=== PATIENT | female | born 1970 | race Caucasian/White ===

== ENCOUNTER 2023-08-15 19:07 | Emergency (ER) | payer OTHER, SELFPAY ==
[2023-08-15 19:10] VITALS: BP 164/79
--- NOTE | 2023-08-15 20:02 | ED.GENMED ---
History of Present Illness
General
Chief Complaint: Musculo-Skeletal Complaint
Source: patient
Time Seen by Provider: 08/15/23 19:35
Travel History
Have you had any contact with someone who has COVID-19?: No
Do you have any symptoms of coronavirus? Fever > 100 degrees, chills, cough, shortness of breath, sore throat, loss of taste or smell, muscle aches, or headache?: No
History of Present Illness
History of Present Illness:
53-year-old female presenting the emergency department for evaluation of left knee pain that she states started to get severe last night but notes that she has a chronic history of left knee pain and has been seen by Ortho in the past for this.
Patient states that years ago she had Synvisc injections into her knee which did not help. She notes that she was told by Ortho that she likely needs knee replacements but admits she has been putting this off. She denies any fevers, trauma, calf
pain or tenderness or any other concerns. She takes chronic tramadol and gabapentin due to other medical issues but states this has not been helping. No other concerns.
Past History
Past History
ED Past Medical History: CAD, COPD, GERD, HTN, Hypercholesterolemia, [place], Psychiatric and Other (Interstitial lung disease, IBS, Ovarian cyst, Sarcoidosis)
ED Past Surgical History: Cardiac (Stent L circumflex), Cholecystectomy, Gynecological (Hysterectomy), Orthopedic and Other
Social History
Tobacco: Smoker
Alcohol: None
Drug: None
Personal:
Living: with family
Employment: Employed
Family History
Family History: Hypertension and CAD (father)
Review of Systems
Review of Systems
All Other Systems: ROS reviewed and negative except as documented in HPI and ROS
Phy Exam
Physical Exam
Physical Exam:
GENERAL: Alert , in no apparent distress
EYE: conjunctiva clear
Head: Normocephalic atraumatic
NECK: Supple,
ENT: mmm.
LUNGS: no acute respiratory distress
NEUROLOGICAL: Alert and oriented
SKIN: Warm and dry, skin intact.
MUSCULOSKELETAL: Left knee: No erythema, edema, ecchymosis, abrasions or lacerations. No joint effusion appreciated. Minimal range of motion secondary to pain. No focal areas of tenderness but she is diffusely tender that is most pronounced over
the patella. No calf tenderness or edema. Extremities otherwise warm and well-perfused and neurovascularly intact
PSYCH: Normal and appropriate interaction.
Scores
Heart Failure Risk
Heart Failure Risk Score: Not Applicable
Heart Score for Chest Pain Patients
STEMI patient?: Not applicable
Withdrawal Assessment of Alcohol
Withdrawal Assessment Completed?: Not applicable
Course
Orders/Labs/Results
Orders:
Orders
08/15/23 19:14
Knee, Left 4 or More Views [CR Knee - Left 4 Or More View*] Urgent
Comment:
Reason For Exam: pain, denies trauma or swelling
08/15/23 20:06
Knee Immobilizer Left-Treatmen ONCE
Oxycodone [Roxicodone] 5 mg PO NOW STA
Vital Signs
Initial and Last Documented VS:
Initial Vital Signs
Temp Pulse Resp BP Pulse Ox
98.2 F 107 20 164/79 99
08/15/23 19:10 08/15/23 19:10 08/15/23 19:10 08/15/23 19:10 08/15/23 19:10
Last Documented Vital Signs
Temp Pulse Resp BP Pulse Ox
98.2 F 107 20 164/79 99
08/15/23 19:10 08/15/23 19:10 08/15/23 19:10 08/15/23 19:10 08/15/23 19:10
MDM/Problems Addressed
Differential Diagnosis Includes:
Arthritic changes, given lack of trauma I have less concern for acute meniscal or ligamentous injury, I do not have concern for infectious etiology
MDM/Problems Addressed:
53-year-old female present emergency department for evaluation of left knee pain. Patient admits that this is chronic and has been recommended for knee replacements in the past. Patient does have significant history of chronic pain. She does take
tramadol but states this is not giving her any relief. X-ray was ordered from triage and shows degenerative changes. Encourage close follow-up with orthopedics as an outpatient. She is otherwise stable for discharge home.
*Radiology
Radiology exam reviewed: preliminary read by ED provider (Degenerative changes)
*Pulse Oximetry
Patient hypoxic: no
*Critical Care Note
Total Time (30-74mins, 75-104mins- exclusive of procedures): Not Applicable
ED Attending Note
-
Portions of this chart may have been created with voice recognition software.� Occasional wrong word or��sound alike� substitutions may have occurred due to the inherent limitations of voice recognition software.
Discharge Plan
Departure
Patient Disposition: Home (Routine Discharge)
Date of Disposition: 08/15/23
Time of Disposition: 20:02
Patient with high blood pressure during this ER visit?: Yes
Discharge Problem:
Arthralgia of knee, left
Instructions: Knee Pain (DC)
Prescriptions:
New
oxycodone 5 mg tablet
5 mg PO BID PRN (Reason: Pain) Qty: 8 0RF
No Action
zolpidem [Ambien CR] 12.5 MG tablet,ext release multiphase
12.5 mg PO HS
Patient Comments:
11/19/2020: last filled 11/09/20, 30 tabs for 30 days from [facility][id number]
aspirin 81 MG tablet,delayed release (DR/EC)
81 mg PO DAILY Qty: 0 0RF
nitroglycerin 0.4 MG tablet, sublingual
0.4 mg sublingual [id number] PRN (Reason: chest pain) Qty: 30 3RF
tramadol 50 MG tablet
100 mg PO BID Qty: 0 0RF
Patient Comments:
11/19/2020: last filled 10/22/20, 120 tabs for 20 days from [facility]#[id number]
Rx Instructions:
Please take rarely, only in rare instances of need.
levalbuterol tartrate 1 PUFF HFA aerosol inhaler
2 puff inhalation R Q6HPRN PRN (Reason: sob)
lorazepam 0.5 MG tablet
0.5 - 1 mg PO Q4HPRN PRN (Reason: anxiety)
Patient Comments:
11/19/2020: last filled 11/01/20, 90 tabs for 30 days from [facility][id number]
fluticasone furoate-vilanterol [Breo Ellipta] 1 EACH blister with device
2 puff inhalation R DAILY
diltiazem HCl 180 MG capsule,extended release 24hr
180 mg PO DAILY
insulin aspart U-100 [Novolog FlexPen U-100 Insulin] 300 UNITS/3 ML insulin pen
24 units SC DAILY@0800
Patient Comments:
BREAKFAST
atorvastatin 80 MG tablet
80 mg PO DAILY
metoprolol succinate 50 MG tablet extended release 24 hr
50 mg PO HS
lisinopril 20 MG tablet
20 mg PO DAILY
sertraline 100 MG tablet
100 mg PO HS
dicyclomine 20 MG tablet
20 mg PO BID
hyoscyamine sulfate [Levsin/SL] 0.125 MG tablet, sublingual
0.125 mg sublingual Q6HPRN PRN (Reason: IBS, gastrointestinal issue)
furosemide 20 MG tablet
20 mg PO DAILY
ondansetron [Zofran ODT] 8 MG tablet,disintegrating
8 mg PO PRN PRN (Reason: NAUSEA)
insulin detemir U-100 [Levemir FlexTouch U100 Insulin] 300 UNIT/3 ML insulin pen
56 unit SC BID
gabapentin 100 MG capsule
200 mg PO TID
insulin aspart U-100 [Novolog FlexPen U-100 Insulin] 300 UNITS/3 ML insulin pen
6 units SC HS
Patient Comments:
LATE SNACK
insulin aspart U-100 [Novolog FlexPen U-100 Insulin] 300 UNITS/3 ML insulin pen
28 units SC BID@1200,1700
Patient Comments:
LUNCH & DINNER
doxycycline hyclate 100 MG capsule
100 mg PO Q12H 7 Days Qty: 14 0RF
hydromorphone [Dilaudid] 2 MG tablet
1 mg PO Q8HPRN PRN (Reason: severe pain) 3 Days Qty: 4 0RF
lorazepam 1 MG tablet
1 mg PO Q8HPRN PRN (Reason: severe abdominal spasm) Qty: 8 0RF
Referrals:
Luis Manuel Abernathy MD [Active] - (Ortho)
Interventions
Interventions:
*Risk Screen - Suicide Last Done: 08/15/23 19:10
*General Assessment Last Done: 08/15/23 19:10
Discharge Date and Time
Print Language: YI
[2023-08-15] MEDS: ROXICODONE 5 MG PO (20:17)
== END 2023-08-15 20:50 | disposition home or self-care (01) ==
LOC: EMR 19:07
PROVIDERS: EMERGENCY PHYSICIAN Emergency Medicine; FAMILY PHYSICIAN Family Medicine
DX: M25.562 Pain in left knee (principal); G89.29 Other chronic pain; F17.200 Nicotine dependence, unspecified, uncomplicated; I10 Essential (primary) hypertension
CPT/HCPCS: 99283; 29505; 73564

== ENCOUNTER 2023-09-17 15:20 | Emergency (ER) | payer OTHER, SELFPAY ==
[2023-09-17 15:32] VITALS: BP 147/102
[2023-09-17] MEDS: ZOFRAN ODT (ORALLY DISINTEGRATING) 4 MG PO (15:36)
[2023-09-17 16:00] LABS: % Basophils 0.6 % (0-2); % Eosinophils 1.3 % (0-6); % Immature Granulocytes 0.6 % (0-0.5); % Monocytes 5.2 % (1.7-9.3); % Neutrophils 78.3 % (42.2-75.2); Absolute Basophils 0.1 10^3/uL (0-0.2); Absolute Eosinophils 0.2 10^3/uL (0-0.7); Absolute Immature Granulocytes 0.1 10^3/uL (0-0.05); Absolute Lymphocytes 2.4 10^3/uL (1.2-3.4); Absolute Monocytes 0.9 10^3/uL (0.1-0.6); Absolute Neutrophils 13.7 10^3/uL (1.4-6.5); Hematocrit 45.3 % (37.0-47.0); Mean Corp Hgb Conc. 35.3 g/dL (33.0-37.0); Mean Corpuscular Hgb 29.3 pg (27.0-31.0); Mean Corpuscular Volume 82.8 fL (81.0-99.0); Mean Platelet Volume 9.5 fL (7.4-10.4); Nucleated Red Blood Cells % 0 %; Platelet Count 494 10^3/uL (130-400); Red Blood Cell Count 5.47 10^6/uL (4.20-5.40); Red Cell Dist. Width 13.3 % (11.5-14.5); White Blood Cell Count 17.5 10^3/uL (4.8-10.8)
[2023-09-17 16:19] LABS: ALT (SGPT) 35 U/L (0-35); AST (SGOT) 34 U/L (14-36); Albumin 4.3 g/dl (3.5-5.0); Alkaline Phosphatase 186 U/L (38-126); Blood Urea Nitrogen 17 mg/dl (7-17); Calcium 9.8 mg/dl (8.4-10.2); Carbon Dioxide 27 mmol/L (22-30); Chloride 98 mmol/L (98-107); Glucose 250 mg/dl (70-99); Lipase 50 U/L (23-300); Potassium 3.9 mmol/L (3.5-5.1); Sodium 133 mmol/L (135-145); Total Bilirubin 0.9 mg/dl (0.2-1.3); Total Protein 7.1 g/dl (6.3-8.2); eGFR > 60.00
[2023-09-17 18:41] LABS: Urine Albumin Trace (Neg - Trace); Urine Bilirubin Negative (Negative); Urine Character Clear (Clear); Urine Color Yellow; Urine Glucose Negative (Negative); Urine Ketone Trace (Negative); Urine Leukocyte Trace (Negative); Urine Nitrite Negative (Negative); Urine Occult Blood Negative (Negative); Urine Specific Gravity 1.025 (<1.030); Urine Urobilinogen Negative (Neg - 1+)
[2023-09-17 18:48] LABS: Urine Bacteria Moderate (Negative); Urine Red Blood Cell 0-2 /HPF (0-2); Urine White Cell 0-2 /HPF (0-5)
[2023-09-17] MEDS: DILAUDID 1 MG IV (18:54)
[2023-09-17] MEDS: NSS 1000 IV (18:55)
[2023-09-17 19:39] VITALS: BP 129/62
--- NOTE | 2023-09-17 19:43 | ED.GENMED ---
History of Present Illness
General
Chief Complaint: Abdominal Pain
Source: patient and family
Time Seen by Provider: 09/17/23 17:56
Travel History
Have you had any contact with someone who has COVID-19?: No
Do you have any symptoms of coronavirus? Fever > 100 degrees, chills, cough, shortness of breath, sore throat, loss of taste or smell, muscle aches, or headache?: No
History of Present Illness
History of Present Illness:
53-year-old female presents with left lower quadrant abdominal pain. Symptoms began yesterday and have persisted. No diarrhea or melena. No hematochezia. Has had some nausea and vomiting. No fevers.
Past History
Past History
ED Past Medical History: CAD, COPD, GERD, HTN, Hypercholesterolemia, [place], Psychiatric and Other (Interstitial lung disease, IBS, Ovarian cyst, Sarcoidosis)
ED Past Surgical History: Cardiac (Stent L circumflex), Cholecystectomy, Gynecological (Hysterectomy), Orthopedic and Other
Social History
Tobacco: Smoker
Alcohol: None
Drug: None
Personal:
Living: with family
Employment: Employed
Family History
Family History: Hypertension and CAD (father)
Phy Exam
Physical Exam
Physical Exam:
CONSTITUTIONAL Patient alert and oriented to person, place and time. Well-appearing. Vital signs reviewed. Obese
HEAD atraumatic, normocephalic.
EYES eyelids normal to inspection, Pupils equally round and reactive to light, Extraocular muscles intact, Conjunctiva normal, Sclera normal.
NECK normal range of motion, Trachea midline, no jugular venous distention.
RESPIRATORY CHEST No respiratory distress noted, Chest expansion equal, Bilateral breath sounds clear.
CARDIOVASCULAR regular rate and rhythm, Heart sounds normal.
ABDOMEN moderate left lower quadrant tenderness.
BACK normal inspection, no obvious deformities
UPPER EXTREMITY range of motion normal, Motor strength normal, no cyanosis, no edema.
LOWER EXTREMITY range of motion normal, Motor strength normal, no cyanosis, no edema.
NEURO Speech normal, No focal motor deficits, Ale coma scale 15, Memory normal, Cranial Nerves intact to screening exam.
SKIN skin warm, dry, and normal in color.
PSYCHIATRIC patient oriented to person place and time, Normal affect.
Course
Orders/Labs/Results
Orders:
Orders
09/17/23 15:36
Ondansetron Orally Disint [Zofran Odt (Orally Disintegrating)] 4 mg .ROUTE .STK-MED ONE
Ondansetron Orally Disint [Zofran Odt (Orally Disintegrating)] 4 mg PO NOW STA
09/17/23 15:51
Complete Blood Count/With Diff Urgent
Comprehensive Metabolic Panel Urgent
Lipase Urgent
09/17/23 18:29
UA Reflex to Culture [Urinalysis Reflex To Culture] Urgent
Date Specimen was Collected: 09/17/23
Time Specimen was Collected: 18:29
Urine Microscopic Reflex Cult Urgent
Urine Culture Urgent
EMIR Source: U
Specimen Description:
Date Specimen was Collected: 09/17/23
Time Specimen was Collected: 18:29
09/17/23 18:32
CT Abd/pelvis W Iv Cont Urgent
Comment:
Reason For Exam: LLQ abd pain
09/17/23 18:46
0.9% Sodium Chloride 1000 ml [Nss] 1,000 ml IV BOLUS
HYDROmorphone [Dilaudid] 1 mg IV NOW STA
Abnormal Lab Results
09/17/23 09/17/23
15:51 18:29
WBC 17.5 H 10^3/uL
(4.8-10.8)
RBC 5.47 H 10^6/uL
(4.20-5.40)
Plt Count 494 H 10^3/uL
(130-400)
Abs Immat Gran (auto) 0.1 H 10^3/uL
(0-0.05)
Absolute Neuts (auto) 13.7 H 10^3/uL
(1.4-6.5)
Absolute Monos (auto) 0.9 H 10^3/uL
(0.1-0.6)
Immature Gran % 0.6 H %
(0-0.5)
Neutrophils % 78.3 H %
(42.2-75.2)
Lymphocytes % 14.0 L %
(20.5-51.1)
Sodium 133 L mmol/L
(135-145)
Glucose 250 H mg/dl
(70-99)
Alkaline Phosphatase 186 H U/L
(38-126)
Urine Ketones Trace A
(Negative)
Leukocyte Esterase Rfl Trace A
(Negative)
Urine Bacteria (Reflex) Moderate A
(Negative)
09/17/23 15:51
09/17/23 15:51
Vital Signs
Initial and Last Documented VS:
Initial Vital Signs
Temp Pulse Resp BP Pulse Ox
99.7 F 111 18 147/102 97
09/17/23 15:32 09/17/23 15:32 09/17/23 15:32 09/17/23 15:32 09/17/23 15:32
Last Documented Vital Signs
Temp Pulse Resp BP Pulse Ox
99.7 F 97 18 129/62 97
09/17/23 15:32 09/17/23 19:39 09/17/23 19:39 09/17/23 19:39 09/17/23 19:39
MDM/Problems Addressed
MDM/Problems Addressed:
Acute leukocytosis, abdominal pain, ovarian cyst, acute hyperglycemia
*Radiology
Radiology exam reviewed: radiology read reviewed
*Pulse Oximetry
Patient hypoxic: no
*Critical Care Note
Total Time (30-74mins, 75-104mins- exclusive of procedures): Not Applicable
Data Reviewed
Source: patient and family
Further Testing Considered But Not Given:
Consider pelvic ultrasound but no clinical suspicion for torsion at this time.
Patient Management
Escalation/DeEscalation of care consider admission/obs:
CT grossly unremarkable with exception of her cysts. She does have a leukocytosis and moderate bacteria in her urine. Given her diabetes that does appear to be not well-controlled, will cover with antibiotics. But recommended outpatient PCP
follow-up. Urine culture pending.
ED Attending Note
-
Portions of this chart may have been created with voice recognition software.� Occasional wrong word or��sound alike� substitutions may have occurred due to the inherent limitations of voice recognition software.
Discharge Plan
Departure
Patient Disposition: Home (Routine Discharge)
Date of Disposition: 09/17/23
Time of Disposition: 19:52
Patient with high blood pressure during this ER visit?: No
Discharge Problem:
Abdominal pain, Acute hyperglycemia, Ovarian cyst, Hernia, umbilical
Instructions: High Blood Sugar, Adult, Abdominal Pain
Prescriptions:
New
cefuroxime axetil 500 mg tablet
500 mg PO BID 7 Days Qty: 14 0RF
No Action
zolpidem [Ambien CR] 12.5 MG tablet,ext release multiphase
12.5 mg PO HS
Patient Comments:
11/19/2020: last filled 11/09/20, 30 tabs for 30 days from [facility]#[id number]
aspirin 81 MG tablet,delayed release (DR/EC)
81 mg PO DAILY Qty: 0 0RF
nitroglycerin 0.4 MG tablet, sublingual
0.4 mg sublingual [id number] PRN (Reason: chest pain) Qty: 30 3RF
tramadol 50 MG tablet
100 mg PO BID Qty: 0 0RF
Patient Comments:
11/19/2020: last filled 10/22/20, 120 tabs for 20 days from [facility]#[id number]
Rx Instructions:
Please take rarely, only in rare instances of need.
levalbuterol tartrate 1 PUFF HFA aerosol inhaler
2 puff inhalation R Q6HPRN PRN (Reason: sob)
lorazepam 0.5 MG tablet
0.5 - 1 mg PO Q4HPRN PRN (Reason: anxiety)
Patient Comments:
11/19/2020: last filled 11/01/20, 90 tabs for 30 days from [facility]#[id number]
fluticasone furoate-vilanterol [Breo Ellipta] 1 EACH blister with device
2 puff inhalation R DAILY
diltiazem HCl 180 MG capsule,extended release 24hr
180 mg PO DAILY
insulin aspart U-100 [Novolog FlexPen U-100 Insulin] 300 UNITS/3 ML insulin pen
24 units SC DAILY@0800
Patient Comments:
BREAKFAST
atorvastatin 80 MG tablet
80 mg PO DAILY
metoprolol succinate 50 MG tablet extended release 24 hr
50 mg PO HS
lisinopril 20 MG tablet
20 mg PO DAILY
sertraline 100 MG tablet
100 mg PO HS
dicyclomine 20 MG tablet
20 mg PO BID
hyoscyamine sulfate [Levsin/SL] 0.125 MG tablet, sublingual
0.125 mg sublingual Q6HPRN PRN (Reason: IBS, gastrointestinal issue)
furosemide 20 MG tablet
20 mg PO DAILY
ondansetron [Zofran ODT] 8 MG tablet,disintegrating
8 mg PO PRN PRN (Reason: NAUSEA)
insulin detemir U-100 [Levemir FlexTouch U100 Insulin] 300 UNIT/3 ML insulin pen
56 unit SC BID
gabapentin 100 MG capsule
200 mg PO TID
insulin aspart U-100 [Novolog FlexPen U-100 Insulin] 300 UNITS/3 ML insulin pen
6 units SC HS
Patient Comments:
LATE SNACK
insulin aspart U-100 [Novolog FlexPen U-100 Insulin] 300 UNITS/3 ML insulin pen
28 units SC BID@1200,1700
Patient Comments:
LUNCH & DINNER
doxycycline hyclate 100 MG capsule
100 mg PO Q12H 7 Days Qty: 14 0RF
hydromorphone [Dilaudid] 2 MG tablet
1 mg PO Q8HPRN PRN (Reason: severe pain) 3 Days Qty: 4 0RF
lorazepam 1 MG tablet
1 mg PO Q8HPRN PRN (Reason: severe abdominal spasm) Qty: 8 0RF
oxycodone 5 mg tablet
5 mg PO BID PRN (Reason: Pain) Qty: 8 0RF
Referrals:
Freddy Arellano DO [Family Provider] -
Activity Restrictions/Additional Instructions:
Return immediately for fevers, vomiting, worsening pain or any other concerns. Please see your doctor in the next 3 days for follow-up and reevaluation. Please drink plenty fluids and monitor your blood glucose regularly.
Interventions
Interventions:
*Risk Screen - Suicide Last Done: 09/17/23 15:32
*General Assessment Last Done: 09/17/23 15:32
*Neglect/Abuse Screening Last Done: 09/17/23 15:32
ED- Fall Risk Assessment Last Done: 09/17/23 17:57
*ED COVID-19 Vaccine History Last Done: 09/17/23 15:32
BY-Komqkf-Llaoorwler Assessment Last Done: 09/17/23 17:57
Discharge Date and Time
Print Language: [place] LEONE[place]
[2023-09-17] MEDS: TORADOL 30 MG IV (20:07)
== END 2023-09-17 20:17 | disposition home or self-care (01) ==
LOC: EMR 15:20
PROVIDERS: EMERGENCY PHYSICIAN Emergency Medicine; FAMILY PHYSICIAN Family Medicine
DX: R10.32 Left lower quadrant pain (principal); R73.9 Hyperglycemia, unspecified; N83.201 Unspecified ovarian cyst, right side; N83.202 Unspecified ovarian cyst, left side; K42.9 Umbilical hernia without obstruction or gangrene; F17.200 Nicotine dependence, unspecified, uncomplicated
CPT/HCPCS: 99285; 96374; 96375; 96361; 74177; 80053; 81003; 81015; 83690; 85025; 87086; Q9967

== ENCOUNTER → 2023-09-26 12:02 | Outpatient (REF) | payer OTHER, SELFPAY ==
[2023-09-26 16:04] LABS: % Basophils 0.8 % (0-2); % Eosinophils 1.8 % (0-6); % Immature Granulocytes 0.5 % (0-0.5); % Monocytes 4.4 % (1.7-9.3); % Neutrophils 71.5 % (42.2-75.2); Absolute Basophils 0.1 10^3/uL (0-0.2); Absolute Eosinophils 0.2 10^3/uL (0-0.7); Absolute Immature Granulocytes 0.1 10^3/uL (0-0.05); Absolute Lymphocytes 2.3 10^3/uL (1.2-3.4); Absolute Monocytes 0.5 10^3/uL (0.1-0.6); Absolute Neutrophils 7.8 10^3/uL (1.4-6.5); Hematocrit 44.1 % (37.0-47.0); Hemoglobin 14.9 g/dL (12.0-16.0); Mean Corp Hgb Conc. 33.8 g/dL (33.0-37.0); Mean Corpuscular Hgb 29.4 pg (27.0-31.0); Mean Platelet Volume 10.8 fL (7.4-10.4); Nucleated Red Blood Cells % 0 %; Platelet Count 416 10^3/uL (130-400); Red Blood Cell Count 5.07 10^6/uL (4.20-5.40); Red Cell Dist. Width 13.2 % (11.5-14.5); White Blood Cell Count 10.9 10^3/uL (4.8-10.8)
[2023-09-26 16:14] LABS: ALT (SGPT) 28 U/L (0-35); AST (SGOT) 20 U/L (14-36); Alkaline Phosphatase 162 U/L (38-126); Blood Urea Nitrogen 11 mg/dl (7-17); Calcium 9.5 mg/dl (8.4-10.2); Carbon Dioxide 29 mmol/L (22-30); Chloride 96 mmol/L (98-107); Glucose 277 mg/dl (70-99); HDL Cholesterol 28 mg/dl; LDL Cholesterol, Calculated 50 mg/dl; Potassium 4.5 mmol/L (3.5-5.1); Sodium 134 mmol/L (135-145); Total Bilirubin 0.6 mg/dl (0.2-1.3); Total Cholesterol 107 mg/dl (50-199); Total Protein 6.6 g/dl (6.3-8.2); Triglyceride 145 mg/dl (10-149); Very Low Density Lipoprotein 29 mg/dl (0-30); eGFR > 60.00
[2023-09-26 16:35] LABS: Microalbumin, Random Urine < 0.6 mg/dl (0.6-1.7)
[2023-09-26 16:44] LABS: TSH 2.57 uIU/ml (0.47-4.68)
[2023-09-27 10:25] LABS: Glycohemoglobin (HgbA1c) 11.5 % (4.0-5.6)
== END ==
LOC: HWLAB 12:02
PROVIDERS: ATTENDING PHYSICIAN Family Medicine
DX: G90.522 Complex regional pain syndrome I of left lower limb (principal); E03.9 Hypothyroidism, unspecified; R53.83 Other fatigue; I10 Essential (primary) hypertension; E78.5 Hyperlipidemia, unspecified; E11.9 Type 2 diabetes mellitus without complications
CPT/HCPCS: 36415; 80053; 80061; 82043; 82570; 83036; 84443; 85025

== ENCOUNTER → 2023-11-12 13:33 | Outpatient (REF) | payer OTHER, SELFPAY | LOC: HWWDC 13:33 | PROVIDERS: ATTENDING PHYSICIAN Family Medicine | DX: Z12.31 Encounter for screening mammogram for malignant neoplasm of breast (principal) | CPT/HCPCS: 77063; 77067 ==

== ENCOUNTER 2023-12-08 19:34 | Inpatient (IN) | payer OTHER, SELFPAY ==
[2023-12-08] VITALS (7 sets, daily range): BP systolic 113–173; BP diastolic 58–92; BMI 51.3; BMI 50.0
[2023-12-08 13:01] LABS: Urine Albumin Negative (Neg - Trace); Urine Bilirubin Negative (Negative); Urine Character Clear (Clear); Urine Color Yellow; Urine Glucose Trace (Negative); Urine Ketone Negative (Negative); Urine Leukocyte Negative (Negative); Urine Nitrite Negative (Negative); Urine Occult Blood Negative (Negative); Urine Specific Gravity 1.015 (<1.030); Urine Urobilinogen Negative (Neg - 1+)
[2023-12-08] MEDS: DILAUDID 1 MG IV ×5 (14:01→23:57)
[2023-12-08] MEDS: OMNIPAQUE 50 ML PO (14:01)
[2023-12-08 14:11] LABS: % Basophils 0.2 % (0-2); % Immature Granulocytes 0.9 % (0-0.5); % Lymphocytes 9.3 % (20.5-51.1); % Monocytes 3.5 % (1.7-9.3); % Neutrophils 86.1 % (42.2-75.2); Absolute Immature Granulocytes 0.2 10^3/uL (0-0.05); Absolute Lymphocytes 1.8 10^3/uL (1.2-3.4); Absolute Monocytes 0.7 10^3/uL (0.1-0.6); Absolute Neutrophils 16.9 10^3/uL (1.4-6.5); Hematocrit 40.2 % (37.0-47.0); Hemoglobin 14.1 g/dL (12.0-16.0); Mean Corp Hgb Conc. 35.1 g/dL (33.0-37.0); Mean Corpuscular Hgb 28.7 pg (27.0-31.0); Mean Corpuscular Volume 81.9 fL (81.0-99.0); Mean Platelet Volume 9.5 fL (7.4-10.4); Nucleated Red Blood Cells % 0 %; Platelet Count 515 10^3/uL (130-400); Red Blood Cell Count 4.91 10^6/uL (4.20-5.40); Red Cell Dist. Width 13.5 % (11.5-14.5); White Blood Cell Count 19.6 10^3/uL (4.8-10.8)
[2023-12-08 14:50] LABS: ALT (SGPT) 19 U/L (0-35); AST (SGOT) 15 U/L (14-36); Albumin 4.3 g/dl (3.5-5.0); Alkaline Phosphatase 137 U/L (38-126); Blood Urea Nitrogen 16 mg/dl (7-17); Calcium 9.4 mg/dl (8.4-10.2); Carbon Dioxide 25 mmol/L (22-30); Chloride 98 mmol/L (98-107); Glucose 313 mg/dl (70-99); Lipase 28 U/L (23-300); Potassium 4.3 mmol/L (3.5-5.1); Sodium 134 mmol/L (135-145); Total Bilirubin 0.4 mg/dl (0.2-1.3); Total Protein 6.7 g/dl (6.3-8.2); eGFR > 60.00
--- NOTE | 2023-12-08 16:03 | ED.GENMED ---
History of Present Illness
General
Chief Complaint: Abdominal Pain
Source: patient
Time Seen by Provider: 12/08/23 13:25
History of Present Illness
History of Present Illness:
53yoF with a history of coronary artery disease, hypertension, hyperlipidemia, type 2 diabetes, and obesity presenting with her mother for evaluation of abdominal pain. Symptoms began around 5 AM this morning and woke her up from sleep. She
reports pain primarily in her right lower and suprapubic region. She describes severe pressure in the area as well as burning. She is experiencing nausea but denies any vomiting. She has a known hernia in her RLQ for many years which has seemed to
get bigger over the past few weeks. She was able to have a very small BM earlier today. She denies any fevers, dysuria, chest pain, shortness of breath. Previous abdominal surgeries include a hysterectomy and cholecystectomy.
Past History
Past History
ED Past Medical History: CAD, COPD, GERD, HTN, Hypercholesterolemia, [place], Psychiatric and Other (Interstitial lung disease, IBS, Ovarian cyst, Sarcoidosis)
ED Past Surgical History: Cardiac (Stent L circumflex), Cholecystectomy, Gynecological (Hysterectomy), Orthopedic and Other
Social History
Tobacco: Smoker
Alcohol: None
Drug: None
Personal:
Living: with family
Employment: Employed
Family History
Family History: Hypertension and CAD (father)
Phy Exam
General Physical Exam
General Presentation: mild distress
General age: appears stated age
General Skin: warm and dry
General Habitus: normal
General Mental: alert
Cardiovascular Exam
Cardiovascular Exam: regular rate/rhythm and no murmur
Pulmonary Exam
Pulmonary Exam: lungs clear, no respiratory distress, no crackles and no wheezing
Gastrointestinal Exam
Gastrointestinal Exam: soft, non distended and other (Obese abdomen. Large palpable umbilical hernia present that is tender to touch. No overlying skin changes. )
Course
Orders/Labs/Results
Orders:
Orders
12/08/23 12:46
Urinalysis Reflex To Culture Urgent
Date Specimen was Collected: 12/08/23
Time Specimen was Collected: 12:40
12/08/23 13:39
CT Abd/pel W Iv And Oral Contr Urgent
Comment:
Reason For Exam: RLQ pain, known hernia
HYDROmorphone [Dilaudid] 1 mg IV NOW STA
Iohexol [Omnipaque] See Protocol PO NOW STA
12/08/23 13:56
Complete Blood Count/With Diff Urgent
Comprehensive Metabolic Panel Urgent
Lipase Urgent
12/08/23 15:54
HYDROmorphone [Dilaudid] 1 mg IV NOW STA
12/08/23 17:03
ECG [Electrocardiogram (*1)] Urgent
Reason for Study: Chest Pain
EKG- Treatment ONCE
12/08/23 17:38
HYDROmorphone [Dilaudid] 1 mg IV NOW STA
12/08/23 18:11
CefTRIAXone [Rocephin] 2,000 mg IV NOW STA
12/08/23 18:20
MetroNIDAZOLE 500 MG/100 ML [Flagyl 500 mg] 100 ml IV NOW
Abnormal Lab Results
12/08/23 12/08/23
12:46 13:56
WBC 19.6 H 10^3/uL
(4.8-10.8)
Plt Count 515 H 10^3/uL
(130-400)
Abs Immat Gran (auto) 0.2 H 10^3/uL
(0-0.05)
Absolute Neuts (auto) 16.9 H 10^3/uL
(1.4-6.5)
Absolute Monos (auto) 0.7 H 10^3/uL
(0.1-0.6)
Immature Gran % 0.9 H %
(0-0.5)
Neutrophils % 86.1 H %
(42.2-75.2)
Lymphocytes % 9.3 L %
(20.5-51.1)
Sodium 134 L mmol/L
(135-145)
Glucose 313 H mg/dl
(70-99)
Alkaline Phosphatase 137 H U/L
(38-126)
Urine Glucose Trace A
(Negative)
12/08/23 13:56
12/08/23 13:56
Vital Signs
Initial and Last Documented VS:
Initial Vital Signs
Temp Pulse Resp BP Pulse Ox
98.3 F 86 18 173/92 96
12/08/23 12:37 12/08/23 12:37 12/08/23 12:37 12/08/23 12:37 12/08/23 12:37
Last Documented Vital Signs
Temp Pulse Resp BP Pulse Ox
98.3 F 86 20 137/78 94
12/08/23 12:37 12/08/23 18:00 12/08/23 18:00 12/08/23 18:00 12/08/23 18:00
MDM/Problems Addressed
Differential Diagnosis Includes:
53yoF here with abdominal pain. Woke her up from sleep this morning. C/o nausea. Hx of umbilical hernia. Patient is hypertensive with otherwise normal vital signs. She appears uncomfortable but is nontoxic. There is a palpable umbilical hernia
present on exam that is tender to touch. No skin changes. Differential diagnosis includes but is not limited to: Umbilical hernia, bowel obstruction, appendicitis, kidney stone, nonspecific abdominal pain
Initial ED plan: Check abdominal labs, UA, and CT abdomen. IV Dilaudid for pain.
*Critical Care Note
Total Time (30-74mins, 75-104mins- exclusive of procedures): Not Applicable
Update Note
Update Note:
Labs reveal a leukocytosis with a white count of 19.6. Glucose 313. Bicarb and anion gap normal. No signs of infection on UA. CT abdomen shows a 10 cm umbilical hernia containing a loop of transverse colon with at least a partial obstruction.
Attempted to reduce hernia at bedside which was unsuccessful. Case was discussed with general surgery, Dr. Salas. Surgery recommending admission with plan for surgery tomorrow. Antibiotics ordered per surgery request. She was admitted for further
management.
ED Attending Note
-
Portions of this chart may have been created with voice recognition software.� Occasional wrong word or��sound alike� substitutions may have occurred due to the inherent limitations of voice recognition software.
Discharge Plan
Departure
Patient Disposition: Admit
Date of Disposition: 12/08/23
Time of Disposition: 18:21
Presentation/result/management discussed w/ accepting MD/DO: Hospitalist
Discharge Problem:
Umbilical hernia with obstruction
Prescriptions:
No Action
zolpidem [Ambien CR] 12.5 MG tablet,ext release multiphase
12.5 mg PO HS
Patient Comments:
11/19/2020: last filled 11/09/20, 30 tabs for 30 days from [facility]#[id number]
aspirin 81 MG tablet,delayed release (DR/EC)
81 mg PO DAILY Qty: 0 0RF
nitroglycerin 0.4 MG tablet, sublingual
0.4 mg sublingual [id number] PRN (Reason: chest pain) Qty: 30 3RF
levalbuterol tartrate 1 PUFF HFA aerosol inhaler
2 puff inhalation R Q6HPRN PRN (Reason: sob)
lorazepam 0.5 MG tablet
0.5 - 1 mg PO Q4HPRN PRN (Reason: anxiety)
Patient Comments:
11/19/2020: last filled 11/01/20, 90 tabs for 30 days from [facility]#[id number]
fluticasone furoate-vilanterol [Breo Ellipta] 1 EACH blister with device
2 puff inhalation R DAILY
diltiazem HCl 180 MG capsule,extended release 24hr
180 mg PO DAILY
insulin aspart U-100 [Novolog FlexPen U-100 Insulin] 300 UNITS/3 ML insulin pen
24 units SC DAILY@0800
Patient Comments:
BREAKFAST
atorvastatin 80 MG tablet
80 mg PO DAILY
metoprolol succinate 50 MG tablet extended release 24 hr
50 mg PO HS
lisinopril 20 MG tablet
20 mg PO DAILY
sertraline 100 MG tablet
100 mg PO HS
dicyclomine 20 MG tablet
20 mg PO BID
hyoscyamine sulfate [Levsin/SL] 0.125 MG tablet, sublingual
0.125 mg sublingual Q6HPRN PRN (Reason: IBS, gastrointestinal issue)
furosemide 20 MG tablet
20 mg PO DAILY
insulin detemir U-100 [Levemir FlexTouch U100 Insulin] 300 UNIT/3 ML insulin pen
56 unit SC BID
gabapentin 100 MG capsule
200 mg PO TID
insulin aspart U-100 [Novolog FlexPen U-100 Insulin] 300 UNITS/3 ML insulin pen
6 units SC HS
Patient Comments:
LATE SNACK
insulin aspart U-100 [Novolog FlexPen U-100 Insulin] 300 UNITS/3 ML insulin pen
28 units SC BID@1200,1700
Patient Comments:
LUNCH & DINNER
lorazepam 1 MG tablet
1 mg PO Q8HPRN PRN (Reason: severe abdominal spasm) Qty: 8 0RF
Referrals:
Freddy Arellano DO [Family Provider] -
Interventions
Interventions:
*Risk Screen - Suicide Last Done: 12/08/23 12:37
*General Assessment Last Done: 12/08/23 12:37
*Neglect/Abuse Screening Last Done: 12/08/23 12:37
ED- Fall Risk Assessment Last Done: 12/08/23 14:22
*ED COVID-19 Vaccine History Last Done: 12/08/23 14:22
AE-Rswytq-Bhfftmoxni Assessment Last Done: 12/08/23 14:22
Discharge Date and Time
Print Language: AMERICAN
--- NOTE | 2023-12-08 18:32 | HPS.HSE ---
Family Physician
-
Family Physician: Freddy Arellano
Chief Complaint
-
Abdominal pain
History of Present Illness
This is a 53-year-old female was past medical history significant for insulin-dependent diabetes, hypertension, hyperlipidemia, orthostatic hypotension, CAD s/p stenting, morbid obesity, interstitial lung disease, and a longstanding umbilical hernia
who presents to the emergency department with acute onset of lower abdominal pain within the last 24 hours.
Patient reported that she started having pain at around 5 AM today last meal was 11 PM yesterday. She reports nausea but denies any vomiting. She denies any abdominal bloating. She denies having any diarrhea. She has not had any fevers or
chills. Patient denies any melena or hematochezia. The pain is nonradiating. She denies any flank pain or groin pain. She denies any dysuria or hematuria.
She is known to have a rather large umbilical hernia that came to the imaging department for evaluation.
On arrival in the emergency department patient was afebrile and hemodynamically stable. White count was elevated at 19,000, hemoglobin and platelet counts are within normal limits. Chemistries within normal limits without any anion gap. Glucose
was elevated at 313. A CT scan shows a 10 cm umbilical hernia containing loops of transverse colon partial obstruction.
Medical History
Past Medical History
Past Medical History: Reports COPD, GERD, HTN, Hypercholesterolemia and IDDM
Additional Past Medical History:
ILD
IBS
Chronic pain
Past Surgical History: Reports None
Social History
Tobacco: Non-smoker
Alcohol: None
Drug: None
Living: With Family
Employment: Employed
Family History
Family History: Not pertinent
Allergies / Home Medications
Allergies reflects when Allergies were last updated in [facility].
Home Medications with original date entered in [facility]
Allergy/Medication List:
Allergies
Allergy/AdvReac Type Severity Reaction Status Date / Time
oxycodone [From Percocet] Allergy 'breathing Verified 08/15/23 19:13
issues'
Home Medications
zolpidem 12.5 mg tablet,extended release,multiphase (Ambien CR) 12.5 mg PO HS Sleep 11/21/14
aspirin 81 mg tablet,delayed release 81 mg PO DAILY ##0 11/24/14
nitroglycerin 0.4 mg sublingual tablet 0.4 mg sublingual [id number] PRN chest pain #30 tabs 11/24/14
levalbuterol tartrate 45 mcg/actuation aerosol inhaler 2 puff inhalation R Q6HPRN PRN sob 01/31/17
lorazepam 0.5 mg tablet 0.5 - 1 mg PO Q4HPRN PRN anxiety 10/05/17
diltiazem HCl 180 mg capsule,extended release 24 hr 180 mg PO DAILY Heart disease/condition 10/05/20
fluticasone furoate 100 mcg-vilanterol 25 mcg/dose inhalation powder (Breo Ellipta) 2 puff inhalation R DAILY Lung/breathing issues 10/05/20
atorvastatin 80 mg tablet 80 mg PO DAILY High cholesterol 10/29/20
dicyclomine 20 mg tablet 20 mg PO BID Gastrointestinal issue 10/29/20
furosemide 20 mg tablet 20 mg PO DAILY Fluid retention/Swelling 10/29/20
hyoscyamine sulfate 0.125 mg sublingual tablet (Levsin/SL) 0.125 mg sublingual Q6HPRN PRN IBS, gastrointestinal issue 10/29/20
insulin aspart U-100 100 unit/mL (3 mL) subcutaneous pen (Novolog FlexPen U-100 Insulin aspart) 24 units SC DAILY@0800 Diabetes 10/29/20
lisinopril 20 mg tablet 20 mg PO DAILY Blood pressure 10/29/20
metoprolol succinate 50 mg tablet,extended release 24 hr 50 mg PO HS Blood pressure 10/29/20
sertraline 100 mg tablet 100 mg PO HS Mental Health/Anxiety 10/29/20
gabapentin 100 mg capsule 200 mg PO TID Pain 11/19/20
insulin aspart U-100 100 unit/mL (3 mL) subcutaneous pen (Novolog FlexPen U-100 Insulin aspart) 6 units SC HS Diabetes 11/19/20
insulin aspart U-100 100 unit/mL (3 mL) subcutaneous pen (Novolog FlexPen U-100 Insulin aspart) 28 units SC BID@1200,1700 Diabetes 11/19/20
insulin detemir U-100 100 unit/mL (3 mL) subcutaneous pen (Levemir FlexTouch U-100 Insulin) 56 unit SC BID Diabetes 11/19/20
lorazepam 1 mg tablet 1 mg PO Q8HPRN PRN severe abdominal spasm #8 tabs 10/25/21
Review of Systems
-
History Source: Patient
Constitutional: Reports No Symptoms
EENT: Reports No Symptoms
Respiratory: Reports No Symptoms
Cardiac: Reports No Symptoms
Abdomen/GI: Reports Abdominal Pain and Nausea
: Reports No Symptoms
Musculoskeletal: Reports No Symptoms
Skin: Reports No Symptoms
Neurological: Reports No Symptoms
Endocrine: Reports No Symptoms
Hematologic/Lymphatic: Reports No Symptoms
Psych: Reports No Symptoms
Physical Exam
Vital Signs
Vital Signs
Temp Pulse Resp BP Pulse Ox
98.3 F 86 20 137/78 94
12/08/23 12:37 12/08/23 18:00 12/08/23 18:00 12/08/23 18:00 12/08/23 18:00
Physical Exam
General: Well Developed, Appears in Distress and Morbidly Obese
HEENT: NormoCephalic, Anicteric, Moist mucous membranes, Atraumatic and PERRLA
Respiratory: Clear
Cardiac: S1/S2 and Regular Rhythm
Breast: Deferred by me
GI: Soft, Non Tender and Tender
Rectal: Deferred by Provider
Genito-urinary: Deferred by me
Musculoskeletal: No Clubbing, No Cyanosis and No Edema
Skin: Warm
Neuro: AO x 3
Hematologic/Lymphatic: No Lymphadenopathy
Psych: Calm
Laboratory Results
-
12/08/23 13:56
12/08/23 13:56
Laboratory Results
Total Bilirubin 0.4 mg/dl (0.2-1.3) 12/08/23 13:56
AST 15 U/L (14-36) 12/08/23 13:56
ALT 19 U/L (0-35) 12/08/23 13:56
Alkaline Phosphatase 137 U/L (38-126) H 12/08/23 13:56
Lipase 28 U/L (23-300) 12/08/23 13:56
Data Reviewed
-
CT Scan: Image Personally Visualized and interpreted
Lab Data: Labs Reviewed by me
Old Records: Reviewed
Impression/Plan
-
IMPRESSION:
PLAN:
1. Abdominal pain - Possibly trapped/inaceration of large 10cm umbilical hernia containing loops of transverse colon and complicated by partial obstruction. No vomiting. No abdominal distension.
- admit to [facility]
- given leukocytosis -> will treat for possible intraabdominal infection with IV zosyn
- surgery aware and plans for OR tomorrow
- NPO, pain control and antiemetics for now
2. DM 2 - Poorly controlled blood glucose of > 300. No DKA. Recent steroid injection with nerve block. Patient on lantus, novolog, ozempic and metformin at home.
- hold metformin x 48 hrs and hold lantus while NPO
- moderate sliding scale insulin
- hydration with LR for now
3.Med REc - Minimizing oral meds but will continue, fludrocortisone, gabapentin, sertraline. Start antihypertensives with hold parameters (holding prior to surgery in am) after surgery. Aspirin, statim and ezetimibe after surgery
DVT PPX - lovenox sq
Full Code
[2023-12-08] MEDS: ZOSYN 50 IV (19:59)
[2023-12-08] MEDS: LR 1000 IV (21:31)
[2023-12-08] MEDS: ZOLOFT 100 MG PO (21:33)
[2023-12-08] MEDS: FLEXERIL 10 MG PO (21:33)
[2023-12-08] MEDS: NEURONTIN 300 MG PO (21:33)
--- NOTE | 2023-12-08 22:40 | PTCARENOTE ---
Patient admitted to unit around 2044 via stretcher with dx large bowel obstruction and umbilical hernia. AAAOX3 pleasant and cooperative with care. No signs of distress noted. Bowel sounds hypo active. Call bliss within reach. Oriented to unit.
[2023-12-08 23:54] LABS: Glucose - Point of Care 230 mg/dl (70-99)
[2023-12-08] MEDS: NOVOLOG FLEXPEN-MODERATE RESISTANCE 3 UNITS SC (23:56)
[2023-12-09] VITALS (15 sets, daily range): BP systolic 132–167; BP diastolic 68–89
[2023-12-09] MEDS: ZOSYN 50 IV ×4 (02:08→19:34)
[2023-12-09] MEDS: DILAUDID 1 MG IV ×5 (04:01→23:21)
[2023-12-09] MEDS: NOVOLOG FLEXPEN-MODERATE RESISTANCE 3 UNITS SC ×2 (05:47→16:25)
[2023-12-09 05:48] LABS: Glucose - Point of Care 217 mg/dl (70-99)
--- NOTE | 2023-12-09 07:44 | CON.CRS ---
Consultation
-
Date/Time Consultation Requested: 12/08/23 @20:53
Date/Time Consultation Performed: 12/09/23 @6:30
Requesting Provider: Keith Sellers MD
Performing Provider: Peyman Salas MD
Reason for Consultation: Incarcerated ventral hernia
Medical History
-
Chief Complaint: Abdominal pain
History of Present Illness:
53-year-old female with multiple medical problems including insulin-dependent diabetes, coronary artery disease status post stenting, morbid obesity, hypertension, hyperlipidemia, COPD, and a chronic umbilical hernia. She developed the acute onset
of abdominal pain just below and to the right of the hernia yesterday morning. She denies any vomiting but has had some nausea. She also denies any abdominal distention, fevers or chills. Her last bowel movement was yesterday and she states she
is not passing any flatus. She has undergone a transvaginal hysterectomy and a laparoscopic cholecystectomy in the past.
Since her arrival she has remained afebrile with normal vital signs. Her white count was 19.6 and electrolytes are normal and her glucose was 313. On exam she has tenderness just below the umbilicus and a nonreducible hernia. A CT scan of the
abdomen and pelvis with contrast reveals a 10 cm umbilical hernia containing a loop of transverse colon. There is a partial obstruction at the level hernia with a large amount of feces proximal to the hernia. There is no edema or bowel wall
thickening. There is also a 9 cm multicystic mass in the pelvis most likely due to ovarian cysts.
Past Medical History
Past Medical History: CAD (Stenting 2014), COPD, HTN, IDDM and Other (Orthostatic hypotension, morbid obesity, sarcoidosis, chronic left foot pain)
Past Surgical History: Cholecystectomy (Laparoscopic 2011), Gynecological (Transvaginal hysterectomy) and Other
Social History
Tobacco: Non-Smoker
Alcohol: None
Living: With Family
Family History
Family History: Reviewed & Not Pertinent
Allergies / Home Medications
Allergy/AdvReac Type Severity Reaction Status Date / Time
oxycodone [From Percocet] Allergy 'breathing Verified 08/15/23 19:13
issues'
�Medication �Instructions �Recorded �Confirmed �Type
zolpidem 12.5 mg tablet,extended 12.5 mg PO HS Sleep 11/21/14 12/08/23 History
release,multiphase (Ambien CR)
aspirin 81 mg tablet,delayed 81 mg PO DAILY ##0 11/24/14 12/08/23 Rx
release
nitroglycerin 0.4 mg sublingual 0.4 mg sublingual [id number] PRN 11/24/14 12/08/23 Rx
tablet chest pain #30 tabs
levalbuterol tartrate 45 2 puff inhalation R Q6HPRN PRN sob 01/31/17 12/08/23 History
mcg/actuation aerosol inhaler
atorvastatin 80 mg tablet 80 mg PO QPM High cholesterol 10/29/20 12/08/23 History
dicyclomine 20 mg tablet 20 mg PO BID Gastrointestinal issue 10/29/20 12/08/23 History
furosemide 20 mg tablet 40 mg PO DAILY Fluid 10/29/20 12/08/23 History
retention/Swelling
hyoscyamine sulfate 0.125 mg 0.125 mg sublingual Q6HPRN PRN 10/29/20 12/08/23 History
sublingual tablet (Levsin/SL) IBS, gastrointestinal issue
insulin aspart U-100 100 unit/mL 26 units SC AC Diabetes 10/29/20 12/08/23 History
(3 mL) subcutaneous pen (Novolog
FlexPen U-100 Insulin aspart)
metoprolol succinate 50 mg 50 mg PO HS Blood pressure 10/29/20 12/08/23 History
tablet,extended release 24 hr
sertraline 100 mg tablet 100 mg PO HS Mental Health/Anxiety 10/29/20 12/08/23 History
Medical Marijuana 2 gummy PO HSPRN PRN sleep 12/08/23 12/08/23 History
cholecalciferol (vitamin D3) 125 125 mcg PO DAILY 12/08/23 12/08/23 History
mcg (5,000 unit) tablet
cyclobenzaprine 10 mg tablet 10 mg PO BID 12/08/23 12/08/23 History
ezetimibe 10 mg tablet (Zetia) 10 mg PO HS 12/08/23 12/08/23 History
fludrocortisone 0.1 mg tablet 0.1 mg PO DAILY 12/08/23 12/08/23 History
gabapentin 300 mg capsule 300 mg PO TID 12/08/23 12/08/23 History
glucagon 3 mg/actuation nasal 3 mg intranasal DAILYPRN PRN high 12/08/23 12/08/23 History
spray (Baqsimi) sugar
icosapent ethyl 1 gram capsule 1 g PO BID 12/08/23 12/08/23 History
(Vascepa)
insulin glargine 100 unit/mL 40 unit SC BID 12/08/23 12/08/23 History
subcutaneous solution (Lantus
U-100 Insulin)
lisinopril 5 mg tablet 5 mg PO DAILY 12/08/23 12/08/23 History
metformin 500 mg tablet,extended 1,000 mg PO QPM 12/08/23 12/08/23 History
release 24hr (osmotic)
potassium chloride 10 mEq 10 meq PO DAILY 12/08/23 12/08/23 History
tablet,extended release
semaglutide 0.25 mg or 0.5 mg (2 0.25 mg SC [place] 12/08/23 12/08/23 History
mg/1.5 mL) subcutaneous pen
injector (Ozempic)
tramadol 50 mg tablet 50 mg PO BID 12/08/23 12/08/23 History
Review of Systems
-
History Source: Patient
All other systems: Negative unless noted
A 10 point review of systems was completed, and was negative except as per HPI.
Physical Exam
Vital Signs
Temp 98.4 F 12/08/23 23:20
Pulse 75 12/08/23 23:20
Resp Rate 18 12/08/23 23:20
Blood pressure 113/58 12/08/23 23:20
SaO2 95 12/08/23 23:20
12/08/23 12/09/23 12/10/23
06:59 06:59 06:59
Actual Weight 123.944 kg
Body Mass Index (BMI) 50.0
Lab Results / Allergies
WBC 19.6 10^3/uL (4.8-10.8) H 12/08/23 13:56
Hgb 14.1 g/dL (12.0-16.0) 12/08/23 13:56
Hct 40.2 % (37.0-47.0) 12/08/23 13:56
Plt Count 515 10^3/uL (130-400) H 12/08/23 13:56
Abs Immat Gran (auto) 0.2 10^3/uL (0-0.05) H 12/08/23 13:56
Neutrophils % 86.1 % (42.2-75.2) H 12/08/23 13:56
Allergy/AdvReac Type Severity Reaction Status Date / Time
oxycodone [From Percocet] Allergy 'breathing Verified 08/15/23 19:13
issues'
Physical Exam
General: Well Developed, Well Nourished and No Apparent Distress
HEENT: Anicteric
Respiratory: Clear
Cardiac: Regular Rhythm
GI: Soft and Tender (Just below and to the right of the umbilicus. There are no overlying skin changes and I am unable to reduce the hernia)
Musculoskeletal: No Edema
Neuro: Awake and Alert
Data Reviewed
-
CT Scan: Image Personally Visualized and interpreted, Report Reviewed by me and Discussed with Patient
Labs: Labs Reviewed by me and Discussed with Patient
Assessment / Plan
-
Incarcerated umbilical hernia involving a portion of the transverse colon resulting in a partial obstruction. There is no evidence of strangulation.
I reviewed the current findings and treatment options including nonoperative management versus surgery. Without surgery there is a risk of progression of the obstruction and perforation. Risks of surgery include, but are not limited to, bleeding,
infection, adhesions, recurrent hernia, mesh infection if mesh is used, anastomotic leak if a resection is performed, possible need for a stoma, injury to other structures, DVT, cardiopulmonary complications, and even . I explained that her
risks of surgery are high given her multiple comorbidities. We discussed the various surgical options including open surgery versus minimally invasive surgery and due to the incarcerated nature of the hernia, I recommended an open repair. Mesh
might be used depending upon the operative findings. Postoperatively she might need to be managed in our stepdown unit or possibly in the ICU depending upon the operative findings. She is also on Ozempic which puts her at high risk for aspiration.
All questions answered and she wishes to proceed. Arrangements are in progress with the operating room.
[2023-12-09] MEDS: FLORINEF 0.1 MG PO (08:01)
[2023-12-09] MEDS: NEURONTIN 300 MG PO ×3 (08:01→21:55)
[2023-12-09] MEDS: FLEXERIL 10 MG PO ×2 (08:01→19:27)
[2023-12-09 08:33] LABS: INR 1.07; PT 13.7 Sec (11.4-14.6)
[2023-12-09 08:34] LABS: APTT 26.4 Sec (23.4-35.0)
[2023-12-09 08:48] LABS: Blood Urea Nitrogen 16 mg/dl (7-17); Calcium 9.1 mg/dl (8.4-10.2); Carbon Dioxide 25 mmol/L (22-30); Chloride 100 mmol/L (98-107); Estimated Creatinine Clearance > 125 ml/min; Glucose 190 mg/dl (70-99); Potassium 3.9 mmol/L (3.5-5.1); Sodium 136 mmol/L (135-145); eGFR > 60.00
[2023-12-09 08:50] LABS: Hematocrit 38.2 % (37.0-47.0); Hemoglobin 13.6 g/dL (12.0-16.0); Mean Corp Hgb Conc. 35.6 g/dL (33.0-37.0); Mean Corpuscular Hgb 28.9 pg (27.0-31.0); Mean Corpuscular Volume 81.3 fL (81.0-99.0); Red Cell Dist. Width 13.4 % (11.5-14.5); White Blood Cell Count 12.6 10^3/uL (4.8-10.8)
--- NOTE | 2023-12-09 09:40 | W.PN.HOSP.TC ---
Today's Communication/Plan
-
OR today-pain control
Assessment / Plan
Assessment / Plan
pt is a 53 year old female
Abdominal pain -due to incarceration of large 10cm umbilical hernia containing loops of transverse colon and complicated by partial obstruction--apprec surgery--for OR today 12/09/23--cont zosyn--pain control
Type 2 DM with neuropathy- Poorly controlled blood glucose of > 300. No DKA. Recent steroid injection with nerve block. Patient on lantus, novolog, ozempic and metformin at home-- hold metformin x 48 hrs and hold lantus while NPO - moderate
sliding scale insulin - hydration with LR for now
essential HTN--meds as able
sarcoidosis/ILD -- noted
anxiety/depression--cont sertraline as able
GERD--PPI
DVT PPX - lovenox sq
Full Code
Anticipated Discharge: > 48 hours
Subjective/Interval History
-
Date of Service: December 09, 2023
pt just got dilaudid
Objective Data
-
Labs:
Laboratory Results
12/09/23
07:00
WBC 12.6 H
Hgb 13.6
Hct 38.2
Plt Count Pending
PT 13.7
INR 1.07
APTT 26.4
Sodium 136
Potassium 3.9
Chloride 100
Carbon Dioxide 25
BUN 16
Creatinine 0.6
Glucose 190 H
Calcium 9.1
Vital Signs:
max temp for 24 hours
12/08/23
23:20
Temp 98.4 F
Vital Signs
Temp Pulse Resp BP Pulse Ox
98.2 F 73 18 156/85 93
12/09/23 07:00 12/09/23 07:00 12/09/23 07:00 12/09/23 07:00 12/09/23 07:00
I&O
12/08/23 12/09/23 12/10/23
06:59 06:59 06:59
Intake Total 725 / 725
Balance 725 / 725
Review of Systems
-
All other systems: Reviewed and negative
Abdomen/GI: Reports Abdominal Pain
Physical Exam
-
General: Well Developed, Well Nourished and No Apparent Distress
HEENT: Normocephalic and Atraumatic
Respiratory: Clear to Auscultation; Negative Wheezes or Rhonchi
Cardiac: Regular Rhythm and S1/S2; Negative Murmur
GI: Soft, Tender and Other (large umbilical hernia with tenderness)
Musculoskeletal: No Clubbing, No Cyanosis and No Edema
Neuro: Awake and Alert
[2023-12-09] MEDS: ASPIR LOW (ENTERIC COATED) PO (10:18)
--- NOTE | 2023-12-09 12:35 | W.IMMPOSTOP ---
Surgical Immed Post Op Note
-
Primary Surgeon: Peyman Salas MD
Assisting Surgeon: Moraima POOLE ([employer] [facility] student)
Pre-op Diagnosis: Incarcerated abdominal wall hernia
Post-op Diagnosis: Incarcerated periumbilical hernia
Procedure Performed: Open repair of incarcerated periumbilical hernia with Ventralex mesh
Anesthesia Type: General
Specimen / Cultures: Omentum
Estimated Blood Loss: 10ml
Complications: None
Operative Findings: Repair of incarcerated hernia, healthy bowel present without necrosis or strangulation
--CGM patch removed from skin preoperatively prior to prepping skin
--clear liquids as tolerated
--continue abx in the immediate post op period
[2023-12-09 12:39] LABS: Glucose - Point of Care 215 mg/dl (70-99)
[2023-12-09] MEDS: SUBLIMAZE 50 MCG IV (12:59)
[2023-12-09] MEDS: NOVOLOG vial 2 UNITS SC (13:03)
[2023-12-09] MEDS: NOVOLOG FLEXPEN-MODERATE RESISTANCE SC (13:06)
--- NOTE | 2023-12-09 14:27 | TRANSFER ---
Pt transported back to room 416-2 from OR after repair of incarcerated ventral hernia with mesh. Aquacell dressing to RLQ intact with small amount of drainage that had been previously marked. No new drainage outside of markings. Pt with no
complaints at this time, VSS. Plan of care ongoing.
[2023-12-09] MEDS: LR 1000 IV (15:29)
--- NOTE | 2023-12-09 15:38 | CM ---
floral manager reviewed patient's chart and met with patient and patient lives with her parents and daughter in a multilevel home with 5 steps to enter, patient is independent with adl's and ambulation, no dme.
Pharmacy; [facility]
PCP: Dr. Arellano
Plan; Home when stable.
[2023-12-09 15:49] LABS: Glucose - Point of Care 241 mg/dl (70-99)
[2023-12-09] MEDS: LOVENOX 40 MG SC (17:16)
[2023-12-09 21:33] LABS: Glucose - Point of Care 345 mg/dl (70-99)
[2023-12-09] MEDS: ZOLOFT 100 MG PO (21:55)
[2023-12-09] MEDS: LANTUS 0.45 UNITS SC (22:15)
[2023-12-10 00:51] VITALS: BP 115/64
[2023-12-10] MEDS: ZOSYN 50 IV ×4 (02:12→19:22)
[2023-12-10] MEDS: DILAUDID 1 MG IV ×7 (02:32→22:27)
[2023-12-10] MEDS: MYLICON 80 MG PO ×4 (02:44→22:15)
[2023-12-10 03:56] VITALS: BP 144/67
[2023-12-10] MEDS: LR 1000 IV ×2 (05:31→22:10)
[2023-12-10 07:35] VITALS: BP 161/83
[2023-12-10] MEDS: NEURONTIN 300 MG PO ×3 (08:10→22:11)
[2023-12-10] MEDS: ASPIR LOW (ENTERIC COATED) 81 MG PO (08:10)
[2023-12-10] MEDS: FLORINEF 0.1 MG PO (08:10)
[2023-12-10] MEDS: FLEXERIL 10 MG PO ×2 (08:10→19:22)
[2023-12-10 09:14] LABS: Glucose - Point of Care 259 mg/dl (70-99)
[2023-12-10] MEDS: NOVOLOG FLEXPEN-MODERATE RESISTANCE 5 UNITS SC ×2 (09:17→17:26)
[2023-12-10 10:41] VITALS: BP 148/91
[2023-12-10 10:56] LABS: ALT (SGPT) 38 U/L (0-35); AST (SGOT) 19 U/L (14-36); Albumin 3.8 g/dl (3.5-5.0); Alkaline Phosphatase 121 U/L (38-126); Blood Urea Nitrogen 17 mg/dl (7-17); Carbon Dioxide 28 mmol/L (22-30); Chloride 97 mmol/L (98-107); Estimated Creatinine Clearance 120 ml/min; Glucose 323 mg/dl (70-99); Potassium 4.3 mmol/L (3.5-5.1); Sodium 134 mmol/L (135-145); Total Bilirubin 0.6 mg/dl (0.2-1.3); eGFR > 60.00
[2023-12-10 10:59] LABS: Hematocrit 39.1 % (37.0-47.0); Hemoglobin 13.4 g/dL (12.0-16.0); Mean Corp Hgb Conc. 34.3 g/dL (33.0-37.0); Mean Corpuscular Hgb 29.3 pg (27.0-31.0); Mean Corpuscular Volume 85.4 fL (81.0-99.0); Mean Platelet Volume 9.4 fL (7.4-10.4); Platelet Count 344 10^3/uL (130-400); Red Blood Cell Count 4.58 10^6/uL (4.20-5.40); Red Cell Dist. Width 13.4 % (11.5-14.5); White Blood Cell Count 13.7 10^3/uL (4.8-10.8)
[2023-12-10] MEDS: MOTRIN 400 MG PO ×3 (11:05→23:32)
--- NOTE | 2023-12-10 11:17 | W.PN.CRS1 ---
Today's Communication / Plan
-
advanced diet
d/c crews
pain control
Assessment/Plan
-
POD#1 Open repair of incarcerated periumbilical hernia with Ventralex mesh
- Advance diet to DM/regular
- D/C crews
- OOB as tolerated
- Pain medication: Dilaudid IV for breakthrough, add home Tramadol and Motrin
- Lovenox for DVT prophylaxis
- Okay for d/c later today from our perspective if tolerates a diet. Will need to f/u with Dr. Salas in the office in 2 weeks.
Subjective Data
Procedure
12/09/2023- periumbilical hernia repair with mesh
Subjective Data
Date of Service: December 10, 2023
Patient states she has some incisional pain but it is mild. She has no bowel movements yet but flatus. She has no nausea or vomiting. She states she has just some mild soreness but the pain medication is helping. She is tolerating clears.
Objective Data
-
Vital Signs
Temp Pulse Resp BP Pulse Ox
98.3 F 78 19 148/91 94
12/10/23 10:41 12/10/23 10:41 12/10/23 10:41 12/10/23 10:41 12/10/23 10:41
Intake & Output
12/09/23 12/10/23 12/11/23
06:59 06:59 06:59
Intake Total 725 / 725 3055 / 3055
Output Total 1725 / 1725
Balance 725 / 725 1330 / 1330
Intake:
Oral fluids 1480 / 1480
IV fluids (Total) 675 / 675 1475 / 1475
Normosol 250 / 250
IV piggybacks 50 / 50 100 / 100
Output:
Urine, Crews 172 / 172
Other:
Number of approximated MODERATE 1 3
amounts of urine
Number of approximated LARGE 4
amounts of urine
Lab Results
12/10/23 10:00
12/10/23 10:00
Physical Exam
-
General: No Acute Distress and AOx3
Abdomen: Soft, Non Distended and Tender (mild around midline incision)
Skin: Warm and Dry
Wound: Dressing in Place
[2023-12-10 11:45] LABS: Glucose - Point of Care 320 mg/dl (70-99)
[2023-12-10] MEDS: NOVOLOG FLEXPEN-MODERATE RESISTANCE 7 UNITS SC (11:47)
[2023-12-10] MEDS: ZOFRAN 4 MG IV (12:03)
--- NOTE | 2023-12-10 12:24 | CM ---
Patient seen bedside, reports no needs to CM at this time. CM will continue to follow for all discharge planning needs.
Plan; home no needs anticipated, when stable.
[2023-12-10 14:31] VITALS: BP 156/65
--- NOTE | 2023-12-10 16:29 | W.PN.HOSP.TC ---
Addendum entered and electronically signed by Alfredo Richardson MD 12/10/23 17:07:
I saw and evaluated the patient. I reviewed the resident�s note and agree with findings and plan as documented in the resident�s note.
Original Note:
Today's Communication/Plan
-
monitor for PO tolerance--restart oral meds-- d/c [facility]--plan for discharge tomorrow
Assessment / Plan
Assessment / Plan
pt is a 53 year old female
Abdominal pain -due to incarceration of large 10cm umbilical hernia containing loops of transverse colon and complicated by partial obstruction--apprec surgery--s/p hernia repair with mesh--cont zosyn while in hopital--pain control--tums for
epigastric pain--P.O. and restart oral meds--may discharge tomorrow if pt can tolertae PO
Type 2 DM with neuropathy- Poorly controlled blood glucose of > 300. No DKA. Recent steroid injection with nerve block. Patient on lantus, novolog, ozempic and metformin at home-- hold metformin x 48 hrs and hold lantus while NPO - moderate
sliding scale insulin - hydration with LR for now
essential HTN--meds as able
sarcoidosis/ILD -- noted
anxiety/depression--cont sertraline as able
DVT PPX - lovenox sq
Full Code
Anticipated Discharge: Within 24 hours
Subjective/Interval History
-
Date of Service: December 10, 2023
Patient is feeling good in general. Had some abdominal pain overnight but the pain is resolved now. She has not had any nausea, vomiting, or dyspnea. She has been able to pass gas this morning.
Objective Data
-
Labs:
Laboratory Results
12/10/23
10:00
WBC 13.7 H
Hgb 13.4
Hct 39.1
Plt Count 344 D
Sodium 134 L
Potassium 4.3
Chloride 97 L
Carbon Dioxide 28
BUN 17
Creatinine 0.7
Glucose 323 H
Calcium 9.0
Total Bilirubin 0.6
AST 19
ALT 38 H
Alkaline Phosphatase 121
Vital Signs:
Vital Signs
Temp Pulse Resp BP Pulse Ox
98.2 F 82 18 156/65 95
12/10/23 14:31 12/10/23 14:31 12/10/23 14:31 12/10/23 14:31 12/10/23 14:31
I&O
12/09/23 12/10/23 12/11/23
06:59 06:59 06:59
Intake Total 725 / 725 3055 / 3055
Output Total 1725 / 1725
Balance 725 / 725 1330 / 1330
Review of Systems
-
History Source: Patient
All other systems: Reviewed and negative
Abdomen/GI: Reports Other (mild epigastric pain)
Physical Exam
-
General: Well Developed, Comfortable and Morbidly Obese
HEENT: Normocephalic and Atraumatic
Respiratory: Clear to Auscultation
Cardiac: Regular Rhythm and S1/S2
GI: Soft, Normal Bowel Sounds, Tender (mild tenderness around incision) and Distended
Rectal: Deferred by Provider
Genito-urinary: No Costovertebral Tender
Musculoskeletal: No Clubbing, No Cyanosis and No Edema
Skin: Rash and Ulcers
Neuro: Awake, Alert and Oriented
Psych: Calm
Data Reviewed
-
Total Time Spent with Patient (in minutes): 20
[2023-12-10 17:20] LABS: Glucose - Point of Care 276 mg/dl (70-99)
[2023-12-10] MEDS: LOVENOX 40 MG SC (17:26)
[2023-12-10] MEDS: LIPITOR 80 MG PO (17:26)
[2023-12-10] MEDS: ULTRAM 50 MG PO (19:22)
[2023-12-10] MEDS: BENTYL 20 MG PO (19:22)
[2023-12-10 21:14] LABS: Glucose - Point of Care 331 mg/dl (70-99)
[2023-12-10] MEDS: LANTUS 0.45 UNITS SC (22:10)
[2023-12-10] MEDS: ZETIA 10 MG PO (22:11)
[2023-12-10] MEDS: ZOLOFT 100 MG PO (22:11)
[2023-12-10] MEDS: TOPROL XL 50 MG PO (22:12)
[2023-12-10 22:45] VITALS: BP 177/94
[2023-12-11] MEDS: ZOSYN 50 IV ×2 (01:34→08:22)
[2023-12-11] MEDS: DILAUDID 1 MG IV ×3 (01:34→10:04)
[2023-12-11] MEDS: MOTRIN 400 MG PO ×2 (05:59→12:39)
[2023-12-11 07:13] LABS: Glucose - Point of Care 256 mg/dl (70-99)
[2023-12-11 08:00] VITALS: BP 147/87
--- NOTE | 2023-12-11 08:13 | W.PN.HOSP.TC ---
Addendum entered and electronically signed by Alfredo Richardson MD 12/11/23 15:33:
I saw and evaluated the patient. I reviewed the resident�s note and agree with findings and plan as documented in the resident�s note.
Original Note:
Today's Communication/Plan
-
Plan for discharge to home
Assessment / Plan
Assessment / Plan
pt is a 53 year old female
Abdominal pain -due to incarceration of large 10cm umbilical hernia containing loops of transverse colon and complicated by partial obstruction--apprec surgery--s/p hernia repair with mesh--cont zosyn while in hospital--pain control--tums for
epigastric pain--P.O. and restart oral meds--plan for discharge today
Type 2 DM with neuropathy- Poorly controlled blood glucose of > 300. No DKA. Recent steroid injection with nerve block. Patient on lantus, novolog, ozempic and metformin at home-- hold metformin x 48 hrs and hold lantus while NPO - moderate
sliding scale insulin - hydration with LR for now
essential HTN--restarted meds
sarcoidosis/ILD -- noted
anxiety/depression--cont sertraline as able
DVT PPX - lovenox sq
Full Code
Anticipated Discharge: Today
Subjective/Interval History
-
Date of Service: December 11, 2023
Patient could tolerate dinner. No nausea, vomiting. No fevers or chills. She has had gas passage but no bowel movement yet. Epigastric pain has been resolved.
Objective Data
-
Labs:
Laboratory Results
12/11/23
07:45
WBC Pending
Hgb Pending
Hct Pending
Plt Count Pending
Vital Signs:
Vital Signs
Temp Pulse Resp BP Pulse Ox
99.7 F 79 16 177/94 92
12/10/23 22:45 12/10/23 22:45 12/10/23 22:45 12/10/23 22:45 12/11/23 00:58
I&O
12/10/23 12/11/23 12/12/23
06:59 06:59 06:59
Intake Total 3055 / 3055 2305 / 2305
Output Total 1725 / 1725 950 / 950
Balance 1330 / 1330 1355 / 1355
Review of Systems
-
History Source: Patient
All other systems: Reviewed and negative
Physical Exam
-
General: Well Developed, Well Nourished and Comfortable
HEENT: Normocephalic and Atraumatic
Respiratory: Clear to Auscultation
Cardiac: Regular Rhythm and S1/S2
GI: Soft, Nontender, Normal Bowel Sounds and Other (Mild swelling around hernia repair)
Genito-urinary: No Costovertebral Tender
Musculoskeletal: No Clubbing, No Cyanosis and No Edema
Neuro: Awake, Alert, Oriented and AO x 3
Data Reviewed
-
Total Time Spent with Patient (in minutes): 15
[2023-12-11] MEDS: ASPIR LOW (ENTERIC COATED) 81 MG PO (08:22)
[2023-12-11] MEDS: ZESTRIL 5 MG PO (08:22)
[2023-12-11] MEDS: LANTUS 0.45 UNITS SC (08:22)
[2023-12-11] MEDS: BENTYL 20 MG PO (08:22)
[2023-12-11] MEDS: VITAMIN D3 (cholecalciferol) 125 MCG PO (08:24)
[2023-12-11] MEDS: NEURONTIN 300 MG PO (08:25)
[2023-12-11] MEDS: LASIX 40 MG PO (08:25)
[2023-12-11] MEDS: FLEXERIL 10 MG PO (08:25)
[2023-12-11] MEDS: ULTRAM 50 MG PO (08:25)
[2023-12-11] MEDS: NOVOLOG FLEXPEN-MODERATE RESISTANCE 5 UNITS SC ×2 (08:26→12:39)
[2023-12-11 08:29] LABS: Hemoglobin 13.3 g/dL (12.0-16.0); Mean Corpuscular Hgb 29.7 pg (27.0-31.0); Mean Corpuscular Volume 84.8 fL (81.0-99.0); Platelet Count 336 10^3/uL (130-400); Red Blood Cell Count 4.48 10^6/uL (4.20-5.40); Red Cell Dist. Width 13.3 % (11.5-14.5); White Blood Cell Count 10.8 10^3/uL (4.8-10.8)
--- NOTE | 2023-12-11 09:25 | W.PN.CRS1 ---
Today's Communication / Plan
-
ok for d/c
Assessment/Plan
-
POD#2 Open repair of incarcerated periumbilical hernia with Ventralex mesh
- Continue DM/regular diet
- Voiding post crews removal
- OOB as tolerated
- Pain medication: Dilaudid IV for breakthrough, add home Tramadol and Motrin
- Lovenox for DVT prophylaxis
- Okay for d/c later today from our perspective if tolerates a diet. Will need to f/u with Dr. Salas in the office in 2 weeks.
Subjective Data
Procedure
12/09/2023- periumbilical hernia repair with mesh
Subjective Data
Date of Service: December 11, 2023
Patient states she has pain when she does not have her Dilaudid. She has bowel movements. She is eating. She denies nausea or vomiting.
Objective Data
-
Vital Signs
Temp Pulse Resp BP Pulse Ox
98 F 64 16 147/87 96
12/11/23 08:00 12/11/23 08:22 12/11/23 08:00 12/11/23 08:22 12/11/23 08:00
Intake & Output
12/10/23 12/11/23 12/12/23
06:59 06:59 06:59
Intake Total 3055 / 3055 2305 / 2305
Output Total 1725 / 1725 950 / 950
Balance 1330 / 1330 1355 / 1355
Intake:
Oral fluids 1480 / 1480 1380 / 1380
IV fluids (Total) 1475 / 1475 100 / 100
Normosol 250 / 250
IV piggybacks 100 / 100 825 / 825
Output:
Urine, Crews 1725 / 1725 950 / 950
Other:
Number of approximated MODERATE 3 2
amounts of urine
Lab Results
12/11/23 08:16
12/10/23 10:00
Physical Exam
-
General: No Acute Distress and AOx3
Abdomen: Soft, Non Distended and Non Tender
Wound: Dressing Changed
Incision: Clear, Dry, Intact
--- NOTE | 2023-12-11 09:25 | W.DCSUMMARY ---
Addendum entered and electronically signed by Alfredo Richardson MD 12/11/23 15:33:
Read, reviewed, and agree. See same day progress note for additional details. Time spent coordinating care, DC planning, review of DC plan of care with resident, transition of care, review of records in EMR, med rec, consults, notes, d/w
consultants, nursing, family, and CM 29m
Original Note:
Documented by User: Harjeet Ernandez MD, Resident 12/11/23 09:59
Discharge Summary
Discharge Data
Date of Admission: 12/08/23
Date of Discharge: 12/11/23
Total time spent discharging patient (in min): 20
-
Pending Results: No
Hospital Course
Patient is a 53-year-old female with past medical history significant for insulin-dependent diabetes, hypertension, hyperlipidemia, CAD s/p stenting, morbid obesity, interstitial lung disease, and a longstanding umbilical hernia who presented to the
emergency department with acute onset of non-radiating lower abdominal pain within the last 24 hours. She reported nausea but denied any vomiting,melena or hematochezia. She did not report any fevers or chills.Her last bowel movement was one day
prior to admission but she had not passed any flatus since. On arrival in the ED, patient was afebrile and hemodynamically stable. White count was elevated at 19,000, hemoglobin and platelet counts were within normal limits. Chemistries were within
normal limits without any anion gap. Glucose was elevated at 313. Abdominal CT scan with contrast showed a 10 cm umbilical hernia containing loops of transverse colon suggesting partial obstruction. There was no edema or bowel wall thickening.
There was also a 9 cm multicystic mass in the pelvis most likely due to ovarian cysts (old finding). Patient was admitted for evaluation and treatment of partial obstruction.
# Abdominal pain: Likely due to incarceration of large 10cm umbilical hernia containing loops of transverse colon and complicated by partial obstruction. Patient went to OR ( 12/09/23) for hernia repair and mesh placement. She was started on zosyn
which was continued 48 hours post-surgery. Pain was controlled with Dilaudid PRN, Tylenol PRN, Tramadol BID, and Ibuprofen Q6H. Leukocytosis downtrended to normal range during stay and fever was resolved. Patient was able to pass gas and tolerate PO
w/o any nausea/ vomiting post-surgery.
#Type 2 DM with neuropathy: Chronic poorly controlled blood glucose of > 300. She did not have DKA on admission or during stay. Patient took lantus, novolog, ozempic and metformin at home. Metformin was held for 48 hrs and lantus was held while
patient was NPO. She was placed on moderate sliding scale insulin. Lantus was restarted after she could tolerate PO. Patient's BG was monitored and controlled during stay. Gabapentin was continued after renal dose adjustment.
# essential HTN: No change as prior to admission. BP was controlled during stay and oral meds were restarted after patient was able to tolerate PO.
# sarcoidosis/ILD: No change as prior to admission. Continued home meds.
# anxiety/depression: No change as prior to admission. Continued sertraline.
# Ovarian cysts: Patient has a known history of PCOS. She is aware of the ovarian cysts. Patient was advised to follow-up with PCP or [facility] after discharge on outpatient basis.
Patient is stable for discharge to home.
Medical History
Discharge Plan
-
Patient Disposition: Home (Routine Discharge)
Discharge Diagnosis/Procedures: Umbilical hernia with partial bowel obstruction s/p Open repair of incarcerated periumbilical hernia with Ventralex mesh
Condition: Good
Diet: As tolerated
Activity: No strenuous activity
Additional Activity: No lifting over 10lbs (gallon of milk)
Driving Restrictions: No driving for 1 week
Bathing Restrictions: OK to Shower
Wound Care: Gauze and paper tape over midline incision. Okay to remove to shower.
Referrals:
Boston Salas MD [Active] - in two weeks
Freddy Arellano DO [Family Provider] - in less than 1 week
Prescriptions:
Continued
zolpidem [Ambien CR] 12.5 MG tablet,ext release multiphase
12.5 mg PO HS
Patient Comments:
11/19/2020: last filled 11/09/20, 30 tabs for 30 days from [facility]#[id number]
aspirin 81 MG tablet,delayed release (DR/EC)
81 mg PO DAILY Qty: 0 0RF
nitroglycerin 0.4 MG tablet, sublingual
0.4 mg sublingual [id number] PRN (Reason: chest pain) Qty: 30 3RF
levalbuterol tartrate 1 PUFF HFA aerosol inhaler
2 puff inhalation R Q6HPRN PRN (Reason: sob)
insulin aspart U-100 [Novolog FlexPen U-100 Insulin] 300 UNITS/3 ML insulin pen
26 units SC AC
atorvastatin 80 MG tablet
80 mg PO QPM
metoprolol succinate 50 MG tablet extended release 24 hr
50 mg PO HS
sertraline 100 MG tablet
100 mg PO HS
dicyclomine 20 MG tablet
20 mg PO BID
hyoscyamine sulfate [Levsin/SL] 0.125 MG tablet, sublingual
0.125 mg sublingual Q6HPRN PRN (Reason: IBS, gastrointestinal issue)
furosemide 20 MG tablet
40 mg PO DAILY
cyclobenzaprine 10 mg Tablet
10 mg PO BID
insulin glargine [Lantus U-100 Insulin] 100 unit/mL Solution
45 unit SC BID
potassium chloride 10 mEq Tablet Extended Release
10 meq PO DAILY
tramadol 50 mg Tablet
50 mg PO BID
gabapentin 300 mg Capsule
300 mg PO TID
lisinopril 5 mg Tablet
5 mg PO DAILY
fludrocortisone 0.1 mg Tablet
0.1 mg PO DAILY
ezetimibe [Zetia] 10 mg Tablet
10 mg PO HS
metformin 500 mg Tablet Extended Release 24hr
1,000 mg PO QPM
cholecalciferol (vitamin D3) 125 mcg (5,000 unit) Tablet
125 mcg PO DAILY
icosapent ethyl [Vascepa] 1 gram Capsule
1 g PO BID
Ozempic 0.25 mg or 0.5 mg(2 mg/1.5 mL) Pen Injector
0.25 mg SC [place]
Rx Instructions:
for 4 weeks
Medical Marijuana
2 gummy PO HSPRN PRN (Reason: sleep)
Baqsimi 3 mg/actuation [place],Non-Aerosol
3 mg INTRANASAL DAILYPRN PRN (Reason: high sugar)
Discharge Orders:
Discharge Patient (As Directed); Ordered 12/11/23
Ordered By: Alfredo Richardson
Discharge Date and Time
Discharge Date/Time: 12/11/23 14:27
Print Language: POLISH

Documented by User: Alfredo Richardson MD 12/11/23 15:32
Discharge Summary
Discharge Data
Date of Admission: 12/08/23
Date of Discharge: 12/11/23
Discharge Plan
-
Patient Disposition: Home (Routine Discharge)
Discharge Diagnosis/Procedures: Umbilical hernia with partial bowel obstruction s/p Open repair of incarcerated periumbilical hernia with Ventralex mesh
Condition: Good
Diet: As tolerated
Activity: No strenuous activity
Additional Activity: No lifting over 10lbs (gallon of milk)
Driving Restrictions: No driving for 1 week
Bathing Restrictions: OK to Shower
Wound Care: Gauze and paper tape over midline incision. Okay to remove to shower.
Referrals:
Boston Salas MD [Active] - in two weeks
Freddy Arellano DO [Family Provider] - in less than 1 week
Prescriptions:
Continued
zolpidem [Ambien CR] 12.5 MG tablet,ext release multiphase
12.5 mg PO HS
Patient Comments:
11/19/2020: last filled 11/09/20, 30 tabs for 30 days from [facility]#[id number]
aspirin 81 MG tablet,delayed release (DR/EC)
81 mg PO DAILY Qty: 0 0RF
nitroglycerin 0.4 MG tablet, sublingual
0.4 mg sublingual [id number] PRN (Reason: chest pain) Qty: 30 3RF
levalbuterol tartrate 1 PUFF HFA aerosol inhaler
2 puff inhalation R Q6HPRN PRN (Reason: sob)
insulin aspart U-100 [Novolog FlexPen U-100 Insulin] 300 UNITS/3 ML insulin pen
26 units SC AC
atorvastatin 80 MG tablet
80 mg PO QPM
metoprolol succinate 50 MG tablet extended release 24 hr
50 mg PO HS
sertraline 100 MG tablet
100 mg PO HS
dicyclomine 20 MG tablet
20 mg PO BID
hyoscyamine sulfate [Levsin/SL] 0.125 MG tablet, sublingual
0.125 mg sublingual Q6HPRN PRN (Reason: IBS, gastrointestinal issue)
furosemide 20 MG tablet
40 mg PO DAILY
cyclobenzaprine 10 mg Tablet
10 mg PO BID
insulin glargine [Lantus U-100 Insulin] 100 unit/mL Solution
45 unit SC BID
potassium chloride 10 mEq Tablet Extended Release
10 meq PO DAILY
tramadol 50 mg Tablet
50 mg PO BID
gabapentin 300 mg Capsule
300 mg PO TID
lisinopril 5 mg Tablet
5 mg PO DAILY
fludrocortisone 0.1 mg Tablet
0.1 mg PO DAILY
ezetimibe [Zetia] 10 mg Tablet
10 mg PO HS
metformin 500 mg Tablet Extended Release 24hr
1,000 mg PO QPM
cholecalciferol (vitamin D3) 125 mcg (5,000 unit) Tablet
125 mcg PO DAILY
icosapent ethyl [Vascepa] 1 gram Capsule
1 g PO BID
Ozempic 0.25 mg or 0.5 mg(2 mg/1.5 mL) Pen Injector
0.25 mg SC [place]
Rx Instructions:
for 4 weeks
Medical Marijuana
2 gummy PO HSPRN PRN (Reason: sleep)
Baqsimi 3 mg/actuation [place],Non-Aerosol
3 mg INTRANASAL DAILYPRN PRN (Reason: high sugar)
Discharge Orders:
Discharge Patient (As Directed); Ordered 12/11/23
Ordered By: Alfredo Richardson
Discharge Date and Time
Discharge Date/Time: 12/11/23 14:27
Print Language: POLISH
[2023-12-11] MEDS: FLORINEF PO (10:04)
[2023-12-11] MEDS: MYLICON 80 MG PO (10:04)
--- NOTE | 2023-12-11 11:12 | CM ---
Patient seen bedside, reports no needs to CM at this time. Patient reports her mother will be providing transportation home. IMM reviewed, signed, placed in chart. CM will continue to follow for all discharge planning needs.
Plan; home no needs.
[2023-12-11 11:53] LABS: Glucose - Point of Care 291 mg/dl (70-99)
[2023-12-11] MEDS: FLORINEF 0.1 MG PO (12:39)
[2023-12-11 14:15] VITALS: BP 167/89
--- NOTE | 2023-12-11 16:12 | W.DS.TRANS ---
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
-
Discharge Instructions:
Discharge Diagnosis/Procedures Umbilical hernia with partial bowel obstruction
s/p Open repair of incarcerated periumbilical
hernia with Ventralex mesh
Diet As tolerated
Activity No strenuous activity
Additional Activity No lifting over 10lbs (gallon of milk)
Driving Restrictions No driving for 1 week
Bathing Restrictions OK to Shower
Wound Care Gauze and paper tape over midline incision. Okay
to remove to shower.
Instructions:
Stand-Alone Forms:
Changes to Home Medications: No
Discharge Medications:
DC Medications w/original date entered in [employer]
zolpidem 12.5 mg tablet,extended release,multiphase (Ambien CR) 12.5 mg PO HS Sleep 11/21/14
aspirin 81 mg tablet,delayed release 81 mg PO DAILY ##0 11/24/14
nitroglycerin 0.4 mg sublingual tablet 0.4 mg sublingual [id number] PRN chest pain #30 tabs 11/24/14
levalbuterol tartrate 45 mcg/actuation aerosol inhaler 2 puff inhalation R Q6HPRN PRN sob 01/31/17
atorvastatin 80 mg tablet 80 mg PO QPM High cholesterol 10/29/20
dicyclomine 20 mg tablet 20 mg PO BID Gastrointestinal issue 10/29/20
furosemide 20 mg tablet 40 mg PO DAILY Fluid retention/Swelling 10/29/20
hyoscyamine sulfate 0.125 mg sublingual tablet (Levsin/SL) 0.125 mg sublingual Q6HPRN PRN IBS, gastrointestinal issue 10/29/20
insulin aspart U-100 100 unit/mL (3 mL) subcutaneous pen (Novolog FlexPen U-100 Insulin aspart) 26 units SC AC Diabetes 10/29/20
metoprolol succinate 50 mg tablet,extended release 24 hr 50 mg PO HS Blood pressure 10/29/20
sertraline 100 mg tablet 100 mg PO HS Mental Health/Anxiety 10/29/20
Medical Marijuana 2 gummy PO HSPRN PRN sleep 12/08/23
cholecalciferol (vitamin D3) 125 mcg (5,000 unit) tablet 125 mcg PO DAILY 12/08/23
cyclobenzaprine 10 mg tablet 10 mg PO BID 12/08/23
ezetimibe 10 mg tablet (Zetia) 10 mg PO HS 12/08/23
fludrocortisone 0.1 mg tablet 0.1 mg PO DAILY 12/08/23
gabapentin 300 mg capsule 300 mg PO TID 12/08/23
glucagon 3 mg/actuation nasal spray (Baqsimi) 3 mg intranasal DAILYPRN PRN high sugar 12/08/23
icosapent ethyl 1 gram capsule (Vascepa) 1 g PO BID 12/08/23
insulin glargine 100 unit/mL subcutaneous solution (Lantus U-100 Insulin) 45 unit SC BID 12/08/23
lisinopril 5 mg tablet 5 mg PO DAILY 12/08/23
metformin 500 mg tablet,extended release 24hr (osmotic) 1,000 mg PO QPM 12/08/23
potassium chloride 10 mEq tablet,extended release 10 meq PO DAILY 12/08/23
semaglutide 0.25 mg or 0.5 mg (2 mg/1.5 mL) subcutaneous pen injector (Ozempic) 0.25 mg SC [place] 12/08/23
tramadol 50 mg tablet 50 mg PO BID 12/08/23
Home Medication Changes
Pending Results: No
== END 2023-12-11 14:27 | disposition home or self-care (01) | DRG 354 ==
LOC: 4 WEST ACU 19:34
PROVIDERS: Emergency Medicine; Internal Medicine; Physician Assistant; ADMITTING PHYSICIAN Internal Medicine; ATTENDING PHYSICIAN Internal Medicine; CONSULT PHYSICIAN Surgery; EMERGENCY PHYSICIAN Emergency Medicine; FAMILY PHYSICIAN Family Medicine
PROC: 0DBU0ZZ Excision of Omentum, Open Approach (ICD-10-PCS; 2023-12-09)
PROC: 0WUF0JZ Supplement Abdominal Wall with Synthetic Substitute, Open Approach (ICD-10-PCS; 2023-12-09)
DX: K42.0 Umbilical hernia with obstruction, without gangrene (principal); J84.9 Interstitial pulmonary disease, unspecified; Z68.43 Body mass index [BMI] 50.0-59.9, adult; I10 Essential (primary) hypertension; I25.10 Atherosclerotic heart disease of native coronary artery without angina pectoris; E66.01 Morbid (severe) obesity due to excess calories; E11.40 Type 2 diabetes mellitus with diabetic neuropathy, unspecified; D86.9 Sarcoidosis, unspecified; F32.A Depression, unspecified; F41.9 Anxiety disorder, unspecified
CPT/HCPCS: 88307; 74177; 80048; 80053; 81003; 82962; 83690; 83735; 85025; 85027; 85610; 85730; 93005; 96365; 96375; 96376; 99285; C1776; C1781; Q9967

== ENCOUNTER 2023-12-16 14:40 | Emergency (ER) | payer OTHER, SELFPAY ==
[2023-12-16 14:42] VITALS: BP 132/108
[2023-12-16 15:08] VITALS: BMI 50.3
[2023-12-16 16:00] VITALS: BP 120/85
--- NOTE | 2023-12-16 17:31 | ED.GENMED ---
History of Present Illness
General
Chief Complaint: Post Operative Problem(s)
Source: patient
Exam Limitations: none
Time Seen by Provider: 12/16/23 15:08
History of Present Illness
History of Present Illness:
53-year-old female with presents for drainage, some bloody drainage from a recent incarcerated periumbilical hernia with mesh. No severe pain no fever no foul-smelling drainage.
Past History
Past History
ED Past Medical History: CAD, COPD, GERD, HTN, Hypercholesterolemia, [place], Psychiatric and Other (Interstitial lung disease, IBS, Ovarian cyst, Sarcoidosis)
ED Past Surgical History: Cardiac (Stent L circumflex), Cholecystectomy, Gynecological (Hysterectomy), Orthopedic and Other
Social History
Tobacco: Smoker
Alcohol: None
Drug: None
Personal:
Living: with family
Employment: Employed
Family History
Family History: Hypertension and CAD (father)
Phy Exam
Physical Exam
Physical Exam:
General: Nontoxic appearing in no distress
Skin: Warm and dry, no rash
Neuro: Alert, nontoxic, grossly nonfocal
Psychiatric: Good eye contact and appropriate
Lungs: No respiratory distress
Abdomen: Elevated BMI. Soft. Nontender. Subumbilical postsurgical wound with lynda. Some mild serosanguineous drainage from the inferior border. A small area of ecchymosis to the left of midline. Some mild edematous changes. No
foul-smelling drainage no purulent drainage. Minimal inflammatory changes around the lynda but no obvious cellulitis.
Course
Orders/Labs/Results
Orders:
Orders
12/16/23 15:21
US Abdomen Limited Urgent
Comment:
Reason For Exam: Evaluate for wound hematoma/fluid collection
12/16/23 17:30
Cephalexin Monohydrate [Keflex] 500 mg PO NOW STA
Vital Signs
Initial and Last Documented VS:
Initial Vital Signs
Temp Pulse Resp BP Pulse Ox
98.7 F 97 16 132/108 97
12/16/23 14:42 12/16/23 14:42 12/16/23 14:42 12/16/23 14:42 12/16/23 14:42
Last Documented Vital Signs
Temp Pulse Resp BP Pulse Ox
98.7 F 98 16 120/85 97
12/16/23 14:42 12/16/23 16:00 12/16/23 14:42 12/16/23 16:00 12/16/23 14:42
*Radiology
Radiology exam reviewed: radiology read reviewed (Edema. No fluid collection)
*Pulse Oximetry
Patient hypoxic: no
*Critical Care Note
Total Time (30-74mins, 75-104mins- exclusive of procedures): Not Applicable
Update Note
Update Note:
Will cover with antibiotics for possible mild infectious component although a I suspect most of this is seroma and inflammatory changes. No indication for opening wound. Nothing to support a diffuse abdominal process. Patient is nontoxic.
Surgery was made informed for follow-up with the primary colorectal surgeon.
ED Attending Note
-
Portions of this chart may have been created with voice recognition software.� Occasional wrong word or��sound alike� substitutions may have occurred due to the inherent limitations of voice recognition software.
Discharge Plan
Departure
Patient Disposition: Home (Routine Discharge)
Date of Disposition: 12/16/23
Time of Disposition: 17:36
Patient with high blood pressure during this ER visit?: No
Discharge Problem:
Postoperative wound drainage/edema
Instructions: Wound Care (DC), BLOOD PRESSURE
Prescriptions:
New
cephalexin 500 mg capsule
500 mg PO QID 7 Days Qty: 28 0RF
No Action
zolpidem [Ambien CR] 12.5 MG tablet,ext release multiphase
12.5 mg PO HS
Patient Comments:
11/19/2020: last filled 11/09/20, 30 tabs for 30 days from [facility]#[id number]
aspirin 81 MG tablet,delayed release (DR/EC)
81 mg PO DAILY Qty: 0 0RF
nitroglycerin 0.4 MG tablet, sublingual
0.4 mg sublingual [id number] PRN (Reason: chest pain) Qty: 30 3RF
levalbuterol tartrate 1 PUFF HFA aerosol inhaler
2 puff inhalation R Q6HPRN PRN (Reason: sob)
insulin aspart U-100 [Novolog FlexPen U-100 Insulin] 300 UNITS/3 ML insulin pen
26 units SC AC
atorvastatin 80 MG tablet
80 mg PO QPM
metoprolol succinate 50 MG tablet extended release 24 hr
50 mg PO HS
sertraline 100 MG tablet
100 mg PO HS
dicyclomine 20 MG tablet
20 mg PO BID
hyoscyamine sulfate [Levsin/SL] 0.125 MG tablet, sublingual
0.125 mg sublingual Q6HPRN PRN (Reason: IBS, gastrointestinal issue)
furosemide 20 MG tablet
40 mg PO DAILY
cyclobenzaprine 10 mg Tablet
10 mg PO BID
insulin glargine [Lantus U-100 Insulin] 100 unit/mL Solution
45 unit SC BID
potassium chloride 10 mEq Tablet Extended Release
10 meq PO DAILY
tramadol 50 mg Tablet
50 mg PO BID
gabapentin 300 mg Capsule
300 mg PO TID
lisinopril 5 mg Tablet
5 mg PO DAILY
fludrocortisone 0.1 mg Tablet
0.1 mg PO DAILY
ezetimibe [Zetia] 10 mg Tablet
10 mg PO HS
metformin 500 mg Tablet Extended Release 24hr
1,000 mg PO QPM
cholecalciferol (vitamin D3) 125 mcg (5,000 unit) Tablet
125 mcg PO DAILY
icosapent ethyl [Vascepa] 1 gram Capsule
1 g PO BID
Ozempic 0.25 mg or 0.5 mg(2 mg/1.5 mL) Pen Injector
0.25 mg SC [place]
Rx Instructions:
for 4 weeks
Medical Marijuana
2 gummy PO HSPRN PRN (Reason: sleep)
Baqsimi 3 mg/actuation [place],Non-Aerosol
3 mg INTRANASAL DAILYPRN PRN (Reason: high sugar)
Referrals:
Boston Salas MD [Active] - Tomorrow
Freddy Arellano DO [Family Provider] -
Activity Restrictions/Additional Instructions:
Antibiotics as directed. Your prescription was sent to your pharmacy
Call your colorectal surgeon tomorrow
Return sooner with increased drainage foul-smelling drainage, fever, redness, general abdominal pain or any other concerning symptoms
Interventions
Interventions:
*Risk Screen - Suicide Last Done: 12/16/23 15:02
*General Assessment Last Done: 12/16/23 15:03
*Neglect/Abuse Screening Last Done: 12/16/23 15:02
ED- Fall Risk Assessment Last Done: 12/16/23 15:02
*ED COVID-19 Vaccine History Last Done: 12/16/23 15:03
ED-Skin Assessment Last Done: 12/16/23 15:05
Discharge Date and Time
Print Language: GERMAN
[2023-12-16] MEDS: KEFLEX 500 MG PO (17:36)
== END 2023-12-16 18:04 | disposition home or self-care (01) ==
LOC: EMR 14:40
PROVIDERS: EMERGENCY PHYSICIAN Emergency Medicine; FAMILY PHYSICIAN Family Medicine
DX: T81.89XA Other complications of procedures, not elsewhere classified, initial encounter (principal); R60.9 Edema, unspecified; I25.10 Atherosclerotic heart disease of native coronary artery without angina pectoris; J44.9 Chronic obstructive pulmonary disease, unspecified; K21.9 Gastro-esophageal reflux disease without esophagitis; I10 Essential (primary) hypertension; E78.00 Pure hypercholesterolemia, unspecified; I25.2 Old myocardial infarction; D86.9 Sarcoidosis, unspecified; K58.9 Irritable bowel syndrome, unspecified; F17.200 Nicotine dependence, unspecified, uncomplicated; Z82.49 Family history of ischemic heart disease and other diseases of the circulatory system; Z90.49 Acquired absence of other specified parts of digestive tract; Z90.710 Acquired absence of both cervix and uterus; Z95.5 Presence of coronary angioplasty implant and graft
CPT/HCPCS: 99284; 76705

== ENCOUNTER 2024-01-20 23:32 | Inpatient (IN) | payer OTHER, SELFPAY ==
[2024-01-20 20:55] VITALS: BP 130/74
[2024-01-20 22:01] VITALS: BMI 51.3
[2024-01-20] MEDS: DILAUDID 1 MG IV (22:23)
[2024-01-20 22:33] LABS: % Basophils 0.5 % (0-2); % Eosinophils 1.7 % (0-6); % Immature Granulocytes 1.6 % (0-0.5); % Lymphocytes 18.3 % (20.5-51.1); % Monocytes 5.5 % (1.7-9.3); % Neutrophils 72.4 % (42.2-75.2); Absolute Basophils 0.1 10^3/uL (0-0.2); Absolute Eosinophils 0.2 10^3/uL (0-0.7); Absolute Immature Granulocytes 0.2 10^3/uL (0-0.05); Absolute Lymphocytes 2.2 10^3/uL (1.2-3.4); Absolute Monocytes 0.7 10^3/uL (0.1-0.6); Absolute Neutrophils 8.8 10^3/uL (1.4-6.5); Hematocrit 36.4 % (37.0-47.0); Hemoglobin 12.7 g/dL (12.0-16.0); Mean Corp Hgb Conc. 34.9 g/dL (33.0-37.0); Mean Corpuscular Hgb 28.7 pg (27.0-31.0); Mean Corpuscular Volume 82.4 fL (81.0-99.0); Mean Platelet Volume 9.5 fL (7.4-10.4); Nucleated Red Blood Cells % 0 %; Platelet Count 376 10^3/uL (130-400); Red Blood Cell Count 4.42 10^6/uL (4.20-5.40); White Blood Cell Count 12.1 10^3/uL (4.8-10.8)
[2024-01-20 22:45] LABS: ALT (SGPT) 24 U/L (0-35); AST (SGOT) 20 U/L (14-36); Albumin 3.5 g/dl (3.5-5.0); Alkaline Phosphatase 176 U/L (38-126); Blood Urea Nitrogen 11 mg/dl (7-17); Calcium 9.4 mg/dl (8.4-10.2); Carbon Dioxide 32 mmol/L (22-30); Chloride 101 mmol/L (98-107); Estimated Creatinine Clearance > 125 ml/min; Glucose 119 mg/dl (70-99); Potassium 3.3 mmol/L (3.5-5.1); Sodium 141 mmol/L (135-145); Total Bilirubin 0.6 mg/dl (0.2-1.3); Total Protein 5.8 g/dl (6.3-8.2); eGFR > 60.00
--- NOTE | 2024-01-20 22:49 | ED.GENMED ---
History of Present Illness
General
Chief Complaint: Skin Problem
Source: patient, records, spouse and previous hospital records
Exam Limitations: none
Time Seen by Provider: 01/20/24 21:24
Nursing documentation reviewed up to this point in time: agreed with
History of Present Illness
History of Present Illness:
53-year-old female multiple chronic medical conditions included diabetes RSD, recurrent cellulitis, presents with painful swelling of her left foot and left lower leg, PCP called in some cephalexin 500 3 times daily's taken 5 doses, no fevers has
had increased pain said difficulty ambulating, no chest pain or shortness of breath, no nausea or vomiting, tells me she has had sepsis previously from an infected wound on that extremity, patient tells me she has complex regional pain syndrome of
the left lower extremity and the pressure on the dorsum of her foot is very painful for her as is this infection
Past History
Past History
ED Past Medical History: CAD, COPD, GERD, HTN, Hypercholesterolemia, MD, Psychiatric and Other (Interstitial lung disease, IBS, Ovarian cyst, Sarcoidosis)
ED Past Surgical History: Cardiac (Stent L circumflex), Cholecystectomy, Gynecological (Hysterectomy), Orthopedic and Other
Social History
Tobacco: Smoker
Alcohol: None
Drug: None
Personal:
Living: with family
Employment: Employed
Family History
Family History: Hypertension and CAD (father)
Review of Systems
Review of Systems
All Other Systems: Not applicable
Constitutional: Denies fever
EENT: Reports no symptoms
Respiratory: Reports no symptoms
Cardiac: Reports no symptoms
ABD/GI: Reports no symptoms
: Reports no symptoms
Musculoskeletal: Reports no symptoms
Skin: Reports itching, rash and other (redness/warmth)
Endocrine: Reports no symptoms
Hematologic/Lymphatic: Reports no symptoms
Phy Exam
Physical Exam
Physical Exam:
Physical Exam
General: no apparent distress, not acutely ill
Neck: No jaundice
Heart: Regular
Lungs: no acute respiratory distress. clear bilaterally
Abdomen: Obese not
Neuro: alert and oriented. no focal neurological deficits
Skin: no rash
Psychiatric: well kept. interactive and cooperative
Extremities: Redness warmth anterior dorsum of the left foot up into the left mid castillo and calf
Course
Orders/Labs/Results
Orders:
Orders
01/20/24 22:00
HYDROmorphone [Dilaudid] 1 mg IV NOW STA
01/20/24 22:23
CMP [Comprehensive Metabolic Panel] Urgent
Complete Blood Count/With Diff Urgent
01/20/24 22:42
Vancomycin [Vancocin] 2,000 mg 0.9% Sodium Chloride 500 ml [Nss] 500 ml IV NOW
Abnormal Lab Results
01/20/24
22:23
WBC 12.1 H 10^3/uL
(4.8-10.8)
Hct 36.4 L %
(37.0-47.0)
Abs Immat Gran (auto) 0.2 H 10^3/uL
(0-0.05)
Absolute Neuts (auto) 8.8 H 10^3/uL
(1.4-6.5)
Absolute Monos (auto) 0.7 H 10^3/uL
(0.1-0.6)
Immature Gran % 1.6 H %
(0-0.5)
Lymphocytes % 18.3 L %
(20.5-51.1)
Potassium 3.3 L mmol/L
(3.5-5.1)
Carbon Dioxide 32 H mmol/L
(22-30)
Glucose 119 H mg/dl
(70-99)
Alkaline Phosphatase 176 H U/L
(38-126)
Total Protein 5.8 L g/dl
(6.3-8.2)
01/20/24 22:23
01/20/24 22:23
Vital Signs
Initial and Last Documented VS:
Initial Vital Signs
Temp Pulse BP Pulse Ox
97.9 F 88 130/74 95
01/20/24 20:55 01/20/24 20:55 01/20/24 20:55 01/20/24 20:55
Last Documented Vital Signs
Temp Pulse Resp BP Pulse Ox
97.9 F 85 20 130/74 95
01/20/24 20:55 01/20/24 22:44 01/20/24 22:44 01/20/24 20:55 01/20/24 20:55
MDM/Problems Addressed
Differential Diagnosis Includes:
Cellulitis venous stasis RSD complex regional pain syndrome, DVT less likely
MDM/Problems Addressed:
Painful swelling of the left leg
Chronic conditions affecting care: DM, Neurological disorder and Immunosuppressed
Acute Exacerbation and/or Progression of Chronic Illness: DM, Neurological disorder and Immunosuppressed
*Pulse Oximetry
Patient hypoxic: no
*Critical Care Note
Total Time (30-74mins, 75-104mins- exclusive of procedures): Not Applicable
Data Reviewed
Review of Other/Old Records Reveals: Labs and Progress Notes
Source: patient, records and spouse
Prescriptions/Medications Considered But Not Given:
Steroids
Further Testing Considered But Not Given:
Doppler
Update Note
Update Note:
Update patient with complex past medical history as outlined in the EMR with increased pain despite antibiotics will start on broader spectrum, treat symptomatically hold on Doppler as her pain is anterior for the most part
ED Attending Note
-
Portions of this chart may have been created with voice recognition software.� Occasional wrong word or��sound alike� substitutions may have occurred due to the inherent limitations of voice recognition software.
Discharge Plan
Departure
Patient Disposition: Admit
Date of Disposition: 01/20/24
Time of Disposition: 22:58
Presentation/result/management discussed w/ accepting MD/DO: Hospitalist
Patient with high blood pressure during this ER visit?: No
Condition: Good
Covid-19: Not Applicable
Discharge Problem:
Morbid obesity with BMI of 50.0-59.9, adult, Type 2 diabetes mellitus with hyperglycemia, Cellulitis
Prescriptions:
No Action
zolpidem [Ambien CR] 12.5 MG tablet,ext release multiphase
12.5 mg PO HS
Patient Comments:
11/19/2020: last filled 11/09/20, 30 tabs for 30 days from [id number]
aspirin 81 MG tablet,delayed release (DR/EC)
81 mg PO DAILY Qty: 0 0RF
nitroglycerin 0.4 MG tablet, sublingual
0.4 mg sublingual [id number] PRN (Reason: chest pain) Qty: 30 3RF
levalbuterol tartrate 1 PUFF HFA aerosol inhaler
2 puff inhalation R Q6HPRN PRN (Reason: sob)
insulin aspart U-100 [Novolog FlexPen U-100 Insulin] 300 UNITS/3 ML insulin pen
26 units SC AC
atorvastatin 80 MG tablet
80 mg PO QPM
metoprolol succinate 50 MG tablet extended release 24 hr
50 mg PO HS
sertraline 100 MG tablet
100 mg PO HS
dicyclomine 20 MG tablet
20 mg PO BID
hyoscyamine sulfate [Levsin/SL] 0.125 MG tablet, sublingual
0.125 mg sublingual Q6HPRN PRN (Reason: IBS, gastrointestinal issue)
furosemide 20 MG tablet
40 mg PO DAILY
cyclobenzaprine 10 mg Tablet
10 mg PO BID
insulin glargine [Lantus U-100 Insulin] 100 unit/mL Solution
40 unit SC BID
potassium chloride 10 mEq Tablet Extended Release
10 meq PO DAILY
tramadol 50 mg Tablet
50 mg PO BID
gabapentin 300 mg Capsule
300 mg PO TID
lisinopril 5 mg Tablet
5 mg PO DAILY
fludrocortisone 0.1 mg Tablet
0.1 mg PO DAILY
ezetimibe [Zetia] 10 mg Tablet
10 mg PO HS
metformin 500 mg Tablet Extended Release 24hr
1,000 mg PO QPM
cholecalciferol (vitamin D3) 125 mcg (5,000 unit) Tablet
125 mcg PO DAILY
icosapent ethyl [Vascepa] 1 gram Capsule
1 g PO BID
Ozempic 0.25 mg or 0.5 mg(2 mg/1.5 mL) Pen Injector
0.25 mg SC PARIS
Rx Instructions:
for 4 weeks
Medical Marijuana
2 gummy PO HSPRN PRN (Reason: sleep)
Baqsimi 3 mg/actuation [place],Non-Aerosol
3 mg INTRANASAL DAILYPRN PRN (Reason: high sugar)
cephalexin 500 mg capsule
500 mg PO QID 7 Days Qty: 28 0RF
lorazepam 0.5 mg Tablet
0.5 mg PO BID PRN (Reason: anxiety )
ondansetron 4 mg Tablet,Disintegrating
4 mg PO Q8H PRN (Reason: nausea )
Referrals:
Freddy Arellano DO [Family Provider] -
Interventions
Interventions:
*Risk Screen - Suicide Last Done: 01/20/24 20:57
*General Assessment Last Done: 01/20/24 20:57
*Neglect/Abuse Screening Last Done: 01/20/24 20:57
ED- Fall Risk Assessment Last Done: 01/20/24 22:42
ED-Skin Assessment Last Done: 01/20/24 22:42
Discharge Date and Time
Print Language: WOLOF
[2024-01-20] MEDS: VANCOCIN 540 MG IV (23:06)
--- NOTE | 2024-01-20 23:07 | HPS.HSE ---
Family Physician
-
Family Physician: Freddy Arellano
Chief Complaint
-
Left lower extremities redness, swelling
History of Present Illness
53-year-old female with past medical history for diabetes, sarcoidosis, CAD, COPD, GERD, hypertension, hyperlipidemia, coronary artery disease presented to us with painful swelling of her left foot and left lower leg since last . Patient noticed
redness on . She noticed swelling on Sunday .PCP called in some cephalexin 500 3 times daily's taken 5 doses with no relief in her symptoms. Patient stated the redness and swelling progressively got worse. no fevers, chills, chest pain or
short of breath. Patient has a headache. Denied dizziness or syncopal episode. Patient denied any abdominal pain, nausea, vomiting, diarrhea. Denied dysuria hematuria has had increased pain said difficulty ambulating, she has had sepsis
previously from an infected wound on that extremity from pedicure.
On arrival noted leukocytosis. Patient received a dose of vancomycin in ER. Admitted for further management
Medical History
Past Medical History
Past Medical History: Reports Other
Additional Past Medical History:
Hyperlipidemia
AYAAN
Coronary artery disease
DM
IBS
saroidosis
Past Surgical History: Reports Other
Additional Past Surgical History:
Cardiac stent
cholecystectomy
hysterectomy
Social History
Tobacco: Smoker (1 pack a day)
Alcohol: None
Drug: None
Personal:
Living: With Family
Family History
Family History: Not pertinent
Allergies / Home Medications
Allergies reflects when Allergies were last updated in [facility].
Home Medications with original date entered in [facility]
Allergy/Medication List:
Allergies
Allergy/AdvReac Type Severity Reaction Status Date / Time
oxycodone [From Percocet] Allergy 'breathing Verified 01/20/24 20:56
issues'
Home Medications
zolpidem 12.5 mg tablet,extended release,multiphase (Ambien CR) 12.5 mg PO HS Sleep 11/21/14
aspirin 81 mg tablet,delayed release 81 mg PO DAILY ##0 11/24/14
nitroglycerin 0.4 mg sublingual tablet 0.4 mg sublingual [id number] PRN chest pain #30 tabs 11/24/14
levalbuterol tartrate 45 mcg/actuation aerosol inhaler 2 puff inhalation R Q6HPRN PRN sob 01/31/17
atorvastatin 80 mg tablet 80 mg PO QPM High cholesterol 10/29/20
dicyclomine 20 mg tablet 20 mg PO BID Gastrointestinal issue 10/29/20
furosemide 20 mg tablet 40 mg PO DAILY Fluid retention/Swelling 10/29/20
hyoscyamine sulfate 0.125 mg sublingual tablet (Levsin/SL) 0.125 mg sublingual Q6HPRN PRN IBS, gastrointestinal issue 10/29/20
insulin aspart U-100 100 unit/mL (3 mL) subcutaneous pen (Novolog FlexPen U-100 Insulin aspart) 26 units SC AC Diabetes 10/29/20
metoprolol succinate 50 mg tablet,extended release 24 hr 50 mg PO HS Blood pressure 10/29/20
sertraline 100 mg tablet 100 mg PO HS Mental Health/Anxiety 10/29/20
Medical Marijuana 2 gummy PO HSPRN PRN sleep 12/08/23
cholecalciferol (vitamin D3) 125 mcg (5,000 unit) tablet 125 mcg PO DAILY 12/08/23
cyclobenzaprine 10 mg tablet 10 mg PO BID 12/08/23
ezetimibe 10 mg tablet (Zetia) 10 mg PO HS 12/08/23
fludrocortisone 0.1 mg tablet 0.1 mg PO DAILY 12/08/23
gabapentin 300 mg capsule 300 mg PO TID 12/08/23
glucagon 3 mg/actuation nasal spray (Baqsimi) 3 mg intranasal DAILYPRN PRN high sugar 12/08/23
icosapent ethyl 1 gram capsule (Vascepa) 1 g PO BID 12/08/23
insulin glargine 100 unit/mL subcutaneous solution (Lantus U-100 Insulin) 40 unit SC BID 12/08/23
lisinopril 5 mg tablet 5 mg PO DAILY 12/08/23
metformin 500 mg tablet,extended release 24hr (osmotic) 1,000 mg PO QPM 12/08/23
potassium chloride 10 mEq tablet,extended release 10 meq PO DAILY 12/08/23
semaglutide 0.25 mg or 0.5 mg (2 mg/1.5 mL) subcutaneous pen injector (Ozempic) 0.25 mg SC PARIS 12/08/23
tramadol 50 mg tablet 50 mg PO BID 12/08/23
cephalexin 500 mg capsule 500 mg PO QID 7 days #28 caps 12/16/23
lorazepam 0.5 mg tablet 0.5 mg PO BID PRN anxiety 01/20/24
ondansetron 4 mg disintegrating tablet 4 mg PO Q8H PRN nausea 01/20/24
Review of Systems
-
Constitutional: Reports No Symptoms
EENT: Reports No Symptoms
Respiratory: Reports No Symptoms
Cardiac: Reports No Symptoms
Abdomen/GI: Reports No Symptoms
: Reports No Symptoms
Musculoskeletal: Reports No Symptoms
Skin: Reports Other (Left lower extremities redness, swelling)
Neurological: Reports No Symptoms
Endocrine: Reports No Symptoms
Hematologic/Lymphatic: Reports No Symptoms
Psych: Reports No Symptoms
Physical Exam
Vital Signs
Vital Signs
Temp Pulse Resp BP Pulse Ox
97.9 F 85 20 130/74 95
01/20/24 20:55 01/20/24 22:44 01/20/24 22:44 01/20/24 20:55 01/20/24 20:55
Physical Exam
General: Well Developed, Well Nourished and No Apparent Distress
HEENT: NormoCephalic, Moist mucous membranes and Atraumatic
Respiratory: Clear
Cardiac: S1/S2 and Regular Rhythm; No Murmur or Rub
GI: Soft, Non Tender, Non Distended and Normal Bowel Sounds; No Organomegaly
Rectal: Deferred by Provider
Musculoskeletal: No Clubbing, No Cyanosis and No Edema
Skin: Rash and Other (redness warmth anterior dorsum of the left foot up into the left mid castillo and calf)
Neuro: AO x 3 and Nonfocal/grossly intact
Psych: Calm
Laboratory Results
-
01/20/24 22:23
01/20/24 22:23
Laboratory Results
Total Bilirubin 0.6 mg/dl (0.2-1.3) 01/20/24 22:
AST 20 U/L (14-36) 01/20/24 22:23
ALT 24 U/L (0-35) 01/20/24 22:23
Alkaline Phosphatase 176 U/L (38-126) H 01/20/24 22:23
Data Reviewed
-
Lab Data: Labs Reviewed by me
Impression/Plan
-
#left LE cellulitis
-Failed outpatient oral antibiotic therapy
-wbc 12.1, patient is afebrile
-Vancomycin continued
-Tylenol as needed for fever
-Continue to monitor
-Dilaudid prn for pain
#hypokalemia likely from diuretics
-kcl 3.3
-KCl 40 mEq p.o.
#Type 2 DM with neuropathy
-Insulin aspart 26 units with meals
-Lantus 40 units twice a day
-Metformin continued
-Sliding scale
-Carb controlled diet
-Gabapentin continued
-Hold Ozempic
# History of coronary artery disease
-Status post cardiac stent
-Aspirin continued
# Hyperlipidemia
-Atorvastatin and Zetia continued
-, Vascepa continued
#essential HTN
-Furosemide, lisinopril, metoprolol continue with hold parameter
#sarcoidosis/ILD /history of COPD
-fludrocortisone continued
-Levalbuterol continued
#anxiety/depression
-cont sertraline as able
-Lorazepam continued
# History of IBS
-Recommend continued
# Chronic pain
-Tramadol, Flexeril continued
#nicotine dependence
-smokes 1 pack a day
-encouraged cessation
-denied nicotine patch
DVT PPX - Lovenox sq
# CODE STATUS
-Full code
[2024-01-21] MEDS: KCL 40 MEQ PO (00:16)
[2024-01-21 00:35] VITALS: BP 146/80; BMI 50.8
[2024-01-21] MEDS: BENADRYL 25 MG PO (01:29)
[2024-01-21] MEDS: DILAUDID 1 MG IV ×7 (02:27→23:05)
--- NOTE | 2024-01-21 03:40 | W.PN.UPDATE ---
Update Note
Progress Note Update
Patient seen and examined with LIGHT TRUCK DRIVER, I agree with the findings on history and physical and concur with her assessment and plan.
Briefly this is a 53-year-old female with history of insulin-dependent diabetes, sarcoidosis, interstitial lung disease, chronic pain, GERD, CAD, chronic lower extremity swelling and history of lower extremity cellulitis who presents to the
emergency department with approximately 3 days of increasing left leg swelling erythema tenderness and warmth. Which was able to take cephalexin for approximately 2 days with worsening of the symptoms. She does not appear to have any systemic
signs including fever chills nausea vomiting weakness or lethargy. Glucose remains relatively well-controlled.
In the ED she was nontoxic appearing hemodynamically stable and in no acute distress. I confirmed the cellulitis of the right lower extremity. There was no obvious injury. There is failure or impending failure of outpatient management and she
will benefit from IV antibiotics inpatient.
Will continue with IV vancomycin for now. Serial exams. Pain control. Management of myriad issues including diabetes, CAD, GERD, depression/anxiety as per LIGHT TRUCK DRIVER note. She is full code.
--- NOTE | 2024-01-21 06:51 | W.PN.HOSP.TC ---
Today's Communication/Plan
-
cont abx
discontinue vancomycin
cont glycemic control
pain control
Assessment / Plan
Assessment / Plan
Physical Exam
General: Well Developed, Well Nourished and No Apparent Distress
HEENT: NormoCephalic, Moist mucous membranes and Atraumatic
Respiratory: Clear
Cardiac: S1/S2 and Regular Rhythm; No Murmur or Rub
GI: Soft, Non Tender, Non Distended and Normal Bowel Sounds; No Organomegaly
Musculoskeletal: No Clubbing, No Cyanosis and No Edema
Skin: Rash redness warmth anterior dorsum of the left foot up into the left mid castillo and calf notably fading
Neuro: AO x 3
Psych: Calm
53F DM Sarcoidosis CAD COPD GERD HTN CAD HLD IBS Chronic Pain Nicotine dependence anxiety depression p/w LLE cellulitis failed outpatient treatment.
#left LE cellulitis
-Failed outpatient oral antibiotic therapy
-mild leukocytosis trending down, afebrile
-MRSA screen neg, empiric Vancomycin discontinued, continue cefazolin
-Tylenol as needed for fever
-Continue to monitor
-Dilaudid prn for pain
#hypokalemia
monitor and replete as necessary
#Type 2 DM with neuropathy
-Insulin aspart 26 units with meals placed on hold, sugars have been well controlled low but euglycemic
-Lantus 40 units twice a day reduced to 20U BID d/t relatively low sugars though remains euglycemic
-Metformin continued
-Sliding scale
-Carb controlled diet
-Gabapentin continued
-Hold Ozempic
# History of coronary artery disease
-Status post cardiac stent
-Aspirin continued
# Hyperlipidemia
-Atorvastatin and Zetia continued
-, Vascepa continued
#essential HTN
-Furosemide, lisinopril, metoprolol continue with hold parameter
#sarcoidosis/ILD /history of COPD
-fludrocortisone continued
-Levalbuterol continued
#anxiety/depression
-cont sertraline as able
-Lorazepam continued
# History of IBS
-Recommend continued
# Chronic pain
-Tramadol, Flexeril continued
#nicotine dependence
-smokes 1 pack a day
-encouraged cessation
-denied nicotine patch
DVT PPX - Lovenox sq
# CODE STATUS
-Full code
I spent a total of 50 minutes with the patient or on the floor. More than 50% of this time involved counseling and coordination of care.
Anticipated Discharge: 24 - 48 hours
Subjective/Interval History
-
Date of Service: January 21, 2024
Seen and examined at bedside in no acute distress resting comfortably in bed. Pain well controlled with current regimen. Significant improvement in erythema swelling LLE noted. Overall reports feeling well.
Objective Data
-
Labs:
Laboratory Results
01/20/24 01/21/24 01/21/24
22:23 06:38 06:39
WBC 12.1 H Pending
Hgb 12.7 Pending
Hct 36.4 L Pending
Plt Count 376 Pending
Sodium 141 Pending
Potassium 3.3 L Pending
Chloride 101 Pending
Carbon Dioxide 32 H Pending
BUN 11 Pending
Creatinine 0.6 Pending
Glucose 119 H Pending
Calcium 9.4 Pending
Total Bilirubin 0.6
AST 20
ALT 24
Alkaline Phosphatase 176 H
Vital Signs:
Vital Signs
Temp Pulse Resp BP Pulse Ox
97.8 F 83 18 146/80 96
01/21/24 00:35 01/21/24 00:35 01/21/24 00:35 01/21/24 00:35 01/21/24 03:19
[2024-01-21 07:07] VITALS: BP 143/93
[2024-01-21 08:07] LABS: Glucose - Point of Care 110 mg/dl (70-99)
[2024-01-21 08:46] LABS: Hematocrit 37.1 % (37.0-47.0); Hemoglobin 12.3 g/dL (12.0-16.0); Mean Corp Hgb Conc. 33.2 g/dL (33.0-37.0); Mean Corpuscular Hgb 28.9 pg (27.0-31.0); Mean Corpuscular Volume 87.3 fL (81.0-99.0); Mean Platelet Volume 10.4 fL (7.4-10.4); Platelet Count 375 10^3/uL (130-400); Red Blood Cell Count 4.25 10^6/uL (4.20-5.40); White Blood Cell Count 11.2 10^3/uL (4.8-10.8)
[2024-01-21] MEDS: NOVOLOG FLEXPEN 26 UNITS SC ×2 (09:06→12:36)
[2024-01-21] MEDS: NOVOLOG FLEXPEN-LOW RESISTANCE SC ×3 (09:06→17:38)
[2024-01-21 09:07] LABS: Blood Urea Nitrogen 10 mg/dl (7-17); Calcium 9.1 mg/dl (8.4-10.2); Carbon Dioxide 31 mmol/L (22-30); Chloride 102 mmol/L (98-107); Estimated Creatinine Clearance > 125 ml/min; Glucose 87 mg/dl (70-99); Potassium 3.8 mmol/L (3.5-5.1); Sodium 143 mmol/L (135-145); eGFR > 60.00
[2024-01-21] MEDS: ASPIR LOW (ENTERIC COATED) 81 MG PO (09:07)
[2024-01-21] MEDS: LANTUS 0.4 UNITS SC (09:07)
[2024-01-21] MEDS: FLORINEF 0.1 MG PO (09:08)
[2024-01-21] MEDS: BENTYL 20 MG PO ×2 (09:08→19:53)
[2024-01-21] MEDS: FLEXERIL 10 MG PO ×2 (09:08→19:53)
[2024-01-21] MEDS: KCL 10 MEQ PO (09:08)
[2024-01-21] MEDS: LASIX 40 MG PO (09:08)
[2024-01-21] MEDS: VITAMIN D3 (cholecalciferol) 125 MCG PO (09:09)
[2024-01-21] MEDS: ZESTRIL 5 MG PO (09:09)
[2024-01-21] MEDS: ULTRAM 50 MG PO ×2 (09:09→19:53)
[2024-01-21] MEDS: NEURONTIN 300 MG PO ×3 (09:09→23:03)
[2024-01-21] MEDS: FLUSH (NSS) 1 FLUSH IV ×5 (09:14→17:39)
--- NOTE | 2024-01-21 09:57 | PHA.VAN.IN ---
Assessment
- Assessment
Renal Function: Appears similar to baseline (12/08/23 Scr 0.6)
Concomitant Antimicrobials: Cefazolin
- Previous Dosing Experience
Previous Regimen: Vancomycin 1250mg IV Q12hrs using Vd coefficient 0.4
Date of Regimen: 11/20/2020
Provided Trough of: 7
Provided AUC of: 320
Patient's SCR is: Similar to previous dosing experience (0.6)
Patient's weight is: Decreased compared to previous dosing experience (131kg)
Patient's dose was adjusted to 1750mg IV Q12hrs with estimated peak 34, trough 10.5, AUC 487. No levels drawn. Drug was discontinued
AUC Dosing Plan
- Dosing Variables
Dosing Weight (kg): 125.76
Dosing CrCl (ml/min): 100
Vd coefficient (L/kg): 0.5
- Empiric Dosing
Initial / Loading Dose: Vancomycin 2000mg IV x 1 dose given 01/20/24 at 23:06
Maintenance Regimen: Vancomycin 1250mg IV Q12hrs
Estimated AUC (mcg*h/mL): 485
Estimated Peak (mcg*h/mL): 31
Estimated Trough (mcg/ml): 12
Estimated Half Life (H): 8
- Monitoring
No levels ordered at this time: Will order levels according to vancomycin dosing protocol
Pharmacokinetics Vancomycin I
- -
Patient Age: 53
Patient Sex: Female
Vancomycin Day #: 1
Indication: Skin And Soft Tissue
Requesting Provider: VIRGILIO Calvin
Pertinent Antimicrobial Allergies:
No antibiotic allergies
Height / Weight:
Height 5 ft 2 in
Actual Weight 125.758 kg
IBW in k.1
Adjusted BW in k.4
Pertinent Past Medical History: BMI=50.7, DM2, faile outpt keflex
- Vital Signs / Lab Results
Temp Pulse Resp BP Pulse Ox
97.9 F 78 18 143/93 94
01/21/24 07:07 01/21/24 09:09 01/21/24 07:07 01/21/24 09:09 01/21/24 08:40
Lab Results - Hematology
01/20/24 01/21/24
22: 06:39
WBC 12.1 H 11.2 H
Lab Results - Chemistry
01/20/24 01/21/24
22:23 06:38
BUN 11 10
Creatinine 0.6 0.6
Estimated Creat Clear > 125 > 125
Albumin 3.5
[2024-01-21] MEDS: ANCEF 10 IV ×2 (10:22→17:39)
[2024-01-21 12:02] LABS: Glucose - Point of Care 80 mg/dl (70-99)
[2024-01-21 15:42] VITALS: BP 138/74
--- NOTE | 2024-01-21 16:49 | PTCARENOTE ---
Pt AAO x3, KENNY well, ambulatory in room/to BR; halie well. Pt c/o pain in Lt lower leg foot '-; reports relief with Iv Dilaudid to '. VSS. On room air- pulse ox 97%, no SOB noted. Abd obese, soft, halie PO well. Void sin BR without
difficulty. Lt lower leg/foot sl reddened with +2 edema; pt keeping LLE elevated on pillow. Resting in bed at present. Will continue to monitor.
[2024-01-21 16:54] LABS: Glucose - Point of Care 79 mg/dl (70-99)
[2024-01-21] MEDS: NOVOLOG FLEXPEN SC (17:38)
[2024-01-21] MEDS: LOVENOX 40 MG SC (17:39)
[2024-01-21] MEDS: GLUCOPHAGE XR EXTENDED RELEASE 1000 MG PO (17:39)
[2024-01-21] MEDS: LIPITOR 80 MG PO (17:39)
[2024-01-21 21:54] LABS: Glucose - Point of Care 116 mg/dl (70-99)
[2024-01-21] MEDS: AMBIEN 10 MG PO (23:03)
[2024-01-21] MEDS: ZETIA 10 MG PO (23:03)
[2024-01-21] MEDS: ZOLOFT 100 MG PO (23:04)
[2024-01-21] MEDS: TOPROL XL 50 MG PO (23:07)
[2024-01-21] MEDS: LANTUS 0.2 UNITS SC (23:22)
[2024-01-21 23:30] VITALS: BP 142/77
--- NOTE | 2024-01-22 01:51 | PTCARENOTE ---
Pt received from previous shift in bed, crying. Rates LLE/foot pain as 02/03. PRN IV dilaudid administered per order (refer to MAR) Pt stopped crying and plesantly conversant mid administratoin. Full physical assessment documented (refer to
worklist). LLE pink w/slight warmth, + pedal pulse. Plan of care discussed.
[2024-01-22] MEDS: ANCEF 10 IV ×2 (02:11→10:37)
[2024-01-22] MEDS: DILAUDID 1 MG IV ×6 (02:16→22:58)
[2024-01-22] MEDS: LOVENOX 40 MG SC ×2 (06:28→17:13)
--- NOTE | 2024-01-22 07:25 | W.PN.HOSP.TC ---
Today's Communication/Plan
-
IV abx converted to oral keflex
pain control, gabapentin increased, home tramadol dose 100 mg bid resumed
glycemic control
probiotic
Assessment / Plan
Assessment / Plan
Physical Exam
General: Well Developed, Well Nourished and No Apparent Distress
HEENT: NormoCephalic, Moist mucous membranes and Atraumatic
Respiratory: Clear
Cardiac: S1/S2 and Regular Rhythm; No Murmur or Rub
GI: Soft, Non Tender, Non Distended and Normal Bowel Sounds; No Organomegaly
Musculoskeletal: No Clubbing, No Cyanosis and No Edema
Skin: Rash redness warmth anterior dorsum of the left foot up into the left mid castillo and calf notably fading
Neuro: AO x 3
Psych: Calm
53F DM Sarcoidosis CAD COPD GERD HTN CAD HLD IBS Chronic Pain Nicotine dependence anxiety depression p/w LLE cellulitis failed outpatient treatment.
#left LE cellulitis
-Failed outpatient oral antibiotic therapy
-mild leukocytosis trending down, afebrile
-MRSA screen neg, empiric Vancomycin discontinued,
-cefazolin de-escalated back to Keflex with overall improvement, patient also started on probiotic
-Tylenol as needed for fever
-Continue to monitor
-Dilaudid prn for pain
#hypokalemia
monitor and replete as necessary
#Type 2 DM with neuropathy
-Insulin aspart 26 units with meals placed on hold, sugars have been well controlled low but euglycemic
-Lantus 40 units twice a day reduced to 20U BID d/t relatively low sugars though remains euglycemic
-Metformin continued
-Sliding scale
-Carb controlled diet
-Gabapentin continued
-Hold Ozempic
# History of coronary artery disease
-Status post cardiac stent
-Aspirin continued
# Hyperlipidemia
-Atorvastatin and Zetia continued
- Vascepa to resume on discharge, not available on formulary
#essential HTN
-Furosemide, lisinopril, metoprolol continue with hold parameter
#sarcoidosis/ILD /history of COPD
-fludrocortisone continued
-Levalbuterol continued
#anxiety/depression
-cont sertraline as able
-Lorazepam continued
# History of IBS
-Recommend continued
# Chronic pain
#Neuropathic Pain
#Complex regional pain syndrome Left foot
-Tramadol, Flexeril continued
-home gabapentin increased to 400 mg TID
-cont dilaudid prn
#nicotine dependence
-smokes 1 pack a day
-encouraged cessation
-denied nicotine patch
DVT PPX - Lovenox sq
# CODE STATUS
-Full code
I spent a total of 50 minutes with the patient or on the floor. More than 50% of this time involved counseling and coordination of care.
Anticipated Discharge: 24 - 48 hours
Subjective/Interval History
-
Date of Service: January 22, 2024
Erythema continues to improve but pain LLE persists described as pins and needles.
Objective Data
-
Labs:
Laboratory Results
01/22/24
06:47
WBC Pending
Hgb Pending
Hct Pending
Plt Count Pending
Sodium Pending
Potassium Pending
Chloride Pending
Carbon Dioxide Pending
BUN Pending
Creatinine Pending
Glucose Pending
Calcium Pending
Vital Signs:
Vital Signs
Temp Pulse Resp BP Pulse Ox
97.8 F 86 18 142/77 97
01/21/24 23:30 01/21/24 23:30 01/21/24 23:30 01/21/24 23:30 01/21/24 23:30
I&O
01/21/24 01/22/24 01/23/24
06:59 06:59 06:59
Intake Total 1500 / 1500
Balance 1500 / 1500
[2024-01-22 07:41] LABS: Glucose - Point of Care 116 mg/dl (70-99)
[2024-01-22 07:45] VITALS: BP 143/75
[2024-01-22 08:15] LABS: Hematocrit 35.1 % (37.0-47.0); Hemoglobin 11.8 g/dL (12.0-16.0); Mean Corp Hgb Conc. 33.6 g/dL (33.0-37.0); Mean Corpuscular Hgb 28.5 pg (27.0-31.0); Mean Corpuscular Volume 84.8 fL (81.0-99.0); Mean Platelet Volume 9.8 fL (7.4-10.4); Platelet Count 375 10^3/uL (130-400); Red Blood Cell Count 4.14 10^6/uL (4.20-5.40); Red Cell Dist. Width 13.7 % (11.5-14.5); White Blood Cell Count 10.6 10^3/uL (4.8-10.8)
[2024-01-22 08:22] LABS: Blood Urea Nitrogen 11 mg/dl (7-17); Carbon Dioxide 35 mmol/L (22-30); Chloride 99 mmol/L (98-107); Estimated Creatinine Clearance > 125 ml/min; Glucose 118 mg/dl (70-99); Magnesium 1.8 mg/dl (1.6-2.3); Phosphorus 4.8 mg/dl (2.5-4.5); Potassium 4.1 mmol/L (3.5-5.1); Sodium 140 mmol/L (135-145); eGFR > 60.00
[2024-01-22] MEDS: LANTUS 0.2 UNITS SC ×2 (10:36→20:45)
[2024-01-22] MEDS: NOVOLOG FLEXPEN-LOW RESISTANCE SC ×2 (10:36→11:52)
[2024-01-22] MEDS: KCL 10 MEQ PO (10:42)
[2024-01-22] MEDS: FLORINEF 0.1 MG PO (10:42)
[2024-01-22] MEDS: VITAMIN D3 (cholecalciferol) 125 MCG PO (10:42)
[2024-01-22] MEDS: FLEXERIL 10 MG PO ×2 (10:42→19:57)
[2024-01-22] MEDS: NEURONTIN 300 MG PO (10:42)
[2024-01-22] MEDS: ZESTRIL 5 MG PO (10:43)
[2024-01-22] MEDS: BENTYL 20 MG PO ×2 (10:43→19:55)
[2024-01-22] MEDS: LASIX 40 MG PO (10:43)
[2024-01-22] MEDS: ASPIR LOW (ENTERIC COATED) 81 MG PO (10:43)
[2024-01-22] MEDS: ULTRAM 50 MG PO (10:43)
[2024-01-22 11:40] LABS: Glycohemoglobin (HgbA1c) 8.3 % (4.0-5.6)
[2024-01-22 11:46] LABS: Glucose - Point of Care 127 mg/dl (70-99)
[2024-01-22] MEDS: FLORASTOR 250 MG PO (14:38)
[2024-01-22 15:32] VITALS: BP 146/87
[2024-01-22 16:58] LABS: Glucose - Point of Care 160 mg/dl (70-99)
[2024-01-22] MEDS: NOVOLOG FLEXPEN-LOW RESISTANCE 1 UNITS SC (17:09)
[2024-01-22] MEDS: LIPITOR 80 MG PO (17:11)
[2024-01-22] MEDS: GLUCOPHAGE XR EXTENDED RELEASE 1000 MG PO (17:11)
[2024-01-22] MEDS: NEURONTIN 400 MG PO ×2 (17:12→22:55)
[2024-01-22] MEDS: KEFLEX 500 MG PO ×2 (17:12→22:54)
[2024-01-22 19:56] LABS: Glucose - Point of Care 131 mg/dl (70-99)
[2024-01-22] MEDS: ZETIA 10 MG PO ×2 (19:57→22:55)
[2024-01-22] MEDS: TOPROL XL 50 MG PO ×2 (19:57→22:54)
[2024-01-22] MEDS: ULTRAM 100 MG PO (19:58)
[2024-01-22 21:32] LABS: Glucose - Point of Care 144 mg/dl (70-99)
[2024-01-22] MEDS: AMBIEN 10 MG PO (22:55)
[2024-01-22] MEDS: ZOLOFT 100 MG PO (22:55)
[2024-01-22 23:44] VITALS: BP 148/71
[2024-01-23] MEDS: DILAUDID 1 MG IV ×7 (01:58→22:30)
[2024-01-23] MEDS: LOVENOX 40 MG SC ×2 (05:00→16:17)
[2024-01-23 06:35] LABS: Hematocrit 37.1 % (37.0-47.0); Hemoglobin 12.4 g/dL (12.0-16.0); Mean Corp Hgb Conc. 33.4 g/dL (33.0-37.0); Mean Corpuscular Hgb 28.8 pg (27.0-31.0); Mean Corpuscular Volume 86.3 fL (81.0-99.0); Platelet Count 419 10^3/uL (130-400); Red Cell Dist. Width 13.5 % (11.5-14.5); White Blood Cell Count 9.4 10^3/uL (4.8-10.8)
[2024-01-23 07:03] LABS: Blood Urea Nitrogen 12 mg/dl (7-17); Calcium 9.1 mg/dl (8.4-10.2); Carbon Dioxide 32 mmol/L (22-30); Chloride 101 mmol/L (98-107); Estimated Creatinine Clearance > 125 ml/min; Glucose 175 mg/dl (70-99); Magnesium 1.8 mg/dl (1.6-2.3); Phosphorus 4.5 mg/dl (2.5-4.5); Potassium 3.8 mmol/L (3.5-5.1); Sodium 140 mmol/L (135-145); eGFR > 60.00
--- NOTE | 2024-01-23 07:20 | W.PN.HOSP.TC ---
Today's Communication/Plan
-
cont abx
pain control
K-pad LLE
Assessment / Plan
Assessment / Plan
Physical Exam
General: Well Developed, Well Nourished and No Apparent Distress
HEENT: NormoCephalic, Moist mucous membranes and Atraumatic
Respiratory: Clear
Cardiac: S1/S2 and Regular Rhythm; No Murmur or Rub
GI: Soft, Non Tender, Non Distended and Normal Bowel Sounds; No Organomegaly
Musculoskeletal: No Clubbing, No Cyanosis and No Edema
Skin: Rash redness warmth anterior dorsum of the left foot up into the left mid castillo and calf notably fading
Neuro: AO x 3
Psych: Calm
53F DM Sarcoidosis CAD COPD GERD HTN CAD HLD IBS Chronic Pain Nicotine dependence anxiety depression p/w LLE cellulitis failed outpatient treatment.
#left LE cellulitis
-Failed outpatient oral antibiotic therapy
-mild leukocytosis trending down, afebrile
-MRSA screen neg, empiric Vancomycin discontinued,
-cefazolin de-escalated back to Keflex with overall improvement, patient also started on probiotic
-Tylenol as needed for fever
-Continue to monitor
-Dilaudid prn for pain
-K-pad ordered for LLE pain
#hypokalemia
monitor and replete as necessary
#Type 2 DM with neuropathy
-Insulin aspart 26 units with meals placed on hold, sugars have been well controlled low but euglycemic
-Lantus 40 units twice a day reduced to 20U BID d/t relatively low sugars though remains euglycemic
-Metformin continued
-Sliding scale
-Carb controlled diet
-Gabapentin continued
-Hold Ozempic
# History of coronary artery disease
-Status post cardiac stent
-Aspirin continued
# Hyperlipidemia
-Atorvastatin and Zetia continued
- Vascepa to resume on discharge, not available on formulary
#essential HTN
-Furosemide, lisinopril, metoprolol continue with hold parameter
#sarcoidosis/ILD /history of COPD
-fludrocortisone continued
-Levalbuterol continued
#anxiety/depression
-cont sertraline as able
-Lorazepam continued
# History of IBS
-Recommend continued
# Chronic pain
#Neuropathic Pain
#Complex regional pain syndrome Left foot
-Tramadol, Flexeril continued
-home gabapentin increased to 400 mg TID
-cont dilaudid prn
#nicotine dependence
-smokes 1 pack a day
-encouraged cessation
-denied nicotine patch
DVT PPX - Lovenox sq
# CODE STATUS
-Full code
I spent a total of 40 minutes with the patient or on the floor. More than 50% of this time involved counseling and coordination of care.
Anticipated Discharge: 24 - 48 hours
Subjective/Interval History
-
Date of Service: January 23, 2024
Erythema swelling vastly improved. Continues to report significant LLE pain pins and needle sensation.
Objective Data
-
Labs:
Laboratory Results
01/23/24
04:57
WBC 9.4
Hgb 12.4
Hct 37.1
Plt Count 419 H
Sodium 140
Potassium 3.8
Chloride 101
Carbon Dioxide 32 H
BUN 12
Creatinine 0.6
Glucose 175 H
Calcium 9.1
Vital Signs:
Vital Signs
Temp Pulse Resp BP Pulse Ox
98.1 F 89 18 148/71 94
01/22/24 23:44 01/22/24 23:44 01/22/24 23:44 01/22/24 23:44 01/22/24 23:44
I&O
01/22/24 01/23/24 01/24/24
06:59 06:59 06:59
Intake Total 1500 / 1500 1500 / 1500
Balance 1500 / 1500 1500 / 1500
[2024-01-23 07:30] VITALS: BP 118/96
[2024-01-23 07:40] LABS: Glucose - Point of Care 151 mg/dl (70-99)
[2024-01-23] MEDS: LANTUS 0.2 UNITS SC ×2 (09:25→20:01)
[2024-01-23] MEDS: LASIX 40 MG PO (09:26)
[2024-01-23] MEDS: KEFLEX 500 MG PO ×4 (09:26→21:47)
[2024-01-23] MEDS: BENTYL 20 MG PO ×2 (09:26→20:00)
[2024-01-23] MEDS: FLORASTOR 250 MG PO (09:26)
[2024-01-23] MEDS: FLEXERIL 10 MG PO ×2 (09:26→20:00)
[2024-01-23] MEDS: NEURONTIN 400 MG PO ×3 (09:26→21:40)
[2024-01-23] MEDS: ZESTRIL 5 MG PO (09:27)
[2024-01-23] MEDS: FLORINEF 0.1 MG PO (09:27)
[2024-01-23] MEDS: NOVOLOG FLEXPEN-LOW RESISTANCE 1 UNITS SC ×2 (09:27→12:29)
[2024-01-23] MEDS: VITAMIN D3 (cholecalciferol) 125 MCG PO (09:27)
[2024-01-23] MEDS: ASPIR LOW (ENTERIC COATED) 81 MG PO (09:27)
[2024-01-23] MEDS: KCL 10 MEQ PO (09:27)
[2024-01-23] MEDS: ULTRAM 100 MG PO ×2 (09:27→20:00)
[2024-01-23 11:40] LABS: Glucose - Point of Care 167 mg/dl (70-99)
[2024-01-23 15:20] VITALS: BP 140/69
--- NOTE | 2024-01-23 16:08 | CM ---
met with patient at bedside.patient lives with parents in split level home with 5 sande[address],her bed and bath is up another 5 steps.she is I with ambulation and I with adl.she has never had a vn or been to ip rehab.
PMH:type 2 dm,sarcoidosis,cad,copd,gerd,htn,hld,ibs,chronic pain
pcp is dr jorden wilkins and she she [facility] her [facility].
patient adm with lle cellulitis,iv abx changed to po keflex.tramadol bid ,glycemic control.luis varela have no needs when dc home.
[2024-01-23] MEDS: GLUCOPHAGE XR EXTENDED RELEASE 1000 MG PO (16:17)
[2024-01-23 17:22] LABS: Glucose - Point of Care 127 mg/dl (70-99)
[2024-01-23] MEDS: NOVOLOG FLEXPEN-LOW RESISTANCE SC (17:32)
[2024-01-23] MEDS: LIPITOR 80 MG PO (18:05)
--- NOTE | 2024-01-23 18:19 | PTCARENOTE ---
Central supply contacted for K-pad. No K-pads available per central supply. 4th floor searched and no heating pads available. Plan of care ongoing.
[2024-01-23] MEDS: ZOLOFT 100 MG PO (20:00)
[2024-01-23] MEDS: ZETIA 10 MG PO (20:01)
[2024-01-23 21:18] LABS: Glucose - Point of Care 158 mg/dl (70-99)
[2024-01-23] MEDS: CLARITIN 10 MG PO (21:40)
[2024-01-23] MEDS: AMBIEN 10 MG PO (21:40)
[2024-01-23] MEDS: TOPROL XL 50 MG PO (21:40)
[2024-01-23 23:42] VITALS: BP 145/80
[2024-01-24] MEDS: DILAUDID 1 MG IV ×3 (03:36→09:59)
[2024-01-24] MEDS: LOVENOX 40 MG SC ×2 (06:26→17:10)
[2024-01-24 07:15] LABS: Hemoglobin 13.1 g/dL (12.0-16.0); Mean Corp Hgb Conc. 33.6 g/dL (33.0-37.0); Mean Corpuscular Hgb 28.9 pg (27.0-31.0); Mean Corpuscular Volume 86.1 fL (81.0-99.0); Mean Platelet Volume 9.6 fL (7.4-10.4); Platelet Count 422 10^3/uL (130-400); Red Blood Cell Count 4.53 10^6/uL (4.20-5.40); Red Cell Dist. Width 13.6 % (11.5-14.5)
[2024-01-24 07:30] LABS: Blood Urea Nitrogen 11 mg/dl (7-17); Calcium 9.6 mg/dl (8.4-10.2); Carbon Dioxide 31 mmol/L (22-30); Chloride 98 mmol/L (98-107); Estimated Creatinine Clearance > 125 ml/min; Glucose 128 mg/dl (70-99); Magnesium 1.8 mg/dl (1.6-2.3); Potassium 4.5 mmol/L (3.5-5.1); Sodium 140 mmol/L (135-145); eGFR > 60.00
--- NOTE | 2024-01-24 07:52 | W.PN.HOSP.TC ---
Today's Communication/Plan
-
capsaicin cream
X-ray LLE
Venous duplex LLE
pain control
cont abx
Assessment / Plan
Assessment / Plan
Physical Exam
General: Well Developed, Well Nourished and No Apparent Distress
HEENT: NormoCephalic, Moist mucous membranes and Atraumatic
Respiratory: Clear
Cardiac: S1/S2 and Regular Rhythm; No Murmur or Rub
GI: Soft, Non Tender, Non Distended and Normal Bowel Sounds; No Organomegaly
Musculoskeletal: No Clubbing, No Cyanosis and No Edema
Skin: Rash redness warmth anterior dorsum of the left foot up into the left mid castillo and calf notably fading
Neuro: AO x 3
Psych: Calm
53F DM Sarcoidosis CAD COPD GERD HTN CAD HLD IBS Chronic Pain Nicotine dependence anxiety depression p/w LLE cellulitis failed outpatient treatment.
#left LE cellulitis
-Failed outpatient oral antibiotic therapy
-mild leukocytosis trending down, afebrile
-MRSA screen neg, empiric Vancomycin discontinued,
-cefazolin de-escalated back to Keflex with overall improvement, patient also started on probiotic
-Tylenol as needed for fever
-Continue to monitor
-Dilaudid prn for pain
-K-pad ordered for LLE pain no significant relief noted
-Capsaicin cream started
-check X-ray LLE foot and leg, Venous duplex LLE
#hypokalemia
monitor and replete as necessary
#Type 2 DM with neuropathy
-Insulin aspart 26 units with meals placed on hold, sugars have been well controlled low but euglycemic
-Lantus 40 units twice a day reduced to 20U BID d/t relatively low sugars though remains euglycemic
-Metformin continued
-Sliding scale
-Carb controlled diet
-Gabapentin continued
-Hold Ozempic
# History of coronary artery disease
-Status post cardiac stent
-Aspirin continued
# Hyperlipidemia
-Atorvastatin and Zetia continued
- Vascepa to resume on discharge, not available on formulary
#essential HTN
-Furosemide, lisinopril, metoprolol continue with hold parameter
#sarcoidosis/ILD /history of COPD
-fludrocortisone continued
-Levalbuterol continued
#anxiety/depression
-cont sertraline as able
-Lorazepam continued
# History of IBS
-Recommend continued
# Chronic pain
#Neuropathic Pain
#Complex regional pain syndrome Left foot
-Tramadol, Flexeril continued
-home gabapentin increased to 400 mg TID
-cont dilaudid prn
#nicotine dependence
-smokes 1 pack a day
-encouraged cessation
-denied nicotine patch
DVT PPX - Lovenox sq
# CODE STATUS
-Full code
I spent a total of 40 minutes with the patient or on the floor. More than 50% of this time involved counseling and coordination of care.
Anticipated Discharge: 24 - 48 hours
Subjective/Interval History
-
Date of Service: January 24, 2024
Pain persists. Erythema/swelling resolving
Objective Data
-
Labs:
Laboratory Results
01/24/24
06:35
WBC 10.0
Hgb 13.1
Hct 39.0
Plt Count 422 H
Sodium 140
Potassium 4.5
Chloride 98
Carbon Dioxide 31 H
BUN 11
Creatinine 0.6
Glucose 128 H
Calcium 9.6
Vital Signs:
Vital Signs
Temp Pulse Resp BP Pulse Ox
98 F 85 18 145/80 98
01/23/24 23:42 01/23/24 23:42 01/23/24 23:42 01/23/24 23:42 01/23/24 23:42
I&O
01/23/24 01/24/24 01/25/24
06:59 06:59 06:59
Intake Total 1500 / 1500 1410 / 1410
Balance 1500 / 1500 1410 / 1410
[2024-01-24 08:01] LABS: Glucose - Point of Care 130 mg/dl (70-99)
[2024-01-24] MEDS: NOVOLOG FLEXPEN-LOW RESISTANCE SC (08:13)
[2024-01-24] MEDS: KCL 10 MEQ PO (08:21)
[2024-01-24] MEDS: LANTUS 0.2 UNITS SC ×2 (08:21→20:08)
[2024-01-24] MEDS: NEURONTIN 400 MG PO ×3 (08:21→22:02)
[2024-01-24] MEDS: KEFLEX 500 MG PO ×4 (08:21→22:02)
[2024-01-24] MEDS: ZESTRIL 5 MG PO (08:22)
[2024-01-24] MEDS: LASIX 40 MG PO (08:22)
[2024-01-24] MEDS: VITAMIN D3 (cholecalciferol) 125 MCG PO (08:22)
[2024-01-24] MEDS: FLEXERIL 10 MG PO ×2 (08:22→20:08)
[2024-01-24] MEDS: ULTRAM 100 MG PO ×2 (08:22→20:08)
[2024-01-24] MEDS: FLORINEF 0.1 MG PO (08:22)
[2024-01-24] MEDS: BENTYL 20 MG PO ×2 (08:22→20:08)
[2024-01-24] MEDS: FLORASTOR 250 MG PO (08:22)
[2024-01-24] MEDS: ASPIR LOW (ENTERIC COATED) 81 MG PO (08:23)
[2024-01-24 08:45] VITALS: BP 143/75
[2024-01-24 12:33] LABS: Glucose - Point of Care 182 mg/dl (70-99)
[2024-01-24] MEDS: NOVOLOG FLEXPEN-LOW RESISTANCE 1 UNITS SC (13:31)
[2024-01-24] MEDS: DILAUDID 2 MG IV ×4 (13:31→23:10)
[2024-01-24] MEDS: MIRALAX 17 GRAMS PO (13:32)
[2024-01-24] MEDS: ZOSTRIX-HP 0.075% CREAM 1 APPLIC TOPICAL ×3 (13:33→22:13)
[2024-01-24 16:29] VITALS: BP 123/83
[2024-01-24 16:37] LABS: Glucose - Point of Care 222 mg/dl (70-99)
[2024-01-24] MEDS: GLUCOPHAGE XR EXTENDED RELEASE 1000 MG PO (17:08)
[2024-01-24] MEDS: LIPITOR 80 MG PO (17:11)
[2024-01-24] MEDS: NOVOLOG FLEXPEN-LOW RESISTANCE 2 UNITS SC (17:12)
[2024-01-24] MEDS: ZETIA 10 MG PO (20:08)
[2024-01-24] MEDS: ZOLOFT 100 MG PO (20:08)
[2024-01-24] MEDS: SENOKOT-S 1 TABLET PO (20:10)
[2024-01-24 21:20] LABS: Glucose - Point of Care 142 mg/dl (70-99)
[2024-01-24] MEDS: AMBIEN 10 MG PO (22:01)
[2024-01-24] MEDS: TOPROL XL 50 MG PO (22:02)
[2024-01-24 23:54] VITALS: BP 148/85
[2024-01-25] MEDS: DILAUDID 2 MG IV ×6 (04:34→23:11)
[2024-01-25] MEDS: LOVENOX 40 MG SC ×2 (06:02→18:24)
--- NOTE | 2024-01-25 07:21 | W.PN.HOSP.TC ---
Today's Communication/Plan
-
con abx
switch capsaicin to bengay like cream
cont pain control
Assessment / Plan
Assessment / Plan
Physical Exam
General: Well Developed, Well Nourished and No Apparent Distress
HEENT: NormoCephalic, Moist mucous membranes and Atraumatic
Respiratory: Clear
Cardiac: S1/S2 and Regular Rhythm; No Murmur or Rub
GI: Soft, Non Tender, Non Distended and Normal Bowel Sounds; No Organomegaly
Musculoskeletal: No Clubbing, No Cyanosis and No Edema
Skin: Rash redness warmth anterior dorsum of the left foot up into the left mid castillo and calf notably fading
Neuro: AO x 3
Psych: Calm
53F DM Sarcoidosis CAD COPD GERD HTN CAD HLD IBS Chronic Pain Nicotine dependence anxiety depression p/w LLE cellulitis failed outpatient treatment.
#left LE cellulitis
-Failed outpatient oral antibiotic therapy
-mild leukocytosis trending down, afebrile
-MRSA screen neg, empiric Vancomycin discontinued,
-cefazolin de-escalated back to Keflex with overall improvement, patient also started on probiotic
-Tylenol as needed for fever
-Continue to monitor
-Dilaudid prn for pain
-K-pad ordered for LLE pain no significant relief noted
-Capsaicin cream started switched to bengay-like cream
-X-ray LLE foot and leg, Venous duplex LLE, appreciated no acute abn's
#hypokalemia
monitor and replete as necessary
#Type 2 DM with neuropathy
-Insulin aspart 26 units with meals placed on hold, sugars have been well controlled low but euglycemic
-Lantus 40 units twice a day reduced to 20U BID d/t relatively low sugars though remains euglycemic
-Metformin continued
-Sliding scale
-Carb controlled diet
-Gabapentin continued
-Hold Ozempic
# History of coronary artery disease
-Status post cardiac stent
-Aspirin continued
# Hyperlipidemia
-Atorvastatin and Zetia continued
- Vascepa to resume on discharge, not available on formulary
#essential HTN
-Furosemide, lisinopril, metoprolol continue with hold parameter
#sarcoidosis/ILD /history of COPD
-fludrocortisone continued
-Levalbuterol continued
#anxiety/depression
-cont sertraline as able
-Lorazepam continued
# History of IBS
-Recommend continued
# Chronic pain
#Neuropathic Pain
#Complex regional pain syndrome Left foot
-Tramadol, Flexeril continued
-home gabapentin increased to 400 mg TID
-cont dilaudid prn
#nicotine dependence
-smokes 1 pack a day
-encouraged cessation
-denied nicotine patch
DVT PPX - Lovenox sq
# CODE STATUS
-Full code
I spent a total of 40 minutes with the patient or on the floor. More than 50% of this time involved counseling and coordination of care.
Anticipated Discharge: 24 - 48 hours
Subjective/Interval History
-
Date of Service: January 25, 2024
pain left lower ext persists.
Objective Data
-
Labs:
Laboratory Results
01/25/24
07:08
WBC Pending
Hgb Pending
Hct Pending
Plt Count Pending
Sodium Pending
Potassium Pending
Chloride Pending
Carbon Dioxide Pending
BUN Pending
Creatinine Pending
Glucose Pending
Calcium Pending
Vital Signs:
Vital Signs
Temp Pulse Resp BP Pulse Ox
97.7 F 88 18 148/85 94
01/24/24 23:54 01/24/24 23:54 01/24/24 23:54 01/24/24 23:54 01/24/24 23:54
I&O
01/24/24 01/25/24 01/26/24
06:59 06:59 06:59
Intake Total 1410 / 1410 2160 / 2160
Balance 1410 / 1410 2160 / 2160
[2024-01-25 07:35] LABS: Hemoglobin 13.4 g/dL (12.0-16.0); Mean Corp Hgb Conc. 34.4 g/dL (33.0-37.0); Mean Corpuscular Hgb 28.7 pg (27.0-31.0); Mean Corpuscular Volume 83.5 fL (81.0-99.0); Mean Platelet Volume 9.5 fL (7.4-10.4); Platelet Count 450 10^3/uL (130-400); Red Blood Cell Count 4.67 10^6/uL (4.20-5.40); Red Cell Dist. Width 13.7 % (11.5-14.5); White Blood Cell Count 10.9 10^3/uL (4.8-10.8)
[2024-01-25 07:38] LABS: Glucose - Point of Care 144 mg/dl (70-99)
[2024-01-25] MEDS: NOVOLOG FLEXPEN-LOW RESISTANCE SC (07:53)
[2024-01-25] MEDS: VITAMIN D3 (cholecalciferol) 125 MCG PO (07:54)
[2024-01-25] MEDS: KEFLEX 500 MG PO ×4 (07:54→23:10)
[2024-01-25] MEDS: NEURONTIN 400 MG PO ×3 (07:55→23:10)
[2024-01-25] MEDS: ASPIR LOW (ENTERIC COATED) 81 MG PO (07:55)
[2024-01-25] MEDS: ULTRAM 100 MG PO ×2 (07:55→20:01)
[2024-01-25] MEDS: FLORINEF 0.1 MG PO (07:55)
[2024-01-25] MEDS: SENOKOT-S 1 TABLET PO (07:55)
[2024-01-25] MEDS: BENTYL 20 MG PO ×2 (07:55→20:00)
[2024-01-25] MEDS: FLEXERIL 10 MG PO ×2 (07:55→20:00)
[2024-01-25] MEDS: KCL 10 MEQ PO (07:55)
[2024-01-25] MEDS: FLORASTOR 250 MG PO (07:55)
[2024-01-25] MEDS: MIRALAX PO (07:59)
[2024-01-25] MEDS: LASIX 40 MG PO (08:06)
[2024-01-25] MEDS: ZESTRIL 5 MG PO (08:07)
[2024-01-25] MEDS: LANTUS 0.2 UNITS SC ×2 (08:13→20:01)
[2024-01-25] MEDS: ZOSTRIX-HP 0.075% CREAM TOPICAL ×3 (08:14→18:25)
[2024-01-25 08:16] LABS: Blood Urea Nitrogen 15 mg/dl (7-17); Calcium 9.7 mg/dl (8.4-10.2); Carbon Dioxide 35 mmol/L (22-30); Chloride 94 mmol/L (98-107); Estimated Creatinine Clearance 121 ml/min; Glucose 131 mg/dl (70-99); Magnesium 1.7 mg/dl (1.6-2.3); Phosphorus 5.7 mg/dl (2.5-4.5); Potassium 4.1 mmol/L (3.5-5.1); Sodium 138 mmol/L (135-145); eGFR > 60.00
[2024-01-25 11:43] LABS: Glucose - Point of Care 231 mg/dl (70-99)
[2024-01-25] MEDS: NOVOLOG FLEXPEN-LOW RESISTANCE 2 UNITS SC ×2 (12:04→18:23)
[2024-01-25 15:28] VITALS: BP 154/68
[2024-01-25 16:38] LABS: Glucose - Point of Care 235 mg/dl (70-99)
[2024-01-25] MEDS: GLUCOPHAGE XR EXTENDED RELEASE 1000 MG PO (18:24)
[2024-01-25] MEDS: LIPITOR 80 MG PO (18:24)
[2024-01-25 19:39] LABS: Glucose - Point of Care 316 mg/dl (70-99)
[2024-01-25] MEDS: SENOKOT-S PO (20:03)
[2024-01-25 23:00] VITALS: BP 148/62
[2024-01-25] MEDS: BenGay-Like 1 APPLIC TOPICAL (23:09)
[2024-01-25] MEDS: ZOLOFT 100 MG PO (23:10)
[2024-01-25] MEDS: AMBIEN 10 MG PO (23:10)
[2024-01-26] MEDS: DILAUDID 2 MG IV ×4 (03:08→21:12)
[2024-01-26 06:06] LABS: Hematocrit 36.3 % (37.0-47.0); Hemoglobin 12.3 g/dL (12.0-16.0); Mean Corp Hgb Conc. 33.9 g/dL (33.0-37.0); Mean Corpuscular Volume 82.7 fL (81.0-99.0); Mean Platelet Volume 9.6 fL (7.4-10.4); Platelet Count 430 10^3/uL (130-400); Red Blood Cell Count 4.39 10^6/uL (4.20-5.40); Red Cell Dist. Width 13.4 % (11.5-14.5); White Blood Cell Count 11.6 10^3/uL (4.8-10.8)
[2024-01-26 06:16] LABS: Blood Urea Nitrogen 13 mg/dl (7-17); Calcium 9.6 mg/dl (8.4-10.2); Carbon Dioxide 34 mmol/L (22-30); Chloride 97 mmol/L (98-107); Estimated Creatinine Clearance > 125 ml/min; Glucose 174 mg/dl (70-99); Magnesium 1.6 mg/dl (1.6-2.3); Phosphorus 4.5 mg/dl (2.5-4.5); Potassium 3.9 mmol/L (3.5-5.1); Sodium 139 mmol/L (135-145); eGFR > 60.00
[2024-01-26] MEDS: LOVENOX 40 MG SC ×2 (06:17→17:22)
--- NOTE | 2024-01-26 07:08 | W.PN.HOSP.TC ---
Today's Communication/Plan
-
cont abx
pain control
PO dilaudid prn mod severe pain, IV remains available for severe breakthrough pain
check left foot soft tissues US dorsum foot for possible fluid collection
Assessment / Plan
Assessment / Plan
Physical Exam
General: Well Developed, Well Nourished and No Apparent Distress
HEENT: NormoCephalic, Moist mucous membranes and Atraumatic
Respiratory: Clear
Cardiac: S1/S2 and Regular Rhythm; No Murmur or Rub
GI: Soft, Non Tender, Non Distended and Normal Bowel Sounds; No Organomegaly
Musculoskeletal: No Clubbing, No Cyanosis. Swelling left foot persists, dorsum of foot seems fluctuant
Neuro: AO x 3
Psych: Calm
53F DM Sarcoidosis CAD COPD GERD HTN CAD HLD IBS Chronic Pain Nicotine dependence anxiety depression p/w LLE cellulitis failed outpatient treatment.
#left LE cellulitis
-Failed outpatient oral antibiotic therapy
-mild leukocytosis trending down, afebrile
-MRSA screen neg, empiric Vancomycin discontinued,
-cefazolin de-escalated back to Keflex with overall improvement, patient also started on probiotic
-Tylenol as needed for fever
-Continue to monitor
-Dilaudid prn for pain
-K-pad ordered for LLE pain no significant relief noted
-Capsaicin cream started switched to bengay-like cream, discontinued lidocaine patch started
-X-ray LLE foot and leg, Venous duplex LLE, appreciated no acute abn's
-Checking soft tissue us left foot for possible fluid collection
#hypokalemia
monitor and replete as necessary
#Type 2 DM with neuropathy
-Insulin aspart 26 units with meals placed on hold, sugars have been well controlled low but euglycemic
-Lantus 40 units twice a day reduced to 20U BID d/t relatively low sugars though remains euglycemic
-Metformin continued
-Sliding scale
-Carb controlled diet
-Gabapentin continued
-Hold Ozempic
# History of coronary artery disease
-Status post cardiac stent
-Aspirin continued
# Hyperlipidemia
-Atorvastatin and Zetia continued
- Vascepa to resume on discharge, not available on formulary
#essential HTN
-Furosemide, lisinopril, metoprolol continue with hold parameter
#sarcoidosis/ILD /history of COPD
-fludrocortisone continued
-Levalbuterol continued
#anxiety/depression
-cont sertraline as able
-Lorazepam continued
# History of IBS
-Recommend continued
# Chronic pain
#Neuropathic Pain
#Complex regional pain syndrome Left foot
-Tramadol, Flexeril continued
-home gabapentin increased to 400 mg TID
-cont dilaudid 4mg PO q6hprn mod severe pain, IV dilaudid for severe breakthrough pain
#nicotine dependence
-smokes 1 pack a day
-encouraged cessation
-denied nicotine patch
DVT PPX - Lovenox sq
# CODE STATUS
-Full code
I spent a total of 40 minutes with the patient or on the floor. More than 50% of this time involved counseling and coordination of care.
Anticipated Discharge: 24 - 48 hours
Subjective/Interval History
-
Date of Service: January 26, 2024
Pain persists.
Objective Data
-
Labs:
Laboratory Results
01/26/24
05:30
WBC 11.6 H
Hgb 12.3
Hct 36.3 L
Plt Count 430 H
Sodium 139
Potassium 3.9
Chloride 97 L
Carbon Dioxide 34 H
BUN 13
Creatinine 0.6
Glucose 174 H
Calcium 9.6
Vital Signs:
Vital Signs
Temp Pulse Resp BP Pulse Ox
98.1 F 95 18 148/62 96
01/25/24 23:00 01/25/24 23:00 01/25/24 23:00 01/25/24 23:00 01/25/24 23:00
I&O
01/25/24 01/26/24 01/27/24
06:59 06:59 06:59
Intake Total 2160 / 2160 1080 / 1080 480 / 480
Balance 2160 / 2160 1080 / 1080 480 / 480
[2024-01-26 08:09] LABS: Glucose - Point of Care 178 mg/dl (70-99)
[2024-01-26 08:13] VITALS: BP 118/86
[2024-01-26] MEDS: MIRALAX 17 GRAMS PO (08:15)
[2024-01-26] MEDS: LANTUS 0.2 UNITS SC ×2 (08:16→20:25)
[2024-01-26] MEDS: NOVOLOG FLEXPEN-LOW RESISTANCE 1 UNITS SC ×2 (08:16→17:22)
[2024-01-26] MEDS: FLORASTOR 250 MG PO (08:18)
[2024-01-26] MEDS: NEURONTIN 400 MG PO ×3 (08:18→21:12)
[2024-01-26] MEDS: ASPIR LOW (ENTERIC COATED) 81 MG PO (08:18)
[2024-01-26] MEDS: BENTYL 20 MG PO ×2 (08:18→20:24)
[2024-01-26] MEDS: KEFLEX 500 MG PO ×4 (08:18→21:12)
[2024-01-26] MEDS: KCL 10 MEQ PO (08:18)
[2024-01-26] MEDS: FLORINEF 0.1 MG PO (08:18)
[2024-01-26] MEDS: ULTRAM 100 MG PO ×2 (08:18→20:24)
[2024-01-26] MEDS: SENOKOT-S 1 TABLET PO ×2 (08:18→20:24)
[2024-01-26] MEDS: ZESTRIL 5 MG PO (08:19)
[2024-01-26] MEDS: LASIX 40 MG PO (08:19)
[2024-01-26] MEDS: FLEXERIL 10 MG PO ×2 (08:19→20:24)
[2024-01-26] MEDS: VITAMIN D3 (cholecalciferol) 125 MCG PO (08:19)
[2024-01-26] MEDS: BenGay-Like 1 APPLIC TOPICAL ×2 (08:20→12:43)
[2024-01-26] MEDS: DILAUDID 4 MG PO ×2 (11:57→18:10)
[2024-01-26 12:27] LABS: Glucose - Point of Care 329 mg/dl (70-99)
[2024-01-26] MEDS: NOVOLOG FLEXPEN-LOW RESISTANCE 4 UNITS SC (12:42)
[2024-01-26 15:00] VITALS: BP 169/96
[2024-01-26] MEDS: LIDOCAINE 4% PATCH 1 PATCH TOPICAL (15:06)
[2024-01-26 16:41] LABS: Glucose - Point of Care 192 mg/dl (70-99)
[2024-01-26] MEDS: GLUCOPHAGE XR EXTENDED RELEASE 1000 MG PO (17:21)
[2024-01-26] MEDS: LIPITOR 80 MG PO (17:21)
[2024-01-26 20:21] LABS: Glucose - Point of Care 251 mg/dl (70-99)
[2024-01-26 21:10] VITALS: BP 141/62
[2024-01-26] MEDS: TOPROL XL 50 MG PO (21:12)
[2024-01-26] MEDS: AMBIEN 10 MG PO (21:12)
[2024-01-26] MEDS: ZETIA 10 MG PO (21:12)
[2024-01-26] MEDS: ZOLOFT 100 MG PO (21:12)
[2024-01-26 23:48] VITALS: BP 131/83
[2024-01-27] MEDS: DILAUDID 4 MG PO ×2 (00:23→12:05)
[2024-01-27] MEDS: LOVENOX 40 MG SC (05:48)
[2024-01-27] MEDS: DILAUDID 2 MG IV ×2 (05:56→08:19)
[2024-01-27 06:58] LABS: Hematocrit 38.6 % (37.0-47.0); Hemoglobin 12.9 g/dL (12.0-16.0); Mean Corp Hgb Conc. 33.4 g/dL (33.0-37.0); Mean Corpuscular Volume 83.7 fL (81.0-99.0); Mean Platelet Volume 9.8 fL (7.4-10.4); Platelet Count 415 10^3/uL (130-400); Red Blood Cell Count 4.61 10^6/uL (4.20-5.40); Red Cell Dist. Width 13.5 % (11.5-14.5); White Blood Cell Count 11.4 10^3/uL (4.8-10.8)
--- NOTE | 2024-01-27 07:19 | W.PN.HOSP.TC ---
Today's Communication/Plan
-
discharge
Assessment / Plan
Assessment / Plan
Physical Exam
General: Well Developed, Well Nourished and No Apparent Distress
HEENT: NormoCephalic, Moist mucous membranes and Atraumatic
Respiratory: Clear
Cardiac: S1/S2 and Regular Rhythm; No Murmur or Rub
GI: Soft, Non Tender, Non Distended and Normal Bowel Sounds; No Organomegaly
Musculoskeletal: No Clubbing, No Cyanosis. Swelling left foot persists, erythema left lower ext resolved
Neuro: AO x 3
Psych: Calm
53F DM Sarcoidosis CAD COPD GERD HTN CAD HLD IBS Chronic Pain Nicotine dependence anxiety depression p/w LLE cellulitis failed outpatient treatment.
#left LE cellulitis
-Failed outpatient oral antibiotic therapy
-mild leukocytosis trending down, afebrile
-MRSA screen neg, empiric Vancomycin discontinued,
-cefazolin de-escalated back to Keflex with overall improvement, patient also started on probiotic, planned for total 10 days abx, 01/28 last day
-Tylenol as needed for fever
-Continue to monitor
-Dilaudid prn for pain
-K-pad ordered for LLE pain no significant relief noted
-Capsaicin cream started switched to bengay-like cream, discontinued lidocaine patch started
-X-ray LLE foot and leg, Venous duplex LLE, appreciated no acute abn's
-soft tissue us left foot appreciated no fluid collection
#hypokalemia
monitor and replete as necessary
#Type 2 DM with neuropathy
-Insulin aspart 26 units with meals placed on hold, sugars have been well controlled low but euglycemic
-Lantus 40 units twice a day reduced to 20U BID d/t relatively low sugars though remains euglycemic
-Carb controlled diet switched to regular per patient's request, sugars subsequently increased, patient counseled on the important to adhering to lifestyle mgmt diabetic diet.
-Metformin continued
-Sliding scale
-Gabapentin continued
-Hold Ozempic
# History of coronary artery disease
-Status post cardiac stent
-Aspirin continued
# Hyperlipidemia
-Atorvastatin and Zetia continued
- Vascepa to resume on discharge, not available on formulary
#essential HTN
-Furosemide, lisinopril, metoprolol continue with hold parameter
#sarcoidosis/ILD /history of COPD
-fludrocortisone continued
-Levalbuterol continued
#anxiety/depression
-cont sertraline as able
-Lorazepam continued
# History of IBS
-Recommend continued
# Chronic pain
#Neuropathic Pain
#Complex regional pain syndrome Left foot
-Tramadol, Flexeril continued
-home gabapentin increased to 400 mg TID
-dilaudid 4mg PO q6hprn mod severe pain, IV dilaudid for severe breakthrough pain
-acute pain from left leg cellulitis resolving/resolved
-left foot pain persists but is baseline.
#nicotine dependence
-smokes 1 pack a day
-encouraged cessation
-denied nicotine patch
DVT PPX - Lovenox sq
# CODE STATUS
-Full code
Medically stable for discharge home with outpatient follow up recommendations.
Total Time Preparing Discharge ___40____ minutes including examination of the patient, summary of the hospital stay, instructions for continuing care to all relevant caregivers; and preparation of discharge records, prescriptions, and referral
forms if necessary.
Anticipated Discharge: Today
Subjective/Interval History
-
Date of Service: January 27, 2024
no acute distress. Reports feeling well. Pain in leg significantly improved, pain left foot persists but baseline. Denies new acute issues. Eager to go home
Objective Data
-
Labs:
Laboratory Results
01/27/24
06:00
WBC 11.4 H
Hgb 12.9
Hct 38.6
Plt Count 415 H
Sodium Pending
Potassium Pending
Chloride Pending
Carbon Dioxide Pending
BUN Pending
Creatinine Pending
Glucose Pending
Calcium Pending
Vital Signs:
Vital Signs
Temp Pulse Resp BP Pulse Ox
97.5 F 94 18 131/83 97
01/26/24 23:48 01/26/24 23:48 01/26/24 23:48 01/26/24 23:48 01/26/24 23:48
I&O
01/26/24 01/27/24 01/28/24
06:59 06:59 06:59
Intake Total [employer]! / 1080 1680 / 1680
Balance 1080 / 1080 1680 / 1680
[2024-01-27 07:34] LABS: Blood Urea Nitrogen 10 mg/dl (7-17); Calcium 9.4 mg/dl (8.4-10.2); Carbon Dioxide 30 mmol/L (22-30); Chloride 96 mmol/L (98-107); Estimated Creatinine Clearance > 125 ml/min; Glucose 195 mg/dl (70-99); Magnesium 1.6 mg/dl (1.6-2.3); Phosphorus 4.3 mg/dl (2.5-4.5); Potassium 3.8 mmol/L (3.5-5.1); Sodium 139 mmol/L (135-145); eGFR > 60.00
[2024-01-27 07:55] VITALS: BP 143/73
[2024-01-27] MEDS: VITAMIN D3 (cholecalciferol) 125 MCG PO (08:13)
[2024-01-27] MEDS: KEFLEX 500 MG PO ×2 (08:13→12:52)
[2024-01-27] MEDS: SENOKOT-S 1 TABLET PO (08:13)
[2024-01-27] MEDS: LASIX 40 MG PO (08:13)
[2024-01-27] MEDS: BENTYL 20 MG PO (08:14)
[2024-01-27] MEDS: ULTRAM 100 MG PO (08:14)
[2024-01-27] MEDS: NEURONTIN 400 MG PO (08:14)
[2024-01-27] MEDS: KCL 10 MEQ PO (08:14)
[2024-01-27] MEDS: ZESTRIL 5 MG PO (08:14)
[2024-01-27] MEDS: FLEXERIL 10 MG PO (08:14)
[2024-01-27] MEDS: FLORINEF 0.1 MG PO (08:14)
[2024-01-27] MEDS: ASPIR LOW (ENTERIC COATED) 81 MG PO (08:14)
[2024-01-27] MEDS: FLORASTOR 250 MG PO (08:14)
[2024-01-27] MEDS: MIRALAX PO (08:18)
[2024-01-27] MEDS: LIDOCAINE 4% PATCH TOPICAL (08:18)
[2024-01-27 08:21] LABS: Glucose - Point of Care 215 mg/dl (70-99)
[2024-01-27] MEDS: NOVOLOG FLEXPEN-LOW RESISTANCE 2 UNITS SC (09:04)
[2024-01-27] MEDS: LANTUS 0.2 UNITS SC (09:04)
--- NOTE | 2024-01-27 11:08 | CM ---
Patient seen at bedside. Patient indicated that she did not have any concerns about discharge at this time and had just had an ultrasound of foot. IMM form provided to patient for review pending discharge confirmation. CM will continue to follow for
discharge planning needs.
Plan; home with no needs anticipated at this time. watch for any VN needs.
[2024-01-27 11:55] LABS: Glucose - Point of Care 263 mg/dl (70-99)
[2024-01-27] MEDS: NOVOLOG FLEXPEN-LOW RESISTANCE 3 UNITS SC (12:52)
[2024-01-27 15:00] VITALS: BP 96/63
--- NOTE | 2024-01-27 15:38 | W.DCSUMMARY ---
Discharge Summary
Discharge Data
Date of Admission: 01/20/24
Date of Discharge: 01/27/24
-
Pending Results: No
Discharge Plan
-
Patient Disposition: Home (Routine Discharge)
Discharge Diagnosis/Procedures: Left Lower Extremity Cellulitis
Diabetes
Neuropathy
Complex Regional Pain Syndrome Left Foot
Condition: Fair
Diet: Diabetic, Carb Controlled
Activity: As tolerated
Driving Restrictions: As prior to admission
Bathing Restrictions: None
Blood Work: Please repeat CBC and BMP with primary care provider in 1 week of discharge
Activity Restrictions/Additional Instructions:
Please follow up with primary care provider and pain specialist in 1 week of discharge.
Gabapentin has been increased to 400 mg three times a day for treatment neuropathic pain.
With regards to cellulitis, it's recommended that you continue with your previously prescribed Cephalexin (Keflex) 4 times a day through 01/29/24 then stop.
Probiotic has been prescribed to promote gut health while on antibiotics. Ok to discontinue when off antibiotics. This medication is also available over the counter.
Oral Dilaudid has been prescribed as needed severe pain for 5 days.
Please take medications as prescribed/recommended and follow up with primary care provider and/or other healthcare provider involved in your care for refills and/or further adjustment to your medication regimen as necessary.
Referrals:
Freddy Arellano DO [Family Provider] - in one week
Prescriptions:
New
Saccharomyces boulardii 250 mg Capsule
250 mg PO DAILY 3 Days Qty: 3 0RF
Rx Instructions:
to promote gut health while on antibiotics. Ok to discontinue when off antibiotics.
gabapentin 400 mg Capsule
400 mg PO TID 30 Days Qty: 90 0RF
hydromorphone [Dilaudid] 4 mg tablet
4 mg PO BIDPRN PRN (Reason: severe pain) 5 Days Qty: 10 0RF
Continued
zolpidem [Ambien CR] 12.5 MG tablet,ext release multiphase
12.5 mg PO HS
Patient Comments:
11/19/2020: last filled 11/09/20, 30 tabs for 30 days from [facility]#[id number]
aspirin 81 MG tablet,delayed release (DR/EC)
81 mg PO DAILY Qty: 0 0RF
nitroglycerin 0.4 MG tablet, sublingual
0.4 mg sublingual [id number] PRN (Reason: chest pain) Qty: 30 3RF
levalbuterol tartrate 1 PUFF HFA aerosol inhaler
2 puff inhalation R Q6HPRN PRN (Reason: sob)
insulin aspart U-100 [Novolog FlexPen U-100 Insulin] 300 UNITS/3 ML insulin pen
26 units SC AC
atorvastatin 80 MG tablet
80 mg PO QPM
metoprolol succinate 50 MG tablet extended release 24 hr
50 mg PO HS
sertraline 100 MG tablet
100 mg PO HS
dicyclomine 20 MG tablet
20 mg PO BID
hyoscyamine sulfate [Levsin/SL] 0.125 MG tablet, sublingual
0.125 mg sublingual Q6HPRN PRN (Reason: IBS, gastrointestinal issue)
furosemide 20 MG tablet
40 mg PO DAILY
cyclobenzaprine 10 mg Tablet
10 mg PO BID
insulin glargine [Lantus U-100 Insulin] 100 unit/mL Solution
40 unit SC BID
potassium chloride 10 mEq Tablet Extended Release
10 meq PO DAILY
tramadol 50 mg Tablet
100 mg PO BID
lisinopril 5 mg Tablet
5 mg PO DAILY
fludrocortisone 0.1 mg Tablet
0.1 mg PO DAILY
ezetimibe [Zetia] 10 mg Tablet
10 mg PO HS
metformin 500 mg Tablet Extended Release 24hr
1,000 mg PO QPM
cholecalciferol (vitamin D3) 125 mcg (5,000 unit) Tablet
125 mcg PO DAILY
icosapent ethyl [Vascepa] 1 gram Capsule
1 g PO BID
Ozempic 0.25 mg or 0.5 mg(2 mg/1.5 mL) Pen Injector
0.25 mg SC [place]
Rx Instructions:
for 4 weeks
Medical Marijuana
2 gummy PO HSPRN PRN (Reason: sleep)
Baqsimi 3 mg/actuation [place],Non-Aerosol
3 mg INTRANASAL DAILYPRN PRN (Reason: high sugar)
lorazepam 0.5 mg Tablet
0.5 mg PO BID PRN (Reason: anxiety )
ondansetron 4 mg Tablet,Disintegrating
4 mg PO Q8H PRN (Reason: nausea )
cephalexin 500 mg capsule
500 mg PO QID 7 Days Qty: 28 0RF
Rx Instructions:
last day of antibiotics 01/29/24
Discontinued
gabapentin 300 mg Capsule
300 mg PO TID
Discharge Orders:
Discharge Patient (As Directed); Ordered 01/27/24
Ordered By: Kerry Long
Discharge Date and Time
Print Language: SAMI
== END 2024-01-27 16:10 | disposition home or self-care (01) | DRG 603 ==
LOC: 4 EAST ACU 23:32
PROVIDERS: Registered Nurse; ADMITTING PHYSICIAN Internal Medicine; ATTENDING PHYSICIAN Internal Medicine; EMERGENCY PHYSICIAN Emergency Medicine; FAMILY PHYSICIAN Family Medicine
DX: L03.116 Cellulitis of left lower limb (principal); Z68.43 Body mass index [BMI] 50.0-59.9, adult; F17.210 Nicotine dependence, cigarettes, uncomplicated; T50.2X5A Adverse effect of carbonic-anhydrase inhibitors, benzothiadiazides and other diuretics, initial encounter; E87.6 Hypokalemia; E11.40 Type 2 diabetes mellitus with diabetic neuropathy, unspecified; E78.00 Pure hypercholesterolemia, unspecified; I10 Essential (primary) hypertension; D86.9 Sarcoidosis, unspecified; F41.9 Anxiety disorder, unspecified; F32.A Depression, unspecified; G89.29 Other chronic pain; E66.01 Morbid (severe) obesity due to excess calories; J44.9 Chronic obstructive pulmonary disease, unspecified
CPT/HCPCS: 73590; 73620; 76882; 80048; 80053; 82962; 83036; 83735; 84100; 85025; 85027; 87641; 93971; 96365; 96366; 96375; 97162; 97165; 99284; 99406

== ENCOUNTER → 2024-02-12 11:33 | Outpatient (REF) | payer OTHER, SELFPAY ==
[2024-02-12 15:35] LABS: % Basophils 0.7 % (0-2); % Eosinophils 2.7 % (0-6); % Immature Granulocytes 2.5 % (0-0.5); % Lymphocytes 17.2 % (20.5-51.1); % Monocytes 3.9 % (1.7-9.3); Absolute Basophils 0.1 10^3/uL (0-0.2); Absolute Eosinophils 0.3 10^3/uL (0-0.7); Absolute Immature Granulocytes 0.3 10^3/uL (0-0.05); Absolute Lymphocytes 2.2 10^3/uL (1.2-3.4); Absolute Monocytes 0.5 10^3/uL (0.1-0.6); Absolute Neutrophils 9.2 10^3/uL (1.4-6.5); Hematocrit 40.7 % (37.0-47.0); Hemoglobin 13.8 g/dL (12.0-16.0); Mean Corp Hgb Conc. 33.9 g/dL (33.0-37.0); Mean Corpuscular Hgb 29.2 pg (27.0-31.0); Mean Corpuscular Volume 86.2 fL (81.0-99.0); Mean Platelet Volume 9.5 fL (7.4-10.4); Nucleated Red Blood Cells % 0 %; Platelet Count 444 10^3/uL (130-400); Red Blood Cell Count 4.72 10^6/uL (4.20-5.40); Red Cell Dist. Width 14.1 % (11.5-14.5); White Blood Cell Count 12.6 10^3/uL (4.8-10.8)
[2024-02-12 15:39] LABS: ALT (SGPT) 19 U/L (0-35); AST (SGOT) 17 U/L (14-36); Albumin 3.9 g/dl (3.5-5.0); Alkaline Phosphatase 157 U/L (38-126); Blood Urea Nitrogen 14 mg/dl (7-17); Calcium 9.5 mg/dl (8.4-10.2); Carbon Dioxide 34 mmol/L (22-30); Chloride 97 mmol/L (98-107); Glucose 153 mg/dl (70-99); HDL Cholesterol 24 mg/dl; LDL Cholesterol, Calculated 50 mg/dl; Potassium 4.2 mmol/L (3.5-5.1); Sodium 140 mmol/L (135-145); Total Bilirubin 0.7 mg/dl (0.2-1.3); Total Cholesterol 113 mg/dl (50-199); Total Protein 6.3 g/dl (6.3-8.2); Triglyceride 197 mg/dl (10-149); Very Low Density Lipoprotein 39 mg/dl (0-30); eGFR > 60.00
[2024-02-12 16:10] LABS: TSH 2.63 uIU/ml (0.47-4.68)
[2024-02-12 16:46] LABS: Microalbumin, Random Urine < 0.6 mg/dl (0.6-1.7)
[2024-02-13 07:37] LABS: Glycohemoglobin (HgbA1c) 7.6 % (4.0-5.6)
== END ==
LOC: HWLAB 11:33
PROVIDERS: ATTENDING PHYSICIAN Family Medicine
DX: E11.9 Type 2 diabetes mellitus without complications (principal); E03.9 Hypothyroidism, unspecified; I10 Essential (primary) hypertension; E78.5 Hyperlipidemia, unspecified; R53.83 Other fatigue; E13.9 Other specified diabetes mellitus without complications
CPT/HCPCS: 36415; 80053; 80061; 82043; 82570; 83036; 84443; 85025

== ENCOUNTER 2024-05-25 05:50 | Emergency (ER) | payer OTHER, SELFPAY ==
[2024-05-25 05:52] VITALS: BP 146/86
--- NOTE | 2024-05-25 07:11 | ED.GENMED ---
History of Present Illness
General
Chief Complaint: Musculo-Skeletal Complaint
Source: patient
Exam Limitations: none
Time Seen by Provider: 05/25/24 07:11
Nursing documentation reviewed up to this point in time: agreed with
History of Present Illness
History of Present Illness:
53 yr old female with past medical history of PR( left circumflex stent )sarcoidosis, interstitial lung disease, type 2 diabetes, cholecystectomy, chronic pain hypertension asthma/COPD anxiety presents to the ER for evaluation. Patient reports she
was awoken at 3 AM by right sided neck pain which radiated down to her right scapula. She did take 2 Aleve symptoms feel slightly better. She presented to the ER because this is the same pain she presented with when she had her PR 10 years ago.
She does she does mention however that with her previous PR symptoms would resolve when she rested. this has been constant and is not associated with exertion. She did have a stent in the time. She is currently on aspirin. She denies any
associated chest pain shortness of breath. She was given 4 baby aspirin by EMS. Pain is better but still there. She denies any new injury. Denies any shortness of breath. She did feel pain radiate down her right arm as well but that has since
resolved
Past History
Past History
ED Past Medical History: CAD, COPD, GERD, HTN, Hypercholesterolemia, PR, Psychiatric and Other (Interstitial lung disease, IBS, Ovarian cyst, Sarcoidosis)
ED Past Surgical History: Cardiac (Stent L circumflex), Cholecystectomy, Gynecological (Hysterectomy), Orthopedic and Other
Social History
Tobacco: Smoker
Alcohol: None
Drug: None
Personal:
Living: with family
Employment: Employed
Family History
Family History: Hypertension and CAD (father)
Review of Systems
Review of Systems
Allergies reviewed?: Yes
All Other Systems: ROS reviewed and negative except as documented in HPI and ROS
Constitutional: Reports no symptoms; Denies fever, fatigue or chills
Respiratory: Reports no symptoms
Cardiac: Reports no symptoms
ABD/GI: Reports no symptoms
Musculoskeletal: Reports neck pain and back pain (pain to right scapula region )
Skin: Reports no symptoms
Phy Exam
General Physical Exam
General Presentation: no apparent distress
General age: appears stated age
General Skin: warm and dry
General Habitus: obese
General Mental: alert
General Hydration: appears well hydrated
Cardiovascular Exam
Cardiovascular Exam: regular rate/rhythm, no murmur and normal peripheral pulses
Pulmonary Exam
Pulmonary Exam: lungs clear and no respiratory distress
Neurological Exam
Neurological Exam: alert and oriented x3
Musculoskeletal Exam
Musculoskeletal Exam: full ROM
Skin Exam
Skin Exam: normal color and warm/dry
Psychiatric Exam
Psychiatric Exam: normal mood/affect
Course
Orders/Labs/Results
Orders:
Orders
05/25/24 07:36
Electrocardiogram (*1) Stat
Reason for Study: Other
Other Reason for Exam: chest pain
Cardiac Monitoring- Treatment ONCE
EKG- Treatment ONCE
IV Insert/Care/Rem.- Treatment PRN
05/25/24 07:37
Chest [CR Chest - 2 Views ] Urgent
Comment:
Reason For Exam: cp
05/25/24 07:39
Complete Blood Count/With Diff Urgent
Comprehensive Metabolic Panel Urgent
Troponin I Urgent
05/25/24 08:11
Ketorolac [Toradol] 15 mg IV NOW STA
05/25/24 09:11
diazePAM [Valium Injection] 2 mg IV NOW STA
05/25/24 09:54
EKG- Treatment ONCE
05/25/24 10:23
HYDROmorphone [Dilaudid] 0.5 mg IV NOW STA
05/25/24 10:40
Electrocardiogram (*1) Stat
Reason for Study: Other
Other Reason for Exam: chest pain
05/25/24 10:44
Troponin I Urgent
Abnormal Lab Results
05/25/24
07:39
WBC 13.6 H 10^3/uL
(4.8-10.8)
RDW 14.6 H %
(11.5-14.5)
Abs Immat Gran (auto) 0.2 H 10^3/uL
(0-0.05)
Absolute Neuts (auto) 9.7 H 10^3/uL
(1.4-6.5)
Absolute Monos (auto) 0.7 H 10^3/uL
(0.1-0.6)
Immature Gran % 1.1 H %
(0-0.5)
Lymphocytes % 19.7 L %
(20.5-51.1)
Creatinine 0.5 L mg/dL
(0.6-1.0)
Glucose 221 H mg/dl
(70-99)
Total Protein 6.0 L g/dl
(6.3-8.2)
05/25/24 07:39
05/25/24 07:39
Vital Signs
Initial and Last Documented VS:
Initial Vital Signs
Temp Pulse Resp BP Pulse Ox
98.2 F 98 16 146/86 99
05/25/24 05:52 05/25/24 05:52 05/25/24 05:52 05/25/24 05:52 05/25/24 05:52
Last Documented Vital Signs
Temp Pulse Resp BP Pulse Ox
98.2 F 90 18 125/82 99
05/25/24 05:52 05/25/24 12:12 05/25/24 12:12 05/25/24 12:12 05/25/24 12:12
MDM/Problems Addressed
MDM/Problems Addressed:
Patient is a 53-year-old female who presented with pain in the neck and upper back. She was awoken by this pain in the middle of the night. She initially stated that this felt similar to her PR however it was more constant and her previous PR
symptoms did not last this long. Her previous pain also resolved when she rested she has no associated shortness of breath with this. She presents awake alert no acute distress. No acute findings and EKG.
Patient does have chronic pain and presented requesting something stronger for pain. She is on tramadol normally and for breakthrough does take oral Dilaudid. She did not take her tramadol today. She denies any associated fever chills.
On exam she is in no acute distress nontachycardic nontachypneic nonhypoxic. Denies any recent fevers and is afebrile here white count is minimally elevated however no recent URI symptoms. Her chest x-ray is negative.
Her initial cardiac troponin was 0.019 and repeat troponin 0.025 not concerning for ACS. She received Toradol and Valium feeling slight improvement but was request and asking for something stronger for pain. She was given Dilaudid and now feeling
much better. Will have patient follow-up with her cardiology(outside [place]) for reevaluation.
*Radiology
Radiology exam reviewed: radiology read reviewed
*Pulse Oximetry
Patient hypoxic: no
*EKG
Interpreted by ED Provider?: Yes
Heart Rate: 90
Rate: normal
Rhythm: sinus
Ischemia: other (EKG second repeat unchanged)
*Critical Care Note
Total Time (30-74mins, 75-104mins- exclusive of procedures): Not Applicable
ED Attending Note
-
Portions of this chart may have been created with voice recognition software.� Occasional wrong word or��sound alike� substitutions may have occurred due to the inherent limitations of voice recognition software.
Discharge Plan
Departure
Patient Disposition: Home (Routine Discharge)
Date of Disposition: 05/25/24
Time of Disposition: 11:49
Patient with high blood pressure during this ER visit?: Yes
Covid-19: Not Applicable
Discharge Problem:
muscle and bone pain
Instructions: Muscle and Bone Pain (DC)
Prescriptions:
No Action
zolpidem [Ambien CR] 12.5 MG tablet,ext release multiphase
12.5 mg PO HS
Patient Comments:
11/19/2020: last filled 11/09/20, 30 tabs for 30 days from [id number]
aspirin 81 MG tablet,delayed release (DR/EC)
81 mg PO DAILY Qty: 0 0RF
nitroglycerin 0.4 MG tablet, sublingual
0.4 mg sublingual [id number] PRN (Reason: chest pain) Qty: 30 3RF
levalbuterol tartrate 1 PUFF HFA aerosol inhaler
2 puff inhalation R Q6HPRN PRN (Reason: sob)
insulin aspart U-100 [Novolog FlexPen U-100 Insulin] 300 UNITS/3 ML insulin pen
26 units SC AC
atorvastatin 80 MG tablet
80 mg PO QPM
metoprolol succinate 50 MG tablet extended release 24 hr
50 mg PO HS
sertraline 100 MG tablet
100 mg PO HS
dicyclomine 20 MG tablet
20 mg PO BID
hyoscyamine sulfate [Levsin/SL] 0.125 MG tablet, sublingual
0.125 mg sublingual Q6HPRN PRN (Reason: IBS, gastrointestinal issue)
furosemide 20 MG tablet
40 mg PO DAILY
cyclobenzaprine 10 mg Tablet
10 mg PO BID
insulin glargine [Lantus U-100 Insulin] 100 unit/mL Solution
40 unit SC BID
potassium chloride 10 mEq Tablet Extended Release
10 meq PO DAILY
tramadol 50 mg Tablet
100 mg PO BID
lisinopril 5 mg Tablet
5 mg PO DAILY
fludrocortisone 0.1 mg Tablet
0.1 mg PO DAILY
ezetimibe [Zetia] 10 mg Tablet
10 mg PO HS
metformin 500 mg Tablet Extended Release 24hr
1,000 mg PO QPM
cholecalciferol (vitamin D3) 125 mcg (5,000 unit) Tablet
125 mcg PO DAILY
icosapent ethyl [Vascepa] 1 gram Capsule
1 g PO BID
Ozempic 0.25 mg or 0.5 mg(2 mg/1.5 mL) Pen Injector
0.25 mg SC [place]
Rx Instructions:
for 4 weeks
Medical Marijuana
2 gummy PO HSPRN PRN (Reason: sleep)
Baqsimi 3 mg/actuation [place],Non-Aerosol
3 mg INTRANASAL DAILYPRN PRN (Reason: high sugar)
lorazepam 0.5 mg Tablet
0.5 mg PO BID PRN (Reason: anxiety )
ondansetron 4 mg Tablet,Disintegrating
4 mg PO Q8H PRN (Reason: nausea )
Saccharomyces boulardii 250 mg Capsule
250 mg PO DAILY 3 Days Qty: 3 0RF
Rx Instructions:
to promote gut health while on antibiotics. Ok to discontinue when off antibiotics.
gabapentin 400 mg Capsule
400 mg PO TID 30 Days Qty: 90 0RF
cephalexin 500 mg capsule
500 mg PO QID 7 Days Qty: 28 0RF
Rx Instructions:
last day of antibiotics 01/29/24
hydromorphone [Dilaudid] 4 mg tablet
4 mg PO BIDPRN PRN (Reason: severe pain) 5 Days Qty: 10 0RF
Referrals:
Freddy Arellano DO [Family Provider] -
Activity Restrictions/Additional Instructions:
As discussed please follow-up with both your assistant hairstylist and family doctor in the next several days for reevaluation. Return if any worsening of symptoms
Interventions
Interventions:
*Risk Screen - Suicide Last Done: 05/25/24 05:52
*General Assessment Last Done: 05/25/24 05:52
*Neglect/Abuse Screening Last Done: 05/25/24 05:52
ED- Fall Risk Assessment Last Done: 05/25/24 07:37
*ED COVID-19 Vaccine History Last Done: 05/25/24 05:52
*Nursing Disposition Last Done: 05/25/24 12:13
ED-Musculoskeletal Assessment Last Done: 05/25/24 07:37
Discharge Date and Time
Discharge Date/Time: 05/25/24 12:14
Print Language: GUINEAN
[2024-05-25 07:37] VITALS: BP 144/83; BMI 49.6
[2024-05-25 07:47] LABS: % Basophils 0.6 % (0-2); % Eosinophils 2.1 % (0-6); % Immature Granulocytes 1.1 % (0-0.5); % Lymphocytes 19.7 % (20.5-51.1); % Neutrophils 71.5 % (42.2-75.2); Absolute Basophils 0.1 10^3/uL (0-0.2); Absolute Eosinophils 0.3 10^3/uL (0-0.7); Absolute Immature Granulocytes 0.2 10^3/uL (0-0.05); Absolute Lymphocytes 2.7 10^3/uL (1.2-3.4); Absolute Monocytes 0.7 10^3/uL (0.1-0.6); Absolute Neutrophils 9.7 10^3/uL (1.4-6.5); Hematocrit 40.6 % (37.0-47.0); Hemoglobin 13.9 g/dL (12.0-16.0); Mean Corp Hgb Conc. 34.2 g/dL (33.0-37.0); Mean Corpuscular Hgb 28.5 pg (27.0-31.0); Mean Corpuscular Volume 83.4 fL (81.0-99.0); Mean Platelet Volume 9.4 fL (7.4-10.4); Nucleated Red Blood Cells % 0 %; Platelet Count 349 10^3/uL (130-400); Red Blood Cell Count 4.87 10^6/uL (4.20-5.40); Red Cell Dist. Width 14.6 % (11.5-14.5); White Blood Cell Count 13.6 10^3/uL (4.8-10.8)
[2024-05-25 08:08] LABS: ALT (SGPT) 20 U/L (0-35); AST (SGOT) 16 U/L (14-36); Albumin 3.6 g/dl (3.5-5.0); Alkaline Phosphatase 125 U/L (38-126); Blood Urea Nitrogen 13 mg/dl (7-17); Carbon Dioxide 28 mmol/L (22-30); Chloride 99 mmol/L (98-107); Estimated Creatinine Clearance > 125 ml/min; Glucose 221 mg/dl (70-99); Potassium 3.8 mmol/L (3.5-5.1); Sodium 136 mmol/L (135-145); Total Bilirubin 0.4 mg/dl (0.2-1.3); eGFR > 60.00
[2024-05-25 08:13] LABS: Troponin I 0.019 ng/ml
[2024-05-25] MEDS: TORADOL 15 MG IV (08:33)
[2024-05-25 08:34] VITALS: BP 142/75
[2024-05-25] MEDS: VALIUM INJECTION 2 MG IV (09:17)
[2024-05-25] MEDS: DILAUDID 0.5 MG IV (10:34)
[2024-05-25 11:14] VITALS: BP 144/83
[2024-05-25 11:21] LABS: Troponin I 0.025 ng/ml
[2024-05-25 12:12] VITALS: BP 125/82
== END 2024-05-25 12:14 | disposition home or self-care (01) ==
LOC: EMR 05:50
PROVIDERS: Nurse Practitioner; EMERGENCY PHYSICIAN Emergency Medicine; FAMILY PHYSICIAN Family Medicine
DX: M89.8X9 Other specified disorders of bone, unspecified site (principal); G89.29 Other chronic pain; M54.2 Cervicalgia; M54.6 Pain in thoracic spine; F17.200 Nicotine dependence, unspecified, uncomplicated; I10 Essential (primary) hypertension; Z79.82 Long term (current) use of aspirin
CPT/HCPCS: 99285; 96374; 96375 ×2; 71046; 80053; 84484; 85025; 93005

== ENCOUNTER → 2024-05-30 11:54 | Outpatient (REF) | payer OTHER, SELFPAY ==
[2024-05-30 16:21] LABS: ALT (SGPT) 21 U/L (0-35); AST (SGOT) 16 U/L (14-36); Albumin 3.9 g/dl (3.5-5.0); Alkaline Phosphatase 149 U/L (38-126); Blood Urea Nitrogen 10 mg/dl (7-17); Carbon Dioxide 29 mmol/L (22-30); Chloride 94 mmol/L (98-107); Glucose 344 mg/dl (70-99); HDL Cholesterol 30 mg/dl; LDL Cholesterol, Calculated 48 mg/dl; Potassium 4.2 mmol/L (3.5-5.1); Sodium 135 mmol/L (135-145); Total Bilirubin 0.3 mg/dl (0.2-1.3); Total Cholesterol 123 mg/dl (50-199); Total Protein 6.3 g/dl (6.3-8.2); Triglyceride 227 mg/dl (10-149); Very Low Density Lipoprotein 45 mg/dl (0-30); eGFR > 60.00
[2024-05-30 16:45] LABS: TSH 2.44 uIU/ml (0.47-4.68)
[2024-05-30 16:54] LABS: Microalbumin, Random Urine < 0.6 mg/dl (0.6-1.7)
[2024-05-31 08:57] LABS: Glycohemoglobin (HgbA1c) 8.8 % (4.0-5.6)
== END ==
LOC: HWLAB 11:54
PROVIDERS: ATTENDING PHYSICIAN Nurse Practitioner Family; FAMILY PHYSICIAN Family Medicine
DX: E03.9 Hypothyroidism, unspecified (principal); I10 Essential (primary) hypertension; E78.5 Hyperlipidemia, unspecified; E11.9 Type 2 diabetes mellitus without complications; E13.9 Other specified diabetes mellitus without complications; E11.65 Type 2 diabetes mellitus with hyperglycemia; Z79.4 Long term (current) use of insulin; E11.40 Type 2 diabetes mellitus with diabetic neuropathy, unspecified; E04.1 Nontoxic single thyroid nodule
CPT/HCPCS: 36415; 80053; 80061; 82043; 82570; 83036; 84443

== ENCOUNTER 2024-06-01 14:00 | Inpatient (IN) | payer OTHER, SELFPAY ==
[2024-06-01] VITALS (15 sets, daily range): BP systolic 94–139; BP diastolic 48–89; BMI 49.1; BMI 49.0
--- NOTE | 2024-06-01 11:00 | ED.GENMED ---
History of Present Illness
General
Chief Complaint: Musculo-Skeletal Complaint
Source: patient
Exam Limitations: none
Time Seen by Provider: 06/01/24 10:44
Nursing documentation reviewed up to this point in time: agreed with
History of Present Illness
History of Present Illness:
53-year-old female presents emergency department due to neck pain left shoulder and chest pain. She has had similar pain on the right side, but this seemed worse. She is concerned because she had chest pain. She called EMS, and was given 4
aspirin, for which now she feels somewhat better. She denies any chest pain at this time.
Past History
Past History
ED Past Medical History: CAD, COPD, GERD, HTN, Hypercholesterolemia, [place], Psychiatric and Other (Interstitial lung disease, IBS, Ovarian cyst, Sarcoidosis)
ED Past Surgical History: Cardiac (Stent L circumflex), Cholecystectomy, Gynecological (Hysterectomy), Orthopedic and Other
Social History
Tobacco: Smoker
Alcohol: None
Drug: None
Personal:
Living: with family
Employment: Employed
Family History
Family History: Hypertension and CAD (father)
Review of Systems
Review of Systems
Allergies reviewed?: Yes
All Other Systems: Not applicable
Constitutional: Reports no symptoms
EENT: Reports no symptoms
Respiratory: Reports no symptoms
Cardiac: Reports chest pain
ABD/GI: Reports no symptoms
: Reports no symptoms
Musculoskeletal: Reports neck pain
Skin: Reports no symptoms
Neurological: Reports no symptoms
Endocrine: Reports no symptoms
Hematologic/Lymphatic: Reports no symptoms
Psychiatric: Reports no symptoms
Phy Exam
Physical Exam
Physical Exam:
Physical Exam
General: no apparent distress, not acutely ill
Neck: supple. no meningeal signs. normal posterior pharynx
Heart: s1/s2 regular rate and rhythm, no murmur. equal radial
pulses.
HEENT: Pupils equal round reactive to light, EOMI
Lungs: no acute respiratory distress. clear bilaterally
Abdomen: normal bowel sounds. not tender. no CVAT
Neuro: alert and oriented. no focal neurological deficits cranial nerves II through XII intact
Skin: no rash
Psychiatric: well kept. interactive and cooperative
Extremities: no edema. no calf tenderness. negative homans. good distal pulses
Scores
Heart Score for Chest Pain Patients
STEMI patient?: No
History: Moderately Suspicious
ECG: Significant ST-Depression
Age: >45 - <65 years
Risk Factors: >/= 3 Risk Factors or History of CAD
Troponin: >/= 3 x Normal Limit
Heart Score for Chest Pain Patients: 8
Heart Score Risk: 72.7 % MACE over next 6 weeks
Course
Orders/Labs/Results
Orders:
Orders
06/01/24
Electrocardiogram (*1) Stat
Reason for Study: Chest Pain
06/01/24 10:17
EKG [Electrocardiogram (*1)] Urgent
Reason for Study: Chest Pain
06/01/24 10:18
EKG- Treatment ONCE
06/01/24 10:56
Cardiac Monitoring- Treatment ONCE
IV Insert/Care/Rem.- Treatment PRN
Pulse Ox/cont/shift [RESP] Stat
Quantity: 1
06/01/24 12:12
Complete Blood Count/With Diff Urgent
Troponin I Q3H
06/01/24 12:15
Ondansetron Injectable [Zofran] 4 mg .ROUTE .STK-MED ONE
06/01/24 13:02
Electrocardiogram (*1) Urgent
EKG- Treatment ONCE
06/01/24 13:13
Comprehensive Metabolic Panel Urgent
06/01/24 13:25
Heparin 4,000 units IV NOW STA
Nitroglycerin Ointment [Nitro-Bid] 1 inch TOPICAL NOW STA
Nitroglycerin Sublingual [Nitrostat (Sublingual)] 0.4 mg SL NOW STA
Nursing to Place Non Medication Order As Directed
Physician Order: PTT 6 hours after initial start of Heparin infusion
06/01/24 13:26
Nitroglycerin Sublingual [Nitrostat (Sublingual)] 0.4 mg .ROUTE .STK-MED ONE
Nitroglycerin Sublingual [Nitrostat (Sublingual)] 0.4 mg SL NOW STA
06/01/24 13:30
Heparin 08965 Units/250 ml 25,000 units in 250 ml IV PER PROTOCOL
Weight to be used for heparin protocol in kilograms (kg):: 121.7
Protocol:: Cardiac Tx/Acute Coronary
PTT Goal Range to be used:: PTT 73 to 111 seconds
Order type:: Initial
INITIAL Infusion Dose (UNITS/KG/hr) & then follow protocol:: 15 units/kg/hr
Infusion Dose in UNITS/hr & then follow protocol (UNITS/hr):: 1,500
INFUSION RATE in mL/hr & then follow protocol (mL/hr):: 15
PTT less than or equal to 64 seconds:: Increase rate by 200 units/hr (+ 2 mL/hr)
PTT 64.1 to 72.9 seconds:: Increase rate by 100 units/hr (+ 1 mL/hr)
PTT 73 to 111 seconds:: Target Range. No change in rate.
PTT 111.1 to 130.9 seconds:: Decrease rate by 100 units/hr (- 1 mL/hr)
PTT 131 to 199.9 seconds:: HOLD for 1 hr. Then decrease rate by 200 units/hr (- 2 mL/hr)
PTT greater than or equal to 200 seconds:: HOLD for 2 hrs & Notify Provider. Then decrease by 200 units/hr (-
2 mL/hr)
Lab follow-up:: Each change, PTT q6h until 2 consecutive are therapeutic. Then PTT
daily.
06/01/24 13:41
Troponin I Q3H
06/01/24 13:51
Admit/Transfer Patient As Directed
Co-Sign Provider:
Level of Care: Inpatient admission
Assign to:: IVU
Physician / Group: garry
Diagnosis: nstemi
Reason for Hospitalization: nstemi
Expected length of stay greater than two midnights?: Yes
ELOS- Estimated Length of Stay in days: 2
I certify the patient meets the requirements for IP care: Yes
PRN Pain Medication Management As Directed
May give lesser potent ordered pain med per pt: Yes
preference::
Protocol:: Medication orders for pain may be administered in a
manner that supports deferring to patient preference
when the pt is:
- Requesting an ordered lesser potent pain medication.
Least to most potent pain medications are defined
as: acetaminophen < NSAID < tramadol < opioids
(morphine, oxycodone, hydromorphone).
- Requesting a lesser dose of the same medication IF
ORDERED.
- Requesting a less intrusive route of administration
if both routes are prescribed by the provider (PO <
IV).
06/01/24 13:52
Code Status As Directed
Resuscitation Status: Full Code
Abnormal Lab Results
06/01/24 06/01/24 06/01/24
12:12 13:13 13:41
WBC 12.9 H 10^3/uL
(4.8-10.8)
RDW 14.7 H %
(11.5-14.5)
Abs Immat Gran (auto) 0.3 H 10^3/uL
(0-0.05)
Absolute Neuts (auto) 9.3 H 10^3/uL
(1.4-6.5)
Absolute Monos (auto) 0.7 H 10^3/uL
(0.1-0.6)
Immature Gran % 2.0 H %
(0-0.5)
Lymphocytes % 17.6 L %
(20.5-51.1)
Chloride 96 L mmol/L
(98-107)
Creatinine 0.5 L mg/dL
(0.6-1.0)
Glucose 166 H mg/dl
(70-99)
Alkaline Phosphatase 144 H U/L
(38-126)
Troponin I 0.111 H* ng/ml 0.141 H* D ng/ml
Total Protein 6.2 L g/dl
(6.3-8.2)
06/01/24 12:12
06/01/24 13:13
Vital Signs
Initial and Last Documented VS:
Initial Vital Signs
Temp Pulse Resp BP Pulse Ox
98.4 F 95 16 139/89 98
06/01/24 10:18 06/01/24 10:18 06/01/24 10:18 06/01/24 10:18 06/01/24 10:18
Last Documented Vital Signs
Temp Pulse Resp BP Pulse Ox
98.4 F 97 21 114/75 90
06/01/24 10:18 06/01/24 14:11 06/01/24 11:45 06/01/24 14:11 06/01/24 11:57
MDM/Problems Addressed
Differential Diagnosis Includes:
Acute coronary syndrome, musculoskeletal pain
MDM/Problems Addressed:
53-year-old female with acute coronary syndrome, mild troponin elevation. ST depressions on EKG resolved after pain resolution. Discussed with Dr. Frausto, cardiology who will see patient in ED.
Chronic conditions affecting care: CAD
Acute Exacerbation and/or Progression of Chronic Illness: CAD
*Pulse Oximetry
Patient hypoxic: no
*EKG
Interpreted by ED Provider?: Yes
EKG Intrepretation Date: 06/01/24
EKG Intrepretation Time: 13:05
Interpretation: abnormal
Comparison EKG: no changes
Heart Rate: 96
Rate: normal
Rhythm: sinus
[place]: normal axis
Interval: normal interval
QRS Pattern: normal QRS
Ischemia: non-specific ST changes
*Weigh And Charge Worker Interpretation
Rate: normal
Interpretation: normal
Heart Rate: 95
Rhythm: sinus
*Critical Care Note
Total Time (30-74mins, 75-104mins- exclusive of procedures): 30
comment:
Critical care statement: A total of 30 minutes of critical care time was provided for this patient. This includes management of unstable vital signs, evaluation of the patient at bedside, reviewing the patient's pertinent medical records, discussion
with consultants, review of old EKGs and review of pertinent medical records. This time with separate from time utilized to perform the aforementioned documented procedures
Data Reviewed
Review of Other/Old Records Reveals: Operative Reports (Cardiac catheterization showed circumflex stent placed by Dr. Paz)
Source: records
Patient Management
Social determinants of health affecting care: Living situation and Strong social support
Discussion with other providers: Hospitalist and Imaging Services Director (Dr. Frausto)
Escalation/DeEscalation of care consider admission/obs:
Admit indicated, will consider cardiac catheterization
ED Attending Note
-
Portions of this chart may have been created with voice recognition software.� Occasional wrong word or��sound alike� substitutions may have occurred due to the inherent limitations of voice recognition software.
Discharge Plan
Departure
Patient Disposition: Admit
Date of Disposition: 06/01/24
Time of Disposition: 13:17
Admit to: IVU
Presentation/result/management discussed w/ accepting MD/DO: Hospitalist
Patient with high blood pressure during this ER visit?: Yes
Condition: Fair
Discharge Problem:
Angina pectoris, unstable
Interventions
Interventions:
*Risk Screen - Suicide Last Done: 06/01/24 10:18
*General Assessment Last Done: 06/01/24 10:18
*Neglect/Abuse Screening Last Done: 06/01/24 10:18
ED- Fall Risk Assessment Last Done: 06/01/24 11:36
*ED COVID-19 Vaccine History Last Done: 06/01/24 10:18
ED-Musculoskeletal Assessment Last Done: 06/01/24 11:36
[2024-06-01 12:23] LABS: % Basophils 0.7 % (0-2); % Eosinophils 2.6 % (0-6); % Lymphocytes 17.6 % (20.5-51.1); % Monocytes 5.1 % (1.7-9.3); Absolute Basophils 0.1 10^3/uL (0-0.2); Absolute Eosinophils 0.3 10^3/uL (0-0.7); Absolute Immature Granulocytes 0.3 10^3/uL (0-0.05); Absolute Lymphocytes 2.3 10^3/uL (1.2-3.4); Absolute Monocytes 0.7 10^3/uL (0.1-0.6); Absolute Neutrophils 9.3 10^3/uL (1.4-6.5); Hematocrit 40.9 % (37.0-47.0); Hemoglobin 14.3 g/dL (12.0-16.0); Mean Platelet Volume 9.5 fL (7.4-10.4); Nucleated Red Blood Cells % 0 %; Platelet Count 393 10^3/uL (130-400); Red Blood Cell Count 4.93 10^6/uL (4.20-5.40); Red Cell Dist. Width 14.7 % (11.5-14.5); White Blood Cell Count 12.9 10^3/uL (4.8-10.8)
[2024-06-01 12:55] LABS: Troponin I 0.111 ng/ml
[2024-06-01] MEDS: NITROSTAT (SUBLINGUAL) 0.4 MG SL (13:26)
[2024-06-01 13:50] LABS: ALT (SGPT) 25 U/L (0-35); AST (SGOT) 24 U/L (14-36); Albumin 3.9 g/dl (3.5-5.0); Alkaline Phosphatase 144 U/L (38-126); Blood Urea Nitrogen 12 mg/dl (7-17); Calcium 8.7 mg/dl (8.4-10.2); Carbon Dioxide 30 mmol/L (22-30); Chloride 96 mmol/L (98-107); Estimated Creatinine Clearance > 125 ml/min; Glucose 166 mg/dl (70-99); Sodium 136 mmol/L (135-145); Total Bilirubin 0.4 mg/dl (0.2-1.3); Total Protein 6.2 g/dl (6.3-8.2); eGFR > 60.00
--- NOTE | 2024-06-01 14:01 | HPS.HSE ---
Addendum entered and electronically signed by Jose Alfredo Perez MD 06/01/24 18:24:
Patient allowed to eat. Resumed Lantus 20 units (reduced from 40) at night.
Original Note:
Family Physician
-
Family Physician: Freddy Arellano
Chief Complaint
-
chest pain
History of Present Illness
53-year-old female past medical history of CAD, COPD, interstitial lung disease, sarcoidosis, hypertension, GERD, hypercholesteremia, IBS, GERD, diabetes, diabetic neuropathy, anxiety/depression, chronic pain, nicotine dependence, presenting with
bilateral neck pain worse on the right side and posterior shoulder pain. She originally had the pain last week and came to the emergency room and was discharged thought to be musculoskeletal.
Last night she again started having the same pain again now with involvement of the right anterior chest. Pain feels like pressure/spasm very similar to pain when she had heart attack previously. She has some swelling today. Shortness of breath
is baseline. She has occasional dizziness because she was recently diagnosed with orthostatic hypotension.
Denies any lower extreme extremity edema or weight gain.
She does smoke daily. She denies alcohol. She is medical marijuana.
Medical History
Past Medical History
Past Medical History: Reports Other (CAD, COPD, interstitial lung disease, sarcoidosis, hypertension, GERD, hypercholesteremia, IBS, GERD, diabetes, diabetic neuropathy, anxiety/depression, chronic pain, nicotine dependence)
Past Surgical History: Reports Other ( Cardiac (Stent L circumflex), Cholecystectomy, Gynecological (Hysterectomy), Orthopedic, open hernia repair,)
Social History
Tobacco: Smoker
Alcohol: None
Drug: Marijuana
Family History
Family History: Not pertinent
Allergies / Home Medications
Allergies reflects when Allergies were last updated in [facility].
Home Medications with original date entered in [facility]
Allergy/Medication List:
Allergies
Allergy/AdvReac Type Severity Reaction Status Date / Time
oxycodone [From Percocet] Allergy 'breathing Verified 06/01/24 10:20
issues'
Home Medications
zolpidem 12.5 mg tablet,extended release,multiphase (Ambien CR) 12.5 mg PO HS Sleep 11/21/14
aspirin 81 mg tablet,delayed release 81 mg PO DAILY ##0 11/24/14
nitroglycerin 0.4 mg sublingual tablet 0.4 mg sublingual [id number] PRN chest pain #30 tabs 11/24/14
levalbuterol tartrate 45 mcg/actuation aerosol inhaler 2 puff inhalation R Q6HPRN PRN sob 01/31/17
atorvastatin 80 mg tablet 80 mg PO QPM High cholesterol 10/29/20
dicyclomine 20 mg tablet 20 mg PO BID Gastrointestinal issue 10/29/20
furosemide 20 mg tablet 40 mg PO DAILY Fluid retention/Swelling 10/29/20
hyoscyamine sulfate 0.125 mg sublingual tablet (Levsin/SL) 0.125 mg sublingual Q6HPRN PRN IBS, gastrointestinal issue 10/29/20
insulin aspart U-100 100 unit/mL (3 mL) subcutaneous pen (Novolog FlexPen U-100 Insulin aspart) 26 units SC AC Diabetes 10/29/20
metoprolol succinate 50 mg tablet,extended release 24 hr 50 mg PO HS Blood pressure 10/29/20
sertraline 100 mg tablet 100 mg PO HS Mental Health/Anxiety 10/29/20
Medical Marijuana 2 gummy PO HSPRN PRN sleep 12/08/23
cholecalciferol (vitamin D3) 125 mcg (5,000 unit) tablet 125 mcg PO DAILY Supplement 12/08/23
cyclobenzaprine 10 mg tablet 10 mg PO BID Muscle Spasms 12/08/23
ezetimibe 10 mg tablet (Zetia) 10 mg PO HS High Cholesterol 12/08/23
fludrocortisone 0.1 mg tablet 0.1 mg PO DAILY Sarcoidosis 12/08/23
glucagon 3 mg/actuation nasal spray (Baqsimi) 3 mg intranasal DAILYPRN PRN high sugar 12/08/23
icosapent ethyl 1 gram capsule (Vascepa) 1 g PO BID High Cholesterol 12/08/23
insulin glargine 100 unit/mL subcutaneous solution (Lantus U-100 Insulin) 40 unit SC BID Diabetes 12/08/23
lisinopril 5 mg tablet 5 mg PO DAILY Blood Pressure 12/08/23
metformin 500 mg tablet,extended release 24hr (osmotic) 1,000 mg PO QPM Diabetes 12/08/23
potassium chloride 10 mEq tablet,extended release 10 meq PO DAILY Electrolyte Repletion 12/08/23
semaglutide 0.25 mg or 0.5 mg (2 mg/1.5 mL) subcutaneous pen injector (Ozempic) 0.25 mg SC PARIS Diabetes 12/08/23
tramadol 50 mg tablet 100 mg PO BID Pain 12/08/23
lorazepam 0.5 mg tablet 0.5 mg PO BID PRN anxiety 01/20/24
ondansetron 4 mg disintegrating tablet 4 mg PO Q8H PRN nausea 01/20/24
Saccharomyces boulardii 250 mg capsule 250 mg PO DAILY 3 days #3 caps 01/27/24
gabapentin 400 mg capsule 400 mg PO TID 30 days #90 caps 01/27/24
hydromorphone 4 mg tablet (Dilaudid) 4 mg PO BIDPRN PRN severe pain 5 days #10 tabs 01/27/24
Review of Systems
-
History Source: Patient
A 12 point ROS was completed and negative except as noted: Yes
Constitutional: Reports No Symptoms
EENT: Reports No Symptoms
Respiratory: Reports See HPI
Cardiac: Reports See HPI
Abdomen/GI: Reports No Symptoms
: Reports No Symptoms
Musculoskeletal: Reports No Symptoms
Skin: Reports No Symptoms
Neurological: Reports No Symptoms
Endocrine: Reports No Symptoms
Hematologic/Lymphatic: Reports No Symptoms
Psych: Reports No Symptoms
Physical Exam
Vital Signs
Vital Signs
Temp Pulse Resp BP Pulse Ox
98.4 F 97 21 123/83 90
06/01/24 10:18 06/01/24 12:10 06/01/24 11:45 06/01/24 13:26 06/01/24 11:57
Physical Exam
General: Well Developed, Well Nourished and No Apparent Distress
HEENT: NormoCephalic, Moist mucous membranes and Atraumatic
Respiratory: Clear
Cardiac: S1/S2 and Regular Rhythm; No Murmur or Rub
GI: Soft, Non Tender, Non Distended and Normal Bowel Sounds; No Organomegaly
Rectal: Deferred by Provider
Musculoskeletal: No Clubbing, No Cyanosis and No Edema
Skin: No Rash
Neuro: Nonfocal/grossly intact
Laboratory Results
-
06/01/24 12:12
06/01/24 13:13
Laboratory Results
Total Bilirubin 0.4 mg/dl (0.2-1.3) 06/01/24 13:13
AST 24 U/L (14-36) 06/01/24 13:13
ALT 25 U/L (0-35) 06/01/24 13:13
Alkaline Phosphatase 144 U/L (38-126) H 06/01/24 13:13
Troponin I 0.111 ng/ml H* 06/01/24 12:12
Data Reviewed
-
Lab Data: Labs Reviewed by me
Old Records: Reviewed
Impression/Plan
-
IMPRESSION:
PLAN:
# Chest pain/left shoulder/neck pain concerning for NSTEMI
# History of CAD status post circumflex stent in 2014
-Troponin 0.1
-EKG shows normal sinus rhythm, no noticeable ST-T wave changes
-Aspirin already given, continue daily
-Continue statin
-Heparin drip
-Sublingual nitroglycerin
-Cardiology consulted
COPD
-Continue lev albuterol
Interstitial lung disease
Sarcoidosis
Essential hypertension
-Continue lisinopril
-Continue metoprolol
Orthostatic hypotension
-Continue midodrine
GERD
Hypercholesterolemia
-Continue Vascepa
IBS
Type 2 diabetes
-On Lantus 40 units twice daily, hold for now as n.p.o. for potential catheterization
-Hold NovoLog for now until diet can be resumed
-Hold metformin
-Blood sugars 150s today
Diabetic neuropathy
-Continue gabapentin
Anxiety/depression
-Continue Ativan
-Continue sertraline
Chronic pain/complex regional pain syndrome of left foot
-Continue dicyclomine
-Continue Dilaudid, tramadol
Chronic lower extremity swelling
Nicotine dependence
-Smokes up to half pack of cigarettes per day
Medical marijuana use
Polycystic ovarian syndrome
Full code
DVT prophylaxis�heparin drip
N.p.o. for now
[2024-06-01] MEDS: NITRO-BID 1 INCH TOPICAL (14:11)
[2024-06-01 14:17] LABS: Troponin I 0.141 ng/ml
[2024-06-01 14:31] LABS: APTT 24.7 Sec (23.4-35.0)
--- NOTE | 2024-06-01 15:11 | W.PN.CD ---
Today's Communication / Plan
-
Consult dicated
IV Heparin
PO BB
Topical nitrates
SL NTG for break through CP
Anticipate cardiac cath in next 24 hours
Impression / Plan
-
ACS with NSTEMI
- CP with ST depression on EKG and abnormal troponin
Known CAD, ACS in 2014 led to LCx PCI/ARMANI
HTN
DM, on insulin
Cigarette smoker
Morbid obesity
- Has had significant weight loss with Ozempic
Chronic regional pain syndrome with chronic pain
- On disability
Mixed hyperlipemia
Physical Exam
Vital Signs/Labs
Vital Signs
Temp Pulse Resp BP Pulse Ox
98.4 F 97 21 114/75 90
06/01/24 10:18 06/01/24 14:11 06/01/24 11:45 06/01/24 14:11 06/01/24 11:57
05/31/24 06/01/24 06/02/24
06:59 06:59 06:59
Actual Weight 121.7 kg
06/01/24 12:12
06/01/24 13:13
APTT 24.7 Sec (23.4-35.0) 06/01/24 14:10
LAB Results
06/01/24 06/01/24
12:12 13:41
Troponin I 0.111 H* 0.141 H* D
Data Reviewed
-
Date of Service: June 01, 2024
[2024-06-01] MEDS: HEPARIN 4000 UNITS IV (15:34)
[2024-06-01] MEDS: HEPARIN 25000 UNITS/250 ML IV (15:35)
[2024-06-01] MEDS: LOPRESSOR 50 MG PO (15:37)
[2024-06-01 16:59] LABS: Glucose - Point of Care 145 mg/dl (70-99)
[2024-06-01] MEDS: LIPITOR 80 MG PO (17:28)
[2024-06-01] MEDS: NOVOLOG FLEXPEN-LOW RESISTANCE SC (17:29)
[2024-06-01] MEDS: NEURONTIN 300 MG PO ×2 (18:15→22:13)
--- NOTE | 2024-06-01 18:40 | PTCARENOTE ---
Pt with NSTEMI received from ED. Pt denies any chest discomfort, c/o mild headache likely related to nitropaste. Pt with very sensitive left lower leg due to long standing issue. Telemetry shows sinus rhythm. Plan for cardiac cath on 06/02/24.
[2024-06-01] MEDS: ULTRAM 100 MG PO (20:12)
[2024-06-01] MEDS: FLEXERIL 10 MG PO (20:12)
[2024-06-01] MEDS: BENTYL 20 MG PO (20:12)
[2024-06-01 20:42] LABS: APTT 46.4 Sec (23.4-35.0)
[2024-06-01 20:55] LABS: Troponin I 0.305 ng/ml
--- NOTE | 2024-06-01 21:20 | PTCARENOTE ---
pt. seen and assessed in room. pt. aox3, tele reading nsr. heparin running at 1700u/hr next ptt at 3am. no complaints of pain at this time. call bliss within reach. continuing to monitor.
[2024-06-01 22:13] LABS: Glucose - Point of Care 184 mg/dl (70-99)
[2024-06-01] MEDS: ZETIA 10 MG PO (22:13)
[2024-06-01] MEDS: TOPROL XL 50 MG PO (22:13)
[2024-06-01] MEDS: ZOLOFT 100 MG PO (22:13)
[2024-06-01] MEDS: AMBIEN 10 MG PO (22:13)
[2024-06-01] MEDS: LANTUS 0.2 UNITS SC (22:13)
[2024-06-01] MEDS: DILAUDID 0.5 MG IV (22:20)
[2024-06-02] VITALS (15 sets, daily range): BP systolic 66–140; BP diastolic 51–117; BMI 49.0
[2024-06-02] MEDS: HEPARIN 25000 UNITS/250 ML IV (02:51)
[2024-06-02 04:20] LABS: % Basophils 0.7 % (0-2); % Eosinophils 3.4 % (0-6); % Immature Granulocytes 2.2 % (0-0.5); % Lymphocytes 31.6 % (20.5-51.1); % Monocytes 4.4 % (1.7-9.3); % Neutrophils 57.7 % (42.2-75.2); Absolute Basophils 0.1 10^3/uL (0-0.2); Absolute Eosinophils 0.4 10^3/uL (0-0.7); Absolute Immature Granulocytes 0.3 10^3/uL (0-0.05); Absolute Lymphocytes 3.9 10^3/uL (1.2-3.4); Absolute Monocytes 0.5 10^3/uL (0.1-0.6); Hemoglobin 12.7 g/dL (12.0-16.0); Mean Corp Hgb Conc. 33.4 g/dL (33.0-37.0); Mean Corpuscular Hgb 28.7 pg (27.0-31.0); Mean Corpuscular Volume 85.8 fL (81.0-99.0); Mean Platelet Volume 9.6 fL (7.4-10.4); Nucleated Red Blood Cells % 0.2 %; Platelet Count 353 10^3/uL (130-400); Red Blood Cell Count 4.43 10^6/uL (4.20-5.40); Red Cell Dist. Width 14.9 % (11.5-14.5); White Blood Cell Count 12.2 10^3/uL (4.8-10.8)
[2024-06-02 04:49] LABS: ALT (SGPT) 21 U/L (0-35); AST (SGOT) 21 U/L (14-36); Albumin 3.3 g/dl (3.5-5.0); Alkaline Phosphatase 122 U/L (38-126); Blood Urea Nitrogen 13 mg/dl (7-17); Calcium 8.4 mg/dl (8.4-10.2); Carbon Dioxide 31 mmol/L (22-30); Chloride 95 mmol/L (98-107); Estimated Creatinine Clearance > 125 ml/min; Glucose 161 mg/dl (70-99); Potassium 3.6 mmol/L (3.5-5.1); Sodium 135 mmol/L (135-145); Total Bilirubin 0.6 mg/dl (0.2-1.3); Total Protein 5.5 g/dl (6.3-8.2); eGFR > 60.00
[2024-06-02 04:57] LABS: Troponin I 0.223 ng/ml
[2024-06-02] MEDS: DILAUDID 0.5 MG IV ×4 (06:15→20:35)
[2024-06-02] MEDS: KCL 10 MEQ PO (07:55)
[2024-06-02] MEDS: NEURONTIN 300 MG PO ×3 (07:55→22:40)
[2024-06-02 07:56] LABS: Glucose - Point of Care 200 mg/dl (70-99)
[2024-06-02] MEDS: ZESTRIL 5 MG PO (07:56)
[2024-06-02] MEDS: ULTRAM 100 MG PO ×2 (07:56→20:10)
[2024-06-02] MEDS: LASIX 40 MG PO (07:56)
[2024-06-02] MEDS: FLEXERIL 10 MG PO ×2 (07:56→20:10)
[2024-06-02] MEDS: BENTYL 20 MG PO ×2 (07:56→20:10)
[2024-06-02] MEDS: VITAMIN D3 (cholecalciferol) 125 MCG PO (07:56)
[2024-06-02] MEDS: LOW STRENGTH ASPIRIN 81 MG PO (07:56)
--- NOTE | 2024-06-02 08:10 | W.PN.CD ---
Today's Communication / Plan
-
Echocardiogram.
Cardiac catheterization today.
Impression / Plan
-
Impression/Plan: 53 y/o female with sarcoidosis/ILD/COPD, HTN, IDDM complicated by neuropathy and CAD s/p prior PCI to [facility] (11/23/2014) admitted with NSTEMI.
#NSTEMI
-Acute, CP with ST depression on EKG and abnormal troponin.
-Troponin peaked at 0.305.
-Continue heparin/metoprolol/aspirin.
-Coronary angiography today.
-Echocardiogram ordered/pending.
#CAD
-ACS in 2014 led to LCx PCI/ARMANI.
-Continue metoprolol/aspirin/statin.
#HTN
-Chronic, stable.
-Continue lisinopril.
#IDDM
-Chronic.
-Continue insulin per primary service.
#Morbid obesity
- Has had significant weight loss with semaglutide.
#Mixed hyperlipemia
-Chronic, stable.
-Continue atorvastatin 80 mg daily and ezetimibe 10 mg daily.
-Goal LDL < 55.
#Sarcoidosis/IPL/COPD
-Chronic, stable.
-No outpatient bronchodilators.
#Tobacco abuse
#Chronic regional pain syndrome with chronic pain
Subjective/Interval History:
No acute events.
Troponin peaked at 0.305.
Physical Exam
Vital Signs/Labs
Vital Signs
Temp Pulse Resp BP Pulse Ox
36.7 C 85 16 119/62 93
06/02/24 07:52 06/02/24 08:00 06/02/24 07:52 06/02/24 07:58 06/02/24 07:52
05/31/24 06/01/24 06/02/24
11:59 11:59 11:59
Actual Weight 121.7 kg 121.5 kg
06/02/24 03:36
06/02/24 03:36
APTT 32.0 Sec (23.4-35.0) 06/02/24 03:36
LAB Results
06/01/24 06/01/24 06/01/24
12:12 13:41 16:06
Troponin I 0.111 H* 0.141 H* D Cancelled
06/01/24 06/01/24 06/02/24
20:24 22:06 03:36
Troponin I 0.305 H* D Cancelled 0.223 H* D
Physical Exam
Constitutional: No acute distress and Comfortable
EENT: Anicteric and Moist mucous membranes
Cardiovascular: Rhythm & rate is regular, Pedal edema is absent, JVD pressure is normal, S1S2 is normal and Murmur/rub/gallop absent
Respiratory: Respiratory effort normal, Lungs clear to auscul., Wheeze Absent, Crackles Absent and Rhonchi Absent
GI: Soft, Distention absent, Flat, Non tender and Normal bowel sounds
Neuro/Psych: AO x 3
Data Reviewed
-
Date of Service: June 02, 2024
Medical Decision Making: Reviewed Test Results, Independent Historian Assessment and Test Interpretation
EKG: Tracing Personally Visualized and interpreted and Report Reviewed by me
X-Ray/CT/US/MRI/NUC/PET: Image Personally Visualized and interpreted, Report Reviewed by me and Discussed with Physician
Medical Tests (PFT, Pathology etc): Report Reviewed by me
Labs: Labs Reviewed by me
Old Records: Reviewed
--- NOTE | 2024-06-02 08:30 | PTCARENOTE ---
Assumed care. Patient AO x 3, sleeping arouses easily, denies neck pain. Heparin infusing at 1900 units/hr. +1 lower extremity edema, feet are dry and skin is cracked. Tenderness left foot. NSR HR 85, BP 119/62. Plan of care reviewed, NPO meds given
with water, call bliss in reach
[2024-06-02] MEDS: NOVOLOG FLEXPEN-LOW RESISTANCE 2 UNITS SC ×2 (08:56→17:20)
--- NOTE | 2024-06-02 09:05 | PTCARENOTE ---
Report given to the lab nurse. Patient walked to the bathroom to void, pants removed
[2024-06-02 10:38] LABS: ACT-LR - POC 334 Seconds (116-155)
--- NOTE | 2024-06-02 10:51 | W.PN.HOSP.TC ---
Today's Communication/Plan
-
Follow-up results of coronary angiography
Assessment / Plan
Assessment / Plan
Gen-AAOx3, NAD
HEENT-NC, AT, anicteric, clear oral mm
Neck-supple
CV-reg, no M, +S1/S2
Lungs-clear B/L
Abd-soft, NT, ND
Musculoskeletal-no edema, no deformity
Skin-warm and dry
Neuro-grossly non-focal
Psych-calm, cooperative
Patient is a 53-year-old female with medical history of sarcoidosis, CAD (PCI to left circumflex 2015), diabetes mellitus, tobacco abuse, and obesity who has been admitted for treatment of NSTEMI. She presented with chest pain and was found to have
elevated troponins. She has been started on IV heparin drip and is pending coronary angiography today.
NSTEMI:
-Troponins elevated, appear to have peaked and are now downtrending
-No ST elevations on EKG
-Loaded with aspirin, continue daily low-dose aspirin and statin
-Continue IV heparin drip
-N.p.o. for coronary angiography today
-Follow-up further recommendations cardiology following angiography
-Encourage smoking cessation
-Continue home metoprolol succinate 50 mg at bedtime
Insulin-dependent diabetes mellitus:
-Continue long-acting insulin with Lantus 20 units at bedtime in addition to sliding scale insulin with meals, appears to be on 40 units of twice a day and 26 units of short acting insulin with meals per med rec
-Continue home metformin
-Gabapentin for neuropathy
Mixed hyperlipidemia:
-Continue high intensity statin, ezetimibe, and Vascepa
Hypertension: Continue lisinopril 5 mg daily
Chronic pain:
-Continue home tramadol, cyclobenzaprine, and gabapentin
CODE STATUS: Full code
Anticipated Discharge: 24 - 48 hours
Subjective/Interval History
-
Date of Service: June 02, 2024
Patient was seen and examined at bedside this morning. No acute distress although she is anxious about her planned coronary angiography this morning.
Objective Data
-
Labs:
Laboratory Results
06/02/24 06/02/24
03:36 10:36
WBC 12.2 H
Hgb 12.7
Hct 38.0
Plt Count 353
APTT 32.0 Pending
Sodium 135
Potassium 3.6
Chloride 95 L
Carbon Dioxide 31 H
BUN 13
Creatinine 0.6
Glucose 161 H
Calcium 8.4
Total Bilirubin 0.6
AST 21
ALT 21
Alkaline Phosphatase 122
Vital Signs:
Vital Signs
Temp Pulse Resp BP Pulse Ox
98.0 F 85 16 119/62 93
06/02/24 07:52 06/02/24 08:00 06/02/24 07:52 06/02/24 07:58 06/02/24 07:52
Review of Systems
-
History Source: Patient
All other systems: Reviewed and negative
Data Reviewed
-
Labs: Labs Reviewed by me
--- NOTE | 2024-06-02 11:18 | CM ---
Chart reviewed. Patient is independent of ADLS, lives with her mother, father, son and daughter in a split level home, 0 TONY, 0 DME. Plan is for the patient to return home. CM to follow
--- NOTE | 2024-06-02 11:21 | ITS.CL.ANGIO ---
Claims Manager - Angioplasty
Angioplasty
Procedure Report:
CARDIAC CATHETERIZATION REPORT
Date of Procedure: 06/02/2024
Referring: Winston Frausto M.D.
INDICATION: Non-ST elevation myocardial infarction.
PROCEDURE:
1. Left heart catheterization.
2. Coronary angiography.
3. Successful, IVUS guided PCI of the left circumflex.
A total of 61 minutes of procedural/moderate sedation was utilized. An independent medical billing associate was present to assist with and help manage the patient's level of consciousness and physiologic status.
ACCESS:
1. 6 Afghan right radial artery using a modified Seldinger technique.
CATHETERS:
1. 5 Afghan JR4.
2. 5 Afghan JL 3.5.
3. 6 Afghan EBU 3.5 guiding catheter.
HEMODYNAMIC DATA
Weight (kg): 121.5
AO (s/d/x, mmHg): 111/78/93
LV (s/x mmHg): 114/15
LEFT VENTRICULOGRAPHY: Not performed.
CORONARY ANGIOGRAPHY
Dominance: Right.
Left Main: Normal size, bifurcating vessel. There is no coronary artery disease.
LAD: Normal size vessel giving rise to 1 significant diagonal. There is a 50% lesion in the proximal vessel. There is a 30% tapering of the mid vessel spanning the origin of the diagonal.
Ramus: Congenitally absent.
Circumflex: Normal size, nondominant vessel giving rise to 1 significant obtuse marginal. There is 90% in-stent restenosis in a proximal circumflex stent. This is followed by a 70% lesion in the circumflex as it enters OM1. The vessel does not
normalize until it is in the midportion of OM1.
RCA: Normal size, dominant vessel giving rise to a substantial posterolateral arcade. There is a 70% lesion in the distal RCA as it rounds the crux.
INTERVENTION(S)
1. Successful IVUS guided PCI of the 90% proximal circumflex ISR lesion and the 70% circumflex lesion into OM1 (overlapping Xience Skypoint 3.25 x 33 ARMANI, 3.25 x 18 ARMANI, postdilated with a 3.25 NC balloon) with reduction in stenosis to 0%,
maintaining AMBER-3 flow.
Narrative:
The decision was made to proceed with percutaneous coronary intervention. The diagnostic catheter was removed over a wire and a 6Fr EBU 3.5 guiding catheter was advanced to the aortic root and seated in the left main coronary artery. Additional
heparin was given and a Power Turn Flex wire was advanced into the distal obtuse marginal. The 90% proximal circumflex ISR lesion was predilated with a 2.0 x 12 semi-compliant balloon to 16 elizabeth.
The decision was made to perform intracoronary imaging. An IVUS catheter was advanced through the guiding catheter and into the ostium of the artery. Ring down was performed once the imaging crystal was no longer inside of the guiding catheter. The
IVUS catheter was advanced into the mid obtuse marginal. Intravascular ultrasound was performed in a retrograde fashion using a slow pullback. Intracoronary imaging demonstrated areas of atherosclerosis with a notable narrowing in the proximal
portion of the first obtuse marginal as it joins the AV groove circumflex as well as significant calcification in the circumflex followed by neointimal hyperplasia within the stent. Vessel sizing measurements were performed.
The IVUS catheter was withdrawn and a 3.0 x 15 noncompliant balloon was advanced. The 70% mid circumflex/OM1 and 90% proximal circumflex ISR lesion were dilated to 14 elizabeth with good balloon expansion.
The noncompliant balloon was removed and a Xience Skypoint 3.25 x 33 drug-eluting stent was advanced. The stent was deployed at 12 atmospheres. The stent balloon was removed. A Xience Skypoint 3.25 x 18 drug-eluting stent was advanced. Meticulous
care was taken while positioning the stent, ensuring that the distal aspect overlapped with the first stent in the proximal aspect cover the entire proximal circumflex lesion. We were satisfied with our positioning, the stent was deployed at 12
elizabeth. The stent balloon was removed. A 3.25 x 20 noncompliant balloon was advanced into the stent and the entire stent length was postdilated to 14 atmospheres.
The noncompliant balloon was withdrawn. The IVUS catheter was readvanced and IVUS was performed in a retrograde fashion. This demonstrated good stent apposition and expansion throughout the entire stented segment with no evidence of dissection.
The IVUS catheter was withdrawn.
Angiography was performed in orthogonal views, confirming good stent expansion and an excellent angiographic result. The coronary wire was withdrawn and the guide was disengaged from the artery. The catheter was removed over a standard J-wire.
Closure Device: Vascular band.
Radiation (mGy): 1426.09
DAP (cm2.Gy): 99.9824
Fluoroscopy time (minutes): 11.3
CONCLUSIONS
1. 1. Right dominant circulation with a 70% lesion in the distal RCA is around the crux, a 50% lesion in the proximal LAD with a 30% tapering of the mid vessel spanning the origin of a diagonal and a culprit, 90% in-stent restenosis lesion of the
proximal circumflex followed by a 70% circumflex lesion as it enters the first obtuse marginal, status post successful IVUS guided PCI to the circumflex lesions (overlapping Xience Skypoint 3.25 x 33 ARMANI, 3.25 x 18 ARMANI, postdilated with a 3.25 NC
balloon) with reduction in stenosis to 0%, maintaining AMBER-3 flow. There has been progression of the distal RCA disease, but the LAD disease appears similar to prior coronary angiogram of 11/23/2014.
2. Top normal filling pressures (LVEDP = 15 mmHg at 121.5 kg).
RECOMMENDATIONS:
1. Expectant management after cardiac catheterization via right radial approach.
2. Limited weight bearing on the right wrist for one week.
3. Dual antiplatelet therapy with aspirin and ticagrelor for at least 12 months, followed by aspirin indefinitely.
4. Aggressive secondary prevention with high-dose, high potency statin as well as ezetimibe. Goal LDL <55.
5. Guideline directed medical therapy as hemodynamics will tolerate.
6. Echocardiogram ordered and pending.
7. Medical management of LAD and RCA disease. If the patient continues to have anginal symptoms, particularly with exertion, we can reevaluate the LAD and RCA disease with IFR.
8. Referral to cardiac rehab.
Copy to: Winston Frausto M.D., Freddy Arellano D.O., Jeffry Regalado M.D.
Carlos Sofia DO, FACC, FACP
--- NOTE | 2024-06-02 11:50 | PTCARENOTE ---
Addendum entered by Anibal Cunningham RN 06/02/24 17:01:
Patient received from the floating labor gang supervisor with right radial band in place. Heparin gtt discontinued. She is complaining of right arm, right jaw, neck pain and chest pressure rating it 8 out 10 asking for Dilaudid that was given earlier for pain. VSS BP
104/51, mother at bedside.
Original Note:
Patient received from the floating labor gang supervisor with right radial band in place. She is complaining of right arm, right jaw, neck pain and chest pressure rating it 8 out 10 asking for Dilaudid that was given earlier for pain. VSS BP 104/51, mother at bedside
[2024-06-02 12:22] LABS: Glucose - Point of Care 163 mg/dl (70-99)
[2024-06-02] MEDS: NOVOLOG FLEXPEN-LOW RESISTANCE 1 UNITS SC (12:22)
--- NOTE | 2024-06-02 12:26 | PTCARENOTE ---
Dilaudid IV given
--- NOTE | 2024-06-02 12:46 | PTCARENOTE ---
Patient sitting on side of bed. Pain resolved. VSS, right band intact, precautions reviewed. Voided in the bathroom
[2024-06-02 13:16] LABS: ACT-LR - POC > 397 Seconds (116-155)
--- NOTE | 2024-06-02 13:49 | CM ---
Addendum entered by Tayler Cade RN 06/02/24 13:50:
I reviewed pricing with the patient and she is agreeable. I placed a free 30 day coupon in the patient's red discharge folder.
Original Note:
Pricing on Brilinta is $12.15 through the patient's [employer] PP. It is in stock at the [facility]
[2024-06-02] MEDS: LIPITOR 80 MG PO (16:25)
[2024-06-02 17:20] LABS: Glucose - Point of Care 213 mg/dl (70-99)
[2024-06-02] MEDS: BRILINTA 90 MG PO (20:10)
[2024-06-02 22:16] LABS: Glucose - Point of Care 181 mg/dl (70-99)
[2024-06-02] MEDS: TOPROL XL 50 MG PO (22:40)
[2024-06-02] MEDS: ZOLOFT 100 MG PO (22:40)
[2024-06-02] MEDS: ZETIA 10 MG PO (22:40)
[2024-06-02] MEDS: AMBIEN 10 MG PO (22:41)
[2024-06-02] MEDS: LANTUS 0.2 UNITS SC (22:41)
[2024-06-03 03:04] VITALS: BP 140/77
[2024-06-03] MEDS: DILAUDID 0.5 MG IV ×3 (03:27→12:38)
[2024-06-03 04:10] LABS: % Basophils 0.6 % (0-2); % Eosinophils 2.9 % (0-6); % Immature Granulocytes 1.3 % (0-0.5); % Lymphocytes 17.3 % (20.5-51.1); % Monocytes 4.8 % (1.7-9.3); % Neutrophils 73.1 % (42.2-75.2); Absolute Basophils 0.1 10^3/uL (0-0.2); Absolute Eosinophils 0.3 10^3/uL (0-0.7); Absolute Immature Granulocytes 0.2 10^3/uL (0-0.05); Absolute Monocytes 0.6 10^3/uL (0.1-0.6); Absolute Neutrophils 8.6 10^3/uL (1.4-6.5); Hemoglobin 13.7 g/dL (12.0-16.0); Mean Corp Hgb Conc. 34.3 g/dL (33.0-37.0); Mean Corpuscular Hgb 28.3 pg (27.0-31.0); Mean Corpuscular Volume 82.6 fL (81.0-99.0); Nucleated Red Blood Cells % 0 %; Platelet Count 367 10^3/uL (130-400); Red Blood Cell Count 4.84 10^6/uL (4.20-5.40); Red Cell Dist. Width 14.6 % (11.5-14.5); White Blood Cell Count 11.7 10^3/uL (4.8-10.8)
[2024-06-03 04:35] LABS: Blood Urea Nitrogen 11 mg/dl (7-17); Calcium 9.5 mg/dl (8.4-10.2); Carbon Dioxide 28 mmol/L (22-30); Chloride 94 mmol/L (98-107); Estimated Creatinine Clearance > 125 ml/min; Glucose 200 mg/dl (70-99); Magnesium 1.7 mg/dl (1.6-2.3); Phosphorus 5.2 mg/dl (2.5-4.5); Potassium 3.5 mmol/L (3.5-5.1); Sodium 133 mmol/L (135-145); eGFR > 60.00
--- NOTE | 2024-06-03 04:39 | PTCARENOTE ---
Assumed care of pt at change of shift. NSR on tele with HR 80s-90s. R radial cath site c/d/i with some ecchymosis noted. Pt denies CP but has complaints of R arm pain which radiates to her neck. Dilaudid administered per orders, see MAR.
Ambulating independently in room without difficulty. Education provided on activity restrictions regarding R radial site and pt verbalizes understanding. Call bliss within reach.
--- NOTE | 2024-06-03 07:45 | W.PN.CD ---
Today's Communication / Plan
-
Echocardiogram pending.
Resume all home medications.
Discharge planning.
Impression / Plan
-
Impression/Plan: 53 y/o female with sarcoidosis/ILD/COPD, HTN, IDDM complicated by neuropathy and CAD s/p prior PCI to [facility] (11/23/2014) admitted with NSTEMI.
#NSTEMI
-Acute.
-Troponin peaked at 0.305.
-Cath shows stable LAD from 2014, progression of dRCA disease to 70% and a culprit 90% pLCx ISR lesion followed by a 70% de parag LCx/OM1 lesion, now s/p PCI (overlapping Xience Skypoint 3.25 x 33 ARMANI, 3.25 x 18 ARMANI).
-Medical management of LAD/RCA disease as she is a poor surgical candidate. If she were to have exertional angina, we could stress or iFR the RCA in the future.
-DAPT with aspirin/ ticagrelor for 12 months, followed by aspirin monotherapy indefinitely.
-Continue metoprolol and atorvastatin/ezetimibe.
-Echocardiogram ordered/pending.
#CAD
-Chronic.
-PCI of LCX and medical management of RCA/LAD disease as above.
-Continue metoprolol/aspirin/statin.
#HTN
-Chronic, stable.
-Continue lisinopril.
#IDDM
-Chronic.
-Continue insulin per primary service.
#Morbid obesity
- Has had significant weight loss with semaglutide.
#Mixed hyperlipemia
-Chronic, stable.
-Continue atorvastatin 80 mg daily and ezetimibe 10 mg daily.
-Goal LDL < 55.
#Sarcoidosis/IPL/COPD
-Chronic, stable.
-No outpatient bronchodilators.
#Tobacco abuse
#Chronic regional pain syndrome with chronic pain
Subjective/Interval History:
PCI of LCx yesterday.
Patient required hydromorphone for pericardial stretch pain post PCI.
Feels well this AM.
DATA:
Cardiac Catheterization/PCI, 06/02/2024:
CONCLUSIONS
1. 1. Right dominant circulation with a 70% lesion in the distal RCA is around the crux, a 50% lesion in the proximal LAD with a 30% tapering of the mid vessel spanning the origin of a diagonal and a culprit, 90% in-stent restenosis lesion of the
proximal circumflex followed by a 70% circumflex lesion as it enters the first obtuse marginal, status post successful IVUS guided PCI to the circumflex lesions (overlapping Xience Skypoint 3.25 x 33 ARMANI, 3.25 x 18 ARMANI, postdilated with a 3.25 NC
balloon) with reduction in stenosis to 0%, maintaining AMBER-3 flow. There has been progression of the distal RCA disease, but the LAD disease appears similar to prior coronary angiogram of 11/23/2014.
2. Top normal filling pressures (LVEDP = 15 mmHg at 121.5 kg).
Physical Exam
Vital Signs/Labs
Vital Signs
Temp Pulse Resp BP Pulse Ox
36.5 C 90 20 121/64 95
06/03/24 03:12 06/03/24 02:00 06/03/24 03:12 06/02/24 22:40 06/03/24 03:12
06/01/24 06/02/24 06/03/24
11:59 11:59 11:59
Actual Weight 121.7 kg 121.5 kg
06/03/24 03:43
06/03/24 03:43
APTT Cancelled 06/02/24 10:36
Magnesium 1.7 mg/dl (1.6-2.3) 06/03/24 03:43
LAB Results
06/01/24 06/01/24 06/01/24
12:12 13:41 16:06
Troponin I 0.111 H* 0.141 H* D Cancelled
06/01/24 06/01/24 06/02/24
20:24 22:06 03:36
Troponin I 0.305 H* D Cancelled 0.223 H* D
06/02/24
07:40
Troponin I Cancelled
Physical Exam
Constitutional: No acute distress and Comfortable
EENT: Anicteric and Moist mucous membranes
Cardiovascular: Rhythm & rate is regular, Pedal edema is absent, JVD pressure is normal, S1S2 is normal and Murmur/rub/gallop absent
Respiratory: Respiratory effort normal, Lungs clear to auscul., Wheeze Absent, Crackles Absent and Rhonchi Absent
GI: Soft, Distention absent, Flat, Non tender and Normal bowel sounds
Neuro/Psych: AO x 3
Other: Cath Site (Right radial access site is C/D/I.)
Data Reviewed
-
Date of Service: June 03, 2024
Medical Decision Making: Reviewed Test Results, Independent Historian Assessment and Test Interpretation
EKG: Tracing Personally Visualized and interpreted and Report Reviewed by me
Echo: Ordered by me
X-Ray/CT/US/MRI/NUC/PET: Image Personally Visualized and interpreted and Report Reviewed by me
Medical Tests (PFT, Pathology etc): Image Personally Visualized and interpreted and Report Reviewed by me
Labs: Labs Reviewed by me
Old Records: Reviewed
[2024-06-03] MEDS: KCL 10 MEQ PO (08:22)
[2024-06-03] MEDS: VITAMIN D3 (cholecalciferol) 125 MCG PO (08:22)
[2024-06-03] MEDS: BENTYL 20 MG PO (08:22)
[2024-06-03] MEDS: NEURONTIN 300 MG PO (08:22)
[2024-06-03] MEDS: LASIX 40 MG PO (08:22)
[2024-06-03] MEDS: FLEXERIL 10 MG PO (08:22)
[2024-06-03] MEDS: BRILINTA 90 MG PO (08:22)
[2024-06-03] MEDS: ULTRAM 100 MG PO (08:23)
[2024-06-03] MEDS: LOW STRENGTH ASPIRIN 81 MG PO (08:23)
[2024-06-03] MEDS: ZESTRIL 5 MG PO (08:23)
[2024-06-03 08:25] VITALS: BP 120/51
[2024-06-03 08:36] LABS: Glucose - Point of Care 233 mg/dl (70-99)
[2024-06-03] MEDS: NOVOLOG FLEXPEN-LOW RESISTANCE 2 UNITS SC (08:40)
--- NOTE | 2024-06-03 08:59 | PTCARENOTE ---
Patient resting comfortable. Right wrist pain rating it 7 out 10 Dilaudid given with relief. Dressing removed, cath site CDI, no swelling, some bruising. Patient sitting on side of bed, VSS
--- NOTE | 2024-06-03 10:22 | W.PN.HOSP.TC ---
Today's Communication/Plan
-
Follow-up echocardiogram results prior to hospital discharge
Assessment / Plan
Assessment / Plan
Gen-AAOx3, NAD
HEENT-NC, AT, anicteric, clear oral mm
Neck-supple
CV-reg, no M, +S1/S2
Lungs-clear B/L
Abd-soft, NT, ND
Musculoskeletal-no edema, no deformity
Skin-warm and dry
Neuro-grossly non-focal
Psych-calm, cooperative
Patient is a 53-year-old female with medical history of sarcoidosis, CAD (PCI to left circumflex 2014), diabetes mellitus, tobacco abuse, and obesity who has been admitted for treatment of NSTEMI. She presented with chest pain and was found to have
elevated troponins. She was anticoagulated with IV heparin drip and brought for cardiac cath.
NSTEMI:
-Underwent coronary angiography 06/02 which revealed stable LAD lesion from 2014, progression of distal RCA disease to 70%, culprit lesion of 90% stenosis in the proximal left circumflex with in-stent restenosis and a new 70% stenosis in the left
circumflex/OM1
-Status post PCI with ARMANI to culprit lesions in left circumflex/OM1, tolerated procedure well
-Continue DAPT with aspirin and Brilinta for 12 months followed by aspirin monotherapy indefinitely
-High intensity statin therapy
-Echocardiogram pending
-Will need close cardiology follow-up
-Encourage smoking cessation
-Continue home metoprolol succinate 50 mg at bedtime
Insulin-dependent diabetes mellitus:
-Continue home long-acting insulin with Lantus 40 units at bedtime in addition to sliding scale insulin with meals in addition to short acting insulin with meals
-Continue home metformin
-Gabapentin for neuropathy
Mixed hyperlipidemia:
-Continue high intensity statin, ezetimibe, and Vascepa
Hypertension: Continue lisinopril 5 mg daily
Chronic pain:
-Continue home tramadol, cyclobenzaprine, and gabapentin
CODE STATUS: Full code
Anticipated Discharge: Today
Subjective/Interval History
-
Date of Service: June 03, 2024
Ms. Bobo was seen and examined at bedside this morning. She tolerated cardiac cath well yesterday. She feels well and is anxiously awaiting discharge to home.
Objective Data
-
Labs:
Laboratory Results
06/03/24
03:43
WBC 11.7 H
Hgb 13.7
Hct 40.0
Plt Count 367
Sodium 133 L
Potassium 3.5
Chloride 94 L
Carbon Dioxide 28
BUN 11
Creatinine 0.5 L
Glucose 200 H
Calcium 9.5
Vital Signs:
Vital Signs
Temp Pulse Resp BP Pulse Ox
98.0 F 85 16 120/51 95
06/03/24 08:27 06/03/24 09:00 06/03/24 08:27 06/03/24 08:25 06/03/24 08:27
I&O
06/02/24 06/03/24 06/04/24
06:59 06:59 06:59
Intake Total 540 / 540
Balance 540 / 540
Review of Systems
-
History Source: Patient
All other systems: Reviewed and negative
Physical Exam
-
General: No Apparent Distress
Data Reviewed
-
Labs: Labs Reviewed by me
[2024-06-03 12:29] LABS: Glucose - Point of Care 313 mg/dl (70-99)
[2024-06-03] MEDS: NOVOLOG FLEXPEN-LOW RESISTANCE 4 UNITS SC (12:39)
--- NOTE | 2024-06-03 12:59 | PTCARENOTE ---
Patient retuned from getting her Echo. Blood sugar 313, coverage given. Asking for pain medication for 7 out 10 right wrist and hand pain. Pain medication given
[2024-06-03 14:56] VITALS: BP 127/73
--- NOTE | 2024-06-03 15:02 | W.DCSUMMARY ---
Discharge Summary
Discharge Data
Date of Admission: 06/01/24
Date of Discharge: 06/03/24
-
Pending Results: No
Hospital Course
53-year-old female with a medical history of sarcoidosis with ILD, IDDM, hypertension, and CAD (PCI to LAD 11/23/2014). She was admitted for NSTEMI after presenting with unstable angina and elevated troponins. Started on IV heparin drip. Brought to
[facility] for coronary angiography which revealed stable LAD lesion from 2014, progression of distal RCA disease to 70%, and a culprit lesion in the proximal left circumflex with 90% in-stent restenosis with a new left circumflex/OM1 lesion. She
underwent PCI with ARMANI to culprit lesions and tolerated the procedure well. She will be continued on DAPT with aspirin and Brilinta for 12 months followed by aspirin monotherapy indefinitely. Will need close cardiology follow-up and ongoing care
with her PCP for continued management of her multiple comorbidities. Echocardiogram during this admission showed structure and function.
Discharge Plan
-
Patient Disposition: Home (Routine Discharge)
Discharge Diagnosis/Procedures: NSTEMI, s/p angioplasty and stent x2 to Left Circumflex artery
Diet: Low Cholesterol
Driving Restrictions: No driving for 24 hours
Activity Restrictions/Additional Instructions:
53-year-old female with a medical history of sarcoidosis with ILD, IDDM, hypertension, and CAD (PCI to LAD 11/23/2014). She was admitted for NSTEMI after presenting with unstable angina and elevated troponins. Started on IV heparin drip. Brought to
[facility] for coronary angiography which revealed stable LAD lesion from 2014, progression of distal RCA disease to 70%, and a culprit lesion in the proximal left circumflex with 90% in-stent restenosis with a new left circumflex/OM1 lesion. She
underwent PCI with ARMANI to culprit lesions and tolerated the procedure well. She will be continued on DAPT with aspirin and Brilinta for 12 months followed by aspirin monotherapy indefinitely. Will need close cardiology follow-up and ongoing care
with her PCP for continued management of her multiple comorbidities. Echocardiogram during this admission showed structure and function.
Stand Alone Forms: DC Instructions- Cath/EP Lab
Referrals:
Freddy Arellano DO [Family Provider] -
Luciano Regalado MD [Active] - in two to four weeks (Cardiology followup appointment)
Prescriptions:
New
gabapentin 300 mg Capsule
300 mg PO TID 30 Days Qty: 90 0RF
aspirin 81 mg Tablet,Chewable
81 mg PO DAILY Qty: 90 0RF
Brilinta 90 mg Tablet
90 mg PO BID Qty: 90 0RF
Continued
zolpidem [Ambien CR] 12.5 MG tablet,ext release multiphase
12.5 mg PO HS
insulin aspart U-100 [Novolog FlexPen U-100 Insulin] 300 UNITS/3 ML insulin pen
26 units SC AC
atorvastatin 80 MG tablet
80 mg PO QPM
metoprolol succinate 50 MG tablet extended release 24 hr
50 mg PO HS
sertraline 100 MG tablet
100 mg PO HS
dicyclomine 20 MG tablet
20 mg PO BID
furosemide 20 MG tablet
40 mg PO DAILY
cyclobenzaprine 10 mg Tablet
10 mg PO BID
insulin glargine [Lantus U-100 Insulin] 100 unit/mL Solution
40 unit SC BID
potassium chloride 10 mEq Tablet Extended Release
10 meq PO DAILY
tramadol 50 mg Tablet
100 mg PO BID
lisinopril 5 mg Tablet
5 mg PO DAILY
ezetimibe [Zetia] 10 mg Tablet
10 mg PO HS
metformin 500 mg Tablet Extended Release 24hr
1,000 mg PO QPM
cholecalciferol (vitamin D3) 125 mcg (5,000 unit) Tablet
125 mcg PO DAILY
icosapent ethyl [Vascepa] 1 gram Capsule
1 g PO BID
Ozempic 0.25 mg or 0.5 mg(2 mg/1.5 mL) Pen Injector
2 mg SC [place]
Medical Marijuana
1 gummy PO HS
Baqsimi 3 mg/actuation Galva,Non-Aerosol
3 mg INTRANASAL DAILYPRN PRN (Reason: high sugar)
midodrine 5 mg Tablet
5 mg PO BID
gabapentin 300 mg Capsule
300 mg PO TID
omeprazole 20 mg Tablet,Delayed Release (Dr/Ec)
20 mg PO QPM
aspirin 81 MG tablet,delayed release (DR/EC)
81 mg PO DAILY
Discharge Orders:
Discharge Patient (As Directed); Ordered 06/03/24
Ordered By: Luis Antonio Moss
Care Plan Goals
Care Plan Goals:
Problem: Readiness for enhanced knowledge related to diagnosis and treatment plan
Goal: Understand your diagnosis and treatment plan needs, including medications if applicable.
Instructions: Know your diagnosis, underlying causes and treatment plan options, including medications if applicable. Consult with your health care team to learn about your diagnosis and treatment plan, including medications if applicable.
Discharge Date and Time
Print Language: KOREAN
--- NOTE | 2024-06-03 16:21 | PTCARENOTE ---
Patient discharged to home. Instructions reviewed, patient verbalized understanding. IV and Telemetry removed, patient escorted to main lobby by staff
== END 2024-06-03 16:10 | disposition home or self-care (01) | DRG 321 ==
LOC: IVU 14:00
PROVIDERS: Internal Medicine Cardiovascular Disease; ADMITTING PHYSICIAN Hospitalist; ATTENDING PHYSICIAN Internal Medicine; CONSULT PHYSICIAN Internal Medicine Cardiovascular Disease; EMERGENCY PHYSICIAN Emergency Medicine; FAMILY PHYSICIAN Family Medicine
PROC: B240ZZ3 Ultrasonography of Single Coronary Artery, Intravascular (ICD-10-PCS; 2024-06-02)
PROC: B2111ZZ Fluoroscopy of Multiple Coronary Arteries using Low Osmolar Contrast (ICD-10-PCS; 2024-06-02)
PROC: 027035Z Dilation of Coronary Artery, One Artery with Two Drug-eluting Intraluminal Devices, Percutaneous Approach (ICD-10-PCS; 2024-06-02)
PROC: 4A023N7 Measurement of Cardiac Sampling and Pressure, Left Heart, Percutaneous Approach (ICD-10-PCS; 2024-06-02)
DX: T82.855A Stenosis of coronary artery stent, initial encounter (principal); I21.4 Non-ST elevation (NSTEMI) myocardial infarction; J84.9 Interstitial pulmonary disease, unspecified; Z68.41 Body mass index [BMI] 40.0-44.9, adult; D86.9 Sarcoidosis, unspecified; E11.40 Type 2 diabetes mellitus with diabetic neuropathy, unspecified; I25.10 Atherosclerotic heart disease of native coronary artery without angina pectoris; Z79.4 Long term (current) use of insulin; J44.9 Chronic obstructive pulmonary disease, unspecified; I10 Essential (primary) hypertension; F17.210 Nicotine dependence, cigarettes, uncomplicated; E78.2 Mixed hyperlipidemia; K21.9 Gastro-esophageal reflux disease without esophagitis; K58.9 Irritable bowel syndrome, unspecified; F41.9 Anxiety disorder, unspecified; G89.4 Chronic pain syndrome; I25.2 Old myocardial infarction; I95.1 Orthostatic hypotension; Z90.710 Acquired absence of both cervix and uterus; Z79.84 Long term (current) use of oral hypoglycemic drugs; Z79.82 Long term (current) use of aspirin; Y83.1 Surgical operation with implant of artificial internal device as the cause of abnormal reaction of the patient, or of later complication, without mention of misadventure at the time of the procedure; E66.01 Morbid (severe) obesity due to excess calories; F32.A Depression, unspecified; M17.0 Bilateral primary osteoarthritis of knee; E28.2 Polycystic ovarian syndrome; Z82.49 Family history of ischemic heart disease and other diseases of the circulatory system
CPT/HCPCS: 80048; 80053; 82962; 83735; 84100; 84484; 85025; 85347; 85730; 92978; 93005; 93306; 93458; 99152; 99153; 99291; 99406; C1725; C1753; C1874; C1894; C9600; Q9950; Q9967

== ENCOUNTER 2024-06-09 13:54 | Inpatient (IN) | payer OTHER, SELFPAY ==
[2024-06-05] VITALS (8 sets, daily range): BP systolic 124–155; BP diastolic 75–100; BMI 48.4; BMI 48.0
--- NOTE | 2024-06-05 13:08 | ED.GENMED ---
History of Present Illness
<Malissa Leung PA-C - Last Filed: 06/05/24 18:58>
General
Chief Complaint: Breathing Problem
Source: patient
Exam Limitations: none
Time Seen by Provider: 06/05/24 13:05
Nursing documentation reviewed up to this point in time: agreed with
History of Present Illness
History of Present Illness:
53-year-old female with a past medical history of COPD, coronary artery disease, sarcoidosis, diabetes presents emergency department today with concerns of shortness of breath for the past 4 days. Patient states that he was seen in the emergency
department on June 01 for NSTEMI and was seen by Dr. Frausto and was subsequently admitted and Dr. Hernández placed stents. Patient was found to have restenosis of prior stent. Patient reports that since the procedure, she has been increasingly
shortness of breath and has had a lot of fatigue as well. Patient reports that she feels comfortable at rest but notes exertional dyspnea. She states that she has had similar with COPD in the past however has never been this severe before. She
denies chest pain, denies back pain, redness or swelling in her lower extremities.
Past History
<GILMAR Capone Last Filed: 06/05/24 18:58>
Past History
ED Past Medical History: CAD, COPD, GERD, HTN, Hypercholesterolemia, ND, Psychiatric and Other (Interstitial lung disease, IBS, Ovarian cyst, Sarcoidosis)
ED Past Surgical History: Cardiac (Stent L circumflex), Cholecystectomy, Gynecological (Hysterectomy), Orthopedic and Other
Social History
Tobacco: Smoker
Alcohol: None
Drug: None
Personal:
Living: with family
Employment: Employed
Family History
Family History: Hypertension and CAD (father)
Review of Systems
<Malissa Leung PA-C - Last Filed: 06/05/24 18:58>
Review of Systems
All Other Systems: ROS reviewed and negative except as documented in HPI and ROS
Phy Exam
<GILMAR Capone Last Filed: 06/05/24 18:58>
Physical Exam
Physical Exam:
General: Patient is well appearing and in no acute distress; non-toxic
Skin: Warm and dry, no rashes or lesions
Head: Normocephalic, atraumatic
Eyes: Sclera non-icteric. EOMs intact.
Cardiac: Regular rate and rhythm, no murmurs
Peripheral Vascular: No lower extremity swelling or edema
Pulm: Normal respiratory effort, diffuse wheezing heard throughout
Abdomen: No abdominal tenderness to palpation
Neuro: CN II-XII intact, no focal neurologic deficits.
Psychiatric: Appropriate mood and affect.
Scores
<GILMAR Capone Last Filed: 06/05/24 18:58>
Heart Failure Risk
Heart Failure Risk Score: Yes
History of Stroke or TIA: No
History of intubation for respiratory distress: No
Heart rate on ED arrival >/= 110: Yes
SaO2 <90% on arrival on room air: No
HR >/=110 during 3min walk test (or too ill to perform test): No
ECG has acute ischemic changes: No
Urea >/=12mmol/L (BUN 33.6mg/dL): No
Serum CO2>/=35mmol/L: No
Troponin I or T elevated to ND Level (0.4mg/dL): No
NT-proBNP >/=5,000ng/L (5,000pg/ml): No
HF Risk Score: 0
Admission Status: LOW RISK 2.8% Consider discharge to home with f/u visit to PCP/[facility]
Course
<GILMAR Capone Last Filed: 06/05/24 18:58>
Orders/Labs/Results
Orders:
Orders
06/05/24 12:46
Electrocardiogram (*1) Urgent
Reason for Study: Shortness of Breath
EKG- Treatment ONCE
CXR2 [CR Chest - 2 Views ] Urgent
Comment:
Reason For Exam: sob two cardiac stents placed on sunday
06/05/24 13:21
Ipratropium/Albuterol Sulfate [Duoneb] 3 ml INH R NOW ONE
06/05/24 13:37
Complete Blood Count/With Diff Urgent
Comprehensive Metabolic Panel Urgent
NT-proBNP Urgent
Troponin I Urgent
06/05/24 14:36
COVID-19 Antigen Urgent
Source: Nasal Swab
Influenza A+B Rapid Molecular Urgent
EMIR Source: Nasal Swab
Specimen Description:
06/05/24 14:44
0.9% Sodium Chloride 500 ml [Nss] 500 ml IV BOLUS
06/05/24 15:22
Electrocardiogram (*1) Urgent
Reason for Study: Chest Pain
EKG- Treatment ONCE
06/05/24 15:30
CT Chest PE Study Urgent
Comment:
Reason For Exam: shortness of breath, tachycardia
06/05/24 15:31
Add On- LAB Urgent
Tests Added?: BNP
06/05/24 17:46
Admit/Transfer Patient As Directed
Co-Sign Provider:
Level of Care: Observation services
Assign to:: IVU
Physician / Group: Patti Chiu
Diagnosis: shortness of breath
PRN Pain Medication Management As Directed
May give lesser potent ordered pain med per pt: Yes
preference::
Protocol:: Medication orders for pain may be administered in a
manner that supports deferring to patient preference
when the pt is:
- Requesting an ordered lesser potent pain medication.
Least to most potent pain medications are defined
as: acetaminophen < NSAID < tramadol < opioids
(morphine, oxycodone, hydromorphone).
- Requesting a lesser dose of the same medication IF
ORDERED.
- Requesting a less intrusive route of administration
if both routes are prescribed by the provider (PO <
IV).
06/05/24 17:48
Code Status As Directed
Resuscitation Status: Full Code
Abnormal Lab Results
06/05/24
13:37
WBC 16.3 H 10^3/uL
(4.8-10.8)
RBC 5.60 H 10^6/uL
(4.20-5.40)
RDW 14.8 H %
(11.5-14.5)
Plt Count 444 H D 10^3/uL
(130-400)
Abs Immat Gran (auto) 0.2 H 10^3/uL
(0-0.05)
Absolute Neuts (auto) 12.5 H 10^3/uL
(1.4-6.5)
Absolute Monos (auto) 0.7 H 10^3/uL
(0.1-0.6)
Immature Gran % 1.4 H %
(0-0.5)
Neutrophils % 76.7 H %
(42.2-75.2)
Lymphocytes % 15.3 L %
(20.5-51.1)
Chloride 94 L mmol/L
(98-107)
Glucose 348 H mg/dl
(70-99)
ALT 39 H U/L
(0-35)
Alkaline Phosphatase 149 H U/L
(38-126)
Troponin I 0.256 H* ng/ml
06/05/24 13:37
06/05/24 13:37
Vital Signs
Initial and Last Documented VS:
Initial Vital Signs
Temp Pulse Resp BP Pulse Ox
98.0 F 95 16 154/75 98
06/05/24 12:43 06/05/24 12:43 06/05/24 12:43 06/05/24 12:43 06/05/24 12:43
Last Documented Vital Signs
Temp Pulse Resp BP Pulse Ox
98.0 F 104 19 124/85 96
06/05/24 12:43 06/05/24 16:00 06/05/24 16:00 06/05/24 16:00 06/05/24 16:00
<Peter Vyas, DO - Last Filed: 06/05/24 15:49>
Orders/Labs/Results
Orders:
Orders
06/05/24 12:46
Electrocardiogram (*1) Urgent
Reason for Study: Shortness of Breath
EKG- Treatment ONCE
CXR2 [CR Chest - 2 Views ] Urgent
Comment:
Reason For Exam: sob two cardiac stents placed on sunday
06/05/24 13:21
Ipratropium/Albuterol Sulfate [Duoneb] 3 ml INH R NOW ONE
06/05/24 13:37
Complete Blood Count/With Diff Urgent
Comprehensive Metabolic Panel Urgent
NT-proBNP Urgent
Troponin I Urgent
06/05/24 14:36
COVID-19 Antigen Urgent
Source: Nasal Swab
Influenza A+B Rapid Molecular Urgent
EMIR Source: Nasal Swab
Specimen Description:
06/05/24 14:44
0.9% Sodium Chloride 500 ml [Nss] 500 ml IV BOLUS
06/05/24 15:22
Electrocardiogram (*1) Urgent
Reason for Study: Chest Pain
EKG- Treatment ONCE
06/05/24 15:30
CT Chest PE Study Urgent
Comment:
Reason For Exam: shortness of breath, tachycardia
06/05/24 15:31
Add On- LAB Urgent
Tests Added?: BNP
06/05/24 17:46
Admit/Transfer Patient As Directed
Co-Sign Provider:
Level of Care: Observation services
Assign to:: IVU
Physician / Group: Patti Chiu
Diagnosis: shortness of breath
PRN Pain Medication Management As Directed
May give lesser potent ordered pain med per pt: Yes
preference::
Protocol:: Medication orders for pain may be administered in a
manner that supports deferring to patient preference
when the pt is:
- Requesting an ordered lesser potent pain medication.
Least to most potent pain medications are defined
as: acetaminophen < NSAID < tramadol < opioids
(morphine, oxycodone, hydromorphone).
- Requesting a lesser dose of the same medication IF
ORDERED.
- Requesting a less intrusive route of administration
if both routes are prescribed by the provider (PO <
IV).
06/05/24 17:48
Code Status As Directed
Resuscitation Status: Full Code
Abnormal Lab Results
06/05/24
13:37
WBC 16.3 H 10^3/uL
(4.8-10.8)
RBC 5.60 H 10^6/uL
(4.20-5.40)
RDW 14.8 H %
(11.5-14.5)
Plt Count 444 H D 10^3/uL
(130-400)
Abs Immat Gran (auto) 0.2 H 10^3/uL
(0-0.05)
Absolute Neuts (auto) 12.5 H 10^3/uL
(1.4-6.5)
Absolute Monos (auto) 0.7 H 10^3/uL
(0.1-0.6)
Immature Gran % 1.4 H %
(0-0.5)
Neutrophils % 76.7 H %
(42.2-75.2)
Lymphocytes % 15.3 L %
(20.5-51.1)
Chloride 94 L mmol/L
(98-107)
Glucose 348 H mg/dl
(70-99)
ALT 39 H U/L
(0-35)
Alkaline Phosphatase 149 H U/L
(38-126)
Troponin I 0.256 H* ng/ml
06/05/24 13:37
06/05/24 13:37
Vital Signs
Initial and Last Documented VS:
Initial Vital Signs
Temp Pulse Resp BP Pulse Ox
98.0 F 95 16 154/75 98
06/05/24 12:43 06/05/24 12:43 06/05/24 12:43 06/05/24 12:43 06/05/24 12:43
Last Documented Vital Signs
Temp Pulse Resp BP Pulse Ox
98.0 F 104 19 124/85 96
06/05/24 12:43 06/05/24 16:00 06/05/24 16:00 06/05/24 16:00 06/05/24 16:00
Leslielt;Malissa Leung PA-C - Last Filed: 06/05/24 18:58>
MDM/Problems Addressed
Differential Diagnosis Includes:
see below
MDM/Problems Addressed:
NUMBER AND COMPLEXITY OF PROBLEMS ADDRESSED AT THE ENCOUNTER
� Chronic conditions affecting care: Coronary artery disease, hypertension, sarcoidosis, IBS COPD
� Acute Exacerbation and/or Progression of Chronic Illness:
� Differential Diagnosis includes: COPD exacerbation secondary to procedure, ACS, cardiac arrhythmia, PE
AMOUNT AND/OR COMPLEXITY OF DATA TO BE REVIEWED AND ANALYZED
� I performed an independent evaluation of and my interpretation is:
EKG: sinus tachycardia noted with no ischemic changes
X-rays: no cardiomegaly no fluid overload
Laboratory Studies: leukocytosis noted with elevated troponin
Other:
� Review of other/old records: Reviewed discharge summary from 06/03/2024, reviewed echo from 06/03/2024/demonstrated no significant valvular disease
� Clinical information was obtained by an independent historian:
� Prescriptions/Medications Considered but not given: none
� Further testing considered but not performed:
RISK OF COMPLICATIONS AND/OR MORBIDITY OR MORTALITY OF PATIENT MANAGEMENT
� Social determinants of health affecting care: none
� Discussion with other providers: ER attending
� Escalation of care including admission/observation vs risk of discharge considered:
53-year-old female with past medical history of coronary artery disease, sarcoidosis, COPD presents to the emergency department today with concerns of shortness of breath 4 days after she had cardiac stenting procedure. On exam she is
well-appearing no acute distress but she is tachycardic and does have diffuse wheezing heard throughout. Will send for troponin and chest x-ray as well as basic blood work, will give DuoNeb treatment and reassess.
Patient notes no improvement of her SOB with duoneb. Patient's symptoms persisted and she was put on oxygen for comfort. Troponin elevated, suspect secondary to procedural/NSTEMI. Patient did begin to develop chest pain while in the emergency
department. Will admit to hospitalist for troponin trending as well as telemetry monitoring in light of patient's recent procedure and cardiac risk factors.
<Malissa Leung PA-C - Last Filed: 06/05/24 18:58>
*Pulse Oximetry
Patient hypoxic: no
*Critical Care Note
Total Time (30-74mins, 75-104mins- exclusive of procedures): Not Applicable
ED Attending Note
<Malissa Leung PA-C - Last Filed: 06/05/24 18:58>
-
Portions of this chart may have been created with voice recognition software.� Occasional wrong word or��sound alike� substitutions may have occurred due to the inherent limitations of voice recognition software.
<Peter Vyas DO - Last Filed: 06/05/24 15:49>
ED Attending Note
Patient seen and examined by attending physician: Yes
I performed the substantive portion of visit, reviewed & personally made and approve the management plan that is documented in note by myself or BANDAR.: Yes
ED Attending Note:
Seen with PA examined independently 53-year-old female chronic lung disease sarcoid heart failure CAD diabetes recently admitted had a stent placed that she has had fatigue shortness of breath now some chest pain labs are noted white proBNP chest
x-ray were pending will check CT to rule out PE will likely require admission
Discharge Plan
Departure
Patient Disposition: Admit
Date of Disposition: 06/05/24
Time of Disposition: :
Admit to: Med/Surg
Presentation/result/management discussed w/ accepting MD/DO: Hospitalist
Patient with high blood pressure during this ER visit?: Yes
Condition: Fair
Discharge Problem:
Shortness of breath
Interventions
Interventions:
*Risk Screen - Suicide Last Done: 06/05/24 12:43
*General Assessment Last Done: 06/05/24 13:20
*Neglect/Abuse Screening Last Done: 06/05/24 12:43
*ED COVID-19 Vaccine History Last Done: 06/05/24 13:20
ED- Cardiac Assessment Last Done: 06/05/24 13:20
ED- Pulmonary Assessment Last Done: 06/05/24 13:20
[2024-06-05] MEDS: DUONEB 3 ML INH (13:42)
[2024-06-05 13:59] LABS: % Basophils 0.7 % (0-2); % Eosinophils 1.9 % (0-6); % Immature Granulocytes 1.4 % (0-0.5); % Lymphocytes 15.3 % (20.5-51.1); % Neutrophils 76.7 % (42.2-75.2); Absolute Basophils 0.1 10^3/uL (0-0.2); Absolute Eosinophils 0.3 10^3/uL (0-0.7); Absolute Immature Granulocytes 0.2 10^3/uL (0-0.05); Absolute Lymphocytes 2.5 10^3/uL (1.2-3.4); Absolute Monocytes 0.7 10^3/uL (0.1-0.6); Absolute Neutrophils 12.5 10^3/uL (1.4-6.5); Hematocrit 46.2 % (37.0-47.0); Mean Corp Hgb Conc. 34.6 g/dL (33.0-37.0); Mean Corpuscular Hgb 28.6 pg (27.0-31.0); Mean Corpuscular Volume 82.5 fL (81.0-99.0); Mean Platelet Volume 9.3 fL (7.4-10.4); Nucleated Red Blood Cells % 0 %; Platelet Count 444 10^3/uL (130-400); Red Cell Dist. Width 14.8 % (11.5-14.5); White Blood Cell Count 16.3 10^3/uL (4.8-10.8)
[2024-06-05 14:13] LABS: Alkaline Phosphatase 149 U/L (38-126); Blood Urea Nitrogen 10 mg/dl (7-17); Carbon Dioxide 26 mmol/L (22-30); Chloride 94 mmol/L (98-107); Glucose 348 mg/dl (70-99); Potassium 3.7 mmol/L (3.5-5.1); Sodium 135 mmol/L (135-145); eGFR > 60.00
[2024-06-05 14:14] LABS: ALT (SGPT) 39 U/L (0-35); AST (SGOT) 26 U/L (14-36); Albumin 4.4 g/dl (3.5-5.0); Calcium 9.3 mg/dl (8.4-10.2); Total Bilirubin 0.7 mg/dl (0.2-1.3); Total Protein 6.9 g/dl (6.3-8.2)
[2024-06-05 14:21] LABS: Troponin I 0.256 ng/ml
[2024-06-05 15:10] LABS: COVID-19 Antigen Negative (Negative)
[2024-06-05] MEDS: NSS 500 IV (15:17)
[2024-06-05 16:27] LABS: NT-proBNP 249 pg/ml
--- NOTE | 2024-06-05 16:45 | HPS.HSE ---
Family Physician
-
Family Physician: Freddy Arellano
Chief Complaint
-
shortness of breath
History of Present Illness
Patient is a 53-year-old female with past medical history significant for CAD, recent NSTEMI, COPD, interstitial lung disease, sarcoidosis, hypertension, GERD, hypercholesteremia, IBS, GERD, diabetes, diabetic neuropathy, anxiety/depression, chronic
pain, and nicotine dependence who presented to [facility] ED for evaluation of increased exertional shortness of breath and nocturnal dyspnea since hospital discharge for NSTEMI. Patient denies any fever, chills, cough, nausea, vomiting,
constipation, diarrhea or urinary symptoms.
Medical History
Past Medical History
Past Medical History: Reports Other
Additional Past Medical History:
CAD
recent NSTEMI
COPD
interstitial lung disease
sarcoidosis
hypertension
GERD
hypercholesteremia
IBS
GERD
diabetes
diabetic neuropathy
anxiety/depression
chronic pain
nicotine dependence
Past Surgical History: Reports Other
Additional Past Surgical History:
cardiac stent L circumflex
cholecystectomy
hysterectomy
umbilical hernia repair
right knee arthroscopy
Social History
Tobacco: Smoker (29 pack year history )
Alcohol: None
Drug: Marijuana (medical marijuana edibles )
Personal: Single
Living: With Family
Employment: Disabled
Family History
Family History: Not pertinent
Allergies / Home Medications
Allergies reflects when Allergies were last updated in [facility].
Home Medications with original date entered in [facility]
Allergy/Medication List:
Allergies
Allergy/AdvReac Type Severity Reaction Status Date / Time
oxycodone [From Percocet] Allergy 'breathing Verified 06/05/24 12:45
issues'
Home Medications
zolpidem 12.5 mg tablet,extended release,multiphase (Ambien CR) 12.5 mg PO HS Sleep 11/21/14
atorvastatin 80 mg tablet 80 mg PO QPM High cholesterol 10/29/20
dicyclomine 20 mg tablet 20 mg PO BID Gastrointestinal issue 10/29/20
furosemide 20 mg tablet 40 mg PO DAILY Fluid retention/Swelling 10/29/20
insulin aspart U-100 100 unit/mL (3 mL) subcutaneous pen (Novolog FlexPen U-100 Insulin aspart) 26 units SC AC Diabetes 10/29/20
metoprolol succinate 50 mg tablet,extended release 24 hr 50 mg PO HS Blood pressure 10/29/20
sertraline 100 mg tablet 100 mg PO HS Mental Health/Anxiety 10/29/20
Medical Marijuana 1 gummy PO HS Pain 12/08/23
cholecalciferol (vitamin D3) 125 mcg (5,000 unit) tablet 125 mcg PO DAILY Supplement 12/08/23
cyclobenzaprine 10 mg tablet 10 mg PO BID Muscle Spasms 12/08/23
ezetimibe 10 mg tablet (Zetia) 10 mg PO HS High Cholesterol 12/08/23
glucagon 3 mg/actuation nasal spray (Baqsimi) 3 mg intranasal DAILYPRN PRN high sugar 12/08/23
icosapent ethyl 1 gram capsule (Vascepa) 1 g PO BID High Cholesterol 12/08/23
insulin glargine 100 unit/mL subcutaneous solution (Lantus U-100 Insulin) 40 unit SC BID Diabetes 12/08/23
lisinopril 5 mg tablet 5 mg PO DAILY Blood Pressure 12/08/23
metformin 500 mg tablet,extended release 24hr (osmotic) 1,000 mg PO QPM Diabetes 12/08/23
potassium chloride 10 mEq tablet,extended release 10 meq PO DAILY Electrolyte Repletion 12/08/23
semaglutide 0.25 mg or 0.5 mg (2 mg/1.5 mL) subcutaneous pen injector (Ozempic) 2 mg SC [place] Diabetes 12/08/23
tramadol 50 mg tablet 100 mg PO BID Pain 12/08/23
gabapentin 300 mg capsule 300 mg PO TID Neurological Condition 06/01/24
midodrine 5 mg tablet 5 mg PO BID Blood Pressure 06/01/24
omeprazole 20 mg tablet,delayed release 20 mg PO QPM Gastrointestinal Issue 06/01/24
aspirin 81 mg tablet,delayed release 81 mg PO DAILY Blood Clot Prevention/Tx 06/02/24
hyoscyamine sulfate 0.125 mg sublingual tablet 0.125 mg PO TIDPRN PRN gi issue 06/05/24
ticagrelor 90 mg tablet (Brilinta) 90 mg PO BID Blood Clot Prevention/Tx 06/05/24
Review of Systems
-
History Source: Patient
Constitutional: Reports No Symptoms
EENT: Reports No Symptoms
Respiratory: Reports Other (exertional shortness of breath and woken with shortness of breath)
Cardiac: Reports No Symptoms
Abdomen/GI: Reports No Symptoms
: Reports No Symptoms
Musculoskeletal: Reports No Symptoms
Skin: Reports No Symptoms
Neurological: Reports No Symptoms
Endocrine: Reports No Symptoms
Hematologic/Lymphatic: Reports No Symptoms
Psych: Reports No Symptoms
Physical Exam
Vital Signs
Vital Signs
Temp Pulse Resp BP Pulse Ox
98.0 F 104 17 126/82 100
06/05/24 12:43 06/05/24 15:51 06/05/24 15:51 06/05/24 15:50 06/05/24 15:51
Physical Exam
General: Well Developed, Well Nourished, No Apparent Distress, Comfortable and Conversant
HEENT: NormoCephalic, Moist mucous membranes, Atraumatic, PERRLA, [place] Conjunctivae, Nose Appears Normal and Ears Appear Normal
Respiratory: Clear, Non Labored Respirations and Decreased Breath Sounds
Cardiac: S1/S2 and Regular Rhythm; No Murmur, Rub or Gallop
Breast: Deferred by me
GI: Soft, Non Tender, Non Distended and Normal Bowel Sounds; No Organomegaly
Rectal: Deferred by Provider
Genito-urinary: Deferred by me
Musculoskeletal: No Clubbing, No Cyanosis and No Edema
Skin: Warm and IV/Catheter Site; No Rash
Neuro: Awake, Alert, AO x 3 and Nonfocal/grossly intact
Hematologic/Lymphatic: No Lymphadenopathy
Psych: Calm and Intact Judgment/Insight
Laboratory Results
-
06/05/24 13:37
06/05/24 13:37
Laboratory Results
Total Bilirubin 0.7 mg/dl (0.2-1.3) 06/05/24 13:37
AST 26 U/L (14-36) 06/05/24 13:37
ALT 39 U/L (0-35) H 06/05/24 13:37
Alkaline Phosphatase 149 U/L (38-126) H 06/05/24 13:37
Troponin I 0.256 ng/ml H* 06/05/24 13:37
Data Reviewed
-
Diagnostic Radiology: Report Reviewed by me (CXR: SINUS TACHYCARDIA T WAVE ABNORMALITY, CONSIDER LATERAL ISCHEMIA ABNORMAL ECG)
CT Scan: Report Reviewed by me (Chest: 1. No evidence of pulmonary embolism. 2. Mild diffuse mosaic attenuation pattern throughout the lungs bilaterally may reflect areas of air trapping.)
Lab Data: Labs Reviewed by me (Trop 0.256)
Impression/Plan
-
IMPRESSION/PLAN:
#shortness of breath
patient reports shortness of breath with exertion and nocturnal dyspnea being woken from sleep
Chest CT: 1. No evidence of pulmonary embolism.
2. Mild diffuse mosaic attenuation pattern throughout the lungs bilaterally may reflect areas of air trapping.
CXR: No active cardiopulmonary disease.
EKG: SINUS TACHYCARDIA
T WAVE ABNORMALITY, CONSIDER LATERAL ISCHEMIA
ABNORMAL ECG
Troponin: 0.256
- Admit to IVU
- consult Cardiology
- trend troponin
#CAD
#recent NSTEMI
- continue aspirin, atorvastatin, ezetimibe, vascepa, and Brilinta
#hypertension
- continue furosemide, lisinopril, metoprolol
#GERD
- continue omeprazole
#hypercholesteremia
- continue ezetimibe and vascepa
#IBS
- continue dicyclomine
#diabetes
- AccuChecks AC & HS
- SSI
- Hold metformin
- continue insulin aspart and insulin glargine
- continue Ozempic
#diabetic neuropathy
- continue gabapentin
#anxiety/depression
- continue sertraline
#chronic pain
- continue cyclobenzaprine, gabapentin, and tramadol
#nicotine dependence
- encourage cessation
#COPD
#interstitial lung disease
#sarcoidosis
Code Status: Full Code
DVT Prophylaxis: SCDs
--- NOTE | 2024-06-05 17:24 | W.PN.UPDATE ---
Update Note
Progress Note Update
This is an addendum to H&P written by SHIP PURSER Trini Montgomery
I saw and examined the patient.
The SHIP PURSER's note was reviewed and I agree with the note.
Comment:
Ms. Truong Bobo is a 53 yo woman with hx sarcoidosis with ILD, IDDM, HTN and CAD (PCI to LAD 11/23/14 and recent admission 06/01-06/03 for NSTEMI s/p PCI) presents to the ER with concerns for shortness of breath.
Triage VS: T 98, P 95, RR 16, BP 154/75, SpO2 98%
LABS: WBC 16.3, Hg 16, PLT 444, Na
135, K+ 3.7, Cl 94, CO2 26, Cr 0.7, Glucose 348
[address]rop [address]:
IMPRESSION:
1. No evidence of pulmonary embolism.
2. Mild diffuse mosaic attenuation pattern throughout the lungs bilaterally may reflect areas of air trapping.
CXR:
IMPRESSION:
No active cardiopulmonary disease.
TTE 06/03/24
MAR: Duonebs, 500cc
Shortness of breath - with neg PE and nl CXR, does not appear overloaded on exam and BNP 249
CAD with recent NSTEMI and stent placement 06/02/24
Troponin Elevation - non-ischemic versus NSTEMI
-admit to telemetry
-trend Troponin
-cardiology consult
-continue SURVEYOR GEODETIC asa/Brilinta/statin/Metoprolol
Hyperglycemia
IDDM
-SURVEYOR GEODETIC insulin regimen
Essential HTN - SURVEYOR GEODETIC regimen
unclear why patient also on Midodrine?
Remainder of plan per SHIP PURSER's note
[2024-06-05] MEDS: PLAVIX 600 MG PO (20:43)
[2024-06-05 21:34] LABS: Glucose - Point of Care 317 mg/dl (70-99)
--- NOTE | 2024-06-05 21:57 | PTCARENOTE ---
pt received as admission from ED to room 1143-02. pt ambulated from stretcher to scale, to bed. AAOX3. denies pain. pt on 3L nasal cannula. ARIAS. pt updated on plan of care.
[2024-06-05 22:16] LABS: Troponin I 0.279 ng/ml
[2024-06-05] MEDS: ProAmatine PO (22:20)
[2024-06-05] MEDS: FLEXERIL 10 MG PO (22:23)
[2024-06-05] MEDS: NEURONTIN 300 MG PO (22:23)
[2024-06-05] MEDS: TOPROL XL 50 MG PO (22:23)
[2024-06-05] MEDS: ZOLOFT 100 MG PO (22:23)
[2024-06-05] MEDS: PROTONIX 40 MG PO (22:23)
[2024-06-05] MEDS: ULTRAM 100 MG PO (22:23)
[2024-06-05] MEDS: LIPITOR 80 MG PO (22:23)
[2024-06-05] MEDS: LANTUS 0.4 UNITS SC (22:23)
[2024-06-05] MEDS: AMBIEN 10 MG PO (22:23)
[2024-06-05] MEDS: ZETIA 10 MG PO (22:23)
[2024-06-05] MEDS: BENTYL 20 MG PO (22:23)
[2024-06-05] MEDS: DILAUDID 0.25 MG IV (23:26)
--- NOTE | 2024-06-05 23:30 | PTCARENOTE ---
pt reporting bilateral jaw pain- requesting dilaudid for pain- house provider notified, order for EKG obtained and 0.25 dilaudid.
[2024-06-06] VITALS (13 sets, daily range): BP systolic 106–140; BP diastolic 48–108; BMI 47.9
--- NOTE | 2024-06-06 02:30 | PTCARENOTE ---
pt rang bliss requesting more dilaudid stating she was still having jaw pain- ESCALATOR INSTALLER notified order for dilaudid received
[2024-06-06] MEDS: DILAUDID 0.5 MG IV (02:38)
[2024-06-06 06:20] LABS: Glucose - Point of Care 247 mg/dl (70-99)
[2024-06-06] MEDS: DILAUDID 0.25 MG IV (06:42)
[2024-06-06 08:09] LABS: Hematocrit 42.5 % (37.0-47.0); Hemoglobin 14.4 g/dL (12.0-16.0); Mean Corp Hgb Conc. 33.9 g/dL (33.0-37.0); Mean Corpuscular Hgb 28.5 pg (27.0-31.0); Mean Corpuscular Volume 84.2 fL (81.0-99.0); Mean Platelet Volume 9.6 fL (7.4-10.4); Platelet Count 394 10^3/uL (130-400); Red Blood Cell Count 5.05 10^6/uL (4.20-5.40); Red Cell Dist. Width 14.9 % (11.5-14.5); White Blood Cell Count 12.5 10^3/uL (4.8-10.8)
[2024-06-06] MEDS: NOVOLOG FLEXPEN SC ×3 (08:25→16:33)
[2024-06-06] MEDS: BENTYL 20 MG PO ×2 (08:29→20:08)
[2024-06-06] MEDS: ASPIR LOW (ENTERIC COATED) 81 MG PO (08:29)
[2024-06-06] MEDS: ULTRAM 100 MG PO ×2 (08:29→20:08)
[2024-06-06] MEDS: KCL 10 MEQ PO (08:29)
[2024-06-06] MEDS: NEURONTIN 300 MG PO ×3 (08:29→21:22)
[2024-06-06] MEDS: FLEXERIL 10 MG PO ×2 (08:29→20:08)
[2024-06-06] MEDS: ZESTRIL 5 MG PO (08:30)
[2024-06-06] MEDS: PLAVIX 75 MG PO (08:30)
[2024-06-06] MEDS: VITAMIN D3 (cholecalciferol) 125 MCG PO (08:30)
[2024-06-06] MEDS: ProAmatine PO (08:30)
[2024-06-06] MEDS: LASIX 40 MG PO (08:30)
[2024-06-06] MEDS: NOVOLOG FLEXPEN-LOW RESISTANCE 2 UNITS SC ×2 (08:31→13:16)
[2024-06-06] MEDS: LANTUS 0.4 UNITS SC ×2 (08:32→20:08)
[2024-06-06 08:41] LABS: Blood Urea Nitrogen 13 mg/dl (7-17); Calcium 9.3 mg/dl (8.4-10.2); Carbon Dioxide 30 mmol/L (22-30); Chloride 94 mmol/L (98-107); Estimated Creatinine Clearance 116 ml/min; Glucose 221 mg/dl (70-99); Potassium 3.8 mmol/L (3.5-5.1); Sodium 135 mmol/L (135-145); eGFR > 60.00
[2024-06-06 08:41] LABS: Glucose - Point of Care 229 mg/dl (70-99)
[2024-06-06 09:40] LABS: Troponin I 0.261 ng/ml
[2024-06-06] MEDS: DILAUDID 1 MG IV ×4 (10:39→23:10)
--- NOTE | 2024-06-06 10:55 | CON.CAR ---
Addendum entered and electronically signed by Chandler Vaz MD 06/06/24 13:52:
Note the patient has been noted to have elevated white blood cell count in the past and has seen Dr. Owusu the past. She did have prior mild elevation in urine light chains. Unclear what the cause was.
May consider repeat labs .
Addendum entered and electronically signed by Chandler Vaz MD 06/06/24 13:44:
I saw and examined the patient.
The ARCHIVAL RECORDS CLERK's note was reviewed and I agree with the note.
Comment: 53-year-old woman with a history of left circumflex stenting in 2014 who more recently had stenting of left circumflex 06/02/2024 who presented to the hospital with fatigue and shortness of breath over the 2 days prior to admission.
Patient's past history is also notable for underlying lung disease sarcoidosis, interstitial lung disease COPD previously followed by Dr. Singh, insulin-dependent diabetes and smoking. Patient's primary complaints coming in his lack of energy and
increased shortness of breath sounds as if she has some exertional shortness of breath going up stairs as her baseline but she felt short of breath doing more usual activities walking through the house. No orthopnea lower extremity edema or no
cough. Patient was noted to have some wheezing on exam and has been receiving nebs but is not clear that it is made her symptoms feel better. She had some brief chest pains but they do not seem to be one of her primary complaints however she
reports today and last night she had some jaw discomfort. Troponins have been at 0.2 and have been in a consistent range this admission without a clear rise and fall. Last admission they peaked at 0.3 and last troponin at last discharge was 0.2.
Patient has concerns because she knows she has some residual coronary disease involving the RCA that was not stented. Not clear that all of her symptoms are explained by obstructive coronary disease but with abnormal troponins and recent coronary
stenting and now reports of jaw pain we will need to further evaluate her coronary artery disease including her recently stented circumflex. In addition we should consider other pulmonary factors contributing to shortness of breath. It is also
possible that Brilinta could contribute to a sense of shortness of breath. She has been switched to Plavix. Last dose of Brilinta was yesterday.
-Monitor on telemetry
-Echo
-Continue dual antiplatelet therapy with aspirin and Plavix. Brilinta has been discontinued.
-Echocardiogram
-Plan for cardiac catheterization
-Optimization of lung disease and considering patient's past history would recommend pulmonary consultation
Original Note:
Medical History
-
Chief Complaint: extreme fatigue and SOB
History of Present Illness:
Ms. Bobo is a 53 year old female with sarcoidosis/ILD/COPD, HTN, IDDM complicated by neuropathy, smoker and CAD s/p prior PCI to pLCA (11/23/2014) and NSTEMI 06/02/24 s/p overlapping ARMANI of the 90% proximal circumflex ISR lesion and the 70%
circumflex lesion into OM1, who presents to the ER with c/o extreme fatigue and SOB. These symptoms are worse with exertion and also still occur at rest. She denies chest pain, shoulder and arm pain, which were her initial symptoms with NSTEMI
06/02/24. Initial EKG in the ER showed sinus tachycardia 117 bpm w/o acute ischemic changes. Troponin trend is 0.256, 0.279, 0.280, 0.261; troponin on 06/02/24 was 0.223. Cath 06/02/24 showed stable LAD from 2014, progression of dRCA disease to 70%
and a culprit 90% pLCx ISR lesion followed by a 70% de parag LCx/OM1 lesion, now s/p PCI (overlapping Xience Skypoint 3.25 x 33 ARMANI, 3.25 x [address]). [address] is negative for PE.
Past Medical History
Past Medical History: Other (as above)
Social History
Tobacco: Smoker
Alcohol: Occasional
Employment: Disabled
Family History
Family History: Reviewed & Not Pertinent
Allergies / Home Medications
Allergy/AdvReac Type Severity Reaction Status Date / Time
oxycodone [From Percocet] Allergy 'breathing Verified 06/05/24 12:45
issues'
�Medication �Instructions �Recorded �Confirmed �Type
zolpidem 12.5 mg tablet,extended 12.5 mg PO HS Sleep 11/21/14 06/05/24 History
release,multiphase (Ambien CR)
atorvastatin 80 mg tablet 80 mg PO QPM High cholesterol 10/29/20 06/05/24 History
dicyclomine 20 mg tablet 20 mg PO BID Gastrointestinal issue 10/29/20 06/05/24 History
furosemide 20 mg tablet 40 mg PO DAILY Fluid 10/29/20 06/05/24 History
retention/Swelling
insulin aspart U-100 100 unit/mL 26 units SC AC Diabetes 10/29/20 06/05/24 History
(3 mL) subcutaneous pen (Novolog
FlexPen U-100 Insulin aspart)
metoprolol succinate 50 mg 50 mg PO HS Blood pressure 10/29/20 06/05/24 History
tablet,extended release 24 hr
sertraline 100 mg tablet 100 mg PO HS Mental Health/Anxiety 10/29/20 06/05/24 History
Medical Marijuana 1 gummy PO HS Pain 12/08/23 06/05/24 History
cholecalciferol (vitamin D3) 125 125 mcg PO DAILY Supplement 12/08/23 06/05/24 History
mcg (5,000 unit) tablet
cyclobenzaprine 10 mg tablet 10 mg PO BID Muscle Spasms 12/08/23 06/05/24 History
ezetimibe 10 mg tablet (Zetia) 10 mg PO HS High Cholesterol 12/08/23 06/05/24 History
glucagon 3 mg/actuation nasal 3 mg intranasal DAILYPRN PRN high 12/08/23 06/05/24 History
spray (Baqsimi) sugar
icosapent ethyl 1 gram capsule 1 g PO BID High Cholesterol 12/08/23 06/05/24 History
(Vascepa)
insulin glargine 100 unit/mL 40 unit SC BID Diabetes 12/08/23 06/05/24 History
subcutaneous solution (Lantus
U-100 Insulin)
lisinopril 5 mg tablet 5 mg PO DAILY Blood Pressure 12/08/23 06/05/24 History
metformin 500 mg tablet,extended 1,000 mg PO QPM Diabetes 12/08/23 06/05/24 History
release 24hr (osmotic)
potassium chloride 10 mEq 10 meq PO DAILY Electrolyte 12/08/23 06/05/24 History
tablet,extended release Repletion
semaglutide 0.25 mg or 0.5 mg (2 2 mg SC PARIS Diabetes 12/08/23 06/05/24 History
mg/1.5 mL) subcutaneous pen
injector (Ozempic)
tramadol 50 mg tablet 100 mg PO BID Pain 12/08/23 06/05/24 History
gabapentin 300 mg capsule 300 mg PO TID Neurological 06/01/24 06/05/24 History
Condition
midodrine 5 mg tablet 5 mg PO BID Blood Pressure 06/01/24 06/05/24 History
omeprazole 20 mg tablet,delayed 20 mg PO QPM Gastrointestinal Issue 06/01/24 06/05/24 History
release
aspirin 81 mg tablet,delayed 81 mg PO DAILY Blood Clot 06/02/24 06/05/24 History
release Prevention/Tx
hyoscyamine sulfate 0.125 mg 0.125 mg PO TIDPRN PRN gi issue 06/05/24 06/05/24 History
sublingual tablet
ticagrelor 90 mg tablet (Brilinta) 90 mg PO BID Blood Clot 06/05/24 06/05/24 History
Prevention/Tx
Review of Systems
-
History Source: Patient
All other systems: Negative unless noted
Physical Exam
Vital Signs
Temp Pulse Resp BP Pulse Ox
97.6 F 86 16 129/74 100
06/06/24 07:32 06/06/24 08:30 06/06/24 07:32 06/06/24 08:30 06/06/24 07:32
Lab Results
06/06/24 07:29
06/06/24 07:29
Troponin I 0.261 ng/ml H* 06/06/24 09:09
Eyx-D-Tbpscekjaol Pept Cancelled 06/05/24 15:22
Physical Exam
General: Well Developed and Other (obese)
HEENT: Normocephalic and Anicteric
Respiratory: Wheezes (diffuse expiratory b/l )
Cardiac: S1/S2 and Regular Rhythm
Breast: Deferred by me
GI: Soft, Non Tender and Non Distended
Rectal: Deferred by Provider
Genito-urinary: No Costovertebral Tender
Musculoskeletal: No Clubbing and No Cyanosis
Skin: Warm and Dry
Neuro: AO x 3
Psych: Calm
Impression / Plan
-
SOB/fatigue - acute.
- CXR and chest CT negative for PE, not volume overloaded on exam.
- could be related to the new Brilinta therefore it was stopped last night and now on Plavix, loading dose given last night and now on Plavix 75mg daily.
- differential includes CAD given residual disease on cath, and lung disease.
- check a follow up echo today.
CAD - s/p NSTEMI 06/02/24 s/p overlapping ARMANI to culprit 90% pLCx ISR lesion followed by a 70% de parag LCx/OM1 lesion.
- has been compliant with ASA and Brilinta.
- continue medical therapy for LAD/RCA disease (she is a poor surgical candidate).can consider stress test or iFR of the RCA in the further if angina returns.
- echo 06/02/24 normal.
- Cath 06/02/24: stable LAD from 2014, progression of dRCA disease to 70% and overlapping ARMANI to culprit 90% pLCx ISR lesion followed by a 70% de parag LCx/OM1 lesion.
- her automotive title clerk is Dr. West but she is thinking of switching to cardiology.
- flat troponins noted since NSTEMI.
HLD - on Lipitor 80mg and Zeita 10mg daily.
- LDL 48 from 05/30/24.
- goal LD is < 55.
HTN - stable on medical therapy, continue.
- unclear why she is on Midodrine.
IDDM - chronically on insulin.
- per hospitalist.
Sarcoidosis/IPL/COPD - chronic.
- does not currently have pulmonary doctor.
Morbid obesity - on Semaglutide with weight loss.
Data Reviewed
-
EKG: Tracing Personally Visualized and interpreted (initial EKG ST [address] and T wave abn, no changes)
Radiology: Report Reviewed by me (CXR: NAD)
Medical Tests (Nuc Med, Echo etc): Report Reviewed by me (echo 06/03/24: normal biventricular size and function, no RWMA, EF 65-70%, mild cLVH, no valve disease.) and Other (cath 06/02/24: Cath shows stable LAD from 2014, progression of dRCA disease
to 70% and a culprit 90% pLCx ISR lesion followed by a 70% de parag LCx/OM1 lesion, now s/p PCI (overlapping Xience Skypoint 3.25 x 33 ARMANI, 3.25 x 18 ARMANI))
Labs: Labs Reviewed by me
Old Records: Reviewed
--- NOTE | 2024-06-06 12:37 | W.PN.HOSP.TC ---
Today's Communication/Plan
-
Assessment / Plan
Assessment / Plan
Gen-AAOx3, NAD
HEENT-NC, AT, anicteric, clear oral mm
Neck-supple
CV-reg, no M, +S1/S2
Lungs-clear B/L
Abd-soft, NT, ND
Musculoskeletal-no edema, no deformity
Skin-warm and dry
Neuro-grossly non-focal
Psych-calm, cooperative
Ms. Bobo is a 53-year-old female with past medical history significant for CAD, recent NSTEMI, COPD, interstitial lung disease, sarcoidosis, hypertension, GERD, hypercholesteremia, IBS, GERD, diabetes, diabetic neuropathy, anxiety/depression,
chronic pain, and nicotine dependence who presented to [place] ED for evaluation of increased exertional shortness of breath and nocturnal dyspnea since recent hospital discharge for NSTEMI. Patient denies any fever, chills, cough, nausea,
vomiting, constipation, diarrhea or urinary symptoms.
Dyspnea with exertion:
-Lungs relatively clear to auscultation, possibly mild scattered expiratory wheezes bilaterally
-Patient has chronic cough no current change
-Presented with complaint of significant dyspnea with minimal exertion, also experiencing nocturnal dyspnea waking her from sleep
-CT angiography shows no evidence of PE
-Troponins elevated although this is nonspecific considering this is expected following recent coronary stenting
-Cardiology following, will recheck echocardiogram
-Recently started on Brilinta which could potentially be contributing to her presentation, have now switched antiplatelet therapy to aspirin and Plavix
CAD:
-Continue DAPT with aspirin and Plavix, high intensity statin therapy
-Beta-blockade with metoprolol succinate 50 mg nightly
IDDM:
-Continue long-acting insulin with glargine 40 units twice daily, 20 units of short acting insulin with meals, additional sliding scale as needed
Interstitial lung disease:
-Sarcoidosis, COPD
-Supplemental oxygen as needed
CODE STATUS: Full
Anticipated Discharge: 24 - 48 hours
Subjective/Interval History
-
Date of Service: June 06, 2024
Ms. Bobo was seen and examined at bedside this morning. She is breathing more comfortably than when she first arrived at the hospital. Has a chronic cough but denies any change in sputum production. Complains of jaw pain which is also chronic.
Objective Data
-
Labs:
Laboratory Results
06/06/24
07:29
WBC 12.5 H
Hgb 14.4
Hct 42.5
Plt Count 394
Sodium 135
Potassium 3.8
Chloride 94 L
Carbon Dioxide 30
BUN 13
Creatinine 0.7
Glucose 221 H
Calcium 9.3
Vital Signs:
Vital Signs
Temp Pulse Resp BP Pulse Ox
97.3 F 89 14 123/80 92
06/06/24 11:40 06/06/24 11:40 06/06/24 11:40 06/06/24 11:40 06/06/24 11:40
I&O
06/05/24 06/06/24 06/07/24
06:59 06:59 06:59
Intake Total 240 / 240
Balance 240 / 240
Review of Systems
-
History Source: Patient
All other systems: Reviewed and negative
EENT: Reports Other (Bilateral jaw pain)
Respiratory: Reports Cough and Trouble Breathing
Physical Exam
-
General: No Apparent Distress
[2024-06-06 13:01] LABS: Glucose - Point of Care 249 mg/dl (70-99)
--- NOTE | 2024-06-06 13:37 | CM ---
CM met with patient in room. Patient confirmed demographics. Patient lives with extended family. Patient stated that she does not have a history of VN, SNF or DME. Patient is active with her PCP. Patient uses [facility] for medication services.
Patient stated that she was offered Cardiac rehab however, due to her inability to wear sneakers, patient cannot participate in PT.
PLAN: home, no needs
[2024-06-06] MEDS: D5/0.45%NACL 1000 IV (14:05)
--- NOTE | 2024-06-06 14:54 | CON.PUL ---
Consultation
Consultation Request
Date/Time Consultation Requested: 06/06/2024 - 1416
Date/Time Consultation Performed: 06/06/2024 - 1440
Requesting Provider: Dr. Vaz
Performing Provider: Dr. Kim
Reason for Consultation: SOB, Hx of sarcoid/COPD
Medical History
-
Chief Complaint: SOB + tired
History of Present Illness:
53-year-old morbidly obese female active tobacco smoker with a past medical history of ILD, history of sarcoidosis (not biopsy-proven), restrictive lung disease, tobacco use disorder, CAD s/p ARMANI (November 2014), moderate AYAAN noncompliant with CPAP, DM
type II, CAD s/p stent to coronary artery, hypertension, and chronic cholecystitis s/p laparoscopic cholecystectomy who presents with shortness of breath and feeling tired since her stent placement this past Sunday. Patient has a history of CAD
with stenting of her proximal LCx in November 2014. She was recently hospitalized from 06/01 - 06/03/2024 after presenting with chest pain, and went to the Manager Document on 06/02/2024 showing in-stent restenosis of the proximal LCx followed by 70% lesion in
the circumflex as it enters OM1, and underwent IVUS guided PCI with overlapping ARMANI x 2 placed. There was top normal filling pressures with LVEDP of 15 mmHg. Echo done on 06/03/2024 showed preserved LVEF at 65 to 70% with mild concentric LVH. She
was discharged home on 06/03/2024 on aspirin + Brilinta. She now returns with exertional shortness of breath as well as nocturnal dyspnea. She carries a history of COPD however spirometry and PFT testing since 2018 through our office at [facility] has
not shown any evidence of COPD. Initially in the ER she was afebrile to 90 �F, pulse rate 95, breathing at 16 breaths/min, BP 154/75 and saturating 98% on room air. Initial labs showed leukocytosis of 16.3, Hb 16, platelet count 444, absolute
eosinophil count: 300, glucose 348, troponin 0.256, proBNP 249, and COVID antigen was negative. Flu A/B swab also negative. Initial CXR showed no acute cardiopulmonary process. Subsequent CTA chest showed no evidence of an acute PE with mild
diffuse mosaic attenuation suspicious for air trapping. Of note there was similar mosaic attenuation on prior CT chest from October 2017. There is similar mediastinal lymphadenopathy. In the ER, IVF was given with 500 cc of NS 0.9% as well as
DuoNebs. She was admitted to telemetry for further care and now pulmonary service consulted for additional management/recommendations.
Pt was seen at bedside, and her mother, Yanelis, was at bedside. All questions were answered. Pt was off the nasal cannula at the time and was not visibly SOB. She says that ever since she came home on Sunday this week that she has become
increasingly SOB. She is still SOB mainly with activity, which is not her baseline. She is still smoking 0.75PPD. She has bilateral jaw pain down the angle of her mandible. Has a cough productive of clear phlegm, and this is chronic. She is not
on inhalers, but previously was on Breo and xopenex. She does use the xopene when she is sick - last use >1 year ago. Currently denies chest pain, although in the ER she has left and right sided chest pain that dissipated. She denies N/V/f/c, or
abd pain.
Of note patient had previously followed with us in the office with Dr. Singh (last seen 2018) and last saw us in the office on 09/17/2020 with VIRGILIO Cortez. PFT that day showed mild restriction with a moderately reduced gas exchange
capacity which was normal when accounting for alveolar volume involved in gas exchange (DLCO: 55%, DLCO/VA: 80%). She carries a history of sarcoidosis but has no biopsy-proven sarcoid. She has a history of elevated MARYANN level of [address]
chest from 2012 and 2017 performed at [facility] shows bilateral patchy groundglass infiltrates with a mosaic pattern and mediastinal and hilar adenopathy. She did have pneumonia/bronchitis in April 2020 requiring antibiotics. She was on Breo +
Xopenex and was recommended to enroll in a routine exercise program and also recommended weight loss. She continues to smoke cigarettes about 1/2 pack every 2-3 days with a >03-uwla-flhs history. She was told to follow-up in 1 year but this never
happened.
PMHx: ILD, restrictive lung disease, morbid obesity, hypertension, history of chronic cholecystitis s/p laparoscopic cholecystectomy, ovarian cyst, tobacco use disorder, mediastinal adenopathy, AYAAN noncompliant to CPAP, sarcoidosis, IBS, DM type II,
CAD s/p stented coronary artery, reported Hx of COPD
PSHx: Hysterectomy, gallbladder removal, right knee arthroscopy, ovarian cyst aspiration
Past Medical History
Past Medical History: Other (Above as per HPI)
Past Surgical History: Other (Above as per HPI)
Social History
Tobacco: Smoker (>02-ebts-psex history, currently smoking 3/4 PPD)
Alcohol: None
Drug: None
Family History
Family History: CAD (Father, mother + maternal grandfather), Cancer (Paternal uncle: Prostate cancer) and Hypertension (Father)
Allergies / Home Medications
Allergies
Allergy/AdvReac Type Severity Reaction Status Date / Time
oxycodone [From Percocet] Allergy 'breathing Verified 06/05/24 12:45
issues'
Home Medications
�Medication �Instructions �Recorded �Confirmed �Last Taken �Type
zolpidem 12.5 mg tablet,extended 12.5 mg PO HS Sleep 11/21/14 06/05/24 06/04/24 History
release,multiphase (Ambien CR)
atorvastatin 80 mg tablet 80 mg PO QPM High cholesterol 10/29/20 06/05/24 06/04/24 History
dicyclomine 20 mg tablet 20 mg PO BID Gastrointestinal issue 10/29/20 06/05/24 06/05/24 History
furosemide 20 mg tablet 40 mg PO DAILY Fluid 10/29/20 06/05/24 06/05/24 History
retention/Swelling
insulin aspart U-100 100 unit/mL 26 units SC AC Diabetes 10/29/20 06/05/24 06/05/24 History
(3 mL) subcutaneous pen (Novolog
FlexPen U-100 Insulin aspart)
metoprolol succinate 50 mg 50 mg PO HS Blood pressure 10/29/20 06/05/24 06/04/24 History
tablet,extended release 24 hr
sertraline 100 mg tablet 100 mg PO HS Mental Health/Anxiety 10/29/20 06/05/24 06/04/24 History
Medical Marijuana 1 gummy PO HS Pain 12/08/23 06/05/24 06/04/24 History
cholecalciferol (vitamin D3) 125 125 mcg PO DAILY Supplement 12/08/23 06/05/24 06/05/24 History
mcg (5,000 unit) tablet
cyclobenzaprine 10 mg tablet 10 mg PO BID Muscle Spasms 12/08/23 06/05/24 06/05/24 History
ezetimibe 10 mg tablet (Zetia) 10 mg PO HS High Cholesterol 12/08/23 06/05/24 06/04/24 History
glucagon 3 mg/actuation nasal 3 mg intranasal DAILYPRN PRN high 12/08/23 06/05/24 Unknown History
spray (Baqsimi) sugar
icosapent ethyl 1 gram capsule 1 g PO BID High Cholesterol 12/08/23 06/05/24 06/05/24 History
(Vascepa)
insulin glargine 100 unit/mL 40 unit SC BID Diabetes 12/08/23 06/05/24 06/05/24 History
subcutaneous solution (Lantus
U-100 Insulin)
lisinopril 5 mg tablet 5 mg PO DAILY Blood Pressure 12/08/23 06/05/24 06/05/24 History
metformin 500 mg tablet,extended 1,000 mg PO QPM Diabetes 12/08/23 06/05/24 06/04/24 History
release 24hr (osmotic)
potassium chloride 10 mEq 10 meq PO DAILY Electrolyte 12/08/23 06/05/24 06/05/24 History
tablet,extended release Repletion
semaglutide 0.25 mg or 0.5 mg (2 2 mg SC PARIS Diabetes 12/08/23 06/05/24 06/01/24 History
mg/1.5 mL) subcutaneous pen
injector (Ozempic)
tramadol 50 mg tablet 100 mg PO BID Pain 12/08/23 06/05/24 06/05/24 History
gabapentin 300 mg capsule 300 mg PO TID Neurological 06/01/24 06/05/24 06/05/24 History
Condition
midodrine 5 mg tablet 5 mg PO BID Blood Pressure 06/01/24 06/05/24 06/05/24 History
omeprazole 20 mg tablet,delayed 20 mg PO QPM Gastrointestinal Issue 06/01/24 06/05/24 06/04/24 History
release
aspirin 81 mg tablet,delayed 81 mg PO DAILY Blood Clot 06/02/24 06/05/24 06/05/24 History
release Prevention/Tx
hyoscyamine sulfate 0.125 mg 0.125 mg PO TIDPRN PRN gi issue 06/05/24 06/05/24 06/05/24 History
sublingual tablet
ticagrelor 90 mg tablet (Brilinta) 90 mg PO BID Blood Clot 06/05/24 06/05/24 06/05/24 History
Prevention/Tx
Review of Systems
-
History Source: Patient
All other systems: Negative unless noted
Vitals / Labs / Diagnostic Testing
Vital Signs
Temp Pulse Resp BP Pulse Ox
97.3 F 89 14 123/80 92
06/06/24 11:40 06/06/24 11:40 06/06/24 11:40 06/06/24 11:40 06/06/24 11:40
Lab Data
06/06/24 07:29
06/06/24 07:29
Microbiology
06/05/24 14:36 Nasal Swab Influenza Types A & B (ELIZABETH) - Final
Negative for Influenza A & B, NAAT
Negative results must be combined with clinical observations
and patient history.
Nucleic Acid Amplification test (NAAT)performed on the
[employer] ID NOW platform.
Diagnostic Testing:
Physical Exam
-
HEENT: Normocephalic, Anicteric and Other (Thick neck)
Cardiovascular: S1/S2 and Peripheral Edema (trace LE edema bilaterally)
Respiratory: Wheeze (negative), Rhonchi (negative), Non-Labored Respirations and Other (Coarse breath sounds bilaterally)
GI: Soft, Distended (abdominal obesity), Non Tender and Normal Bowel Sounds
Neurology: AO x 3 and Tremors (negative)
Skin: Warm and Dry
General: Respiratory Distress (negative), Comfortable, Fever (negative) and Chills (negative)
Assessment
-
Assessment: 53-year-old morbidly obese female active tobacco smoker with a past medical history of ILD, history of sarcoidosis (not biopsy-proven), restrictive lung disease, tobacco use disorder, CAD s/p ARMANI (November 2014), moderate AYAAN noncompliant
with CPAP, DM type II, CAD s/p stent to coronary artery, hypertension, and chronic cholecystitis s/p laparoscopic cholecystectomy who presents with shortness of breath and feeling tired since her stent placement this past Sunday. Patient has a
history of CAD with stenting of her proximal LCx in November 2014. She was recently hospitalized from 06/01 - 06/03/2024 after presenting with chest pain, and went to the [facility] Document on 06/02/2024 showing in-stent restenosis of the proximal LCx followed by
70% lesion in the circumflex as it enters OM1, and underwent IVUS guided PCI with overlapping ARMANI x 2 placed. There was top normal filling pressures with LVEDP of 15 mmHg. Echo done on 06/03/2024 showed preserved LVEF at 65 to 70% with mild
concentric LVH. She was discharged home on 06/03/2024 on aspirin + Brilinta. She now returns with exertional shortness of breath as well as nocturnal dyspnea. She carries a history of COPD however spirometry and PFT testing since 2018 through our
office at [facility] has not shown any evidence of COPD. Initially in the ER she was afebrile to 90 �F, pulse rate 95, breathing at 16 breaths/min, BP 154/75 and saturating 98% on room air. Initial labs showed leukocytosis of 16.3, Hb 16, platelet count
444, absolute eosinophil count: 300, glucose 348, troponin 0.256, proBNP 249, and COVID antigen was negative. Flu A/B swab also negative. Initial CXR showed no acute cardiopulmonary process. Subsequent CTA chest showed no evidence of an acute PE
with mild diffuse mosaic attenuation suspicious for air trapping. Of note there was similar mosaic attenuation on prior CT chest from October 2017. There is similar mediastinal lymphadenopathy. In the ER, IVF was given with 500 cc of NS 0.9% as well
as DuoNebs. She was admitted to telemetry for further care and now pulmonary service consulted for additional management/recommendations.
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
sarcoidosis, IBS, DM type II, CAD s/p stented coronary artery, reported Hx of COPD
Impression:
#Shortness of breath suspected to be due to uncontrolled asthma given nocturnal dyspnea with history of normalization of a moderate gas exchange capacity defect (PFTs from 2020)
#Leukocytosis
#DM type II complicated by hyperglycemia (HbA1c: 8.8 from 05/30/2024)
#Elevated troponin (peaked at 0.28 on 06/06/2024)
#Reported Hx of COPD - spirometry/PFT testing in 2017 + 2020 showed no evidence of COPD, and instead showed evidence of mild�moderate restrictive lung disease
#CAD with history of ARMANI to LCx in December 07 15 c/b ISR followed by 70% lesion in the LCx as it enters OM1 s/p ARMANI x 2 (06/02/2024)
#Pulmonary sarcoidosis not on treatment (not biopsy proven sarcoid, however CD4:8 ratio >3.5:1 and BAL lymphocyte is 19%)
#Severe morbid obesity (BMI: 47.8)
#AYAAN noncompliant to CPAP
Plan:
- Her CTA chest findings are concerning for air trapping and could be explained by RB-ILD, sherman with her current tobacco use - definitive Dx would require biopsy
- She does carry a Hx of sarcoidosis, however I do not see any peribronchovascular nodules, patchy consolidation, and typically the groundglass opacities are in the mid to upper lobe lung krause, whereas her hyperattenuation/GGO is seen diffusely;
she has had a EBUS-bronchoscopy with BAL in February 2015, and path neg for granulomas, although CD4:8 ratio was 4:1 and her BAL lymphocyte % was 19 which is highly supportive of sarcoidosis
- Would recommend outpatient PFTs and ophthalmology eval
- Given her shortness of breath with exertional and nocturnal dyspnea with prior PFTs showing findings consistent with asthma, I will start her on a LABA/ICS (Symbcort 160mcg)
- Start DuoNebs QID with prn DuoNebs for breakthrough symptoms (SOB/wheezing)
- Maintain SpO2 >90-94% with supplemental O2 and wean down as tolerated
- Check MARYANN level, HP-panel, CRP, and ESR
- First lets see how she improves with inhalers above, and if no improvement after 24-48 hrs then will start systemic steroids
- Advised pt to stop smoking - rec'd nicotine replacement therapy using 2 modalities at once
- She is going to animal laboratory helper this evening considering her recent C with stents x2 placed-->showed widely patent LCx stent & IFR negative in proximal LAD; normal LVEDP
- Continue DAPT with ASA and plavix
- Continue high intensity statin + Zetia
- Trend WBC; she's non-toxic appearing and afebrile; observe off ABx
- Incentive spirometer q1hr while awake
- Replete electrolytes with K>4, Mg>2
- Maintain euglycemia with goal BG >100 and <180
- PT/OT
- Up OOB as tolerated
- DVT ppx: Start LMWH vs HSQ
Pulmonary service will continue to follow along. We will arrange for outpatient pulmonary office follow-up as she previously followed with us in the office with Dr. Singh (last seen 2018) and last saw us in the office on 09/17/2020 with Fidelina
VIRGILIO Gongora.
Data:
CTA Chest 06/05/2024:
1. No evidence of pulmonary embolism.
2. Mild diffuse mosaic attenuation pattern throughout the lungs bilaterally may reflect areas of air trapping.
Total time spent today was 57 minutes for this encounter. Time includes reviewing laboratory test/imaging results, reviewing pertinent medical records, obtaining and reviewing medical history, performing an appropriate exam, ordering medications,
tests and procedures. Time also includes documentation of this encounter, coordinating patient care and communicating with other healthcare professionals. Total time does not include separately billed tests performed on this date of service.
[2024-06-06 17:28] LABS: ACT-LR - POC 263 Seconds (116-155)
[2024-06-06 18:31] LABS: Glucose - Point of Care 196 mg/dl (70-99)
[2024-06-06] MEDS: NOVOLOG FLEXPEN-LOW RESISTANCE 1 UNITS SC (18:32)
[2024-06-06] MEDS: LIPITOR 80 MG PO (18:33)
[2024-06-06] MEDS: PROTONIX 40 MG PO (18:33)
--- NOTE | 2024-06-06 18:44 | PTCARENOTE ---
patient arrived from radiographer cardiac catheterization with bilateral jaw pain 9 out of 10, Dilaudid IV given as ordered by radiographer cardiac catheterization RN. right R band intact, ecchymotic, c/o forearm tightness, o2 sat 98%. monitor shows NSR, VSS. cannot touch left leg, very sensitive. great
toes on both feet have skin that is cracked and other toes, pulses palpable. BS obtained 196, coverage of insulin as ordered.
--- NOTE | 2024-06-06 19:32 | ITS.CL.PN ---
Medical Referral Coordinator - Procedure Note
Procedure
Procedure Note:
CARDIAC CATHETERIZATION REPORT
Date of Procedure: 06/06/2024
Referring: Dr. Chandler Vaz MD
Indication: re-look angiography in setting of ongoing symptoms concerning for unstable angina in setting of recent PCI
PROCEDURE(S)
1. left heart catheterization
2. coronary angiography
3. iFR of LAD
ACCESS: 6F right radial artery (closure: radial band)
CATHETERS
1. 6F JR4
2. 6F JL3.5
MODERATE SEDATION: 36 minutes of moderate sedation was utilized. An independent biomedical service engineer was present to assist with and help manage the patient's level of consciousness and physiologic status.
ULTRASOUND GUIDED VASCULAR ACCESS (right radial artery): Ultrasound was utilized for vascular access. The vessel was visualized under ultrasound and noted to be patent. An image of the vessel was stored permanently in the patient's medical record.
Under direct ultrasound guidance, vascular access was obtained using a modified Seldinger technique and a 6 Frisian sheath was placed.
HEMODYNAMIC DATA
LV 115/4 (EDP 10) mmHg
AO 106/73 (mean 85) mmHg
CORONARY ANGIOGRAPHY
Dominance: Right
LM: Large, normal
LAD: Large tortuous vessel giving rise to a moderate caliber D1. There is a 50% stenosis in the proximal vessel and otherwise mild disease.
LCx: Large vessel giving rise to a single branching obtuse marginal. There is a widely patent stent in the proximal circumflex extending into the marginal branch. There is otherwise mild nonobstructive disease.
RCA: Large vessel giving rise to a moderate caliber RPDA and large right posterolateral cascade with multiple branches. There is a long tubular 40% stenosis in the distal RCA. There is otherwise mild nonobstructive disease.
iFR of LAD
An Omni wire was flushed and zeroed outside the body and then advanced to the left main. The wire introducer was removed and the catheter flushed with saline, after which pressure of the wire and guide were normalized. The wire was advanced to the
mid LAD and iFR recorded at 0.94. On return to the left main, iFR appropriately normalized to ~1.0, confirming lack of wire drift.
RADIATION: dose 665 mGy; DAP 48 Gy*cm2; fluoroscopy time 4.8 min
CONCLUSIONS
1. nonobstructive coronary artery disease in a right dominant system with widely patent left circumflex stent and IFR negative proximal LAD.
2. normal LV filling pressure and no aortic stenosis
RECOMMENDATIONS
1. expectant management after cardiac catheterization via right radial approach
2. dual antiplatelet therapy with aspirin and Plavix
3. aggressive secondary prevention of coronary artery disease
Copy to: Winston Frausto M.D., Freddy Arellano D.O., Jeffry Regalado M.D.
Signed: Danny Ramirez MD, PhD
[2024-06-06 21:05] LABS: Glucose - Point of Care 288 mg/dl (70-99)
[2024-06-06] MEDS: ProAmatine 5 MG PO (21:21)
[2024-06-06] MEDS: ZETIA 10 MG PO (21:22)
[2024-06-06] MEDS: ZOLOFT 100 MG PO (21:22)
[2024-06-06] MEDS: AMBIEN 10 MG PO (21:23)
[2024-06-06] MEDS: TOPROL XL 50 MG PO (23:09)
[2024-06-07 03:45] VITALS: BP 125/69; BMI 48.2
[2024-06-07] MEDS: DILAUDID 1 MG IV ×5 (04:04→20:59)
[2024-06-07 05:04] LABS: Blood Urea Nitrogen 13 mg/dl (7-17); Calcium 9.4 mg/dl (8.4-10.2); Carbon Dioxide 27 mmol/L (22-30); Chloride 92 mmol/L (98-107); Estimated Creatinine Clearance 117 ml/min; Glucose 227 mg/dl (70-99); Potassium 3.8 mmol/L (3.5-5.1); Sodium 130 mmol/L (135-145); eGFR > 60.00
--- NOTE | 2024-06-07 05:41 | PTCARENOTE ---
Pt c/o b/l jaw pain 8/10, and rt arm tenderness. Rt arm positive pulses and quick capillary blood refill, warm to touch. PRN Dilaudid IV given with some pain relief.
[2024-06-07 06:13] LABS: Erythrocyte Sed Rate 5 mm/hour (0-20)
[2024-06-07 06:56] VITALS: BP 121/61
--- NOTE | 2024-06-07 07:39 | W.PN.CD ---
Today's Communication / Plan
-
No obvious source of SOB/ARIAS beyond medication reaction to ticagrelor.
Agree with DAPT with aspirin/clopidogrel.
Outpatient cardiac MRI to evaluate for cardiac sarcoid in 4 weeks.
I cannot find PFT's in [facility] or [facility]. She probably needs these repeated in the future.
DC midodrine.
Thank you for this interesting consult. Signing off. Please call with questions.
Impression / Plan
-
Impression/Plan: 53 y/o female with HTN, HLD, IDDM, non-biopsy proven sarcoidosis with some RLD and premature CAD s/p PCI of pLCX (2014) recently admitted with NSTEMI requiring PCI of pLCx ISR with extension into a 70% de parag LCx lesion, now
readmitted with shortness in breath/fatigue.
#SOB/fatigue
-Acute.
-CXR and chest CT negative for PE, not volume overloaded on exam.
-Possibly related to ticagrelor. It was stopped last night and she was loaded with clopidogrel.
-Echocardiogram, CXR and repeat cardiac catheterization do not reveal a source of SOB/ARIAS.
#CAD
-NSTEMI 06/02/24 s/p PCI to culprit 90% pLCx ISR lesion followed by a 70% de parag LCx/OM1 lesion (overlapping Xience Skypoint 3.25 x 33 and 3.25 x 18 ARMANI).
-DAPT with aspirin/clopidogrel for at least 12 months, followed by aspirin indefinitely.
-Echo 06/02/24 normal.
-She has abnormal but flat troponin elevation. This is clearly non-ischemic.
#Non-ischemic troponin elevation
-Present since NSTEMI (it may predate it).
-Clearly not ischemic based off of troponin pattern, negative repeat angiography.
-She does carry a diagnosis of non-biopsy proven sarcoidosis, which may affect the myocardium, though echocardiogram shows now RWMA (limited evaluation).
-Cardiac MRI may be beneficial and give a clearer wall motion evaluation, though she just had ARMANI placed, which may affect the time frame of MRI.
-Recommend outpatient cardiac MRI in 4 weeks.
#HLD
-Chronic, stable.
-LDL is at goal per last lipid panel.
-Continue atorvastatin.
#HTN
-Chronic, stable on medical therapy.
-Discontinue midodrine.
#IDDM
-Chronic, stable.
-Management per hospitalist.
-Continue semaglutide as an outpatient.
#Sarcoidosis/IPL/COPD
-Chronic.
-Close follow up with pulmonology.
#Morbid obesity
-Chronic.
-Continue semaglutide with weight loss.
Subjective/Interval History:
Ticagrelor changed to clopidogrel.
Repeat cardiac catheterization shows patent LCx stents, a tubular 40% dRCA lesion and a non-obstructive 50% mLAD lesion, unchanged from cath for NSTEMI.
The patient has repeated episodes of jaw/arm pain, relieved by hydromorphone.
Weight generally stable, down from prior admission (where her filling pressures were normal).
DATA:
Cardiac Catheterization/PCI, 06/02/2024:
CONCLUSIONS
1. 1. Right dominant circulation with a 70% lesion in the distal RCA is around the crux, a 50% lesion in the proximal LAD with a 30% tapering of the mid vessel spanning the origin of a diagonal and a culprit, 90% in-stent restenosis lesion of the
proximal circumflex followed by a 70% circumflex lesion as it enters the first obtuse marginal, status post successful IVUS guided PCI to the circumflex lesions (overlapping Xience Skypoint 3.25 x 33 ARMANI, 3.25 x 18 ARMANI, postdilated with a 3.25 NC
balloon) with reduction in stenosis to 0%, maintaining AMBER-3 flow. There has been progression of the distal RCA disease, but the LAD disease appears similar to prior coronary angiogram of 11/23/2014.
2. Top normal filling pressures (LVEDP = 15 mmHg at 121.5 kg).
CT Chest, 06/05/2024:
IMPRESSION:
1. No evidence of pulmonary embolism.
2. Mild diffuse mosaic attenuation pattern throughout the lungs bilaterally may reflect areas of air trapping.
Echocardiogram, 06/06/2024:
CONCLUSIONS
Technically difficult study with fair image quality
Limited follow-up study
Normal left ventricular size and function.
Left ventricular ejection fraction is 65-70% by visual assessment.
Wall motion analysis may be limited by image quality
Compared to the prior echo report left ventricular function is unchanged
Cardiac Catheterization/iFR, 06/06/2024:
CONCLUSIONS
1. Nonobstructive coronary artery disease in a right dominant system with widely patent left circumflex stent and IFR negative proximal LAD.
2. Normal LV filling pressure and no aortic stenosis.
Physical Exam
Vital Signs/Labs
Vital Signs
Temp Pulse Resp BP Pulse Ox
36.6 C 80 18 125/69 94
06/07/24 06:58 06/07/24 05:45 06/07/24 06:58 06/07/24 03:45 06/07/24 06:58
06/05/24 06/06/24 06/07/24
11:59 11:59 11:59
Actual Weight 118.558 kg 119.3 kg
06/06/24 07:29
06/07/24 03:59
06/05/24 06/05/24 06/05/24
13:37 13:37 15:22
Bju-F-Jydkcrkqfbv Pept 249 Cancelled Cancelled
LAB Results
06/05/24 06/05/24 06/06/24
13:37 21:41 02:52
Troponin I 0.256 H* 0.279 H* 0.280 H*
06/06/24
09:09
Troponin I 0.261 H*
Physical Exam
Constitutional: No acute distress and Comfortable
EENT: Anicteric and Moist mucous membranes
Cardiovascular: Rhythm & rate is regular, Pedal edema is absent, JVD pressure is normal, S1S2 is normal and Murmur/rub/gallop absent
Respiratory: Respiratory effort normal, Lungs clear to auscul., Wheeze Absent, Crackles Absent and Rhonchi Absent
GI: Soft, Distention absent, Flat, Non tender and Normal bowel sounds
Neuro/Psych: AO x 3
Other: Cath Site (Right radial access site is C/D/I.)
Data Reviewed
-
Date of Service: June 07, 2024
Medical Decision Making: Reviewed Test Results, Independent Historian Assessment and Test Interpretation
EKG: Tracing Personally Visualized and interpreted and Report Reviewed by me
Echo: Tracing Personally Visualized and interpreted and Report Reviewed by me
X-Ray/CT/US/MRI/NUC/PET: Image Personally Visualized and interpreted and Report Reviewed by me
Medical Tests (PFT, Pathology etc): Image Personally Visualized and interpreted and Report Reviewed by me
Labs: Labs Reviewed by me
Old Records: Reviewed
[2024-06-07] MEDS: LASIX 40 MG PO (08:30)
[2024-06-07] MEDS: VITAMIN D3 (cholecalciferol) 125 MCG PO (08:30)
[2024-06-07] MEDS: ZESTRIL 5 MG PO (08:30)
[2024-06-07] MEDS: NEURONTIN 300 MG PO ×3 (08:30→21:01)
[2024-06-07] MEDS: FLEXERIL 10 MG PO ×2 (08:30→21:01)
[2024-06-07] MEDS: ASPIR LOW (ENTERIC COATED) 81 MG PO (08:30)
[2024-06-07] MEDS: ULTRAM 100 MG PO ×2 (08:30→21:01)
[2024-06-07] MEDS: PLAVIX 75 MG PO (08:31)
[2024-06-07] MEDS: BENTYL 20 MG PO ×2 (08:31→21:02)
[2024-06-07] MEDS: KCL 10 MEQ PO (08:31)
[2024-06-07 08:56] LABS: Glucose - Point of Care 258 mg/dl (70-99)
[2024-06-07] MEDS: DUONEB 3 ML INH ×3 (09:05→15:31)
[2024-06-07] MEDS: SYMBICORT 160/4.5 MCG INHALER 2 PUFF INH ×2 (09:05→21:16)
[2024-06-07] MEDS: NOVOLOG FLEXPEN 20 UNITS SC ×3 (09:23→17:04)
[2024-06-07] MEDS: LANTUS 0.4 UNITS SC ×2 (09:24→21:15)
[2024-06-07] MEDS: NOVOLOG FLEXPEN-LOW RESISTANCE 3 UNITS SC ×2 (09:24→17:04)
[2024-06-07] MEDS: ProAmatine PO (09:26)
--- NOTE | 2024-06-07 09:57 | W.PN.PUL3 ---
Today's Communication / Plan
-
Continue Symbicort
Change DuoNebs to Atrovent + Xopenex as she has shakiness with the albuterol
Up OOB as tolerated
Pain control
DAPT per cardiology
High intensity statin
Goal BG >100 and <180
Start Lovenox for DVT prophylaxis
Outpatient pulmonary office follow-up be arranged
Pulmonary service will continue to follow along
Assessment
-
Assessment: 53-year-old morbidly obese female active tobacco smoker with a past medical history of ILD, history of sarcoidosis (not biopsy-proven), restrictive lung disease, tobacco use disorder, CAD s/p ARMANI (November 2014), moderate AYAAN noncompliant
with CPAP, DM type II, CAD s/p stent to coronary artery, hypertension, and chronic cholecystitis s/p laparoscopic cholecystectomy who presents with shortness of breath and feeling tired since her stent placement this past Sunday. Patient has a
history of CAD with stenting of her proximal LCx in November 2014. She was recently hospitalized from 06/01 - 06/03/2024 after presenting with chest pain, and went to [facility] on 06/02/2024 showing in-stent restenosis of the proximal LCx followed by
70% lesion in the circumflex as it enters OM1, and underwent IVUS guided PCI with overlapping ARMANI x 2 placed. There was top normal filling pressures with LVEDP of 15 mmHg. Echo done on 06/03/2024 showed preserved LVEF at 65 to 70% with mild
concentric LVH. She was discharged home on 06/03/2024 on aspirin + Brilinta. She now returns with exertional shortness of breath as well as nocturnal dyspnea. She carries a history of COPD however spirometry and PFT testing since 2018 through our
office at [facility] has not shown any evidence of COPD. Initially in the ER she was afebrile to 90 �F, pulse rate 95, breathing at 16 breaths/min, BP 154/75 and saturating 98% on room air. Initial labs showed leukocytosis of 16.3, Hb 16, platelet count
444, absolute eosinophil count: 300, glucose 348, troponin 0.256, proBNP 249, and COVID antigen was negative. Flu A/B swab also negative. Initial CXR showed no acute cardiopulmonary process. Subsequent CTA chest showed no evidence of an acute PE
with mild diffuse mosaic attenuation suspicious for air trapping. Of note there was similar mosaic attenuation on prior CT chest from October 2017. There is similar mediastinal lymphadenopathy. In the ER, IVF was given with 500 cc of NS 0.9% as well
as DuoNebs. She was admitted to telemetry for further care and now pulmonary service consulted for additional management/recommendations.
Chronic conditions TOOL CRIB LEAD: ILD, restrictive lung disease, morbid obesity, hypertension, history of chronic cholecystitis s/p laparoscopic cholecystectomy, ovarian cyst, tobacco use disorder, mediastinal adenopathy, AYAAN noncompliant to CPAP,
sarcoidosis, IBS, DM type II, CAD s/p stented coronary artery, reported Hx of COPD
Impression:
#Shortness of breath suspected to be due to uncontrolled asthma given nocturnal dyspnea with history of normalization of a moderate gas exchange capacity defect (PFTs from 2020)
#Leukocytosis
#DM type II complicated by hyperglycemia (HbA1c: 8.8 from 05/30/2024)
#Elevated troponin (peaked at 0.28 on 06/06/2024)
#Reported Hx of COPD - spirometry/PFT testing in 2017 + 2020 showed no evidence of COPD, and instead showed evidence of mild�moderate restrictive lung disease
#CAD with history of ARMANI to LCx in December 07 c/b ISR followed by 70% lesion in the LCx as it enters OM1 s/p ARMANI x 2 (06/02/2024)
#Pulmonary sarcoidosis not on treatment (not biopsy proven sarcoid, however CD4:8 ratio >3.5:1 and BAL lymphocyte is 19%)
#Severe morbid obesity (BMI: 47.8)
#AYAAN noncompliant to CPAP
Plan:
- Her CTA chest findings are concerning for air trapping and could be explained by RB-ILD, sherman with her current tobacco use - definitive Dx would require biopsy; other DDx is asthma flare with air trapping from bronchoconstriction
- She does carry a Hx of sarcoidosis, however I do not see any peribronchovascular nodules, patchy consolidation, and typically the groundglass opacities are in the mid to upper lobe lung krause, whereas her hyperattenuation/GGO is seen diffusely;
she has had a EBUS-bronchoscopy with BAL in February 2015, and path neg for granulomas, although CD4:8 ratio was 4:1 and her BAL lymphocyte % was 19 which is highly supportive of sarcoidosis
- Would recommend outpatient PFTs and ophthalmology eval (which she already does see)
- Given her shortness of breath with exertional and nocturnal dyspnea with prior PFTs showing findings consistent with asthma, I started her on a LABA/ICS (Symbcort 160mcg)
- Continue nebulized bronchodilators as she is improving with this, further supporting that she has an airway disorder and not interstitial disorder causing her current symptoms
- She has shakiness with the DuoNeb so I will change this to Atrovent + Xopenex with prn DuoNebs for breakthrough symptoms (SOB/wheezing)
- Maintain SpO2 >90-94% with supplemental O2 and wean down as tolerated
- Follow up MARYANN level + HP-panel; CRP is slightly elevated at 20.1, and ESR is WNL at 5
- Given that she is improving, no need to start systemic steroids at this time
- Advised pt to stop smoking - rec'd nicotine replacement therapy using 2 modalities at once
-Patient went to the [facility] on the evening of 06/06/2024 showing nonobstructive CAD with widely patent left circumflex stent and IFR negative proximal LAD, and normal LV filling pressures with no aortic stenosis
- Continue DAPT with ASA and plavix
- Continue high intensity statin + Zetia
- Trend WBC; she's non-toxic appearing and afebrile; observe off ABx
- Incentive spirometer q1hr while awake
- Replete electrolytes with K>4, Mg>2
- Maintain euglycemia with goal BG >100 and <180
- PT/OT
- Up OOB as tolerated
- DVT ppx: Start LMWH vs HSQ
Pulmonary service will continue to follow along. We will arrange for outpatient pulmonary office follow-up as she previously followed with us in the office with Dr. Singh (last seen 2018) and last saw us in the office on 09/17/2020 with Fidelina
VIRGILIO Gongora.
Data:
CTA Chest 06/05/2024:
1. No evidence of pulmonary embolism.
2. Mild diffuse mosaic attenuation pattern throughout the lungs bilaterally may reflect areas of air trapping.
Total time spent today was 37 minutes for this encounter. Time includes reviewing laboratory test/imaging results, reviewing pertinent medical records, obtaining and reviewing medical history, performing an appropriate exam, ordering medications,
tests and procedures. Time also includes documentation of this encounter, coordinating patient care and communicating with other healthcare professionals. Total time does not include separately billed tests performed on this date of service.
Subjective Data
-
Date of Service:
Date of Service: June 07, 2024
Chief Complaint: Pulmonary Follow Up
Subjective:
Patient seen and evaluated today at bedside. Underwent left heart cath last night showing nonobstructive CAD with LVEDP normal at 10 mmHg. She says that her shortness of breath is much better with the nebulizers. She does feel shaky when she gets
the albuterol though. Currently on room air saturating 96%. Also has jaw pain on both sides of her face. She denies abdominal pain, nausea, vomiting, fevers or chills.
Review of Systems
General: Other (Negative unless mentioned above)
Objective Data
Data Reviewed
Vital Signs / I&O / Oxygen:
Vital Signs
Temp Pulse Resp BP Pulse Ox
97.8 F 87 16 121/61 97
06/07/24 06:58 06/07/24 09:10 06/07/24 09:10 06/07/24 06:56 06/07/24 08:00
Intake and Output
06/06/24 06/07/24 06/08/24
06:59 06:59 06:59
Intake Total 240 / 240 1363 / 1363
Balance 240 / 240 1363 / 1363
SaO2 97
Nasal Cannula flow liters per 2.5
minute
Physical Exam
General: Respiratory Distress (negative), Comfortable, Chills (negative) and Sweats (negative)
HEENT: Normocephalic and Anicteric
Cardiovascular: S1-S2, Rub (negative) and Peripheral Edema (negative)
Respiratory: Wheeze (negative), Rhonchi (negative), Non-Labored Respirations and Other (Coarse breath sounds heard bilaterally)
GI: Soft, Distended (Abdominal obesity), Non Tender and Normal Bowel Sounds
Neurology: AO x 3 and Tremors (negative)
Skin: Warm, Dry, Cyanosis (negative) and Jaundice (negative)
Labs/Micro/Reports
Lab Data
06/06/24 07:29
06/07/24 03:59
Microbiology
06/05/24 14:36 Nasal Swab Influenza Types A & B (ELIZABETH) - Final
Negative for Influenza A & B, NAAT
Negative results must be combined with clinical observations
and patient history.
Nucleic Acid Amplification test (NAAT)performed on the
[employer] platform.
[2024-06-07 11:19] VITALS: BP 134/72
[2024-06-07] MEDS: NOVOLOG FLEXPEN-LOW RESISTANCE 5 UNITS SC (12:28)
[2024-06-07 12:32] LABS: Glucose - Point of Care 379 mg/dl (70-99)
[2024-06-07] MEDS: FLUSH (NSS) 1 FLUSH IV (12:45)
[2024-06-07 16:44] VITALS: BP 133/68
--- NOTE | 2024-06-07 16:46 | W.PN.HOSP.TC ---
Today's Communication/Plan
-
Assessment / Plan
Assessment / Plan
Gen-AAOx3, NAD
HEENT-NC, AT, anicteric, clear oral mm
Neck-supple
CV-reg, no M, +S1/S2
Lungs-clear B/L
Abd-soft, NT, ND
Musculoskeletal-no edema, no deformity
Skin-warm and dry
Neuro-grossly non-focal
Psych-calm, cooperative
Ms. Bobo is a 53-year-old female with past medical history significant for CAD, recent NSTEMI, COPD, interstitial lung disease, sarcoidosis, hypertension, GERD, hypercholesteremia, IBS, GERD, diabetes, diabetic neuropathy, anxiety/depression,
chronic pain, and nicotine dependence who presented to [facility] for evaluation of increased exertional shortness of breath and nocturnal dyspnea since recent hospital discharge for NSTEMI. Patient denies any fever, chills, cough, nausea,
vomiting, constipation, diarrhea or urinary symptoms.
Dyspnea with exertion:
-Lungs relatively clear to auscultation, possibly mild scattered expiratory wheezes bilaterally, appears to get relief from nebulizer treatments
-Patient has chronic cough with no current change
-CT angiography shows no evidence of PE
-Troponins elevated although this is nonspecific considering this is expected following recent coronary stenting
-Echo repeated which shows normal structure and function
-Taken for review coronary angiography yesterday 06/06 with no findings of obstructive disease
-Recently started on Brilinta which could potentially be contributing to her presentation, have now switched antiplatelet therapy to aspirin and Plavix
-Overall improving, will continue to monitor
-Cardiology recommending cardiac MRI in 4 weeks to evaluate for obstructive disease
CAD:
-Continue DAPT with aspirin and Plavix, high intensity statin therapy
-Beta-blockade with metoprolol succinate 50 mg nightly
IDDM:
-Continue long-acting insulin with glargine 40 units twice daily, 20 units of short acting insulin with meals, additional sliding scale as needed
Interstitial lung disease:
-Sarcoidosis, COPD
-Supplemental oxygen as needed
CODE STATUS: Full
Anticipated Discharge: 24 - 48 hours
Subjective/Interval History
-
Date of Service: June 07, 2024
Ms. Bobo was seen and examined at bedside this morning. Cardiac catheterization yesterday revealed no obstructive disease. She continues to experience bilateral neck pain. Was started on breathing treatments
Objective Data
-
Labs:
Laboratory Results
06/07/24
03:59
Sodium 130 L
Potassium 3.8
Chloride 92 L
Carbon Dioxide 27
BUN 13
Creatinine 0.7
Glucose 227 H
Calcium 9.4
Vital Signs:
Vital Signs
Temp Pulse Resp BP Pulse Ox
97.9 F 101 18 134/72 96
06/07/24 16:44 06/07/24 15:34 06/07/24 16:44 06/07/24 11:19 06/07/24 16:44
I&O
06/06/24 06/07/24 06/08/24
06:59 06:59 06:59
Intake Total 240 / 240 1363 / 1363
Balance 240 / 240 1363 / 1363
Review of Systems
-
History Source: Patient
All other systems: Reviewed and negative
Respiratory: Reports Trouble Breathing
Musculoskeletal: Reports Other (Bilateral neck pain)
Physical Exam
-
General: No Apparent Distress
[2024-06-07 16:57] LABS: Glucose - Point of Care 269 mg/dl (70-99)
[2024-06-07] MEDS: PROTONIX 40 MG PO (17:03)
[2024-06-07] MEDS: LIPITOR 80 MG PO (17:03)
--- NOTE | 2024-06-07 17:48 | PTCARENOTE ---
Pt received this am with no c/o of any chest pain or sob. Room air sat 97%. Pt c/o of right rad cath site pain and jaw pain. Pt requesting and received IV Dilaudid q4 hours for the jaw pain. Right rad cath site dressing dry and intact and site
WNL. Pt oob to the BR and in the chair, gait steady.
[2024-06-07] MEDS: LOVENOX 40 MG SC (17:53)
[2024-06-07 20:29] VITALS: BP 128/79
[2024-06-07 21:00] LABS: Glucose - Point of Care 209 mg/dl (70-99)
[2024-06-07] MEDS: ZETIA 10 MG PO (21:01)
[2024-06-07] MEDS: TOPROL XL 50 MG PO (21:01)
[2024-06-07] MEDS: ZOLOFT 100 MG PO (21:02)
[2024-06-07] MEDS: AMBIEN 10 MG PO (21:15)
[2024-06-07] MEDS: XOPENEX 1.25 MG INHALANT SOLUTION INH (21:16)
[2024-06-07] MEDS: ATROVENT NEBULES 0.5 MG INH (21:16)
[2024-06-07 22:55] VITALS: BP 159/96
--- NOTE | 2024-06-08 00:58 | PTCARENOTE ---
Assumed care of the pt @ 1900. Pt AAOx3 c/o jaw pain 12/28 Dilaudid IV given with relief. SR/ST on the monitor. VSS denies cp. Call bliss within reach.
[2024-06-08] MEDS: DILAUDID 1 MG IV ×6 (01:07→21:30)
[2024-06-08 03:04] VITALS: BP 115/63
[2024-06-08 03:08] VITALS: BMI 48.2
[2024-06-08] MEDS: BENADRYL 25 MG PO (03:19)
[2024-06-08 08:04] VITALS: BP 100/58
[2024-06-08 08:26] LABS: Glucose - Point of Care 256 mg/dl (70-99)
[2024-06-08] MEDS: ATROVENT NEBULES 0.5 MG INH ×4 (08:38→20:30)
[2024-06-08] MEDS: SYMBICORT 160/4.5 MCG INHALER 2 PUFF INH ×2 (08:39→20:30)
[2024-06-08] MEDS: XOPENEX 1.25 MG INHALANT SOLUTION INH ×4 (08:39→20:30)
[2024-06-08] MEDS: NOVOLOG FLEXPEN SC ×2 (08:52→09:06)
[2024-06-08] MEDS: NOVOLOG FLEXPEN-LOW RESISTANCE 3 UNITS SC (08:52)
[2024-06-08] MEDS: LANTUS 0.4 UNITS SC (08:53)
[2024-06-08] MEDS: LASIX 40 MG PO (08:54)
[2024-06-08] MEDS: ZESTRIL 5 MG PO (08:54)
[2024-06-08] MEDS: FLEXERIL 10 MG PO ×2 (08:55→20:37)
[2024-06-08] MEDS: KCL 10 MEQ PO (08:55)
[2024-06-08] MEDS: ULTRAM 100 MG PO ×2 (08:55→20:37)
[2024-06-08] MEDS: VITAMIN D3 (cholecalciferol) 125 MCG PO (08:55)
[2024-06-08] MEDS: PLAVIX 75 MG PO (08:55)
[2024-06-08] MEDS: NEURONTIN 300 MG PO ×3 (08:55→21:29)
[2024-06-08] MEDS: ASPIR LOW (ENTERIC COATED) 81 MG PO (08:55)
[2024-06-08] MEDS: BENTYL 20 MG PO ×2 (08:55→20:37)
[2024-06-08] MEDS: FLUSH (NSS) 1 FLUSH IV ×2 (09:09→17:40)
--- NOTE | 2024-06-08 09:26 | W.PN.PUL3 ---
Today's Communication / Plan
-
Continue Symbicort
Changed DuoNebs to Atrovent + Xopenex as she has shakiness with the albuterol
Up OOB as tolerated
Pain control
DAPT per cardiology
High intensity statin
Goal BG >100 and <180
If her Sx are not improved by tomorrow (06/09) that we will start steroids at that time; this will cause even worse hyperglycemia, hence would benefit from endocrinology consult if steroids are started (she follows with endo here at )
Outpatient pulmonary office follow-up be arranged
Pulmonary service will continue to follow along
Assessment
-
Assessment: 53-year-old morbidly obese female active tobacco smoker with a past medical history of ILD, history of sarcoidosis (not biopsy-proven), restrictive lung disease, tobacco use disorder, CAD s/p ARMANI (November 2014), moderate AYAAN noncompliant
with CPAP, DM type II, CAD s/p stent to coronary artery, hypertension, and chronic cholecystitis s/p laparoscopic cholecystectomy who presents with shortness of breath and feeling tired since her stent placement this past Sunday. Patient has a
history of CAD with stenting of her proximal LCx in November 2014. She was recently hospitalized from 06/01 - 06/03/2024 after presenting with chest pain, and [facility] to [facility]24 showing in-stent restenosis of the proximal LCx followed by
70% lesion in the circumflex as it enters OM1, and underwent IVUS guided PCI with overlapping ARMANI x 2 placed. There was top normal filling pressures with LVEDP of 15 mmHg. Echo done on 06/03/2024 showed preserved LVEF at 65 to 70% with mild
concentric LVH. She was discharged home on 06/03/2024 on aspirin + Brilinta. She now returns with exertional shortness of breath as well as nocturnal dyspnea. She carries a history of COPD however spirometry and PFT testing since 2018 through our
office at [facility] has not shown any evidence of COPD. Initially in the ER she was afebrile to 90 �F, pulse rate 95, breathing at 16 breaths/min, BP 154/75 and saturating 98% on room air. Initial labs showed leukocytosis of 16.3, Hb 16, platelet count
444, absolute eosinophil count: 300, glucose 348, troponin 0.256, proBNP 249, and COVID antigen was negative. Flu A/B swab also negative. Initial CXR showed no acute cardiopulmonary process. Subsequent CTA chest showed no evidence of an acute PE
with mild diffuse mosaic attenuation suspicious for air trapping. Of note there was similar mosaic attenuation on prior CT chest from October 2017. There is similar mediastinal lymphadenopathy. In the ER, IVF was given with 500 cc of NS 0.9% as well
as DuoNebs. She was admitted to telemetry for further care and now pulmonary service consulted for additional management/recommendations.
Chronic conditions [employer]: ILD, restrictive lung disease, morbid obesity, hypertension, history of chronic cholecystitis s/p laparoscopic cholecystectomy, ovarian cyst, tobacco use disorder, mediastinal adenopathy, AYAAN noncompliant to CPAP,
sarcoidosis, IBS, DM type II, CAD s/p stented coronary artery, reported Hx of COPD
Impression:
#Shortness of breath suspected to be due to uncontrolled asthma given nocturnal dyspnea with history of normalization of a moderate gas exchange capacity defect (PFTs from 2020)
#Leukocytosis
#DM type II complicated by hyperglycemia (HbA1c: 8.8 from 05/30/2024)
#Elevated troponin (peaked at 0.28 on 06/06/2024)
#Reported Hx of COPD - spirometry/PFT testing in 2017 + 2020 showed no evidence of COPD, and instead showed evidence of mild�moderate restrictive lung disease
#CAD with history of ARMANI to LCx in December 07 c/b ISR followed by 70% lesion in the LCx as it enters OM1 s/p ARMANI x 2 (06/02/2024)
#Pulmonary sarcoidosis not on treatment (not biopsy proven sarcoid, however CD4:8 ratio >3.5:1 and BAL lymphocyte is 19%)
#Severe morbid obesity (BMI: 47.8)
#AYAAN noncompliant to CPAP
Plan:
- Her CTA chest findings are concerning for air trapping and could be explained by RB-ILD, sherman with her current tobacco use - definitive Dx would require biopsy; other DDx is asthma flare with air trapping from bronchoconstriction
- She does carry a Hx of sarcoidosis, however I do not see any peribronchovascular nodules, patchy consolidation, and typically the groundglass opacities are in the mid to upper lobe lung krause, whereas her hyperattenuation/GGO is seen diffusely;
she had a EBUS-bronchoscopy with BAL in February 2015, and path neg for granulomas, although CD4:8 ratio was 4:1 and her BAL lymphocyte % was 19 which is highly supportive of sarcoidosis
- Would recommend outpatient PFTs and ophthalmology eval (which she already does see)
- Given her shortness of breath with exertional and nocturnal dyspnea with prior PFTs showing findings consistent with asthma, I started her on a LABA/ICS (Symbcort 160mcg)
- Continue nebulized bronchodilators as she is improving with this, further supporting that she has an airway disorder and not interstitial disorder causing her current symptoms
- She has shakiness with the DuoNeb so I changed this to Atrovent + Xopenex with prn DuoNebs for breakthrough symptoms (SOB/wheezing)
- Maintain SpO2 >90-94% with supplemental O2 and wean down as tolerated
- Follow up MARYANN level + HP-panel; CRP is slightly elevated at 20.1, and ESR is WNL at 5
- Given that she is improving, systemic steroids not started yet, plus her BG are elevated --> we spoke about if her Sx are not improved by tomorrow (06/09) that we will start steroids at that time; this will cause even worse hyperglycemia, hence
would benefit from endocrinology consult if steroids are started (she follows with endo here at )
- Advised pt to stop smoking - rec'd nicotine replacement therapy using 2 modalities at once
- Patient went to [facility] on the evening of 06/06/2024 showing nonobstructive CAD with widely patent left circumflex stent and IFR negative proximal LAD, and normal LV filling pressures with no aortic stenosis
- Continue DAPT with ASA and plavix
- Continue high intensity statin + Zetia
- Trend WBC; she's non-toxic appearing and afebrile; observe off ABx
- Incentive spirometer q1hr while awake
- Replete electrolytes with K>4, Mg>2
- Maintain euglycemia with goal BG >100 and <180
- PT/OT
- Up OOB as tolerated
- DVT ppx: LMWH
Pulmonary service will continue to follow along. We will arrange for outpatient pulmonary office follow-up as she previously followed with us in the office with Dr. Singh (last seen 2018) and last saw us in the office on 09/17/2020 with Fidelina
VIRGILIO Gongora.
Data:
CTA Chest 06/05/2024:
1. No evidence of pulmonary embolism.
2. Mild diffuse mosaic attenuation pattern throughout the lungs bilaterally may reflect areas of air trapping.
Total time spent today was 39 minutes for this encounter. Time includes reviewing laboratory test/imaging results, reviewing pertinent medical records, obtaining and reviewing medical history, performing an appropriate exam, ordering medications,
tests and procedures. Time also includes documentation of this encounter, coordinating patient care and communicating with other healthcare professionals. Total time does not include separately billed tests performed on this date of service.
Subjective Data
-
Date of Service:
Date of Service: June 08, 2024
Chief Complaint: Pulmonary Follow Up
Subjective:
Patient seen earlier this morning (late note entry). Continues to have jaw pain on both sides of her face. Still has shaking episodes with Xopenex but she feels that it is helping her breathing. Currently on room air, saturating 94%. She denies
chest pain, HERRING, nausea, fevers, or chills.
Review of Systems
General: Other (Negative unless mentioned above)
Objective Data
Data Reviewed
Vital Signs / I&O / Oxygen:
Vital Signs
Temp Pulse Resp BP Pulse Ox
98.2 F 94 16 100/58 96
06/08/24 08:02 06/08/24 08:54 06/08/24 08:41 06/08/24 08:54 06/08/24 08:41
Intake and Output
06/07/24 06/08/24 06/09/24
06:59 06:59 06:59
Intake Total 1363 / 1363
Balance 1363 / 1363
SaO2 96
Nasal Cannula flow liters per 2.5
minute
Physical Exam
General: Respiratory Distress (negative), Comfortable, Chills (negative) and Sweats (negative)
HEENT: Normocephalic, Anicteric and Other (Thick neck)
Cardiovascular: S1-S2, Rub (negative) and Peripheral Edema (negative)
Respiratory: Wheeze (negative), Rhonchi (negative), Non-Labored Respirations, Stridor (negative) and Other (Coarse breath sounds heard bilaterally)
GI: Soft, Distended (Abdominal obesity), Non Tender and Normal Bowel Sounds
Neurology: AO x 3 and Tremors (negative)
Skin: Warm, Dry, Cyanosis (negative) and Jaundice (negative)
Labs/Micro/Reports
Lab Data
06/06/24 07:29
06/07/24 03:59
Microbiology
06/05/24 14:36 Nasal Swab Influenza Types A & B (ELIZABETH) - Final
Negative for Influenza A & B, NAAT
Negative results must be combined with clinical observations
and patient history.
Nucleic Acid Amplification test (NAAT)performed on the
[employer] NOW platform.
--- NOTE | 2024-06-08 10:18 | PTCARENOTE ---
received patient this am, monitor shows NSR, VSS. patient has c/o bilat jaw pain, Dilaudid IV given as ordered. INT x 2 flushes well.
--- NOTE | 2024-06-08 11:24 | W.PN.CD ---
Today's Communication / Plan
-
No new recommendations.
Dual antiplatelet therapy
Plan for outpatient cardiac MRI as previously outlined by Dr. Sofia
Note the patient has follow-up labs to check for light chains which are pending
Impression / Plan
-
Impression/Plan: 53 y/o female with HTN, HLD, IDDM, non-biopsy proven sarcoidosis with some RLD and premature CAD s/p PCI of pLCX (2014) recently admitted with NSTEMI requiring PCI of pLCx ISR with extension into a 70% de parag LCx lesion, now
readmitted with shortness in breath/fatigue.
#SOB/fatigue
-CXR and chest CT negative for PE, not volume overloaded on exam.
-Possibly related to ticagrelor. It was stopped last night and she was loaded with clopidogrel.
-Echocardiogram, CXR and repeat cardiac catheterization do not reveal a source of SOB/ARIAS.
-Patient states she is feeling better and feels breathing treatments have helped. Continue treatment as directed by dope sprayer.
#CAD
-NSTEMI 06/02/24 s/p PCI to culprit 90% pLCx ISR lesion followed by a 70% de parag LCx/OM1 lesion (overlapping Xience Skypoint 3.25 x 33 and 3.25 x 18 ARMANI).
-DAPT with aspirin/clopidogrel for at least 12 months, followed by aspirin indefinitely.
-Echo 06/02/24 normal.
-She has abnormal but flat troponin elevation. This is clearly non-ischemic.
#Non-ischemic troponin elevation
-Present since NSTEMI (it may predate it).
-Clearly not ischemic based off of troponin pattern, negative repeat angiography.
-She does carry a diagnosis of non-biopsy proven sarcoidosis, which may affect the myocardium, though echocardiogram shows now RWMA (limited evaluation).
-Cardiac MRI may be beneficial and give a clearer wall motion evaluation, though she just had ARMANI placed, which may affect the time frame of MRI.
-Recommend outpatient cardiac MRI in 4 weeks
-Cardiac MRI as outlined by Dr. Hernández due to persistent elevation in troponin can look for sarcoid. Also can be screen for amyloid in this patient that had some elevation and light chains on her prior study. Follow-up labs for light chains have
been ordered this study.
#HLD
-Chronic, stable.
-LDL is at goal per last lipid panel.
-Continue atorvastatin.
#HTN
-Chronic, stable on medical therapy.
-Discontinue midodrine.
#IDDM
-Chronic, stable.
-Management per hospitalist.
-Continue semaglutide as an outpatient.
#Sarcoidosis/IPL/COPD
-Chronic.
-Close follow up with pulmonology.
#Morbid obesity
-Chronic.
-Continue semaglutide with weight loss.
Subjective/Interval History:
Ticagrelor changed to clopidogrel.
Repeat cardiac catheterization shows patent LCx stents, a tubular 40% dRCA lesion and a non-obstructive 50% mLAD lesion, unchanged from cath for NSTEMI.
The patient has repeated episodes of jaw/arm pain, relieved by hydromorphone.
Weight generally stable, down from prior admission (where her filling pressures were normal).
DATA:
Cardiac Catheterization/PCI, 06/02/2024:
CONCLUSIONS
1. 1. Right dominant circulation with a 70% lesion in the distal RCA is around the crux, a 50% lesion in the proximal LAD with a 30% tapering of the mid vessel spanning the origin of a diagonal and a culprit, 90% in-stent restenosis lesion of the
proximal circumflex followed by a 70% circumflex lesion as it enters the first obtuse marginal, status post successful IVUS guided PCI to the circumflex lesions (overlapping Xience Skypoint 3.25 x 33 ARMANI, 3.25 x 18 ARMANI, postdilated with a 3.25 NC
balloon) with reduction in stenosis to 0%, maintaining AMBER-3 flow. There has been progression of the distal RCA disease, but the LAD disease appears similar to prior coronary angiogram of 11/23/2014.
2. Top normal filling pressures (LVEDP = 15 mmHg at 121.5 kg).
CT Chest, 06/05/2024:
IMPRESSION:
1. No evidence of pulmonary embolism.
2. Mild diffuse mosaic attenuation pattern throughout the lungs bilaterally may reflect areas of air trapping.
Echocardiogram, 06/06/2024:
CONCLUSIONS
Technically difficult study with fair image quality
Limited follow-up study
Normal left ventricular size and function.
Left ventricular ejection fraction is 65-70% by visual assessment.
Wall motion analysis may be limited by image quality
Compared to the prior echo report left ventricular function is unchanged
Cardiac Catheterization/iFR, 06/06/2024:
CONCLUSIONS
1. Nonobstructive coronary artery disease in a right dominant system with widely patent left circumflex stent and IFR negative proximal LAD.
2. Normal LV filling pressure and no aortic stenosis.
Physical Exam
Vital Signs/Labs
Vital Signs
Temp Pulse Resp BP Pulse Ox
98.2 F 88 16 100/58 96
06/08/24 08:02 06/08/24 10:00 06/08/24 08:41 06/08/24 08:54 06/08/24 08:41
06/07/24 06/08/24 06/09/24
06:59 06:59 06:59
Actual Weight 119.3 kg 119.5 kg
06/06/24 07:29
06/07/24 03:59
06/05/24 06/05/24 06/05/24
13:37 13:37 15:22
Mab-K-Bmnalveytzm Pept 249 Cancelled Cancelled
LAB Results
06/05/24 06/05/24 06/06/24
13:37 21:41 02:52
Troponin I 0.256 H* 0.279 H* 0.280 H*
06/06/24
09:09
Troponin I 0.261 H*
Physical Exam
Constitutional: No acute distress
Cardiovascular: Rhythm & rate is regular
Respiratory: Respiratory effort normal
GI: Soft
Neuro/Psych: Alert
Data Reviewed
-
Date of Service: June 08, 2024
Medical Decision Making: Reviewed Test Results
EKG: Report Reviewed by me
Medical Tests (PFT, Pathology etc): Report Reviewed by me
Labs: Labs Reviewed by me
[2024-06-08 12:26] VITALS: BP 145/70
[2024-06-08 12:32] LABS: Glucose - Point of Care 401 mg/dl (70-99)
[2024-06-08 13:09] LABS: Glucose 343 mg/dl (70-99)
[2024-06-08] MEDS: NOVOLOG FLEXPEN 26 UNITS SC ×2 (13:10→16:16)
[2024-06-08] MEDS: NOVOLOG FLEXPEN-LOW RESISTANCE 4 UNITS SC (13:11)
--- NOTE | 2024-06-08 14:02 | GLUCOSE ---
SITUATION:
BS RR high, rechecked venous blood 343
BACKGROUND:
ASSESSMENT:
covered patient with insulin as per ordered
RECOMMENDATION:
--- NOTE | 2024-06-08 15:20 | W.PN.HOSP.TC ---
Today's Communication/Plan
-
Follow-up further adjustments to inhaler/nebulizer regimen from pulmonology
Adjustments to insulin regimen as needed as requirements have increased with addition of Symbicort
Assessment / Plan
Assessment / Plan
Gen-AAOx3, NAD
HEENT-NC, AT, anicteric, clear oral mm
Neck-supple
CV-reg, no M, +S1/S2
Lungs-clear B/L
Abd-soft, NT, ND
Musculoskeletal-no edema, no deformity
Skin-warm and dry
Neuro-grossly non-focal
Psych-calm, cooperative
Ms. Bobo is a 53-year-old female with past medical history significant for CAD, recent NSTEMI, COPD, interstitial lung disease, sarcoidosis, hypertension, GERD, hypercholesteremia, IBS, GERD, diabetes, diabetic neuropathy, anxiety/depression,
chronic pain, and nicotine dependence who presented to [facility] for evaluation of increased exertional shortness of breath and nocturnal dyspnea since recent hospital discharge for NSTEMI. Patient denies any fever, chills, cough, nausea,
vomiting, constipation, diarrhea or urinary symptoms.
Dyspnea with exertion:
-Lungs relatively clear to auscultation
-CT angiography shows no evidence of PE
-Echo repeated which shows normal structure and function
-Taken for review coronary angiography 06/06 with no findings of obstructive disease
-Recently started on Brilinta which could potentially be contributing to her presentation, have now switched antiplatelet therapy to aspirin and Plavix
-Overall improving, will continue to monitor
-Pulmonology added Symbicort and switched albuterol to levalbuterol which seems to have improved her shakiness, will follow-up further pulmonology recommendations
-Cardiology recommending cardiac MRI in 4 weeks to evaluate for obstructive disease
CAD:
-Continue DAPT with aspirin and Plavix, high intensity statin therapy
-Beta-blockade with metoprolol succinate 50 mg nightly
IDDM:
-Insulin requirements have increased with addition of Symbicort
-Increasing long-acting insulin with glargine to 46 units twice daily, 20 units of short acting insulin with meals, additional sliding scale as needed
Interstitial lung disease:
-Sarcoidosis, COPD
-Supplemental oxygen as needed
CODE STATUS: Full
Anticipated Discharge: Within 24 hours
Subjective/Interval History
-
Date of Service: June 08, 2024
Ms. Bobo was seen and examined at bedside this morning. She reports feeling short of breath after walking around in her room this morning.
Objective Data
-
Labs:
Laboratory Results
06/08/24
12:36
Glucose 343 H
Vital Signs:
Vital Signs
Temp Pulse Resp BP Pulse Ox
97.6 F 110 18 145/70 96
06/08/24 12:24 06/08/24 15:08 06/08/24 15:08 06/08/24 12:26 06/08/24 15:08
I&O
06/07/24 06/08/24 06/09/24
06:59 06:59 06:59
Intake Total 1363 / 1363
Balance 1363 / 1363
Review of Systems
-
History Source: Patient
All other systems: Reviewed and negative
Respiratory: Reports Trouble Breathing
Physical Exam
-
General: No Apparent Distress
[2024-06-08 15:22] VITALS: BP 142/85
[2024-06-08 16:00] LABS: Glucose - Point of Care 241 mg/dl (70-99)
[2024-06-08] MEDS: NOVOLOG FLEXPEN-LOW RESISTANCE 2 UNITS SC (16:16)
[2024-06-08] MEDS: LOVENOX 40 MG SC (17:40)
[2024-06-08] MEDS: LIPITOR 80 MG PO (17:40)
[2024-06-08] MEDS: PROTONIX 40 MG PO (17:41)
[2024-06-08 19:09] VITALS: BP 152/80
[2024-06-08 21:28] LABS: Glucose - Point of Care 357 mg/dl (70-99)
[2024-06-08] MEDS: ZETIA 10 MG PO (21:29)
[2024-06-08] MEDS: ZOLOFT 100 MG PO (21:29)
[2024-06-08] MEDS: AMBIEN 10 MG PO (21:29)
[2024-06-08] MEDS: TOPROL XL 50 MG PO (21:29)
[2024-06-08] MEDS: LANTUS 0.46 UNITS SC (21:31)
[2024-06-08 22:34] VITALS: BP 155/85
--- NOTE | 2024-06-08 23:36 | PTCARENOTE ---
Assumed care of the pt @ 1900 AAOx3 c/o 12/28 b/l jaw pain Dilaudid IV given. SR on the monitor VSS Lungs CTA denies SOB. Call bliss within reach
[2024-06-09] VITALS (7 sets, daily range): BP systolic 113–146; BP diastolic 53–117; BMI 48.6
[2024-06-09] MEDS: DILAUDID 1 MG IV ×6 (01:14→22:12)
[2024-06-09 04:41] LABS: IgA 197 mg/dl (70-400); IgG 510 mg/dl (700-1600); IgM 60 mg/dl (40-230)
[2024-06-09 04:58] LABS: Free Lambda Light Chains,Quant 14.94 mg/L (5.71-26.30); Kappa/Lambda Fr Light Ratio 1.32 (0.26-1.65)
--- NOTE | 2024-06-09 07:08 | W.PN.HOSP.TC ---
Addendum entered and electronically signed by Rashida Medina MD 06/09/24 11:22:
Addendum
I reviewed TMJ with neurologist on-call. Recommend Lyrica and ENT follow-up
Discussed with patient, she would like to try Lyrica.
Will keep IV Dilaudid, outpatient ENT if needed
End
Original Note:
Today's Communication/Plan
-
f/w pulmonary recommendations
dc planning
Assessment / Plan
Assessment / Plan
PE:
Gen-AAOx3, NAD
HEENT-NC, AT, anicteric, clear oral mm
Neck-supple
CV-reg, no M, +S1/S2
Lungs-clear B/L
Abd-soft, NT, ND
Musculoskeletal-no edema, no deformity
Skin-warm and dry
Neuro-grossly non-focal
Psych-calm, cooperative
Ms. Bobo is a 53-year-old female with past medical history significant for CAD, recent NSTEMI, COPD, interstitial lung disease, sarcoidosis, hypertension, GERD, hypercholesteremia, IBS, GERD, diabetes, diabetic neuropathy, anxiety/depression,
chronic pain, and nicotine dependence who presented to [facility] for evaluation of increased exertional shortness of breath and nocturnal dyspnea since recent hospital discharge for NSTEMI. Patient denies any fever, chills, cough, nausea,
vomiting, constipation, diarrhea or urinary symptoms.
Dyspnea with exertion:
-Lungs relatively clear to auscultation
-CT angiography shows no evidence of PE
-Echo repeated which shows normal structure and function
-Taken for review coronary angiography 06/06 with no findings of obstructive disease
-Recently started on Brilinta which could potentially be contributing to her presentation, have now switched antiplatelet therapy to aspirin and Plavix
-Overall improving, will continue to monitor
-Pulmonology added Symbicort and switched albuterol to levalbuterol which seems to have improved her shakiness, will follow-up further pulmonology recommendations
-Cardiology recommending cardiac MRI in 4 weeks to evaluate for obstructive disease
CAD:
-Continue DAPT with aspirin and Plavix, high intensity statin therapy
-Beta-blockade with metoprolol succinate 50 mg nightly
IDDM:
-Insulin requirements have increased with addition of Symbicort
-Increasing long-acting insulin with glargine to 46 units twice daily, 20 units of short acting insulin with meals, additional sliding scale as needed
Interstitial lung disease:
-Sarcoidosis, COPD
-Supplemental oxygen as needed
# chronic pain syndrome with opioid dependency
# Hyponatremia, mild
# TMJ pain seems to happen after her AK
Responding to pain medicine ( Dilaudid) but increase in intensity after chewing or eating.
Will reach out to neurology medical director occupational health, might benefit from OP follow up or inpt evaluation
CODE STATUS: Full
Total time spent to see the patient, examine the patient, review data and lab results, discuss treatment plan with patient and nursing staff around 55 minutes
Anticipated Discharge: Within 24 hours
Subjective/Interval History
-
Date of Service: June 09, 2024
She complains of jaw pain
She is asking to increase IV Dilaudid dose
She feel sob on ambulation
Objective Data
-
Vital Signs:
Vital Signs
Temp Pulse Resp BP Pulse Ox
98.7 F 96 15 114/90 97
06/09/24 03:55 06/09/24 03:55 06/09/24 03:55 06/09/24 03:33 06/09/24 03:55
I&O
06/08/24 06/09/24 06/10/24
06:59 06:59 06:59
Intake Total 120 / 120
Balance 120 / 120
[2024-06-09 08:09] LABS: Glucose - Point of Care 223 mg/dl (70-99)
[2024-06-09 08:12] LABS: Angiotensin-1-converting Enzym <10 U/L (16-85)
[2024-06-09] MEDS: NOVOLOG FLEXPEN 26 UNITS SC ×3 (08:21→16:53)
[2024-06-09] MEDS: NOVOLOG FLEXPEN-LOW RESISTANCE 2 UNITS SC ×2 (08:21→16:53)
[2024-06-09] MEDS: LASIX 40 MG PO (08:23)
[2024-06-09] MEDS: ULTRAM 100 MG PO ×2 (08:23→20:29)
[2024-06-09] MEDS: VITAMIN D3 (cholecalciferol) 125 MCG PO (08:23)
[2024-06-09] MEDS: KCL 10 MEQ PO (08:23)
[2024-06-09] MEDS: NEURONTIN 300 MG PO ×3 (08:23→22:18)
[2024-06-09] MEDS: PLAVIX 75 MG PO (08:23)
[2024-06-09] MEDS: ASPIR LOW (ENTERIC COATED) 81 MG PO (08:23)
[2024-06-09] MEDS: FLEXERIL 10 MG PO ×2 (08:23→20:29)
[2024-06-09] MEDS: ZESTRIL 5 MG PO (08:24)
[2024-06-09] MEDS: BENTYL 20 MG PO ×2 (08:24→20:29)
[2024-06-09] MEDS: LANTUS 0.46 UNITS SC ×2 (08:27→20:36)
[2024-06-09] MEDS: XOPENEX 1.25 MG INHALANT SOLUTION INH ×4 (08:41→19:28)
[2024-06-09] MEDS: ATROVENT NEBULES 0.5 MG INH ×4 (08:41→19:28)
[2024-06-09] MEDS: SYMBICORT 160/4.5 MCG INHALER 2 PUFF INH ×2 (08:43→19:28)
--- NOTE | 2024-06-09 08:50 | W.PN.PUL3 ---
Today's Communication / Plan
-
Stable on RA, doing well no new complaints
Not on oral steroids, continue nebs/treatments
Discussed OP f/u for next steps
Discharge planning per team--patient wants to go tomorrow
We will sign off at this time, please call with questions
Assessment
-
Assessment: 53-year-old morbidly obese female active tobacco smoker with a past medical history of ILD, history of sarcoidosis (not biopsy-proven), restrictive lung disease, tobacco use disorder, CAD s/p ARMANI (November 2014), moderate AYAAN noncompliant
with CPAP, DM type II, CAD s/p stent to coronary artery, hypertension, and chronic cholecystitis s/p laparoscopic cholecystectomy who presents with shortness of breath and feeling tired since her stent placement this past Sunday. Patient has a
history of CAD with stenting of her proximal LCx in November 2014. She was recently hospitalized from 06/01 - 06/03/2024 after presenting with chest pain, and went to [facility] on 06/02/2024 showing in-stent restenosis of the proximal LCx followed by
70% lesion in the circumflex as it enters OM1, and underwent IVUS guided PCI with overlapping ARMNAI x 2 placed. There was top normal filling pressures with LVEDP of 15 mmHg. Echo done on 06/03/2024 showed preserved LVEF at 65 to 70% with mild
concentric LVH. She was discharged home on 06/03/2024 on aspirin + Brilinta. She now returns with exertional shortness of breath as well as nocturnal dyspnea. She carries a history of COPD however spirometry and PFT testing since 2018 through our
office at [facility] has not shown any evidence of COPD. Initially in the ER she was afebrile to 90 �F, pulse rate 95, breathing at 16 breaths/min, BP 154/75 and saturating 98% on room air. Initial labs showed leukocytosis of 16.3, Hb 16, platelet count
444, absolute eosinophil count: 300, glucose 348, troponin 0.256, proBNP 249, and COVID antigen was negative. Flu A/B swab also negative. Initial CXR showed no acute cardiopulmonary process. Subsequent CTA chest showed no evidence of an acute PE
with mild diffuse mosaic attenuation suspicious for air trapping. Of note there was similar mosaic attenuation on prior CT chest from October 2017. There is similar mediastinal lymphadenopathy. In the ER, IVF was given with 500 cc of NS 0.9% as well
as DuoNebs. She was admitted to telemetry for further care and now pulmonary service consulted for additional management/recommendations.
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
sarcoidosis, IBS, DM type II, CAD s/p stented coronary artery, reported Hx of COPD
Impression:
#Shortness of breath suspected to be due to uncontrolled asthma given nocturnal dyspnea with history of normalization of a moderate gas exchange capacity defect (PFTs from 2020)
#Leukocytosis
#DM type II complicated by hyperglycemia (HbA1c: 8.8 from 05/30/2024)
#Elevated troponin (peaked at 0.28 on 06/06/2024)
#Reported Hx of COPD - spirometry/PFT testing in 2017 + 2020 showed no evidence of COPD, and instead showed evidence of mild�moderate restrictive lung disease
#CAD with history of ARMANI to LCx in December 07 15 c/b ISR followed by 70% lesion in the LCx as it enters OM1 s/p ARMANI x 2 (06/02/2024)
#Pulmonary sarcoidosis not on treatment (not biopsy proven sarcoid, however CD4:8 ratio >3.5:1 and BAL lymphocyte is 19%)
#Severe morbid obesity (BMI: 47.8)
#AYAAN noncompliant to CPAP
Plan:
Currently 98% on RA
- Her CTA chest findings are concerning for air trapping and could be explained by RB-ILD, sherman with her current tobacco use - definitive Dx would require biopsy; other DDx is asthma flare with air trapping from bronchoconstriction
- She does carry a Hx of sarcoidosis, however I do not see any peribronchovascular nodules, patchy consolidation, and typically the groundglass opacities are in the mid to upper lobe lung krause, whereas her hyperattenuation/GGO is seen diffusely;
she had a EBUS-bronchoscopy with BAL in February 2015, and path neg for granulomas, although CD4:8 ratio was 4:1 and her BAL lymphocyte % was 19 which is highly supportive of sarcoidosis
- Would recommend outpatient PFTs and ophthalmology eval (which she already does see)
- Given her shortness of breath with exertional and nocturnal dyspnea with prior PFTs showing findings consistent with asthma, I started her on a LABA/ICS (Symbcort 160mcg)
- Continue nebulized bronchodilators as she is improving with this, further supporting that she has an airway disorder and not interstitial disorder causing her current symptoms
- She has shakiness with the DuoNeb so I changed this to Atrovent + Xopenex with prn DuoNebs for breakthrough symptoms (SOB/wheezing)
- Maintain SpO2 >90-94% with supplemental O2 and wean down as tolerated
- Follow up MARYANN level + HP-panel; CRP is slightly elevated at 20.1, and ESR is WNL at 5
- Advised pt to stop smoking - rec'd nicotine replacement therapy using 2 modalities at once
- Patient went to the [facility] on the evening of 06/06/2024 showing nonobstructive CAD with widely patent left circumflex stent and IFR negative proximal LAD, and normal LV filling pressures with no aortic stenosis
- Continue DAPT with ASA and plavix
- Continue high intensity statin + Zetia
- Trend WBC; she's non-toxic appearing and afebrile; observe off ABx
- Incentive spirometer q1hr while awake
- Replete electrolytes with K>4, Mg>2
- Maintain euglycemia with goal BG >100 and <180
- PT/OT
- Up OOB as tolerated
- DVT ppx: LMWH
Pulmonary service will continue to follow along. We will arrange for outpatient pulmonary office follow-up as she previously followed with us in the office with Dr. Singh (last seen 2018) and last saw us in the office on 09/17/2020 with Fidelina
VIRGILIO Gongora.
OP FU discussed today, placed in chart
Discharge planning per team
Data:
CTA Chest 06/05/2024:
1. No evidence of pulmonary embolism.
2. Mild diffuse mosaic attenuation pattern throughout the lungs bilaterally may reflect areas of air trapping.
Total time spent today was 39 minutes for this encounter. Time includes reviewing laboratory test/imaging results, reviewing pertinent medical records, obtaining and reviewing medical history, performing an appropriate exam, ordering medications,
tests and procedures. Time also includes documentation of this encounter, coordinating patient care and communicating with other healthcare professionals. Total time does not include separately billed tests performed on this date of service.
Subjective Data
-
Date of Service:
Date of Service: June 09, 2024
Chief Complaint: Pulmonary Follow Up
Subjective:
No new complaints, stable on RA
Objective Data
Data Reviewed
Vital Signs / I&O / Oxygen:
Vital Signs
Temp Pulse Resp BP Pulse Ox
98.8 F 92 18 145/80 98
06/09/24 08:11 06/09/24 08:45 06/09/24 08:45 06/09/24 08:24 06/09/24 08:45
Intake and Output
06/08/24 06/09/24 06/10/24
06:59 06:59 06:59
Intake Total 120 / 120
Balance 120 / 120
SaO2 98
Nasal Cannula flow liters per 2.5
minute
Physical Exam
General: Respiratory Distress (negative), Comfortable, Chills (negative) and Sweats (negative)
HEENT: Normocephalic, Anicteric and Other (Thick neck)
Cardiovascular: S1-S2, Rub (negative) and Peripheral Edema (negative)
Respiratory: Clear, Rhonchi (negative), Non-Labored Respirations, Stridor (negative) and Other (Coarse breath sounds heard bilaterally)
GI: Soft, Distended (Abdominal obesity), Non Tender and Normal Bowel Sounds
Neurology: AO x 3 and Tremors (negative)
Skin: Warm, Dry, Cyanosis (negative) and Jaundice (negative)
Labs/Micro/Reports
Lab Data
06/06/24 07:29
06/08/24 12:36
--- NOTE | 2024-06-09 09:33 | CM ---
Reviewed chart. Mrs. Bobo was transferred to IVU. Met with Ms. Bobo to review discharge plans. She states prior to admission she resides with her parent, and his daughter in a spilt level home. She uses the side the door and she does not have
any steps to enter. She states she has four steps to get to the main level and then steps to get to the bedroom/full bathroom. She states prior to admission she was independent with ambulation and adls. She states she estrella not have any DME in the
home. She states she has a prescription plan and uses [facility]. Medical work-up in progress. The discharge plan is to return home with her family when medically stable.
[2024-06-09] MEDS: FLUSH (NSS) 1 FLUSH IV ×3 (09:37→18:00)
--- NOTE | 2024-06-09 09:40 | W.PN.CD ---
Addendum entered and electronically signed by Rosalio Montenegro MD 06/09/24 10:38:
53 yo female with CAD, prior stenting, then recent NSTEMI and Lcx stent 06/02/24 admitted with SOB and jaw pain. Exam with RRR, no murmurs, no edema. Cardiac cath showed patents stents and normal LVEDP. Tele: no arrhythmia.
Continue DAPT with ASA and Plavix. We did change Brilinta to plavix, in case SOB is side effect of brilinta.
Please call us back with additional questions.
Original Note:
Today's Communication / Plan
-
Plan is OP cardiac MRI in 4 weeks (to be ordered at OP follow-up, which I will place in chart)
Continue ASA and plavix
Management of lung issues per pulmonary
Impression / Plan
-
Impression/Plan: 53 y/o female with HTN, HLD, IDDM, non-biopsy proven sarcoidosis with some RLD and premature CAD s/p PCI of pLCX (2014) recently admitted with NSTEMI requiring PCI of pLCx ISR with extension into a 70% de parag LCx lesion, now
readmitted with shortness in breath/fatigue.
#SOB/fatigue
-CXR and chest CT negative for PE, not volume overloaded on exam.
-Possibly related to ticagrelor. This has been transitioned to clopidogrel.
-Echocardiogram, CXR, and repeat cardiac catheterization do not reveal a source of SOB/ARIAS.
-She feels that breathing is a little better. Breathing tx helped at first, but still more ARIAS when moving around the room. There is consideration for steroid use. Continue treatment as directed by director business management.
#CAD
-NSTEMI 06/02/24 s/p PCI to culprit 90% pLCx ISR lesion followed by a 70% de parag LCx/OM1 lesion (overlapping Xience Skypoint 3.25 x 33 and 3.25 x 18 ARMANI).
-DAPT with aspirin/clopidogrel for at least 12 months, followed by aspirin indefinitely.
-Echo 06/02/24 normal.
-She has abnormal but flat troponin elevation (non-ischemic as below).
#Non-ischemic troponin elevation
-Present since NSTEMI (it may predate it).
-Clearly not ischemic based off of troponin pattern, negative repeat angiography.
-She does carry a diagnosis of non-biopsy proven sarcoidosis, which may affect the myocardium, though echocardiogram shows no RWMA (limited evaluation).
-Cardiac MRI may be beneficial and give a clearer wall motion evaluation, though she just had ARMANI placed, which may affect the time frame of MRI.
-Recommend outpatient cardiac MRI in 4 weeks
-Cardiac MRI as outlined by Dr. Sofia due to persistent elevation in troponin can look for sarcoid. Also can be screen for amyloid in this patient that had some elevation and light chains on her prior study. Follow-up labs for light chains done-
will review with machine woodworking sander.
#HLD
-Chronic, stable.
-LDL is at goal per last lipid panel.
-Continue atorvastatin.
#HTN
-Chronic, stable on medical therapy.
-remain off midodrine.
#DM II on insulin
-Chronic, stable.
-Management per hospitalist.
-Continue semaglutide as an outpatient.
#Sarcoidosis/IPL/COPD
-Chronic.
-Close follow up with pulmonology.
#Morbid obesity
-Chronic.
-Continue semaglutide with weight loss.
#Hyponatremia:
-per primary
Subjective/Interval History:
Feels breathing is a little better, but not back to baseline
Has consistently had jaw discomfort, which appears to not be an acute cardiac issue at this time
DATA:
Cardiac Catheterization/PCI, 06/02/2024:
CONCLUSIONS
1. 1. Right dominant circulation with a 70% lesion in the distal RCA is around the crux, a 50% lesion in the proximal LAD with a 30% tapering of the mid vessel spanning the origin of a diagonal and a culprit, 90% in-stent restenosis lesion of the
proximal circumflex followed by a 70% circumflex lesion as it enters the first obtuse marginal, status post successful IVUS guided PCI to the circumflex lesions (overlapping Xience Skypoint 3.25 x 33 ARMANI, 3.25 x 18 ARMANI, postdilated with a 3.25 NC
balloon) with reduction in stenosis to 0%, maintaining AMBER-3 flow. There has been progression of the distal RCA disease, but the LAD disease appears similar to prior coronary angiogram of 11/23/2014.
2. Top normal filling pressures (LVEDP = 15 mmHg at 121.5 kg).
CT Chest, 06/05/2024:
IMPRESSION:
1. No evidence of pulmonary embolism.
2. Mild diffuse mosaic attenuation pattern throughout the lungs bilaterally may reflect areas of air trapping.
Echocardiogram, 06/06/2024:
CONCLUSIONS
Technically difficult study with fair image quality
Limited follow-up study
Normal left ventricular size and function.
Left ventricular ejection fraction is 65-70% by visual assessment.
Wall motion analysis may be limited by image quality
Compared to the prior echo report left ventricular function is unchanged
Cardiac Catheterization/iFR, 06/06/2024:
CONCLUSIONS
1. Nonobstructive coronary artery disease in a right dominant system with widely patent left circumflex stent and IFR negative proximal LAD.
2. Normal LV filling pressure and no aortic stenosis.
Physical Exam
Vital Signs/Labs
Vital Signs
Temp Pulse Resp BP Pulse Ox
98.8 F 98 18 145/80 98
06/09/24 08:11 06/09/24 09:30 06/09/24 08:45 06/09/24 08:24 06/09/24 08:45
06/08/24 06/09/24 06/10/24
06:59 06:59 06:59
Actual Weight 119.5 kg 120.5 kg
06/06/24 07:29
06/08/24 12:36
06/05/24 06/05/24 06/05/24
13:37 13:37 15:22
Ehu-P-Zmnvmfjnuaj Pept 249 Cancelled Cancelled
LAB Results
06/06/24
09:09
Troponin I 0.261 H*
Physical Exam
Constitutional: No acute distress
EENT: Anicteric
Cardiovascular: Rhythm & rate is regular
Respiratory: Other (diminished to b/l bases)
Neuro/Psych: AO x 3
Other: Skin (warm and dry)
Data Reviewed
-
Date of Service: June 09, 2024
EKG: Other ()
--- NOTE | 2024-06-09 10:33 | PTCARENOTE ---
received patient this am, monitor shows NSR/ST, VSS. patient continues to have bilat. jaw pain , Dilaudid IV given as ordered. Dr. Medina in assessing patient. will continue to monitor.
[2024-06-09 13:30] LABS: Glucose - Point of Care 172 mg/dl (70-99)
[2024-06-09] MEDS: NOVOLOG FLEXPEN-LOW RESISTANCE 1 UNITS SC (13:32)
--- NOTE | 2024-06-09 13:53 | PTCARENOTE ---
patient sitting in bed weeping, patient feels very frustrated about not knowing why her jaw continues to hurt and her SOB. hospitalist, fur glosser and heel stiffener saw patient today. sat with patient and offered emotional support. patient asked
for Dilaudid for bilat. jaw pain, given as ordered.
--- NOTE | 2024-06-09 15:17 | PTCARENOTE ---
Patient returned from jaw xray. patient was asking if wound care is coming to see her for her left great toe, I TT Dr. Medina, wound care consult ordered.
[2024-06-09 16:53] LABS: Glucose - Point of Care 218 mg/dl (70-99)
[2024-06-09] MEDS: LIPITOR 80 MG PO (17:32)
[2024-06-09] MEDS: PROTONIX 40 MG PO (17:32)
[2024-06-09] MEDS: LOVENOX 40 MG SC (17:32)
--- NOTE | 2024-06-09 18:03 | PTCARENOTE ---
patient requested Dilaudid for bilat. jaw pain, given as ordered.
[2024-06-09 20:36] LABS: Glucose - Point of Care 196 mg/dl (70-99)
[2024-06-09] MEDS: TOPROL XL 50 MG PO (22:18)
[2024-06-09] MEDS: ZETIA 10 MG PO (22:18)
[2024-06-09] MEDS: ZOLOFT 100 MG PO (22:18)
[2024-06-09] MEDS: AMBIEN 10 MG PO (22:19)
[2024-06-10 04:01] VITALS: BP 118/69
[2024-06-10] MEDS: DILAUDID 1 MG IV ×3 (04:03→13:16)
[2024-06-10 04:18] VITALS: BMI 48.6
--- NOTE | 2024-06-10 05:04 | PTCARENOTE ---
Rec'd pt at change of shift. Pt AAO*3, VSS, and in SR on TELE monitor. Pt reports pain in jaw and lower extremities, PRN Dilaudid given as ordered. Pt updated on plan of care and denies having any questions or concerns. Pt resting with call bliss
in reach. Plan of care ongoing.
[2024-06-10 05:21] LABS: Blood Urea Nitrogen 11 mg/dl (7-17); Calcium 9.3 mg/dl (8.4-10.2); Carbon Dioxide 29 mmol/L (22-30); Chloride 92 mmol/L (98-107); Estimated Creatinine Clearance > 125 ml/min; Glucose 213 mg/dl (70-99); Potassium 3.9 mmol/L (3.5-5.1); Sodium 132 mmol/L (135-145); eGFR > 60.00
--- NOTE | 2024-06-10 06:35 | W.PN.HOSP.TC ---
Addendum entered and electronically signed by Rashida Medina MD 06/10/24 11:11:
Addendum
Talked to keycase assembler. Pt reported she might not use her nebulizer as QID despite instructions, we are working with keycase assembler to order nebs.
Pt requested wound care nurse to see her feet before discharge. Consulted wound care, input appreciated.
Will continue to accommodate pt's needs before discharge. I appreciate keycase assembler help.
Addendum entered and electronically signed by Rashida Medina MD 06/10/24 10:56:
Patient needs a nebulizer due to chronic lung disease, uncontrolled asthma, obstructive sleep apnea, pulmonary sarcoidosis.
Original Note:
Today's Communication/Plan
-
DC planning
Assessment / Plan
Assessment / Plan
PE:
Gen-AAOx3, not in distress, was laying flat on her left side, bedside laptop, watching TV.
HEENT- no deformities.
Neck-supple
CV-reg, no M, +S1/S2
Lungs-No wheezes.
Abd- ND
Musculoskeletal-no edema, no deformity
Skin-warm and dry, Alert, oriented, she follows commands, non-focal
Psych-calm, cooperative.
Ms. Bobo is a 53-year-old female with past medical history significant for CAD, recent NSTEMI, COPD, interstitial lung disease, sarcoidosis, hypertension, GERD, hypercholesteremia, IBS, GERD, diabetes, diabetic neuropathy, anxiety/depression,
chronic pain syndrome, and nicotine dependence who presented to [place] ED for evaluation of increased exertional shortness of breath and nocturnal dyspnea since recent hospital discharge for NSTEMI. Patient denies any fever, chills, cough,
nausea, vomiting, constipation, diarrhea or urinary symptoms.
Dyspnea with exertion:
She was evaluated by pulmonary doctor 06/09, recommended OP follow up, no indication for steroid, c/w breathing treatments.
-Lungs relatively clear to auscultation
-CT angiography shows no evidence of PE
-Echo repeated which shows normal structure and function
-Taken for review coronary angiography 06/06 with no findings of obstructive disease
-Recently started on Brilinta which could potentially be contributing to her presentation, have now switched antiplatelet therapy to aspirin and Plavix
-Overall lung exam remained with no wheezes.
-Pulmonology added Symbicort. Advised pt to stop smoking - rec'd nicotine replacement therapy using 2 modalities at once
-Cardiology recommending cardiac MRI in 4 weeks to evaluate for obstructive disease
I also d/w Degreaser, ok to discharge.
Appreciate pulmonary help.
CAD:
No chest pains
-Continue DAPT with aspirin and Plavix, high intensity statin therapy
-Beta-blockade with metoprolol succinate 50 mg nightly
Appreciate cardiology help
IDDM:
-Insulin requirements have increased with addition of Symbicort
-Increasing long-acting insulin with glargine to 46 units twice daily, 20 units of short acting insulin with meals, additional sliding scale as needed
Interstitial lung disease:
-Sarcoidosis, COPD
-No hypoxia.
# chronic pain syndrome with opioid dependency
She wants to continue with IV Dilaudid in hospital. She received 6 times IV Dilaudid in last 24 hours, she reported she had oral Tramadol and Dilaudid at home. Per staff, she is sleeping well, tolerating diet well. She is also on Gabapentin,
Ambien, Bentyl, Flexeril and Zoloft. She should continue to follow with pain management doctor.
# Hyponatremia, mild
# TMJ pain, she reported pain happened after her HI
Responding to pain medicine ( Dilaudid), described as aches.
I talked to neurology dedicated regional driver, might benefit from OP follow up with ENT, trial of Lyrica/ Gabapentin should also help. X ray of mandible was unremarkable. No fevers.
# Obesity, BMI 48
# Discharge planning
Pt was to be discharged yesterday after cleared by pulmonary and motor vehicle examiner to follow as OP. Patient wanted to stay another day. I told the patient she was discharged today, I discussed with nursing staff. I recommended strongly to follow with her
PCP or do ENT appointment if Jaw pain persisted.
CODE STATUS: Full
Total discharge time spent to see the patient, examine the patient, review data and lab results, discuss treatment/ discharge plan with patient and nursing staff around 67 minutes
Anticipated Discharge: Today
Subjective/Interval History
-
Date of Service: June 10, 2024
She feels her jaw pain still there but responds to Dilaudid
SOB still the same for her, no hypoxia
Objective Data
-
Labs:
Laboratory Results
06/10/24
04:15
Sodium 132 L
Potassium 3.9
Chloride 92 L
Carbon Dioxide 29
BUN 11
Creatinine 0.6
Glucose 213 H
Calcium 9.3
Vital Signs:
Vital Signs
Temp Pulse Resp BP Pulse Ox
98.3 F 90 20 118/69 93
06/10/24 04:01 06/10/24 04:01 06/10/24 04:01 06/10/24 04:01 06/10/24 04:01
I&O
06/08/24 06/09/24 06/10/24
06:59 06:59 06:59
Intake Total 120 / 120 960 / 960
Balance 120 / 120 960 / 960
[2024-06-10 07:00] VITALS: BP 112/67
[2024-06-10] MEDS: ATROVENT NEBULES 0.5 MG INH ×2 (07:37→11:00)
[2024-06-10] MEDS: SYMBICORT 160/4.5 MCG INHALER 2 PUFF INH (07:37)
[2024-06-10] MEDS: XOPENEX 1.25 MG INHALANT SOLUTION INH ×2 (07:37→11:00)
[2024-06-10] MEDS: ASPIR LOW (ENTERIC COATED) 81 MG PO (07:39)
[2024-06-10] MEDS: KCL 10 MEQ PO (07:39)
[2024-06-10] MEDS: NEURONTIN 300 MG PO (07:39)
[2024-06-10] MEDS: FLEXERIL 10 MG PO (07:39)
[2024-06-10] MEDS: ZESTRIL 5 MG PO (07:39)
[2024-06-10] MEDS: VITAMIN D3 (cholecalciferol) 125 MCG PO (07:39)
[2024-06-10] MEDS: BENTYL 20 MG PO (07:39)
[2024-06-10] MEDS: ULTRAM 100 MG PO (07:39)
[2024-06-10] MEDS: LASIX 40 MG PO (07:39)
[2024-06-10] MEDS: PLAVIX 75 MG PO (07:39)
[2024-06-10] MEDS: LANTUS 0.46 UNITS SC (07:48)
[2024-06-10 07:49] LABS: Glucose - Point of Care 207 mg/dl (70-99)
[2024-06-10] MEDS: NOVOLOG FLEXPEN 26 UNITS SC ×2 (07:49→12:05)
[2024-06-10] MEDS: NOVOLOG FLEXPEN-LOW RESISTANCE 2 UNITS SC ×2 (07:49→12:04)
[2024-06-10] MEDS: FLUSH (NSS) 1 FLUSH IV ×2 (08:46→13:17)
--- NOTE | 2024-06-10 08:53 | PTCARENOTE ---
received patient this am, monitor NSR, VSS. patient still continues to have bialt. jaw pain, Dilaudid IV given as ordered. discussed plan of care today, patient has many questions to ask physicians.
--- NOTE | 2024-06-10 10:38 | WOUNDNOTE ---
L GREAT TOE MEDIAL
--- NOTE | 2024-06-10 10:38 | WOUNDNOTE ---
L PLANTAR GREAT TOE AND FOOT
--- NOTE | 2024-06-10 10:38 | WOUNDNOTE ---
JESSICA RN NOTE: Asked to see patient upon request from patient for great toes and feet. Reviewed medical history and chart. 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 No drainage or signs of infection.
Patient states she gets dry cracked fissures especially when cold outside. Wears flip flops, unable to tolerate closed toe shoes due to pain in L leg/foot due to chronic condition. Recommend mineral oil to dry cracked fissures and to cover L great
toe with coverlet to prevent infection. Instructed patient to follow up with Parts Sales Associate, patient states she will. Will confirm the above with hospitalist and updated nurse Christina. Patient for discharge later today once receives mineral oil. Coverlets
brought to bedside. Will update discharge instructions.
[2024-06-10 11:09] VITALS: BP 114/69
[2024-06-10 11:45] LABS: Glucose - Point of Care 239 mg/dl (70-99)
--- NOTE | 2024-06-10 12:11 | PTCARENOTE ---
wound care came to see patient, aquaphor given to patient to take home. I offered to do dressing changes on left great toe and feet, patient stated, 'I will do it when I get home.'
--- NOTE | 2024-06-10 13:14 | W.DCSUMMARY ---
Discharge Summary
Discharge Data
Date of Admission: 06/09/24
Date of Discharge: 06/10/24
-
Pending Results: No
Hospital Course
53 years old female with a past medical history of interstitial lung disease, history of sarcoidosis (not biopsy-proven), restrictive lung disease, current tobacco use disorder, CAD s/p ARMANI (November 2014), moderate AYAAN noncompliant with CPAP, DM type
II, CAD s/p stent to coronary artery, obesity BMI around 48, diabetic neuropathy, hypertension presented with shortness of breath and feeling tired since her stent placement on 06/02/24. She was recently hospitalized from 06/01 - 06/03/2024 after
presenting with chest pain, and went to the [facility] on 06/02/2024 showing in-stent restenosis of the proximal LCx followed by 70% lesion in the circumflex as it enters OM1, and underwent IVUS guided PCI with overlapping ARMANI x 2 placed. There was
top normal filling pressures with LVEDP of 15 mmHg. Echo done on 06/03/2024 showed preserved LVEF at 65 to 70% with mild concentric LVH. She was discharged home on 06/03/2024 on aspirin + Brilinta. She returned to the ER with exertional shortness
of breath as well as nocturnal dyspnea. She had history of COPD but no recent follow up with pulmonary doctor. Initially in the ER she was afebrile to 90 �F, pulse rate 95, breathing at 16 breaths/min, BP 154/75 and saturating 98% on room air.
Initial labs showed leukocytosis of 16.3, Hb 16, platelet count 444, absolute eosinophil count: 300, glucose 348, troponin 0.256, proBNP 249, and COVID antigen was negative. Flu A/B swab also negative. Initial CXR showed no acute cardiopulmonary
process. Subsequent CTA chest showed no evidence of an acute PE with mild diffuse mosaic attenuation suspicious for air trapping. Of note there was similar mosaic attenuation on prior CT chest from October 2017. There was similar mediastinal
lymphadenopathy. She was not on inhalers, but previously was on Breo and Xopenex. She had repeat echocardiogram that showed left ventricular ejection fraction of 65 to 70% with no significant changes from prior echocardiogram. Program Engineer
evaluated the patient repeat heart catheterization showed nonobstructive coronary artery disease with patent stent, recommended to continue dual antiplatelet therapy with aspirin and Plavix. Brilinta was stopped for possible side effect and was
replaced with the Plavix. Program Engineer followed the patient and offered no new recommendations other than outpatient follow-up and patient verbalized understanding to the importance of that. Patient was seen by pulmonary doctor. Her shortness of
breath was suspected to be multifactorial secondary to uncontrolled asthma with obesity, underlying interstitial lung disease and noncompliance to CPAP therapy. Patient was started on nebulizer therapy. She maintained good oxygenation on room air.
Pulmonary doctor recommended to continue with the breathing treatments to avoid steroid therapy especially with history of diabetes and uncontrolled hyperglycemia. Patient did not have visible shortness of breath or wheezes but she she reported
she continued to have exertional shortness of breath for which pulmonary doctor recommended outpatient follow-up for further workup on pulmonary function test. Patient was counseled by pulmonary doctor regarding compliance to her breathing
treatments and to avoid tobacco use, she verbalized understanding. Patient complained of bilateral jaw pain. Clinical exam was unremarkable with no tenderness or swelling. She denies toothache or dental issues. Patient had history of a chronic
pain syndrome with opioid dependency. Patient reported that she had oral tramadol and Dilaudid at home but she wanted to continue with intravenous Dilaudid while in the hospital. She was able to tolerate oral diet and she was able to sleep without
difficulties. X-ray of the mandible was unremarkable on both side. Patient was advised to follow-up with her primary care doctor and given information to make appointment with ENT specialist if jaw pain persisted. She requested a paper script for
5 mg Flexeril to use as needed. Patient remained hemodynamically stable. She was evaluated by classification case manager and nebulizer treatment was given to the patient at home. Patient was discharged home in a stable condition.
Discharge Plan
-
Patient Disposition: Home with Home Care
Discharge Diagnosis/Procedures: - Cardiac cath, you were seen by refrigerating oiler.
-Exertional Shortness of breath suspected to be due to multiple factors including uncontrolled asthma, obesity, obstructive sleep apnea with noncompliance to CPAP, you were seen by pulmonary doctor, recommended to use inhaler, avoid tobacco, follow
in office for further management.
-Bilateral jaw pain, x ray was unremarkable, your pain responded to IV Dilaudid. Follow with your family doctor, make an appointment with ENT specialists if pain persists.
Diet: Low Cholesterol and Diabetic, Carb Controlled
Driving Restrictions: No driving for 24 hours
Activity Restrictions/Additional Instructions:
Wound Care Instructions
Great toes and feet: Clean with mild soap and water, dry then apply mineral oil/Aquaphor to dry cracked skin daily. Cover L great toe fissure with band aid change daily.
Follow up with Heavy Equipment Mechanic.
Stand Alone Forms: DC Instructions- Cath/EP Lab
Referrals:
[facility] [Outside]
Bita Chandra CRNP [Specified Professional Personl] - 06/24/24 7:40 am
Freddy Arellano, DO [Family Provider] - in less than 1 week
Winston Martini MD [Active] - (Call to make appointment if needed)
Luciano Reglaado MD [Active] - in one to two weeks
Fidelina Gongora CRNP [Specified Professional Personl] - in one to two weeks (PFTs)
Prescriptions:
New
ipratropium bromide 0.02 % Solution
0.5 mg inhalation R QID Qty: 150 0RF
clopidogrel 75 mg Tablet
75 mg PO DAILY Qty: 30 0RF
budesonide-formoterol [Symbicort] 160-4.5 mcg/actuation Hfa Aerosol Inhaler
2 puff inhalation R BID Qty: 10.2 0RF
levalbuterol HCl 1.25 mg/3 mL Solution For Nebulization
1.25 mg inhalation R QID Qty: 90 0RF
cyclobenzaprine 5 mg tablet
5 mg PO BID PRN (Reason: Muscle pain/spasm) Qty: 20 0RF
Continued
zolpidem [Ambien CR] 12.5 MG tablet,ext release multiphase
12.5 mg PO HS
insulin aspart U-100 [Novolog FlexPen U-100 Insulin] 300 UNITS/3 ML insulin pen
26 units SC AC
atorvastatin 80 MG tablet
80 mg PO QPM
metoprolol succinate 50 MG tablet extended release 24 hr
50 mg PO HS
sertraline 100 MG tablet
100 mg PO HS
dicyclomine 20 MG tablet
20 mg PO BID
furosemide 20 MG tablet
40 mg PO DAILY
cyclobenzaprine 10 mg Tablet
10 mg PO BID
insulin glargine [Lantus U-100 Insulin] 100 unit/mL Solution
40 unit SC BID
potassium chloride 10 mEq Tablet Extended Release
10 meq PO DAILY
tramadol 50 mg Tablet
100 mg PO BID
lisinopril 5 mg Tablet
5 mg PO DAILY
ezetimibe [Zetia] 10 mg Tablet
10 mg PO HS
metformin 500 mg Tablet Extended Release 24hr
1,000 mg PO QPM
cholecalciferol (vitamin D3) 125 mcg (5,000 unit) Tablet
125 mcg PO DAILY
icosapent ethyl [Vascepa] 1 gram Capsule
1 g PO BID
Ozempic 0.25 mg or 0.5 mg(2 mg/1.5 mL) Pen Injector
2 mg SC [place]
Medical Marijuana
1 gummy PO HS
Baqsimi 3 mg/actuation [place],Non-Aerosol
3 mg INTRANASAL DAILYPRN PRN (Reason: high sugar)
gabapentin 300 mg Capsule
300 mg PO TID
omeprazole 20 mg Tablet,Delayed Release (Dr/Ec)
20 mg PO QPM
aspirin 81 MG tablet,delayed release (DR/EC)
81 mg PO DAILY
hyoscyamine sulfate 0.125 mg Tablet, Sublingual
0.125 mg PO TIDPRN PRN (Reason: gi issue)
Discontinued
midodrine 5 mg Tablet
5 mg PO BID
Brilinta 90 mg tablet
90 mg PO BID
Discharge Orders:
Discharge Patient (As Directed); Ordered 06/10/24
Ordered By: Rashida Medina
Care Plan Goals
Care Plan Goals:
Problem: Readiness for enhanced knowledge related to diagnosis and treatment plan
Goal: Understand your diagnosis and treatment plan needs, including medications if applicable.
Instructions: Know your diagnosis, underlying causes and treatment plan options, including medications if applicable. Consult with your health care team to learn about your diagnosis and treatment plan, including medications if applicable.
Discharge Date and Time
Discharge Date/Time: 06/10/24 15:11
Print Language: SAMOAN
--- NOTE | 2024-06-10 13:39 | PTCARENOTE ---
patient c/o jaw pain, deluded given as ordered.
--- NOTE | 2024-06-10 13:43 | PTCARENOTE ---
D/C instructions given to patient and mother both verbalizes understanding. INT D/C'd, telemetry D/C'd, personal belongings packed and sent home with patient. D/C to home via wc accompanied by staff.
--- NOTE | 2024-06-10 13:44 | CM ---
Reviewed chart. Met with Mrs. Bobo to review discharge plans. Doctor would like her to have Nebulizer. Telephone call to [facility] to check if they take her [employer]. [facility] does not take her [employer]urance. Telephone call to [facility] to make the referral. Sent the referral. They will send her the Nebulizer and medications. Met with Mrs. Bobo to review Nebulizer and review [facility] Services. She is agreeable to VNA Services and
has selected [facility]. Telephone call to [facility] to make the referral. Sent the referral.. Prior to admission she resides with her parents, and her daughter in a spilt level home. She does not have any steps to enter the home. she
has four steps to get to the main area and another set of steps to get to bedroom/full bathroom. Prior to admission she was independent with ambulation and adls.. Prior to admission she does not have any DME in the home. She has a prescription plan
and uses [facility]. Medical work-up in progress. The discharge plan is to return home with her family, Home Nebulizer and [facility] when medically stable.
--- NOTE | 2024-06-10 14:05 | PTCARENOTE ---
D/C instructions faxed to [facility] by community mental health social worker.
[2024-06-12 19:39] LABS: Aspergillus fumigatus #1 Ab None Detected (None Detected); Aspergillus fumigatus #6 Ab None Detected (None Detected); Aureobasidium pullulans Ab None Detected (None Detected); Micropolyspora faeni Ab None Detected (None Detected); Pigeon Serum Ab None Detected (None Detected)
--- NOTE | 2024-06-13 15:03 | PN.CDI ---
Addendum entered and electronically signed by Rashida Medina MD 06/14/24 06:27:
uncontrolled chronic asthma
Original Note:
CDI
- -
CDI:
Physician Documentation Request
Admit Date: 06/09/24 13:54
Dear Doctor Adam,
Patient admitted for evaluation and management of shortness of breath. Past medical history included COPD, interstitial lung disease, sarcoidosis.
06/10 progress note states 'Patient needs a nebulizer due to chronic lung disease, uncontrolled asthma, obstructive sleep apnea, pulmonary sarcoidosis. '
06/09 pulmonary note states 'Continue nebulized bronchodilators as she is improving with this, further supporting that she has an airway disorder and not interstitial disorder causing her current symptoms '
Please clarify the etiology of her current symptoms:
uncontrolled asthma (please indicate acute or chronic)
pulmonary sarcoidosis
COPD (please specify exacerbation or no exacerbation)
Other interstitial lung disease (please specify if known)
Other airway disorder (please specify if known)
multifactorial (list lung conditions contributing)
Other
Use of terms such as suspected, likely, concern for, or probable (associated with a specific diagnosis that is being evaluated, monitored, or treated as if it exists) are acceptable and can be coded in the inpatient setting, when documented at the
time of discharge.
Thank you,
Sweetie Mccoy RN, BSN
CDI Specialist
tiger text
Please use your independent medical judgment in providing your response.
== END 2024-06-10 15:11 | disposition home health service (06) | DRG 202 ==
LOC: IVU 13:54
PROVIDERS: Internal Medicine; Nurse Practitioner; Nurse Practitioner Adult Health; Nurse Practitioner Family; Physician Assistant; Student in an Organized Health Care Education/Training Program; ADMITTING PHYSICIAN Student in an Organized Health Care Education/Training Program; ATTENDING PHYSICIAN Internal Medicine; CONSULT PHYSICIAN Internal Medicine Critical Care Medicine; EMERGENCY PHYSICIAN Emergency Medicine; FAMILY PHYSICIAN Family Medicine; OTHER PHYSICIAN Internal Medicine Cardiovascular Disease
PROC: 4A023N7 Measurement of Cardiac Sampling and Pressure, Left Heart, Percutaneous Approach (ICD-10-PCS; 2024-06-06)
PROC: B2111ZZ Fluoroscopy of Multiple Coronary Arteries using Low Osmolar Contrast (ICD-10-PCS; 2024-06-06)
PROC: B240ZZ3 Ultrasonography of Single Coronary Artery, Intravascular (ICD-10-PCS; 2024-06-06)
PROC: 4A033BC Measurement of Arterial Pressure, Coronary, Percutaneous Approach (ICD-10-PCS; 2024-06-06)
DX: J45.909 Unspecified asthma, uncomplicated (principal); I21.4 Non-ST elevation (NSTEMI) myocardial infarction; J84.9 Interstitial pulmonary disease, unspecified; Z68.42 Body mass index [BMI] 45.0-49.9, adult; D86.0 Sarcoidosis of lung; I25.10 Atherosclerotic heart disease of native coronary artery without angina pectoris; J44.89 Other specified chronic obstructive pulmonary disease; E66.01 Morbid (severe) obesity due to excess calories; G47.33 Obstructive sleep apnea (adult) (pediatric); Z91.199 Patient's noncompliance with other medical treatment and regimen due to unspecified reason; I10 Essential (primary) hypertension; K21.9 Gastro-esophageal reflux disease without esophagitis; E78.00 Pure hypercholesterolemia, unspecified; K58.9 Irritable bowel syndrome, unspecified; E11.40 Type 2 diabetes mellitus with diabetic neuropathy, unspecified; F41.9 Anxiety disorder, unspecified; F32.A Depression, unspecified; G89.4 Chronic pain syndrome; F17.210 Nicotine dependence, cigarettes, uncomplicated; Z90.49 Acquired absence of other specified parts of digestive tract; Z79.4 Long term (current) use of insulin; Z79.82 Long term (current) use of aspirin; Z79.02 Long term (current) use of antithrombotics/antiplatelets; Z79.84 Long term (current) use of oral hypoglycemic drugs; Z79.899 Other long term (current) drug therapy; Z80.42 Family history of malignant neoplasm of prostate; Z82.49 Family history of ischemic heart disease and other diseases of the circulatory system; Z90.710 Acquired absence of both cervix and uterus; E11.65 Type 2 diabetes mellitus with hyperglycemia; Z11.52 Encounter for screening for COVID-19; M26.603 Bilateral temporomandibular joint disorder, unspecified
CPT/HCPCS: 93308; 70100; 71046; 71275; 76937; 80048; 80053; 82164; 82784; 82947; 82962; 83521; 83880; 84484; 85025; 85027; 85652; 86140; 86331; 86606; 87502; 87811; 93005; 93458; 93799; 94640; 96360; 99152; 99153; 99285; 99406; C1769; C1894; Q9967

== ENCOUNTER → 2024-09-26 12:08 | Outpatient (REF) | payer OTHER, SELFPAY ==
[2024-09-26 15:57] LABS: % Basophils 0.9 % (0-2); % Eosinophils 3.6 % (0-6); % Immature Granulocytes 1.2 % (0-0.5); % Lymphocytes 18.2 % (20.5-51.1); % Monocytes 4.2 % (1.7-9.3); % Neutrophils 71.9 % (42.2-75.2); Absolute Basophils 0.1 10^3/uL (0-0.2); Absolute Eosinophils 0.6 10^3/uL (0-0.7); Absolute Immature Granulocytes 0.2 10^3/uL (0-0.05); Absolute Lymphocytes 2.9 10^3/uL (1.2-3.4); Absolute Monocytes 0.7 10^3/uL (0.1-0.6); Absolute Neutrophils 11.6 10^3/uL (1.4-6.5); Hematocrit 45.5 % (37.0-47.0); Hemoglobin 15.2 g/dL (12.0-16.0); Mean Corp Hgb Conc. 33.4 g/dL (33.0-37.0); Mean Corpuscular Hgb 28.8 pg (27.0-31.0); Mean Corpuscular Volume 86.3 fL (81.0-99.0); Mean Platelet Volume 9.7 fL (7.4-10.4); Nucleated Red Blood Cells % 0 %; Platelet Count 510 10^3/uL (130-400); Red Blood Cell Count 5.27 10^6/uL (4.20-5.40); Red Cell Dist. Width 13.9 % (11.5-14.5); White Blood Cell Count 16.2 10^3/uL (4.8-10.8)
[2024-09-26 16:16] LABS: ALT (SGPT) 24 U/L (0-35); AST (SGOT) 17 U/L (14-36); Albumin 4.4 g/dl (3.5-5.0); Alkaline Phosphatase 149 U/L (38-126); Blood Urea Nitrogen 10 mg/dl (7-17); Calcium 9.4 mg/dl (8.4-10.2); Carbon Dioxide 29 mmol/L (22-30); Chloride 100 mmol/L (98-107); Glucose 228 mg/dl (70-99); HDL Cholesterol 30 mg/dl; LDL Cholesterol, Calculated 55 mg/dl; Potassium 4.1 mmol/L (3.5-5.1); Sodium 141 mmol/L (135-145); Total Bilirubin 0.5 mg/dl (0.2-1.3); Total Cholesterol 139 mg/dl (50-199); Total Protein 6.8 g/dl (6.3-8.2); Triglyceride 270 mg/dl (10-149); Very Low Density Lipoprotein 54 mg/dl (0-30); eGFR > 60.00
[2024-09-26 16:31] LABS: Microalbumin, Random Urine 0.6 mg/dl (0.6-1.7); Microalbumin/creatinine Ratio 13.7 mg/g
[2024-09-26 16:36] LABS: TSH 2.45 uIU/ml (0.47-4.68)
[2024-09-27 08:27] LABS: Glycohemoglobin (HgbA1c) 8.3 % (4.0-5.6)
== END ==
LOC: HWLAB 12:08
PROVIDERS: ATTENDING PHYSICIAN Nurse Practitioner Family; FAMILY PHYSICIAN Family Medicine
DX: E11.65 Type 2 diabetes mellitus with hyperglycemia (principal); Z79.4 Long term (current) use of insulin; E11.40 Type 2 diabetes mellitus with diabetic neuropathy, unspecified; E04.1 Nontoxic single thyroid nodule; E11.9 Type 2 diabetes mellitus without complications; E03.9 Hypothyroidism, unspecified; I10 Essential (primary) hypertension; E78.5 Hyperlipidemia, unspecified; R53.83 Other fatigue; E13.9 Other specified diabetes mellitus without complications
CPT/HCPCS: 36415; 80053; 80061; 82043; 82570; 83036; 84443; 85025

== ENCOUNTER → 2025-01-28 12:22 | Outpatient (REF) | payer OTHER, SELFPAY ==
[2025-01-28 16:19] LABS: ALT (SGPT) 30 U/L (0-35); AST (SGOT) 18 U/L (14-36); Albumin 4.0 g/dl (3.5-5.0); Alkaline Phosphatase 130 U/L (38-126); Blood Urea Nitrogen 11 mg/dl (7-17); Calcium 9.3 mg/dl (8.4-10.2); Carbon Dioxide 29 mmol/L (22-30); Chloride 100 mmol/L (98-107); Glucose 251 mg/dl (70-99); HDL Cholesterol 29 mg/dl; LDL Cholesterol, Calculated 54 mg/dl; Potassium 4.1 mmol/L (3.5-5.1); Sodium 137 mmol/L (135-145); Total Protein 6.5 g/dl (6.3-8.2); Very Low Density Lipoprotein 35 mg/dl (0-30); eGFR > 60.00
[2025-01-28 16:21] LABS: Hematocrit 42.4 % (37.0-47.0); Hemoglobin 13.9 g/dL (12.0-16.0); Mean Corp Hgb Conc. 32.8 g/dL (33.0-37.0); Mean Corpuscular Volume 86.5 fL (81.0-99.0); Nucleated Red Blood Cells % 0 %; Platelet Count 457 10^3/uL (130-400); Red Cell Dist. Width 14.3 % (11.5-14.5)
[2025-01-28 16:30] LABS: Microalb - Urine Creatinine 22.000 mg/dl
[2025-01-28 16:40] LABS: Microalbumin, Random Urine < 0.6 mg/dl (0.6-1.7)
[2025-01-29 06:24] LABS: Glycohemoglobin (HgbA1c) 9.9 % (4.0-5.6)
== END ==
LOC: HWLAB 12:22
PROVIDERS: ATTENDING PHYSICIAN Nurse Practitioner Family; FAMILY PHYSICIAN Family Medicine; REFERRING PHYSICIAN Internal Medicine Cardiovascular Disease
DX: I25.10 Atherosclerotic heart disease of native coronary artery without angina pectoris (principal); Z95.5 Presence of coronary angioplasty implant and graft; T82.855A Stenosis of coronary artery stent, initial encounter; Z68.43 Body mass index [BMI] 50.0-59.9, adult; E66.813 Obesity, class 3; Z72.0 Tobacco use; E11.9 Type 2 diabetes mellitus without complications; Z79.4 Long term (current) use of insulin; E11.65 Type 2 diabetes mellitus with hyperglycemia; E11.40 Type 2 diabetes mellitus with diabetic neuropathy, unspecified; E04.1 Nontoxic single thyroid nodule; R53.83 Other fatigue
CPT/HCPCS: 36415; 80053; 80061; 82043; 82570; 83036; 84443; 85025

== ENCOUNTER → 2025-02-05 14:49 | Outpatient (REF) | payer OTHER, SELFPAY | LOC: HWRAD 14:49 | PROVIDERS: ATTENDING PHYSICIAN Nurse Practitioner Family; FAMILY PHYSICIAN Family Medicine | DX: E04.1 Nontoxic single thyroid nodule (principal) | CPT/HCPCS: 76536 ==